=== PATIENT | female | born 1990 | race Caucasian/White ===

== ENCOUNTER 2016-06-24 12:56 | Outpatient (CLI) | payer MEDICAID ==
[~2016-06-24] VITALS: Ht 160 cm; Wt 71.2 kg
[~2016-06-24 12:56] MED LIST: AC325T PO; ACHD5005 PO; ACHYD1T PO; AGM875T PO; AMOX500C2 PO; BC PILLS; BUTA-234 PO; CEFD300C3 PO; CEPH500C PO; CIPR500T78 PO; CLIN-62; CPR500T PO; CYCL10TA9 PO; DCS100C PO; DICY10CA59 PO; DICY20TA57 PO; DICYCLOMINE HCL PO; DOCU100C37 PO; DOXY1TAB3 PO; FAMO-119 PO; FAMO20TA5 PO; FRS325T PO; Famotidine PO; GABA-486; HYDR-3714; HYDR-757 PO; HYDR1TAB PO; HYDR1TAB8 OP; HYDR50CA3 PO; IBP800T PO; IBUP-1780 PO; IBUP800T26 PO; LANS15CA PO; LIDO15SO2 MM; LNS30CCR PO; LORA-794 PO; METO10TA3 PO; METR500T PO; NAPR-243 PO; NITR-65 PO; NITR100C3 PO; ONDA-42 SL; ONDA4TAB10; ONDA8TAB13 PO; ONDA8TAB9 PO; ONDAN4ODT PO; ONDN4T PO; OSLT75CRX PO; OXYC-465 PO; PANT20TA2 PO; PNT40TEC PO; POLY119P5 PO; PRED20TA PO; PREN-102 PO; PREN1TAB71 PO; PREN1TAB79 PO; PROP10TA8 PO; TRAM50TA2 PO
[2016-06-24] MEDS ORDERED: PANT40TA2 PO (13:07)
[2016-06-24] MEDS ORDERED: OXYC-202 PO (13:07)
[2016-06-24] MEDS ORDERED: FAMO40TA6 PO (13:07)
[2016-06-24 13:33] VITALS: BP 137/87
[2016-06-24 13:45] LABS: BASOPHILS % (AUTO) 0 % (0-10); EOSINOPHILS % (AUTO) 1 % (0-10); LYMPHOCYTES % (AUTO) 24 % (12-44); MEAN CORPUSCULAR HEMOGLOBIN 25 PG (25-34); MEAN CORPUSCULAR HGB CONC 31 G/DL (32-36); MEAN CORPUSCULAR VOLUME 78 FL (80-99); MONOCYTES # (AUTO) 0.6 X 10^3 (0.0-1.0); MONOCYTES % (AUTO) 7 % (0-12); NEUTROPHILS # (AUTO) 5.8 X 10^3 (1.8-7.8); NEUTROPHILS % (AUTO) 69 % (42-75); PLATELET COUNT 381 10^3/uL (130-400); RED BLOOD COUNT 4.68 10^6/uL (4.35-5.85); RED CELL DISTRIBUTION WIDTH 19.1 % (10.0-14.5); WHITE BLOOD COUNT 8.4 10^3/uL (4.3-11.0)
== END 2016-06-24 13:19 | disposition home or self-care (01) ==
LOC: PREOP 12:56
PROVIDERS: ATTEND Obstetrics & Gynecology
DX: Z01.812 Encounter for preprocedural laboratory examination (principal); N80.0 Endometriosis of uterus; D64.9 Anemia, unspecified; Z11.2 Encounter for screening for other bacterial diseases
CPT/HCPCS: 36415; 85025; 87081

== ENCOUNTER 2016-06-29 10:57 | Day surgery (SDC) | payer MEDICAID ==
[~2016-06-29] VITALS: Ht 160 cm; Wt 71.2 kg
[~2016-06-29 10:57] MED LIST changes: +FAMO40TA6 PO; +OXYC-202 PO; +PANT40TA2 PO
[2016-06-29] MEDS ORDERED: NS (IVPB) 50 ML ONE (10:59)
[2016-06-29] MEDS ORDERED: ceFAZolin 1,000 MG (ANCEF) VIAL ONE (10:59)
[2016-06-29] MEDS ORDERED: ceFAZolin 1 GM/NS 50 ML IVPB IV ONE ×2 (11:15)
[2016-06-29] MEDS ORDERED: FAMOTIDINE 20MG/2ML IV (PEPCID) IV ONE (11:15)
[2016-06-29] MEDS ORDERED: CATHETER FLUSH 10 ML SYR IV PRN (11:15)
[2016-06-29] MEDS: LACTATED RINGERS 1,000 ML IV PRN ×2 (11:22→13:18)
[2016-06-29 11:26] VITALS: BP 148/86
[2016-06-29] MEDS ORDERED: LIDOCAINE PF 2% 10 ML (XYLOCAINE) AMP ONE (11:40)
[2016-06-29] MEDS ORDERED: ONDANSETRON 4 MG/2 ML (SDV) Z0FRAN ONE ×2 (11:40→13:21)
[2016-06-29] MEDS ORDERED: proPOfol 200 MG/20 ML (DIPRIVAN) VIAL IV ONE (11:40)
[2016-06-29] MEDS ORDERED: fentaNYL INJECTION 100 MCG/2 ML AMP ONE (11:40)
[2016-06-29] MEDS ORDERED: DEXAMETHASONE PF 10 MG/ML (DECADRON) VIAL ONE (11:40)
[2016-06-29] MEDS ORDERED: SEVOFLURANE (ULTANE) 15 ML INHAL SOLN ONE (11:40)
[2016-06-29] MEDS ORDERED: ROCURONIUM 50 MG/5 ML (ZEMURON) VIAL IV ONE (11:40)
[2016-06-29] MEDS ORDERED: LACTATED RINGERS 1,000 ML IV ONE ×2 (11:40→13:18)
[2016-06-29] MEDS ORDERED: MIDAZOLAM 2 MG/2 ML (VERSED) VIAL ONE (11:40)
[2016-06-29] MEDS ORDERED: BUP/EPI 0.25% 1:200,000 (MARCAINE) 30 ML VIAL ONE (12:03)
[2016-06-29] MEDS ORDERED: METHYLENE BLUE 1% INJ 1 ML AMP ONE (12:09)
[2016-06-29] MEDS ORDERED: D5 LR IV SOLUTION 1,000 ML IV SCH (12:27)
--- NOTE | 2016-06-29 12:29 | Progress Note-Pre Operative ---
Pre-Operative Progress Note H&P Reviewed The H&P was reviewed, patient examined and no changes noted. Date H&P Reviewed: Jun 29, 2016 Time H&P Reviewed: 12:29 Pre-Operative Diagnosis: RIGHT PELVIC PAIN AND RIGHT ADNEXAL COMPLEX CYSTIC MASS ANNA GONZALEZ MD Jun 29, 2016 12:29 pm
[2016-06-29] MEDS ORDERED: ONDANSETRON 4 MG/2 ML (SDV) Z0FRAN IVP PRN ×2 (12:30→13:30)
[2016-06-29] MEDS ORDERED: PROMETHAZINE INJ 25 MG/ML (PHENERGAN) AMP IM ONE (12:30)
[2016-06-29] MEDS ORDERED: MEPERIDINE (DEMEROL) INJ 100 MG/ML IM ONE (12:30)
[2016-06-29] MEDS ORDERED: OXYC-202 PO (12:30)
[2016-06-29] MEDS ORDERED: KETOROLAC 30 MG/ML VIAL IVP ONE (12:30)
[2016-06-29] MEDS ORDERED: oxyCODONE/APAP 10/325MG (PERCOCET 10) TABLET PO PRN (12:30)
--- NOTE | 2016-06-29 12:32 | Discharge Instructions ---
Discharge Instructions Discharge Medications New, Converted or Re-Newed RX: RX on Chart Patient Instructions Patient Instructions: DIRECTED Return to The Hospital For: DIRECTED Activity & Diet Discharge Diet: No Restrictions Activity as Tolerated: Yes Orders-Post D/C & Referrals Follow Up Appt: Call to make follow up appt. for patient in 1 weeks. Activity: Rest for 24 hours, than as tolerated. Wound Care: May remove Band-Aid tomorrow. Replace as desired. Keep incisions clean and dry. Wash daily with soap and water. Diet: As tolerated-Clear Liquids only if nauseated. may shower or tub bathe as desired. No driving for 24 hours, no alcoholic beverages for 24 hours. Patient to return to the clinic as soon as possible for: Temperature greater than 101F, Severe Pain, Foul discharge from incision or vagina, Excessive Bleeding (more than a period). ANNA GONZALEZ MD Jun 29, 2016 12:31 pm
[2016-06-29] MEDS ORDERED: NEOSTIGMINE (BLOXIVERZ ) 1 MG/1ML 10 ML VIAL ONE (13:18)
[2016-06-29] MEDS ORDERED: GLYCOPYRROLATE 0.2 MG/ML (ROBINUL) 2 ML VIAL ONE (13:18)
[2016-06-29] MEDS ORDERED: ESTROGENS CONJ IV 25 MG/5 ML (PREMARIN) VIAL ONE (13:21)
[2016-06-29] MEDS ORDERED: WATER (STERILE) FOR INJECTION 0 ML ONE (13:21)
[2016-06-29] MEDS ORDERED: morphine INJ 10 MG/ML 1ML (SYR OR VIAL) ONE (13:21)
[2016-06-29] MEDS ORDERED: morphine INJ 10 MG/ML 1ML (SYR OR VIAL) IVP PRN (13:30)
[2016-06-29] MEDS ORDERED: HYDROmorphone (DILAUDID) 2 MG/ML VIAL IVP PRN (13:30)
[2016-06-29] MEDS ORDERED: KETOROLAC 30 MG/ML VIAL ONE (13:42)
[2016-06-29 14:45] VITALS: BP 117/74
[2016-06-29 15:15] VITALS: BP 111/65
[2016-06-29 15:45] VITALS: BP 111/65
--- NOTE | 2016-06-30 12:07 | OPERATIVE REPORT ---
PROCEDURE PHYSICIAN: ANNA GONZALEZ DATE OF PROCEDURE: 06/29/2016 DATE OF DICTATION: 06/29/2016 PREOPERATIVE DIAGNOSIS: Chronic pelvic pain and complex right adnexal mass. POSTOPERATIVE DIAGNOSIS: 1. Chronic pelvic pain and complex right adnexal mass. 2. Likely appendicitis and appendiceal adhesions. 3. Torsed right ovary. OPERATIVE PROCEDURE: 1. Laparoscopic right salpingectomy with removal of mass contained inside the ovary. 2. As well as laparoscopic appendectomy. 3. Laparoscopic appendiceal adhesiolysis. OPERATIVE DESCRIPTION: With the patient in the supine position, under satisfactory general anesthesia, she was repositioned in dorsal lithotomy position in the [facility] then prepped and draped in the usual fashion for abdominal and vaginal surgery. The urinary bladder was emptied via straight cath. The vagina was then distended with a damp Kerlix gauze. The patient brought in low dorsal lithotomy position. A 5 mm incision made in the left upper quadrant and 12 mm incision in the inferior margin of the umbilicus and a 5 mm incision in the midportion of the patient's Pfannenstiel incision. All 3 incision sites were infiltrated with quarter percent Marcaine with epinephrine prior to incision. Veress needle was placed through the left upper quadrant incision, correct placement confirmed with the water drop test. The abdomen insufflated 2.4 liters of carbon dioxide and the Veress needle was removed and a 5 mm Optiview laparoscopic port placed under direct vision. The abdominal wall was transilluminated patient was placed in Trendelenburg and ports of 12 mm and 5 mm were placed infraumbilically and suprapubically through those incisions. The pelvis was examined. The ovaries were relatively normal in appearance. The right ovary was torsed on its pedicle a little over 180 degrees. It was still pink and viable. The laparoscope was rotated. The appendix was seen. It was adherent to the pelvic brim and looked injected and indurated in several areas. Decision was made to go ahead with appendectomy, concurrent with oophorectomy. The right ovary as it was laying there torsed, an Endoloop was just placed across the twisted pedicle. A second Endoloop was placed; both of them were secured and then cut short and then the ovary was resected distal to the Endoloops. The right ovary was then placed in an Endobag and brought out through the umbilical incision. The appendix was now grasped and elevated. The adhesions were taken free with very careful and meticulous adhesiolysis. The mesoappendix and then perforated close to the base of the appendix. Endo COMPA was placed across the base of the appendix and fired and then a second firing of the Endo COMPA across the mesoappendix, severed it from its attachments. The appendix was then placed in the second Endobag and brought out through the umbilical port as well. The stump of the appendix was copiously irrigated and then treated with several drops of Betadine solution. The pelvis was irrigated and examined for hemostasis, which was complete. With no further pathology of concern and hemostasis assured, the procedure was terminated. The patient was brought out of Trendelenburg. The operative instruments were removed under direct vision. The ports were removed under direct vision as well. There was no bleeding from any of the port sites. The skin incisions were closed with interrupted sutures of 3-0 nylon. The fascia at the umbilical incision was closed with [id number] suture of 2-0 Vicryl. Sponge and needle counts were correct at the end of procedure. Estimated blood loss was minimal. The patient tolerated the procedure well and was uneventfully awakened from her general anesthesia and transferred to recovery room in stable condition. The Kerlix gauze was removed from the vagina at the completion of the procedure. Job ID: [id number] Dictated Date: 06/29/2016 13:16:38 Buck Presser Date: 06/30/2016 11:57:32 / christian
== END 2016-06-29 15:45 | disposition home or self-care (01) ==
LOC: SDC 10:57
PROVIDERS: ATTEND Obstetrics & Gynecology
DX: N83.511 Torsion of right ovary and ovarian pedicle (principal); K37 Unspecified appendicitis; K38.0 Hyperplasia of appendix; N83.201 Unspecified ovarian cyst, right side
CPT/HCPCS: 88302; 88305

== ENCOUNTER 2016-07-13 19:44 | Emergency (ER) | payer MEDICAID ==
[~2016-07-13] VITALS: Ht 160 cm; Wt 69.4 kg
--- NOTE | 2016-07-13 20:18 | ED Abdominal Pain ---
General Chief Complaint: Abdominal/GI Problems Stated Complaint: LOWER ABD PAIN Source of Information: Patient Exam Limitations: No Limitations History of Present Illness Time Seen By Provider: 20:17 Initial Comments To ER with suprapubic and periumbilical abdominal pain has been worse and more persistent for the past 3 days. She denies fevers or chills. She denies constipation but has had diarrhea. She denies nausea or vomiting. She did have a laparoscopic right of rectum E and appendectomy on the of this month done here by Dr. Irvin. Timing/Duration: 2-3 Days Severity/Quality: Moderate Location: Periumbilical Radiation: No Radiation Associated Symptoms: Denies Symptoms Allergies and Home Medications Allergies Coded Allergies: azithromycin (Unverified Allergy, Mild, 07/24/08) Home Medications Famotidine 40 Mg Tablet, 40 MG PO DAILY, (Reported) Oxycodone HCl/Acetaminophen 1 Each Tablet, 1 EACH PO Q4H PRN for PAIN, #60 Prescribed by: ANNA SPICER on 06/29/16 1230 Pantoprazole Sodium 40 Mg Tablet.dr, 40 MG PO DAILY, (Reported) Review of Systems Constitutional: see HPI, No chills, No fever EENTM: No Symptoms Reported Respiratory: No Symptoms Reported Cardiovascular: No Symptoms Reported Gastrointestinal: See HPI, Abdominal Pain Genitourinary: No Symptoms Reported Skin: no symptoms reported Psychiatric/Neurological: No Symptoms Reported Endocrine: No Symptoms Reported Hematologic/Lymphatic: No Symptoms Reported Past Pjqatiq-Vhqdsj-Vboubw Hx Patient Social History Type Used: Cigarettes Recent Foreign Travel: No Contact w/Someone Who Travel: No Recent Hopitalizations: No Immunizations Up To Date Tetanus Booster (TDap): Less than 5yrs PED Vaccines UTD: Yes Date of Pneumonia Vaccine: Mar 20, 2014 Date of Influenza Vaccine: May 26, 2015 Seasonal Allergies Seasonal Allergies: Yes Surgeries HX Surgeries: Yes (CS X2) Surgeries: Section, Hysterectomy Respiratory Hx Respiratory Disorders: No Cardiovascular Hx Cardiac Disorders: Yes Cardiac Disorders: Palpitations Neurological Hx Neurological Disorders: No 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 System Hx 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 Disorders: Yes (cpp) 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 Disease: No HIV/AIDS: No Female 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: 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 Genitourinary Hx Genitourinary Disorders: No Gastrointestinal Hx Gastrointestinal Disorders: Yes Gastrointestinal Disorders: Gastroesophageal Reflux, Gall Bladder Disease Musculoskeletal Hx Musculoskeletal Disorders: Yes Musculoskeletal Disorders: Scoliosis Endocrine Hx Endocrine Disorders: Yes (gestational diabetes) HEENT HX ENT Disorders: Yes (GLASSES/CONTACTS) Loss of Vision: Bilateral Hearing Impairment: Denies Cancer Hx Cancer: No Psychosocial Hx Psychiatric Problems: Yes (PANIC ATTACKS) Behavioral Health Disorders: Anxiety, PTSD Integumentary HX Skin/Integumentary Disorder: Yes (IN WINTER) Skin/Integumentary Disorders: Eczema Blood Transfusions Hx Blood Disorders: Yes (ANEMIA) Adverse Reaction to a Blood Tr: No Family Medical History Family Medial History: Cardiovascular disease 19 FATHER Coronary thrombosis 19 FATHER 19 MOTHER Headache disorder 19 MOTHER Hypercholesterolemia 19 FATHER 19 MOTHER Hypertension 19 FATHER Myocardial infarction 19 FATHER 19 MOTHER Psychosocial problem 19 MOTHER (bipolar) No Family History of: AIDS Abdominal aortic aneurysm Vandergrift's disease Alcoholism Alzheimer's disease Aphasia Arthritis Asthma Cancer of mouth Cataracts Colon cancer Completed stroke Congenital disease Congenital heart disease Cystic fibrosis Deafness or hearing loss Dementia Diabetes mellitus Drug abuse Dysphasia Fibrocystic disease of breast Gastroenteritis Glaucoma Infertility Kidney disease Neoplasm Not obtainable due to adoption Osteoporosis Parkinson's disease Prostate cancer Respiratory disorder Seizure disorder Severe allergy Thyroid disease Tuberculosis Visual disorder Physical Exam Vital Signs VS - Last 72 Hours, by Label 07/13/16 20:09 Temp 98.4 Pulse 100 Resp 18 B/P (MAP) 134/93 Pulse Ox 100 O2 Delivery Room Air Capillary Refill : General Appearance: WD/WN, no apparent distress HEENT: PERRL/EOMI, normal ENT inspection Neck: non-tender, full range of motion Respiratory: no respiratory distress, no accessory muscle use Gastrointestinal: normal bowel sounds, soft, other (small yellowish colored ecchymosis inferior to the umbilicus appearing old, tenderness to palpation suprapubic and right lower quadrant abdomen) Extremities: normal range of motion, non-tender Neurologic/Psychiatric: alert, normal mood/affect, oriented x 3 Skin: normal color, warm/dry Progress/Results/Core Measures Results/Orders Lab Results Laboratory Tests Test 07/13/16 20:20 07/13/16 20:45 Range/Units White Blood Count 11.5 H 4.3-11.0 10^3/uL Red Blood Count 4.48 4.35-5.85 10^6/uL Hemoglobin 11.5 11.5-16.0 G/DL Hematocrit 36 35-52 % Mean Corpuscular Volume 81 80-99 FL Mean Corpuscular Hemoglobin 26 25-34 PG Mean Corpuscular Hemoglobin Concent 32 32-36 G/DL Red Cell Distribution Width 19.0 H 10.0-14.5 % Platelet Count 350 130-400 10^3/uL Mean Platelet Volume 10.3 7.4-10.4 FL Neutrophils (%) (Auto) 60 42-75 % Lymphocytes (%) (Auto) 28 12-44 % Monocytes (%) (Auto) 9 0-12 % Eosinophils (%) (Auto) 3 0-10 % Basophils (%) (Auto) 0 0-10 % Neutrophils # (Auto) 6.9 1.8-7.8 X 10^3 Lymphocytes # (Auto) 3.2 1.0-4.0 X 10^3 Monocytes # (Auto) 1.0 0.0-1.0 X 10^3 Eosinophils # (Auto) 0.3 0.0-0.3 10^3/uL Basophils # (Auto) 0.0 0.0-0.1 10^3/uL Sodium Level 139 135-145 MMOL/L Potassium Level 3.7 3.6-5.0 MMOL/L Chloride Level 104 98-107 MMOL/L Carbon Dioxide Level 24 21-32 MMOL/L Anion Gap 11 5-14 MMOL/L Blood Urea Nitrogen 7 7-18 MG/DL Creatinine 0.80 0.60-1.30 MG/DL Estimat Glomerular Filtration Rate > 60 BUN/Creatinine Ratio 9 Glucose Level 91 70-105 MG/DL Calcium Level 9.2 8.5-10.1 MG/DL Total Bilirubin 0.3 0.1-1.0 MG/DL Aspartate Amino Transf (AST/SGOT) 13 5-34 U/L Alanine Aminotransferase (ALT/SGPT) 16 0-55 U/L Alkaline Phosphatase 89 40-136 U/L Total Protein 7.7 6.4-8.2 G/DL Albumin 4.3 3.2-4.5 G/DL Urine Color YELLOW Urine Clarity SLIGHTLY CLOUDY Urine pH 6.5 5-9 Urine Specific [place] 1.010 L 1.016-1.022 Urine Protein NEGATIVE NEGATIVE Urine Glucose (UA) NEGATIVE NEGATIVE Urine Ketones NEGATIVE NEGATIVE Urine Nitrite NEGATIVE NEGATIVE Urine Bilirubin NEGATIVE NEGATIVE Urine Urobilinogen NORMAL NORMAL MG/DL Urine Leukocyte Esterase NEGATIVE NEGATIVE Urine RBC (Auto) NEGATIVE NEGATIVE Urine RBC NONE /HPF Urine WBC NONE /HPF Urine Squamous Epithelial Cells 0-2 /HPF Urine Crystals NONE /LPF Urine Bacteria NONE /HPF Urine Casts NONE /LPF Urine Mucus NEGATIVE /LPF Urine Culture Indicated NO My Orders Orders - LONG SANCHEZ APRN Cbc With Automated Diff (07/13/16 20:15) Comprehensive Metabolic Panel (07/13/16 20:15) Saline Lock/Iv-Start (07/13/16 20:15) Ct Abdomen/Pelvis W (07/13/16 20:15) Fentanyl Injection (Sublimaze Injection (07/13/16 20:30) Iohexol Injection (Omnipaque 350 Mg/Ml 1 (07/13/16 20:30) Ns (Ivpb) (Sodium Chloride 0.9% Ivpb Bag (07/13/16 20:30) Ondansetron Injection (Zofran Injectio (07/13/16 20:30) Ketorolac Injection (Toradol Injection) (07/13/16 21:30) Medications Given in ED Current Medications Medications Dose Ordered Sig/Vikki Route Start Time Stop Time Status Last Admin Dose Admin Fentanyl Citrate 50 mcg ONCE ONCE IVP 07/13/16 20:30 07/13/16 20:31 DC 07/13/16 20:44 50 MCG Iohexol 100 ml ONCE ONCE IV 07/13/16 20:30 07/13/16 20:31 DC 07/13/16 20:36 100 ML Ondansetron HCl 4 mg ONCE ONCE IVP 07/13/16 20:30 07/13/16 20:31 DC 07/13/16 20:44 4 MG Sodium Chloride 100 ml ONCE ONCE IV 07/13/16 20:30 07/13/16 20:31 DC 07/13/16 20:36 80 ML Vital Signs/I&O Vital Sign - Last 12Hours 07/13/16 20:09 Temp 98.4 Pulse 100 Resp 18 B/P (MAP) 134/93 Pulse Ox 100 O2 Delivery Room Air Diagnostic Imaging Diagonstic Imaging: CT Comments MED REC#: [id number] PT STATUS: REG ER : 1990 PHYSICIAN: LONG SANCHEZ APRN ADMIT DATE: 07/13/16/ER Draft Date of Exam:07/13/16 CT ABDOMEN/PELVIS W PROCEDURE: CT abdomen and pelvis with contrast. TECHNIQUE: Multiple contiguous axial images were obtained through the abdomen and pelvis after administration of intravenous contrast. DATE: July 13, 2016. COMPARISON: CT abdomen and pelvis November 30, 2015. INDICATION: 26-year-old female, increasing abdominal pain. History of recent surgery on June 29 with removal of the appendix and right ovary. FINDINGS: The visualized portions of the lung bases are clear. The heart is not enlarged. There is no pericardial effusion. The liver is normal in size and contour. There is no identified liver lesion. The main, right, and left portal vein are patent. There is very mild focal fat adjacent to the ligamentum teres. The gallbladder is contracted. There is no intrahepatic or extrahepatic bile duct dilation. The main pancreatic duct is not abnormally dilated. The pancreatic parenchyma is unremarkable. The spleen is not enlarged. The adrenal glands are unremarkable. Unremarkable appearance of the renal parenchyma. The urinary collecting systems are not distended. There is no identified renal or ureteral stone. The urinary bladder is unremarkable in appearance. The uterus is not seen and may be surgically absent. There is a low-attenuation lesion in the left ovary on axial image 63 likely relating to a follicle or cyst measuring up to 1.4 cm in size. There is a small-volume free pelvic fluid. There are sutures in the right lower quadrant compatible with provided history of appendectomy. There is mild inflammatory stranding between the small bowel loops in the left abdomen on axial image 36 as well as nonspecific wall thickening of the mid to distal sigmoid colon and additional small bowel loops within the pelvis. There is mild distention of the stomach with debris. There is no identified free intraperitoneal air or drainable fluid collection. There is no abnormally enlarged lymph node in the abdomen or pelvis which meets size criteria for adenopathy. There is no identified acute bony abnormality. IMPRESSION: CT ABDOMEN AND PELVIS. 1. Mild wall thickening of the mid to distal sigmoid colon, small bowel loops within the pelvis, and small bowel loops in the left abdomen with mild adjacent inflammatory stranding which may relate to an infectious or inflammatory colitis and enteritis. 2. No drainable fluid collection. No free intraperitoneal air. 3. Small amount of free pelvic fluid which potentially could be a physiologic finding. Dictated on workstation # [id number] Dict: 07/13/162046 Trans: 07/13/162056 [facility] [id number] Interpreted by: NABIL PACE MD Electronically signed by: Departure Communication Progress Notes K tracks shows that this month alone patient has had a prescription for 150 oxycodone 10/325 tablets and 60 hydrocodone 5/325 tablets. Impression Impression: Primary Impression: Enteritis Additional Impression: Chronic abdominal pain Disposition: HOME, SELF-CARE Condition: Stable Departure-Patient Inst. Decision time for Depature: 21:00 Referrals: [facility] (PCP/Family) Primary Care Physician Patient Instructions: Diarrhea in Adolescents and Adults Add. Discharge Instructions: 1. Follow-up with your regular doctor later this week for recheck 2. Drink plenty of fluids 3. Return to ER for any worsening such as fevers, worsening pain or other concerns All discharge instructions reviewed with patient and/or family. Voiced understanding. LONG SANCHEZ INFORMATION TECHNOLOGY OFFICER Jul 13, 2016 20:18
[2016-07-13 20:27] LABS: BASOPHILS % (AUTO) 0 % (0-10); EOSINOPHILS # (AUTO) 0.3 10^3/uL (0.0-0.3); EOSINOPHILS % (AUTO) 3 % (0-10); LYMPHOCYTES # (AUTO) 3.2 X 10^3 (1.0-4.0); LYMPHOCYTES % (AUTO) 28 % (12-44); MEAN CORPUSCULAR HEMOGLOBIN 26 PG (25-34); MEAN CORPUSCULAR HGB CONC 32 G/DL (32-36); MEAN CORPUSCULAR VOLUME 81 FL (80-99); MEAN PLATELET VOLUME 10.3 FL (7.4-10.4); MONOCYTES % (AUTO) 9 % (0-12); NEUTROPHILS # (AUTO) 6.9 X 10^3 (1.8-7.8); NEUTROPHILS % (AUTO) 60 % (42-75); PLATELET COUNT 350 10^3/uL (130-400); RED BLOOD COUNT 4.48 10^6/uL (4.35-5.85); WHITE BLOOD COUNT 11.5 10^3/uL (4.3-11.0)
[2016-07-13] MEDS ORDERED: NS 100 ML (IVPB) BAG IV ONE (20:30)
[2016-07-13] MEDS ORDERED: fentaNYL INJECTION 100 MCG/2 ML AMP IVP ONE (20:30)
[2016-07-13] MEDS ORDERED: IOHEXOL 350 MG/ML 100 ML (OMNIPAQUE 350) VIAL IV ONE (20:30)
[2016-07-13] MEDS ORDERED: ONDANSETRON 4 MG/2 ML (SDV) Z0FRAN IVP ONE (20:30)
[2016-07-13 20:46] LABS: ALANINE AMINOTRANSFERASE 16 U/L (0-55); ALBUMIN 4.3 G/DL (3.2-4.5); ANION GAP 11 MMOL/L (5-14); ASPARTATE AMINO TRANSFERASE 13 U/L (5-34); BILIRUBIN,TOTAL 0.3 MG/DL (0.1-1.0); BLOOD UREA NITROGEN 7 MG/DL (7-18); BUN/CREATININE RATIO 9; CALCIUM 9.2 MG/DL (8.5-10.1); CARBON DIOXIDE 24 MMOL/L (21-32); CHLORIDE 104 MMOL/L (98-107); GFR ESTIMATED > 60; GLUCOSE 91 MG/DL (70-105); POTASSIUM 3.7 MMOL/L (3.6-5.0); SODIUM 139 MMOL/L (135-145); TOTAL PROTEIN 7.7 G/DL (6.4-8.2)
--- NOTE | 2016-07-13 20:57 | Diagnostic Imaging Report ---
PROCEDURE: CT abdomen and pelvis with contrast. TECHNIQUE: Multiple contiguous axial images were obtained through the abdomen and pelvis after administration of intravenous contrast. DATE: July 13, 2016. COMPARISON: CT abdomen and pelvis November 30, 2015. INDICATION: 26-year-old female, increasing abdominal pain. History of recent surgery on June 29 with removal of the appendix and right ovary. FINDINGS: The visualized portions of the lung bases are clear. The heart is not enlarged. There is no pericardial effusion. The liver is normal in size and contour. There is no identified liver lesion. The main, right, and left portal vein are patent. There is very mild focal fat adjacent to the ligamentum teres. The gallbladder is contracted. There is no intrahepatic or extrahepatic bile duct dilation. The main pancreatic duct is not abnormally dilated. The pancreatic parenchyma is unremarkable. The spleen is not enlarged. The adrenal glands are unremarkable. Unremarkable appearance of the renal parenchyma. The urinary collecting systems are not distended. There is no identified renal or ureteral stone. The urinary bladder is unremarkable in appearance. The uterus is not seen and may be surgically absent. There is a low-attenuation lesion in the left ovary on axial image 63 likely relating to a follicle or cyst measuring up to 1.4 cm in size. There is a small-volume free pelvic fluid. There are sutures in the right lower quadrant compatible with provided history of appendectomy. There is mild inflammatory stranding between the small bowel loops in the left abdomen on axial image 36 as well as nonspecific wall thickening of the mid to distal sigmoid colon and additional small bowel loops within the pelvis. There is mild distention of the stomach with debris. There is no identified free intraperitoneal air or drainable fluid collection. There is no abnormally enlarged lymph node in the abdomen or pelvis which meets size criteria for adenopathy. There is no identified acute bony abnormality. IMPRESSION: CT ABDOMEN AND PELVIS. 1. Mild wall thickening of the mid to distal sigmoid colon, small bowel loops within the pelvis, and small bowel loops in the left abdomen with mild adjacent inflammatory stranding which may relate to an infectious or inflammatory colitis and enteritis. 2. No drainable fluid collection. No free intraperitoneal air. 3. Small amount of free pelvic fluid which potentially could be a physiologic finding. Dictated by: Dictated on workstation # [id number]
[2016-07-13 21:06] LABS: BILIRUBIN,URINE NEGATIVE (NEGATIVE); KETONES,URINE NEGATIVE (NEGATIVE); LEUKOCYTE ESTERASE ,URINE NEGATIVE (NEGATIVE); NITRITE,URINE NEGATIVE (NEGATIVE); PH,URINE 6.5 (5-9); PROTEIN,URINE NEGATIVE (NEGATIVE); SQUAMOUS EPITHELIAL CELL,UR 0-2 /HPF; UROBILINOGEN,URINE NORMAL (NORMAL)
[2016-07-13 21:28] VITALS: BP 128/73
[2016-07-13] MEDS ORDERED: KETOROLAC 30 MG/ML VIAL IVP ONE (21:30)
== END 2016-07-13 21:28 | disposition home or self-care (01) ==
LOC: EDUNIT# 19:44 → ER 19:45
DX: K52.9 Noninfective gastroenteritis and colitis, unspecified (principal)
CPT/HCPCS: 36415; 74177; 80053; 81000; 85025; 96374; 96375

== ENCOUNTER 2016-10-02 09:48 | Inpatient (IN) | payer MEDICAID ==
[~2016-10-02] VITALS: Ht 160 cm; Wt 74.0 kg
[2016-10-02] MEDS ORDERED: ACETAMINOPHEN 500 MG TAB (TYLENOL) PO STA (10:11)
[2016-10-02] MEDS ORDERED: ONDANSETRON 4 MG/2 ML (SDV) Z0FRAN ONE (10:22)
[2016-10-02 10:26] LABS: BASOPHILS % (AUTO) 0 % (0-10); EOSINOPHILS % (AUTO) 0 % (0-10); LYMPHOCYTES % (AUTO) 6 % (12-44); MEAN CORPUSCULAR HEMOGLOBIN 28 PG (25-34); MEAN CORPUSCULAR HGB CONC 33 G/DL (32-36); MEAN CORPUSCULAR VOLUME 84 FL (80-99); MEAN PLATELET VOLUME 11.2 FL (7.4-10.4); MONOCYTES # (AUTO) 1.5 X 10^3 (0.0-1.0); MONOCYTES % (AUTO) 8 % (0-12); NEUTROPHILS # (AUTO) 15.3 X 10^3 (1.8-7.8); NEUTROPHILS % (AUTO) 86 % (42-75); PLATELET COUNT 280 10^3/uL (130-400); RED BLOOD COUNT 4.52 10^6/uL (4.35-5.85); RED CELL DISTRIBUTION WIDTH 16.4 % (10.0-14.5); WHITE BLOOD COUNT 17.8 10^3/uL (4.3-11.0)
[2016-10-02] MEDS: NS IV 1000 ML 1,000 ML IV SCH ×2 (10:28→17:39)
[2016-10-02 10:40] LABS: ALANINE AMINOTRANSFERASE 21 U/L (0-55); ALBUMIN 4.1 GM/DL (3.2-4.5); ANION GAP 12 MMOL/L (5-14); ASPARTATE AMINO TRANSFERASE 29 U/L (5-34); BILIRUBIN,TOTAL 0.8 MG/DL (0.1-1.0); BLOOD UREA NITROGEN 7 MG/DL (7-18); BUN/CREATININE RATIO 8; CALCIUM 9.7 MG/DL (8.5-10.1); CARBON DIOXIDE 23 MMOL/L (21-32); CHLORIDE 98 MMOL/L (98-107); CREATININE SERUM 0.93 MG/DL (0.60-1.30); GFR ESTIMATED > 60; GLUCOSE 144 MG/DL (70-105); POTASSIUM 3.9 MMOL/L (3.6-5.0); SODIUM 133 MMOL/L (135-145)
--- NOTE | 2016-10-02 10:43 | ED Back Pain ---
General Chief Complaint: Back Problems Stated Complaint: KIDNEY PAIN/VOMITING Nursing Triage Note: PT C/O R FLANK PAIN, N/V, AND FEVER X 2 DAYS. SHE ALSO C/O PAIN WITH URINATION. Nursing Sepsis Screen: Possible Sepsis Risk Source of Information: Patient Exam Limitations: No Limitations History of Present Illness Time Seen by Provider: 10:38 Initial Comments This 26-year-old white female presents with a complaint of right flank pain and fever for the past 2 days patient has had associated dysuria. Patient has had nausea. Patient has had similar presentations in the past from significant urinary tract infections. Patient denies associated photophobia headache or stiff neck, productive cough or shortness of breath, palpitations or chest pain. Allergies and Home Medications Allergies Coded Allergies: azithromycin (Unverified Allergy, Mild, 07/24/08) Home Medications Famotidine 40 Mg Tablet, 40 MG PO DAILY, (Reported) Oxycodone HCl/Acetaminophen 1 Each Tablet, 1 EACH PO Q4H PRN for PAIN, #60 Prescribed by: ANNA SPICER on 06/29/16 1230 Pantoprazole Sodium 40 Mg Tablet.dr, 40 MG PO DAILY, (Reported) Constitutional: chills, fever EENTM: No blurred vision Respiratory: No cough, No short of breath Cardiovascular: No chest pain Gastrointestinal: nausea Genitourinary: dysuria, frequency, pain (right flank) Musculoskeletal: see HPI, back pain (right flank) Skin: No rash Psychiatric/Neurological: No Symptoms Reported Past Pqdabmo-Iqclgc-Mazpac Hx Patient Social History Alcohol Use: Denies Use Recreational Drug Use: No Smoking Status: Former Smoker Type Used: Cigarettes 2nd Hand Smoke Exposure: No Recent Foreign Travel: No Contact w/Someone Who Travel: No Recent Infectious Disease Expo: No Recent Hopitalizations: No Immunizations Up To Date Tetanus Booster (TDap): Less than 5yrs PED Vaccines UTD: Yes Date of Pneumonia Vaccine: Mar 20, 2014 Date of Influenza Vaccine: May 26, 2015 Seasonal Allergies Seasonal Allergies: Yes Surgeries HX Surgeries: Yes Surgeries: Appendectomy, Section, Hysterectomy, Oophorectomy Respiratory Hx Respiratory Disorders: No Cardiovascular Hx Cardiac Disorders: Yes Cardiac Disorders: Palpitations Neurological Hx Neurological Disorders: No 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 System Hx 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 Disorders: Yes 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 Disease: No HIV/AIDS: No Female 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 Disorders: 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, 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 Genitourinary Hx Genitourinary Disorders: No Gastrointestinal Hx Gastrointestinal Disorders: No Gastrointestinal Disorders: Gastroesophageal Reflux, Gall Bladder Disease Musculoskeletal Hx Musculoskeletal Disorders: Yes Musculoskeletal Disorders: Scoliosis Endocrine Hx Endocrine Disorders: Yes (gestational diabetes) HEENT HX ENT Disorders: Yes (GLASSES/CONTACTS) Loss of Vision: Bilateral Hearing Impairment: Denies Cancer Hx Cancer: No Psychosocial Hx Psychiatric Problems: Yes (PANIC ATTACKS) Behavioral Health Disorders: Anxiety, PTSD Integumentary HX Skin/Integumentary Disorder: Yes (IN WINTER) Skin/Integumentary Disorders: Eczema Blood Transfusions Hx Blood Disorders: Yes (ANEMIA) Adverse Reaction to a Blood Tr: No Reviewed Nursing Assessment Reviewed/Agree w Nursing PMH: Yes Family Medical History Family Medial History: Cardiovascular disease 19 FATHER Coronary thrombosis 19 FATHER 19 MOTHER Headache disorder 19 MOTHER Hypercholesterolemia 19 FATHER 19 MOTHER Hypertension 19 FATHER Myocardial infarction 19 FATHER 19 MOTHER Psychosocial problem 19 MOTHER (bipolar) No Family History of: AIDS Abdominal aortic aneurysm Stearns's disease Alcoholism Alzheimer's disease Aphasia Arthritis Asthma Cancer of mouth Cataracts Colon cancer Completed stroke Congenital disease Congenital heart disease Cystic fibrosis Deafness or hearing loss Dementia Diabetes mellitus Drug abuse Dysphasia Fibrocystic disease of breast Gastroenteritis Glaucoma Infertility Kidney disease Neoplasm Not obtainable due to adoption Osteoporosis Parkinson's disease Prostate cancer Respiratory disorder Seizure disorder Severe allergy Thyroid disease Tuberculosis Visual disorder Physical Exam Vital Signs Vital Sign - Last 12Hours 10/02/16 10:05 Temp 101.6 Pulse 135 Resp 16 B/P (MAP) 135/93 Pulse Ox 97 O2 Delivery Room Air Capillary Refill : Less Than 3 Seconds General Appearance: No Apparent Distress, Moderate Distress HEENT: Normal ENT Inspection Neck: Normal Inspection Cardiovascular: No No Murmur, Tachycardia Respiratory: Lungs Clear Gastrointestinal: Normal Bowel Sounds, Soft Back: CVA Tenderness (R) Extremity: Normal Capillary Refill, Normal Inspection, Normal Range of Motion Neurologic/Psychiatric: Oriented x3, No Motor/Sensory Deficits, Normal Mood/ Affect Skin: Normal Color, Warm/Dry Progress/Results/Core Measures Results/Orders Lab Results Laboratory Tests Test 10/02/16 10:10 10/02/16 11:35 Range/Units White Blood Count 17.8 H 4.3-11.0 10^3/uL Red Blood Count 4.52 4.35-5.85 10^6/uL Hemoglobin 12.5 11.5-16.0 G/DL Hematocrit 38 35-52 % Mean Corpuscular Volume 84 80-99 FL Mean Corpuscular Hemoglobin 28 25-34 PG Mean Corpuscular Hemoglobin Concent 33 32-36 G/DL Red Cell Distribution Width 16.4 H 10.0-14.5 % Platelet Count 280 130-400 10^3/uL Mean Platelet Volume 11.2 H 7.4-10.4 FL Neutrophils (%) (Auto) 86 H 42-75 % Lymphocytes (%) (Auto) 6 L 12-44 % Monocytes (%) (Auto) 8 0-12 % Eosinophils (%) (Auto) 0 0-10 % Basophils (%) (Auto) 0 0-10 % Neutrophils # (Auto) 15.3 H 1.8-7.8 X 10^3 Lymphocytes # (Auto) 1.0 1.0-4.0 X 10^3 Monocytes # (Auto) 1.5 H 0.0-1.0 X 10^3 Eosinophils # (Auto) 0.0 0.0-0.3 10^3/uL Basophils # (Auto) 0.0 0.0-0.1 10^3/uL Neutrophils % (Manual) 86 % Lymphocytes % (Manual) 5 % Monocytes % (Manual) 9 % Eosinophils % (Manual) 0 % Basophils % (Manual) 0 % Band Neutrophils 0 % Blood Morphology Comment NORMAL Sodium Level 133 L 135-145 MMOL/L Potassium Level 3.9 3.6-5.0 MMOL/L Chloride Level 98 98-107 MMOL/L Carbon Dioxide Level 23 21-32 MMOL/L Anion Gap 12 5-14 MMOL/L Blood Urea Nitrogen 7 7-18 MG/DL Creatinine 0.93 0.60-1.30 MG/DL Estimat Glomerular Filtration Rate > 60 BUN/Creatinine Ratio 8 Glucose Level 144 H 70-105 MG/DL Lactic Acid Level 1.15 0.50-2.00 MMOL/L Calcium Level 9.7 8.5-10.1 MG/DL Total Bilirubin 0.8 0.1-1.0 MG/DL Aspartate Amino Transf (AST/SGOT) 29 5-34 U/L Alanine Aminotransferase (ALT/SGPT) 21 0-55 U/L Alkaline Phosphatase 125 40-136 U/L Total Protein 8.0 6.4-8.2 GM/DL Albumin 4.1 3.2-4.5 GM/DL Urine Color YELLOW Urine Clarity SLIGHTLY CLOUDY Urine pH 6 5-9 Urine Specific [place] 1.005 L 1.016-1.022 Urine Protein 3+ H NEGATIVE Urine Glucose (UA) NEGATIVE NEGATIVE Urine Ketones NEGATIVE NEGATIVE Urine Nitrite POSITIVE H NEGATIVE Urine Bilirubin NEGATIVE NEGATIVE Urine Urobilinogen NORMAL NORMAL MG/DL Urine Leukocyte Esterase 3+ H NEGATIVE Urine RBC (Auto) 4+ H NEGATIVE Urine RBC 0-2 /HPF Urine WBC TNTC H /HPF Urine Squamous Epithelial Cells 2-5 /HPF Urine Crystals NONE /LPF Urine Bacteria NEGATIVE /HPF Urine Casts NONE /LPF Urine Mucus NEGATIVE /LPF Urine Culture Indicated YES My Orders Orders - LYSSA EVERETT MD Acetaminophen Tablet (Tylenol Tablet) (10/02/16 10:11) Cbc With Automated Diff (10/02/16 10:11) Comprehensive Metabolic Panel (10/02/16 10:11) Blood Culture (10/02/16 10:11) Lactic Acid Analyzer (10/02/16 10:11) Ua Culture If Indicated (10/02/16 10:11) Chest 1 View, Ap/Pa Only (10/02/16 10:11) Ns Iv 1000 Ml (Sodium Chloride 0.9%) (10/02/16 10:15) Saline Lock/Iv-Start (10/02/16 10:22) Manual Differential (10/02/16 10:10) Ondansetron Injection (Zofran Injectio (10/02/16 10:22) Fentanyl Injection (Sublimaze Injection (10/02/16 11:00) Ceftriaxone Injection (Rocephin Injectio (10/02/16 11:00) Ceftriaxone Injection (Rocephin Injectio (10/02/16 10:52) Ceftriaxone Injection (Rocephin Injectio (10/02/16 11:15) Promethazine Injection (Phenergan Injec (10/02/16 11:15) Ns Iv 1000 Ml (Sodium Chloride 0.9%) (10/02/16 11:15) Fentanyl Injection (Sublimaze Injection (10/02/16 12:00) Urine Culture (10/02/16 11:35) Medications Given in ED Current Medications Medications Dose Ordered Sig/Vikki Route Start Time Stop Time Status Last Admin Dose Admin Ceftriaxone Sodium 2,000 mg ONCE ONCE IV 10/02/16 11:15 10/02/16 11:16 DC 10/02/16 11:08 2,000 MG Fentanyl Citrate 50 mcg ONCE ONCE IVP 10/02/16 11:00 10/02/16 11:01 DC 10/02/16 11:08 50 MCG Fentanyl Citrate 50 mcg ONCE ONCE IVP 10/02/16 12:00 10/02/16 12:02 DC 10/02/16 11:59 50 MCG Ondansetron HCl 4 mg STK-MED ONCE .ROUTE 10/02/16 10:22 10/02/16 10:28 DC 10/02/16 10:30 4 MG Promethazine HCl 25 mg ONCE ONCE IVP 10/02/16 11:15 10/02/16 11:16 DC 10/02/16 11:23 25 MG Vital Signs/I&O Vital Sign - Last 12Hours 10/02/16 10:05 Temp 101.6 Pulse 135 Resp 16 B/P (MAP) 135/93 Pulse Ox 97 O2 Delivery Room Air Blood Pressure Mean: 107 Progress Note : Time: 12:33 Progress Note Patient received 2 L of normal saline IV. Patient's catheter urine was consistent with significant urinary tract infection. Patient demonstrated a marked leukocytosis. The patient received 2 g Rocephin IV. The patient's pain was treated with IV fentanyl. The patient was given Zofran and subsequently Phenergan for her nausea. Telephone consultation was undertaken with Dr. Chen was kind enough to accept the patient. Orders written the patient was transferred to the floor with right pyelonephritis. Departure Communication Time/Spoke to Admitting Phy: 12:[address] Francisco. Impression Impression: Primary Impression: Pyelonephritis Disposition: ADMITTED INPATIENT Condition: Improved Departure-Patient Inst. Referrals: [facility] (PCP/Family) Primary Care Physician LYSSA EVERETT MD Oct 02, 2016 10:43
[2016-10-02 10:46] LABS: BAND NEUTROPHILS 0 %; BASOPHILS % (MANUAL) 0 %; EOSINOPHILS % (MANUAL) 0 %; LYMPHOCYTES % (MANUAL) 5 %; NEUTROPHILS % (MANUAL) 86 %
[2016-10-02] MEDS ORDERED: cefTRIAXone 1 GM (ROCEPHIN) VIAL ONE (10:52)
[2016-10-02] MEDS ORDERED: fentaNYL INJECTION 100 MCG/2 ML AMP IVP ONE ×2 (11:00→12:00)
[2016-10-02] MEDS ORDERED: cefTRIAXone INJECTION 2,000 MG in NS (IVPB) 50 ML IV ONE (11:00)
--- NOTE | 2016-10-02 11:09 | Diagnostic Imaging Report ---
INDICATION: Fever, flank pain COMPARISON: 10/08/10 FINDINGS: Single view of the chest demonstrate clear lungs bilaterally. The heart is normal. No pneumothorax. The osseous structures normal. IMPRESSION: Negative chest. Dictated by: Dictated on workstation # [id number]
[2016-10-02] MEDS ORDERED: NS IV 1000 ML 1,000 ML IV SCH (11:15)
[2016-10-02] MEDS ORDERED: cefTRIAXone 1 GM (ROCEPHIN) VIAL IV ONE (11:15)
[2016-10-02] MEDS ORDERED: PROMETHAZINE INJ 25 MG/ML (PHENERGAN) AMP IVP ONE (11:15)
[2016-10-02 11:53] LABS: BILIRUBIN,URINE NEGATIVE (NEGATIVE); KETONES,URINE NEGATIVE (NEGATIVE); LEUKOCYTE ESTERASE ,URINE 3+ (NEGATIVE); NITRITE,URINE POSITIVE (NEGATIVE); PH,URINE 6 (5-9); PROTEIN,URINE 3+ (NEGATIVE); UROBILINOGEN,URINE NORMAL (NORMAL)
[2016-10-02 12:24] LABS: WBC,URINE TNTC /HPF
[2016-10-02 13:30] VITALS: BP 135/56
[2016-10-02] MEDS: fentaNYL INJECTION 100 MCG/2 ML AMP IV PRN ×3 (14:22→21:27)
[2016-10-02] MEDS ORDERED: DIPH25CA79 PO (14:35)
[2016-10-02] MEDS ORDERED: DICY10CA59 PO (14:35)
[2016-10-02] MEDS: POTASSIUM CHLORIDE INJ 10 MEQ in NS IV 1000 ML 1,000 ML IV SCH ×2 (14:39→21:27)
[2016-10-02] MEDS ORDERED: ACETAMINOPHEN 325 MG TABLET/CAPLET (TYLENOL) PO PRN (15:45)
[2016-10-02] MEDS: IBUPROFEN 600 MG (MOTRIN) TAB PO PRN (16:09)
[2016-10-02 16:32] VITALS: BP 138/85
[2016-10-02] MEDS: HYDROcodone/APAP 5 MG/325 MG (LORTAB) TAB PO PRN ×2 (17:10→23:31)
[2016-10-02 17:11] VITALS: BP 127/64
[2016-10-02 20:00] VITALS: BP 90/60
[2016-10-03] VITALS: BP 81/50
[2016-10-03] MEDS: fentaNYL INJECTION 100 MCG/2 ML AMP IV PRN ×5 (00:35→21:34)
[2016-10-03] MEDS: IBUPROFEN 600 MG (MOTRIN) TAB PO PRN ×2 (00:35→15:42)
[2016-10-03 04:00] VITALS: BP 95/52
[2016-10-03] MEDS: POTASSIUM CHLORIDE INJ 10 MEQ in NS IV 1000 ML 1,000 ML IV SCH (04:31)
[2016-10-03] MEDS: NS IV 1000 ML 1,000 ML IV SCH (05:23)
[2016-10-03] MEDS: PROMETHAZINE INJ 25 MG/ML (PHENERGAN) AMP IV PRN ×3 (06:24→18:04)
[2016-10-03 06:37] LABS: BASOPHILS % (AUTO) 0 % (0-10); EOSINOPHILS # (AUTO) 0.1 10^3/uL (0.0-0.3); EOSINOPHILS % (AUTO) 1 % (0-10); LYMPHOCYTES # (AUTO) 2.5 X 10^3 (1.0-4.0); LYMPHOCYTES % (AUTO) 15 % (12-44); MEAN CORPUSCULAR HEMOGLOBIN 28 PG (25-34); MEAN CORPUSCULAR HGB CONC 32 G/DL (32-36); MEAN CORPUSCULAR VOLUME 87 FL (80-99); MEAN PLATELET VOLUME 11.3 FL (7.4-10.4); MONOCYTES # (AUTO) 1.1 X 10^3 (0.0-1.0); MONOCYTES % (AUTO) 7 % (0-12); NEUTROPHILS # (AUTO) 12.5 X 10^3 (1.8-7.8); NEUTROPHILS % (AUTO) 77 % (42-75); PLATELET COUNT 195 10^3/uL (130-400); RED BLOOD COUNT 3.63 10^6/uL (4.35-5.85); RED CELL DISTRIBUTION WIDTH 16.7 % (10.0-14.5); WHITE BLOOD COUNT 16.2 10^3/uL (4.3-11.0)
[2016-10-03 06:58] LABS: ALANINE AMINOTRANSFERASE 24 U/L (0-55); ALBUMIN 2.9 GM/DL (3.2-4.5); ANION GAP 7 MMOL/L (5-14); ASPARTATE AMINO TRANSFERASE 28 U/L (5-34); BILIRUBIN,TOTAL 0.3 MG/DL (0.1-1.0); BLOOD UREA NITROGEN 10 MG/DL (7-18); BUN/CREATININE RATIO 13; CALCIUM 8.2 MG/DL (8.5-10.1); CARBON DIOXIDE 20 MMOL/L (21-32); CHLORIDE 111 MMOL/L (98-107); CREATININE SERUM 0.76 MG/DL (0.60-1.30); GFR ESTIMATED > 60; GLUCOSE 75 MG/DL (70-105); POTASSIUM 3.9 MMOL/L (3.6-5.0); SODIUM 138 MMOL/L (135-145); TOTAL PROTEIN 5.7 GM/DL (6.4-8.2)
[2016-10-03 08:35] VITALS: BP 103/70
[2016-10-03] MEDS ORDERED: ONDANSETRON 4 MG/2 ML (SDV) Z0FRAN ONE (09:06)
[2016-10-03] MEDS: cefTRIAXone INJECTION 1,000 MG in NS (IVPB) 50 ML IV SCH (09:08)
[2016-10-03] MEDS: HYDROcodone/APAP 5 MG/325 MG (LORTAB) TAB PO PRN ×2 (09:27→15:42)
[2016-10-03] MEDS: ONDANSETRON 4 MG/2 ML (SDV) Z0FRAN IVP PRN (09:28)
[2016-10-03] MEDS ORDERED: FAMO-119 PO (09:56)
[2016-10-03 12:00] VITALS: BP 110/73
[2016-10-03] MEDS: 1/2 NS IV SOLUTION 1,000 ML IV SCH ×2 (12:38→21:30)
[2016-10-03 16:18] LABS: BILIRUBIN,URINE NEGATIVE (NEGATIVE); KETONES,URINE NEGATIVE (NEGATIVE); LEUKOCYTE ESTERASE ,URINE 3+ (NEGATIVE); NITRITE,URINE NEGATIVE (NEGATIVE); PH,URINE 6 (5-9); PROTEIN,URINE 3+ (NEGATIVE); UROBILINOGEN,URINE 1 MG/DL (NORMAL)
[2016-10-03 16:24] LABS: WBC,URINE >100 /HPF
[2016-10-03 16:25] VITALS: BP 137/84
--- NOTE | 2016-10-03 18:34 | History & Physicial (CHS) ---
HPI History of Present Illness: 26 yo F that presented with R flank pain for the last 3 days prior to admission. States that she has been having fevers and chills the last 2 days. Pain was only minimally improved with motrin and tylenol at home. She has had decreased PO intake for the last 2 days. Have hysterectomy in June with Dr Rodney. No previous similar symptoms Source: patient Exam Limitations: no limitations Date seen by provider: Oct 03, 2016 Time Seen by Provider: 10:45 Attending Physician Dania Francisco MD PCP [facility] Date of Admission Oct 02, 2016 at 12:59 Home Medications Home Medications Reviewed patient Home Medication Reconciliation Form Allergies Coded Allergies: azithromycin (Unverified Allergy, Mild, 07/24/08) SMO-Gviebr-Eabrrn Hx Patient Social History Alcohol Use: Denies Use Recreational Drug Use: No Smoking Status: Former Smoker Type Used: Cigarettes 2nd Hand Smoke Exposure: No Recent Foreign Travel: No Contact w/other who traveled: No Recent Hopitalizations: No Recent Infectious Disease Expo: No Physical Abuse Screen: No Sexual Abuse: No Immunizations Up To Date Tetanus Booster (TDap): Less than 5yrs Date of Pneumonia Vaccine: Mar 20, 2014 Date of Influenza Vaccine: May 26, 2015 Past Medical History Surg H/o - Hysterectomy 06/1026 Family Medical History Family History: Cardiovascular disease 19 FATHER Coronary thrombosis 19 FATHER 19 MOTHER Headache disorder 19 MOTHER Hypercholesterolemia 19 FATHER 19 MOTHER Hypertension 19 FATHER Myocardial infarction 19 FATHER 19 MOTHER Psychosocial problem 19 MOTHER (bipolar) No Family History of: AIDS Abdominal aortic aneurysm Derrek's disease Alcoholism Alzheimer's disease Aphasia Arthritis Asthma Cancer of mouth Cataracts Colon cancer Completed stroke Congenital disease Congenital heart disease Cystic fibrosis Deafness or hearing loss Dementia Diabetes mellitus Drug abuse Dysphasia Fibrocystic disease of breast Gastroenteritis Glaucoma Infertility Kidney disease Neoplasm Not obtainable due to adoption Osteoporosis Parkinson's disease Prostate cancer Respiratory disorder Seizure disorder Severe allergy Thyroid disease Tuberculosis Visual disorder Review of Systems (CHC) Constitutional: chills, fever, malaise EENTM: no symptoms reported Respiratory: no symptoms reported, No cough, No dyspnea on exertion Cardiovascular: no symptoms reported, No chest pain, No edema, No palpitations Gastrointestinal: abdominal pain (RLQ), nausea, vomiting Genitourinary: dysuria, frequency, hematuria, pain : No Musculoskeletal: back pain (Right) Skin: no symptoms reported Psychiatric/Neurological: No Symptoms Reported Reviewed Test Results Reviewed Test Results Lab Laboratory Tests Test 10/03/16 06:10 10/03/16 15:00 Range/Units White Blood Count 16.2 H 4.3-11.0 10^3/uL Red Blood Count 3.63 L 4.35-5.85 10^6/uL Hemoglobin 10.1 L 11.5-16.0 G/DL Hematocrit 31 L 35-52 % Mean Corpuscular Volume 87 80-99 FL Mean Corpuscular Hemoglobin 28 25-34 PG Mean Corpuscular Hemoglobin Concent 32 32-36 G/DL Red Cell Distribution Width 16.7 H 10.0-14.5 % Platelet Count 195 130-400 10^3/uL Mean Platelet Volume 11.3 H 7.4-10.4 FL Neutrophils (%) (Auto) 77 H 42-75 % Lymphocytes (%) (Auto) 15 12-44 % Monocytes (%) (Auto) 7 0-12 % Eosinophils (%) (Auto) 1 0-10 % Basophils (%) (Auto) 0 0-10 % Neutrophils # (Auto) 12.5 H 1.8-7.8 X 10^3 Lymphocytes # (Auto) 2.5 1.0-4.0 X 10^3 Monocytes # (Auto) 1.1 H 0.0-1.0 X 10^3 Eosinophils # (Auto) 0.1 0.0-0.3 10^3/uL Basophils # (Auto) 0.0 0.0-0.1 10^3/uL Sodium Level 138 135-145 MMOL/L Potassium Level 3.9 3.6-5.0 MMOL/L Chloride Level 111 #H 98-107 MMOL/L Carbon Dioxide Level 20 L 21-32 MMOL/L Anion Gap 7 5-14 MMOL/L Blood Urea Nitrogen 10 7-18 MG/DL Creatinine 0.76 0.60-1.30 MG/DL Estimat Glomerular Filtration Rate > 60 BUN/Creatinine Ratio 13 Glucose Level 75 70-105 MG/DL Calcium Level 8.2 L 8.5-10.1 MG/DL Total Bilirubin 0.3 0.1-1.0 MG/DL Aspartate Amino Transf (AST/SGOT) 28 5-34 U/L Alanine Aminotransferase (ALT/SGPT) 24 0-55 U/L Alkaline Phosphatase 119 40-136 U/L Total Protein 5.7 L 6.4-8.2 GM/DL Albumin 2.9 L 3.2-4.5 GM/DL Urine Color PAULA H Urine Clarity SLIGHTLY CLOUDY Urine pH 6 5-9 Urine Specific [place] 1.015 L 1.016-1.022 Urine Protein 3+ H NEGATIVE Urine Glucose (UA) NEGATIVE NEGATIVE Urine Ketones NEGATIVE NEGATIVE Urine Nitrite NEGATIVE NEGATIVE Urine Bilirubin NEGATIVE NEGATIVE Urine Urobilinogen 1 NORMAL MG/DL Urine Leukocyte Esterase 3+ H NEGATIVE Urine RBC (Auto) 2+ H NEGATIVE Urine RBC 5-10 H /HPF Urine WBC >100 H /HPF Urine Squamous Epithelial Cells 10-25 H /HPF Urine Crystals NONE /LPF Urine Bacteria TRACE /HPF Urine Casts NONE /LPF Urine Mucus SMALL H /LPF Urine Culture Indicated YES Radiology Date of Exam: 10/02/16 CHEST 1 VIEW, AP/PA ONLY INDICATION: Fever, flank pain COMPARISON: 10/08/10 FINDINGS: Single view of the chest demonstrate clear lungs bilaterally. The heart is normal. No pneumothorax. The osseous structures normal. IMPRESSION: Negative chest. Physical Exam-(CHC) Physical Exam Vital Signs VS - Last 72 Hours, by Label 10/02/16 10/02/16 10/02/16 10/02/16 10:05 13:20 13:30 16:32 Temp 101.6 99.2 100.6 105.8 Pulse 135 100 94 131 Resp 16 16 18 40 B/P (MAP) 135/93 135/56 138/85 Pulse Ox 97 97 99 96 O2 Delivery Room Air Room Air Room Air 10/02/16 10/02/16 10/02/16 10/02/16 17:11 18:00 18:58 20:00 Temp 102.7 101.4 98.8 98.1 Pulse 124 112 109 Resp 24 14 B/P (MAP) 127/64 90/60 Pulse Ox 96 98 O2 Delivery Room Air Room Air 10/03/16 10/03/16 10/03/16 10/03/16 00:00 04:00 08:35 12:00 Temp 96.3 97.0 98.0 99.1 Pulse 79 76 83 101 Resp 16 16 20 20 B/P (MAP) 81/50 95/52 103/70 110/73 Pulse Ox 97 97 97 90 O2 Delivery Room Air Room Air Room Air Room Air 10/03/16 10/03/16 16:12 16:25 Temp 101.8 101.8 Pulse 110 Resp 24 B/P (MAP) 137/84 Pulse Ox 96 O2 Delivery Room Air Capillary Refill : Less Than 3 Seconds General Appearance: WD/WN, no apparent distress HEENT: PERRL/EOMI Neck: non-tender, full range of motion, supple, normal inspection Respiratory: chest non-tender, lungs clear, normal breath sounds, no respiratory distress, no accessory muscle use Cardiovascular: normal peripheral pulses, regular rate, rhythm, no edema, no gallop, no JVD, no murmur Gastrointestinal: normal bowel sounds, soft, no organomegaly, No guarding, No rebound, tenderness (mild tenderness on the R half of abdomen) Back: CVA tenderness (R) Extremities: normal range of motion, non-tender, normal inspection, no pedal edema, no calf tenderness Neurologic/Psychiatric: reconciliation specialist II-XII nml as tested, no motor/sensory deficits, alert, normal mood/affect, oriented x 3 Skin: normal color, warm/dry Lymphatic: no adenopathy Assessment/Plan Assessment/Plan Plan 26 yo F admitted for Sepsis with Pyelonephritis Sepsis with Pyelonephritis - Broad spectrum antibiotics started - Blood and urine cultures growing Ecoli - IVF resuscitation completed, blood pressure stabilized - Normal LA Flank Pain - Started on [place] and has IV for breakthrough pain Nausea and Vomiting - Phenergan and Zofran PRN alternating FEN: Reg diet DVT PPX: SCDs, patient is fully ambulatory Dispo: Admit to Med surg for IV antibiotics Diagnosis/Problems: Clinical Quality Measures DVT/VTE Risk/Contraindication: Risk Factor Score Per Nursin RFS Level Per Nursing on Admit: 1=Low/No VTE PPX Copy Copies To 1: BEAR FRANCISCO,DANIA Rolon MD Oct 03, 2016 18:34
[2016-10-03 19:51] VITALS: BP 109/70
[2016-10-03] MEDS: FAMOTIDINE 20 MG (PEPCID) TABLET PO SCH (20:16)
[2016-10-04] VITALS: BP 107/62
[2016-10-04 04:00] VITALS: BP 131/82
[2016-10-04] MEDS: fentaNYL INJECTION 100 MCG/2 ML AMP IV PRN ×2 (04:33→10:34)
[2016-10-04] MEDS: ONDANSETRON 4 MG/2 ML (SDV) Z0FRAN IVP PRN (04:33)
[2016-10-04] MEDS: 1/2 NS IV SOLUTION 1,000 ML IV SCH ×2 (05:18→16:32)
[2016-10-04] MEDS: IBUPROFEN 600 MG (MOTRIN) TAB PO PRN ×2 (05:18→21:32)
[2016-10-04 05:20] LABS: ALANINE AMINOTRANSFERASE 20 U/L (0-55); ANION GAP 11 MMOL/L (5-14); ASPARTATE AMINO TRANSFERASE 18 U/L (5-34); BILIRUBIN,TOTAL 0.2 MG/DL (0.1-1.0); BLOOD UREA NITROGEN 7 MG/DL (7-18); BUN/CREATININE RATIO 9; CALCIUM 8.5 MG/DL (8.5-10.1); CARBON DIOXIDE 17 MMOL/L (21-32); CHLORIDE 107 MMOL/L (98-107); CREATININE SERUM 0.75 MG/DL (0.60-1.30); GFR ESTIMATED > 60; GLUCOSE 108 MG/DL (70-105); POTASSIUM 4.2 MMOL/L (3.6-5.0); SODIUM 135 MMOL/L (135-145); TOTAL PROTEIN 6.2 GM/DL (6.4-8.2)
[2016-10-04] MEDS: PROMETHAZINE INJ 25 MG/ML (PHENERGAN) AMP IV PRN ×3 (05:26→16:25)
[2016-10-04] MEDS: PANTOPRAZOLE 40 MG (PROTONIX) TAB PO SCH (06:01)
[2016-10-04 07:52] LABS: BASOPHILS % (AUTO) 0 % (0-10); EOSINOPHILS # (AUTO) 0.1 10^3/uL (0.0-0.3); EOSINOPHILS % (AUTO) 1 % (0-10); LYMPHOCYTES # (AUTO) 1.9 X 10^3 (1.0-4.0); LYMPHOCYTES % (AUTO) 18 % (12-44); MEAN CORPUSCULAR HEMOGLOBIN 27 PG (25-34); MEAN CORPUSCULAR HGB CONC 32 G/DL (32-36); MEAN CORPUSCULAR VOLUME 85 FL (80-99); MEAN PLATELET VOLUME 11.4 FL (7.4-10.4); MONOCYTES # (AUTO) 0.8 X 10^3 (0.0-1.0); MONOCYTES % (AUTO) 8 % (0-12); NEUTROPHILS # (AUTO) 7.7 X 10^3 (1.8-7.8); NEUTROPHILS % (AUTO) 73 % (42-75); PLATELET COUNT 209 10^3/uL (130-400); RED BLOOD COUNT 3.41 10^6/uL (4.35-5.85); RED CELL DISTRIBUTION WIDTH 16.8 % (10.0-14.5); WHITE BLOOD COUNT 10.6 10^3/uL (4.3-11.0)
[2016-10-04 08:00] VITALS: BP_SYST 100; BP_SYST 108; BP_DIAS 50; BP_DIAS 66
[2016-10-04] MEDS: cefTRIAXone INJECTION 1,000 MG in NS (IVPB) 50 ML IV SCH (08:34)
[2016-10-04] MEDS ORDERED: KETOROLAC 60 MG/2 ML VIAL IM NR (10:45)
[2016-10-04] MEDS ORDERED: IBUP-1773 PO (10:53)
[2016-10-04] MEDS ORDERED: SULF1TAB35 PO (10:53)
--- NOTE | 2016-10-04 11:00 | Discharge Instructions ---
Discharge [facility] Discharge Medications New, Converted or Re-Newed RX: Transmitted to Pharmacy New Medications: Sulfamethoxazole/Trimethoprim (Bactrim Ds Tablet) 1 Each Tablet 1 EACH PO BID for 10 Days, #20 TAB Ibuprofen (Ibuprofen) 600 Mg Tablet 600 MG PO Q8HR PRN for FEVER, #60 TAB Continued Medications: Dicyclomine HCl (Bentyl) 10 Mg Capsule 10 MG PO ACHS, CAP Famotidine (Pepcid) 20 Mg Tablet 20 MG PO HS, TAB Pantoprazole Sodium (Protonix) 40 Mg Tablet.dr 40 MG PO DAILY, TAB Discontinued Medications: Diphenhydramine HCl (Benadryl) 25 Mg Capsule 50 MG PO HS PRN for HIVES, CAP TAKES 2 (25MG) CAPSULES Patient Instructions Goal/Follow Up Appt: October 10 @ [address] Jose for your hospital followup and then will see Pola Veloz your PCP after that Patient Instructions: - Make sure you stay well hydrated and focus on water intake - Make sure you take your antibiotics until they are gone Return to [facility]: - If you are not able to tolerate your antibiotics you need to notify your doctor Activity & Diet Discharge Diet: No Restrictions Activity as Tolerated: Yes Copy Copies To 1: Magdiel SIFUENTES HOLLY R MD Oct 04, 2016 11:00
[2016-10-04] MEDS ORDERED: CIPR-225 PO (11:06)
--- NOTE | 2016-10-04 11:08 | Discharge Summary ---
Diagnosis/Chief Complaint Date of Admission Oct 02, 2016 at 12:59 Date of Discharge October 04, 2016 Admission Diagnosis Admission Diagnosis Sepsis with Pyelonephritis Ecoli Bacteremia Nausea and Vomiting Right flank pain Discharge Diagnosis Sepsis with Pyelonephritis: Sepsis resolved with IVF hydration. Cultures returned and were [place] susceptible. Cipro was sent to pharmacy to complete 10 days. Fever curve improving with anti inflammatories and antibiotics. Ecoli Bacteremia: See Above. Same bacteria. Nausea and Vomiting: Improving Right flank pain Chief Complaint/HPI Chief Complaint/HPI 26 yo F that presented with R flank pain for the last 3 days prior to admission. States that she has been having fevers and chills the last 2 days. Pain was only minimally improved with motrin and tylenol at home. She has had decreased PO intake for the last 2 days. Have hysterectomy in June with Dr Rodney. No previous similar symptoms Discharge Summary-Simple/Stand Consultations Discharge Physical Examination Allergies: Coded Allergies: azithromycin (Unverified Allergy, Mild, 07/24/08) Vitals & I&Os Vital Sign - Last 12Hours Date Time Temp Pulse Resp B/P (MAP) Pulse Ox O2 Delivery O2 Flow Rate FiO2 10/04/16 10:18 97.3 10/04/16 08:00 92 20 100/50 92 Room Air Intake and Output 10/04/16 00:00 Intake Total 1770 ml Output Total 2900 ml Balance -1130 ml General Appearance: Alert, Oriented X3, Cooperative, No Acute Distress Respiratory: Clear to Auscultation, Normal Air Movement Cardiovascular: Regular Rate, No Murmurs Abdominal: Normal Bowel Sounds, Soft, No Tenderness Extremities: No Edema, No Tenderness/Swelling Skin: No Rashes, No Breakdown Neuro: Normal Speech Psych/Mental Status: Mental Status NL, Mood NL Hospital Course See final discharge diagnosis. Radiology Reviewed Date of Exam: 10/02/16 CHEST 1 VIEW, AP/PA ONLY INDICATION: Fever, flank pain COMPARISON: 10/08/10 FINDINGS: Single view of the chest demonstrate clear lungs bilaterally. The heart is normal. No pneumothorax. The osseous structures normal. IMPRESSION: Negative chest. Discussion & Recommendations See D/c Diagnoses Discharge Condition at discharge Stable Instructions to patient/family Please see electonic discharge instructions given to patient. Discharge Medications Reviewed and agree with Discharge Medication list on patient's Discharge Instruction sheet Clinical Quality Measures DVT/VTE Risk/Contraindication: Risk Factor Score Per Nursin RFS Level Per Nursing on Admit: 1=Low/No VTE PPX Copy Copies To 1: Pola SIFUENTES HOLLY R MD Oct 04, 2016 11:08
[2016-10-04] MEDS: HYDROcodone/APAP 5 MG/325 MG (LORTAB) TAB PO PRN ×3 (11:13→22:31)
[2016-10-04 12:00] VITALS: BP 108/65
[2016-10-04 15:45] VITALS: BP 120/69
[2016-10-04] MEDS ORDERED: PROMETHAZINE 25 MG (PHENERGAN) TAB PO PRN (17:45)
[2016-10-04 19:50] VITALS: BP 133/88
[2016-10-04] MEDS: FAMOTIDINE 20 MG (PEPCID) TABLET PO SCH (20:05)
[2016-10-04] MEDS: ONDANSETRON 4 MG (ZOFRAN) ORAL DISSOLVE TAB PO PRN (20:05)
[2016-10-05] VITALS: BP 118/81
[2016-10-05] MEDS: 1/2 NS IV SOLUTION 1,000 ML IV SCH ×2 (02:21→11:30)
[2016-10-05 04:02] VITALS: BP 118/71
[2016-10-05] MEDS: ONDANSETRON 4 MG (ZOFRAN) ORAL DISSOLVE TAB PO PRN ×2 (06:03→11:49)
[2016-10-05] MEDS: PANTOPRAZOLE 40 MG (PROTONIX) TAB PO SCH (06:03)
[2016-10-05] MEDS: HYDROcodone/APAP 5 MG/325 MG (LORTAB) TAB PO PRN ×2 (06:03→11:52)
[2016-10-05 08:00] VITALS: BP 120/80
[2016-10-05] MEDS: cefTRIAXone INJECTION 1,000 MG in NS (IVPB) 50 ML IV SCH (09:30)
[2016-10-05] MEDS ORDERED: ONDA8TAB6 PO (13:42)
== END 2016-10-05 14:45 | disposition home or self-care (01) | DRG 872 ==
LOC: EDUNIT# 09:48 → ER 09:50 → 4TH 12:59
PROVIDERS: ADMIT Family Medicine; ATTEND Family Medicine
DX: A41.51 Sepsis due to Escherichia coli [E. coli] (principal); N12 Tubulo-interstitial nephritis, not specified as acute or chronic; K21.9 Gastro-esophageal reflux disease without esophagitis; Z87.891 Personal history of nicotine dependence
CPT/HCPCS: 36415; 71010; 80053; 81000; 83605; 85007; 85025; 85027; 87040; 87088; 87186; 96361; 96365; 96375; 96376

== ENCOUNTER 2017-05-27 12:21 | Emergency (ER) | payer MEDICAID ==
[~2017-05-27] VITALS: Ht 160 cm; Wt 68.0 kg
[~2017-05-27 12:21] MED LIST changes: +CIPR-225 PO; +DIPH25CA79 PO; +IBUP-1773 PO; +ONDA8TAB6 PO; +SULF1TAB35 PO
[2017-05-27] MEDS ORDERED: LACTATED RINGERS 1,000 ML IV ONE (13:47)
[2017-05-27 13:54] LABS: BILIRUBIN,URINE NEGATIVE (NEGATIVE); CLARITY,URINE VERY CLOUDY; COLOR,URINE YELLOW; GLUCOSE, URINE (UA) NEGATIVE (NEGATIVE); KETONES,URINE NEGATIVE (NEGATIVE); LEUKOCYTE ESTERASE ,URINE 3+ (NEGATIVE); NITRITE,URINE NEGATIVE (NEGATIVE); PH,URINE 6.5 (5-9); PROTEIN,URINE 3+ (NEGATIVE); UROBILINOGEN,URINE NORMAL (NORMAL)
[2017-05-27] MEDS ORDERED: PANTOPRAZOLE 40 MG/10 ML (PROTONIX) VIAL IV ONE (14:00)
[2017-05-27] MEDS ORDERED: KETOROLAC 30 MG/ML VIAL IVP ONE (14:00)
[2017-05-27 14:08] LABS: AMPHETAMINE SCREEN, URINE POSITIVE (NEGATIVE); BARBITURATE SCREEN URINE NEGATIVE (NEGATIVE); BENZODIAZEPINES SCREEN URINE NEGATIVE (NEGATIVE); CANNABINOID SCREEN, URINE NEGATIVE (NEGATIVE); COCAINE SCREEN URINE NEGATIVE (NEGATIVE); METHADONE STAT NEGATIVE (NEGATIVE); METHAMPHETAMINE SCREEN URINE S NEGATIVE (NEGATIVE); OPIATE SCREEN URINE POSITIVE (NEGATIVE); OXYCODONE STAT POSITIVE (NEGATIVE); PROPOXYPHENE STAT NEGATIVE (NEGATIVE); TRICYCLIC ANTIDEPRESSANTS SCRE NEGATIVE (NEGATIVE)
[2017-05-27 14:12] LABS: BASOPHILS % (AUTO) 0 % (0-10); EOSINOPHILS # (AUTO) 0.1 10^3/uL (0.0-0.3); EOSINOPHILS % (AUTO) 1 % (0-10); HEMATOCRIT 40 % (35-52); HEMOGLOBIN 13.8 G/DL (11.5-16.0); LYMPHOCYTES # (AUTO) 2.3 X 10^3 (1.0-4.0); LYMPHOCYTES % (AUTO) 21 % (12-44); MEAN CORPUSCULAR HEMOGLOBIN 31 PG (25-34); MEAN CORPUSCULAR HGB CONC 34 G/DL (32-36); MEAN CORPUSCULAR VOLUME 91 FL (80-99); MEAN PLATELET VOLUME 10.2 FL (7.4-10.4); MONOCYTES # (AUTO) 0.8 X 10^3 (0.0-1.0); MONOCYTES % (AUTO) 7 % (0-12); NEUTROPHILS # (AUTO) 7.9 X 10^3 (1.8-7.8); NEUTROPHILS % (AUTO) 72 % (42-75); PLATELET COUNT 327 10^3/uL (130-400); RED BLOOD COUNT 4.41 10^6/uL (4.35-5.85); RED CELL DISTRIBUTION WIDTH 13.1 % (10.0-14.5); WHITE BLOOD COUNT 11.1 10^3/uL (4.3-11.0)
[2017-05-27 14:13] LABS: BACTERIA,URINE MODERATE /HPF; WBC,URINE TNTC /HPF
[2017-05-27] MEDS ORDERED: ONDANSETRON 4 MG/2 ML (SDV) Z0FRAN IVP ONE (14:15)
[2017-05-27 14:28] LABS: ALANINE AMINOTRANSFERASE 14 U/L (0-55); ALBUMIN 4.7 GM/DL (3.2-4.5); ALKALINE PHOSPHATASE 95 U/L (40-136); AMYLASE 28 U/L (25-125); BILIRUBIN,TOTAL 0.7 MG/DL (0.1-1.0); BUN/CREATININE RATIO 18; CALCIUM 9.7 MG/DL (8.5-10.1); CARBON DIOXIDE 27 MMOL/L (21-32); CHLORIDE 100 MMOL/L (98-107); CREATININE SERUM 0.83 MG/DL (0.60-1.30); GFR ESTIMATED > 60; GLUCOSE 93 MG/DL (70-105); LIPASE 5 U/L (8-78); POTASSIUM 3.7 MMOL/L (3.6-5.0); SODIUM 138 MMOL/L (135-145); TOTAL PROTEIN 8.4 GM/DL (6.4-8.2)
--- NOTE | 2017-05-27 14:44 | Diagnostic Imaging Report ---
PROCEDURE: CT urinary tract, rule out kidney stone. TECHNIQUE: Multiple contiguous axial images were obtained through the abdomen and pelvis without the use of intravenous contrast. INDICATION: Back pain Comparison: 07/13/16 Findings: The lung bases are clear. The liver appears unremarkable. The gallbladder appears normal. There is no biliary dilatation. The pancreas, spleen and adrenal glands appears unremarkable. No urinary tract stone or obstructive change is seen. There is moderate diffuse thickening of bladder wall which may be due to incomplete distention but can be seen with cystitis. Correlate clinically. The appendix appears absent. No focal inflammatory process is seen. The uterus appears absent. There is no free fluid, free air or adenopathy. No evidence of bowel obstruction. Abdominal aorta appears normal in caliber. Osseous structures appear unremarkable. Impression: 1. There is diffuse thickening of bladder wall which is nonspecific and may be due to incomplete distention but can be seen with cystitis correlate clinically. 2. No additional abnormalities demonstrated. The appendix appears absent. Dictated by: Dictated on workstation # [id number]
--- NOTE | 2017-05-27 15:00 | Diagnostic Imaging Report ---
EXAM: ABDOMEN/KUB 1VIEW INDICATION: Abdominal pain. Hematuria. COMPARISON: CT abdomen and pelvis without contrast from earlier to day. FINDINGS: Nonspecific bowel gas pattern. Large amount of stool throughout the colon and rectum. No radiopaque densities overlying the kidneys, ureters or bladder. IMPRESSION: 1. Nonspecific bowel gas pattern. 2. Large amount of stool throughout the colon compatible with constipation. Dictated by: Dictated on workstation # [id number]
[2017-05-27] MEDS ORDERED: PHEN-640 PO (15:13)
[2017-05-27] MEDS ORDERED: NITR-65 PO (15:13)
[2017-05-27] MEDS ORDERED: ONDA4TAB8 PO (15:14)
--- NOTE | 2017-05-27 15:14 | ED GU-Female ---
General Chief Complaint: -Female Stated Complaint: BLOOD IN URINE Nursing Triage Note: Pt. advises she has been experiencing difficulty urinating and advises she has been urinating blood. Nursing Sepsis Screen: No Definite Risk Allergies and Home Medications Allergies Coded Allergies: azithromycin (Unverified Allergy, Mild, 07/24/08) Home Medications Ciprofloxacin HCl 500 Mg Tablet, 500 MG PO BID Prescribed by: DANIA MANJARREZ on 10/04/16 1106 Dicyclomine HCl 10 Mg Capsule, 10 MG PO ACHS, (Reported) Famotidine 20 Mg Tablet, 20 MG PO HS, (Reported) Ibuprofen 600 Mg Tablet, 600 MG PO Q8HR PRN for FEVER Prescribed by: DANIA MANJARREZ on 10/04/16 1053 Ondansetron HCl 8 Mg Tablet, 8 MG PO q6hrs Prescribed by: DANIA MANJARREZ on 10/05/16 1342 Pantoprazole Sodium 40 Mg Tablet.dr, 40 MG PO DAILY, (Reported) Past Ogogkti-Svrhmb-Xcthxj Hx Patient Social History Alcohol Use: Denies Use Recreational Drug Use: No Smoking Status: Current Everyday Smoker Type Used: Cigarettes Former Smoker, Quit: Oct 02, 2014 2nd Hand Smoke Exposure: No Recent Foreign Travel: No Contact w/Someone Who Travel: No Recent Infectious Disease Expo: No Recent Hopitalizations: No Physical Abuse: No Sexual Abuse: No Immunizations Up To Date Tetanus Booster (TDap): Less than 5yrs PED Vaccines UTD: Yes Date of Pneumonia Vaccine: Mar 20, 2014 Date of Influenza Vaccine: May 26, 2015 Seasonal Allergies Seasonal Allergies: Yes Surgeries History of Surgeries: Yes Surgeries: Appendectomy, Section, Hysterectomy, Oophorectomy Respiratory History of Respiratory Disorde: No Cardiovascular History of Cardiac Disorders: Yes Cardiac Disorders: Palpitations Neurological History of Neurological Disord: Yes 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 System Hx 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 Disorders: Yes 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 Disease: No HIV/AIDS: No Female 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 Disorders: 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, 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 Genitourinary History of Genitourinary Disor: Yes Genitourinary Disorders: UTI-Chronic Gastrointestinal History of Gastrointestinal Di: Yes Gastrointestinal Disorders: Gastroesophageal Reflux, Gall Bladder Disease Musculoskeletal History of Musculoskeletal Dis: Yes Musculoskeletal Disorders: Scoliosis Endocrine History of Endocrine Disorders: Yes (gestational diabetes) HEENT History of HEENT Disorders: No Loss of Vision: Bilateral Hearing Impairment: Denies Cancer History of Cancer: No Psychosocial History of Psychiatric Problem: Yes (PANIC ATTACKS) Behavioral Health Disorders: Anxiety, PTSD Suicide Risk Score: 0 Integumentary History of Skin or Integumenta: Yes (IN WINTER) Skin/Integumentary Disorders: Eczema Blood Transfusions History of Blood Disorders: Yes (ANEMIA) Adverse Reaction to a Blood Tr: No Family Medical History Family Medial History: Cardiovascular disease 19 FATHER Coronary thrombosis 19 FATHER 19 MOTHER Headache disorder 19 MOTHER Hypercholesterolemia 19 FATHER 19 MOTHER Hypertension 19 FATHER Myocardial infarction 19 FATHER 19 MOTHER Psychosocial problem 19 MOTHER (bipolar) No Family History of: AIDS Abdominal aortic aneurysm [place]'s disease Alcoholism Alzheimer's disease Aphasia Arthritis Asthma Cancer of mouth Cataracts Colon cancer Completed stroke Congenital disease Congenital heart disease Cystic fibrosis Deafness or hearing loss Dementia Diabetes mellitus Drug abuse Dysphasia Fibrocystic disease of breast Gastroenteritis Glaucoma Infertility Kidney disease Neoplasm Not obtainable due to adoption Osteoporosis Parkinson's disease Prostate cancer Respiratory disorder Seizure disorder Severe allergy Thyroid disease Tuberculosis Visual disorder Physical Exam Vital Signs Vital Signs - First Documented 05/27/17 14:00 Temp 98.6 Pulse 85 Resp 12 B/P (MAP) 132/95 (107) Pulse Ox 98 O2 Delivery Room Air Capillary Refill : Less Than 3 Seconds Progress/Results/Core Measures Suspected Sepsis Recent Fever Within 48 Hours: No Infection Criteria Present: Suspected New Infection New/Unexplained Altered Menta: No Sepsis Screen: No Definite Risk Sepsis Diagnosis: SIRS Temperature:98.6 Pulse: 85 Respiratory Rate: 12 Laboratory Tests 05/27/17 13:59: White Blood Count 11.1H Blood Pressure 132 /95 Mean: 107 Laboratory Tests 05/27/17 13:59: Creatinine 0.83, Platelet Count 327, Total Bilirubin 0.7 Results/Orders Lab Results Laboratory Tests Test 05/27/17 13:40 05/27/17 13:59 Range/Units Urine Color YELLOW Urine Clarity VERY CLOUDY H Urine pH 6.5 5-9 Urine Specific [place] 1.015 L 1.016-1.022 Urine Protein 3+ H NEGATIVE Urine Glucose (UA) NEGATIVE NEGATIVE Urine Ketones NEGATIVE NEGATIVE Urine Nitrite NEGATIVE NEGATIVE Urine Bilirubin NEGATIVE NEGATIVE Urine Urobilinogen NORMAL NORMAL MG/DL Urine Leukocyte Esterase 3+ H NEGATIVE Urine RBC (Auto) 5+ H NEGATIVE Urine RBC 10-20 /HPF Urine WBC TNTC H /HPF Urine Crystals NONE /LPF Urine Bacteria MODERATE H /HPF Urine Casts NONE /LPF Urine Mucus NEGATIVE /LPF Urine Culture Indicated YES Urine Opiates Screen POSITIVE H NEGATIVE Urine Oxycodone Screen POSITIVE H NEGATIVE Urine Methadone Screen NEGATIVE NEGATIVE Urine Propoxyphene Screen NEGATIVE NEGATIVE Urine Barbiturates Screen NEGATIVE NEGATIVE Ur Tricyclic Antidepressants Screen NEGATIVE NEGATIVE Urine Phencyclidine Screen NEGATIVE NEGATIVE Urine Amphetamines Screen POSITIVE H NEGATIVE Urine Methamphetamines Screen NEGATIVE NEGATIVE Urine Benzodiazepines Screen NEGATIVE NEGATIVE Urine Cocaine Screen NEGATIVE NEGATIVE Urine Cannabinoids Screen NEGATIVE NEGATIVE White Blood Count 11.1 H 4.3-11.0 10^3/uL Red Blood Count 4.41 4.35-5.85 10^6/uL Hemoglobin 13.8 11.5-16.0 G/DL Hematocrit 40 35-52 % Mean Corpuscular Volume 91 80-99 FL Mean Corpuscular Hemoglobin 31 25-34 PG Mean Corpuscular Hemoglobin Concent 34 32-36 G/DL Red Cell Distribution Width 13.1 10.0-14.5 % Platelet Count 327 130-400 10^3/uL Mean Platelet Volume 10.2 7.4-10.4 FL Neutrophils (%) (Auto) 72 42-75 % Lymphocytes (%) (Auto) 21 12-44 % Monocytes (%) (Auto) 7 0-12 % Eosinophils (%) (Auto) 1 0-10 % Basophils (%) (Auto) 0 0-10 % Neutrophils # (Auto) 7.9 H 1.8-7.8 X 10^3 Lymphocytes # (Auto) 2.3 1.0-4.0 X 10^3 Monocytes # (Auto) 0.8 0.0-1.0 X 10^3 Eosinophils # (Auto) 0.1 0.0-0.3 10^3/uL Basophils # (Auto) 0.0 0.0-0.1 10^3/uL Sodium Level 138 135-145 MMOL/L Potassium Level 3.7 3.6-5.0 MMOL/L Chloride Level 100 98-107 MMOL/L Carbon Dioxide Level 27 21-32 MMOL/L Anion Gap 11 5-14 MMOL/L Blood Urea Nitrogen 15 7-18 MG/DL Creatinine 0.83 0.60-1.30 MG/DL Estimat Glomerular Filtration Rate > 60 BUN/Creatinine Ratio 18 Glucose Level 93 70-105 MG/DL Calcium Level 9.7 8.5-10.1 MG/DL Total Bilirubin 0.7 0.1-1.0 MG/DL Aspartate Amino Transf (AST/SGOT) 14 5-34 U/L Alanine Aminotransferase (ALT/SGPT) 14 0-55 U/L Alkaline Phosphatase 95 40-136 U/L Total Protein 8.4 H 6.4-8.2 GM/DL Albumin 4.7 H 3.2-4.5 GM/DL Amylase Level 28 25-125 U/L Lipase 5 L 8-78 U/L My Orders Orders - SAMIRA CARRANZA K DO Saline Lock/Iv-Start (05/27/17 13:47) Amylase (05/27/17 13:47) Cbc With Automated Diff (05/27/17 13:47) Comprehensive Metabolic Panel (05/27/17 13:47) Drug Screen Stat (Urine) (05/27/17 13:47) Lipase (05/27/17 13:47) Ct Abd/Pelvis Wo(Kidney Stone) (05/27/17 13:47) Abdomen/Kub 1view (05/27/17 13:47) Pantoprazole Injection (Protonix Injecti (05/27/17 14:00) Ketorolac Injection (Toradol Injection) (05/27/17 14:00) Saline Lock/Iv-Start (05/27/17 13:47) Lactated Ringers (Lr 1000 Ml Iv Solution (05/27/17 13:47) Saline Lock/Iv-Start (05/27/17 13:47) Ondansetron Injection (Zofran Injectio (05/27/17 14:15) Ceftriaxone Injection (Rocephin Injectio (05/27/17 15:15) Levofloxacin Tablet (Levaquin Tablet) (05/27/17 15:15) Medications Given in ED Current Medications Medications Dose Ordered Sig/Vikki Route Start Time Stop Time Status Last Admin Dose Admin Ketorolac Tromethamine 30 mg ONCE ONCE IVP 05/27/17 14:00 05/27/17 14:01 DC 05/27/17 14:08 30 MG Lactated Ringer's 1,000 ml @ 0 mls/hr Q0M ONCE IV 05/27/17 13:47 05/27/17 13:50 DC 05/27/17 14:08 0 MLS/HR Ondansetron HCl 4 mg ONCE ONCE IVP 05/27/17 14:15 05/27/17 14:17 DC 05/27/17 14:19 4 MG Pantoprazole 40 mg ONCE ONCE IV 05/27/17 14:00 05/27/17 14:01 DC 05/27/17 14:08 40 MG Vital Signs/I&O Vital Sign - Last 12Hours 05/27/17 14:00 Temp 98.6 Pulse 85 Resp 12 B/P (MAP) 132/95 (107) Pulse Ox 98 O2 Delivery Room Air Capillary Refill : Less Than 3 Seconds Blood Pressure Mean: 107 Departure Impression Impression: Primary Impression: Urinary tract infection Disposition: HOME, SELF-CARE Condition: Improved Departure-Patient Inst. Referrals: [facility] (PCP/Family) Primary Care Physician Patient Instructions: Urinary Tract Infection, Adult (DC) Add. Discharge Instructions: LOTS OF CLEAR LIQUIDS--NO COFFEE, POP OR TEA TYLENOL NEEDED FOR PAIN FOLLOW UP WITH YOUR DR IN 3-4 DAYS FOR FURTHER CARE RETURN TO ER OF WORSE All discharge instructions reviewed with patient and/or family. Voiced understanding. Scripts Ondansetron (Zofran Odt) 4 Mg Tab.rapdis 4 MG PO Q4H for Nausea/Vomiting, #10 TAB Prov: SAMIRA CARRANZA DO 05/27/17 Phenazopyridine HCl (Pyridium) 200 Mg Tablet 1 TAB PO TID for BLADDER DISCOMFORT, #15 TAB Prov: SAMIRA CARRANZA DO 05/27/17 Nitrofurantoin Monohyd/M-Cryst (Macrobid 100 mg Capsule) 100 Mg Capsule 100 MG PO BID, #20 CAP Prov: SAMIRA CARRANZA DO 05/27/17 SAMIRA CARRANZA DO May 27, 2017 15:14
[2017-05-27] MEDS ORDERED: LEVOFLOXACIN 500 MG TAB (LEVAQUIN) PO ONE (15:15)
[2017-05-27] MEDS ORDERED: cefTRIAXone INJECTION 1,000 MG in NS (IVPB) 100 ML IV ONE (15:15)
[2017-05-27 16:11] VITALS: BP 128/95
--- OUTSIDE RECORDS SUMMARY | 2017-05-28 10:01 | XMS REPORT ---
Author Author LOUISE MILLER Organization [facility] Address [address] [place] [address] Care Team Providers Care Restuarant Crew Worker Name Role Phone LOUISE MILLER Unavailable PROBLEMS Type Condition ICD9-CM Code [id number] Code Onset Dates Condition Status SNOMED Code Problem Heartburn R12 Active 42911399 Problem Anxiety F41.9 Active 82233445 Problem Fibromyalgia M79.7 Active 234011390 Problem Major depressive disorder, recurrent episode, moderate F33.1 Active 803532644 Problem Posttraumatic stress disorder F43.10 Active 24652270 Problem Restless leg syndrome G25.81 Active 92478915 Problem Mood disorder F39 Active 16648296 ALLERGIES Substance Reaction Event Type Date Status Azithromycin Unknown Drug Allergy July, Active SOCIAL HISTORY Never Assessed PLAN OF CARE Activity Details Follow Up prn Reason: VITAL SIGNS Height 64 in 2016-07-25 Weight 157.8 lbs 2016-07-25 Temperature 98.9 degrees Fahrenheit 2016-07-25 Heart Rate 84 bpm 2016-07-25 Respiratory Rate 20 2016-07-25 BMI 27.08 kg/m2 2016-07-25 Blood pressure systolic 132 mmHg 2016-07-25 Blood pressure diastolic 86 mmHg 2016-07-25 MEDICATIONS Medication Instructions Dosage Frequency Start Date End Date Duration Status Crutch Set - as directed July, Active Bentyl 10 MG Orally Four times a day 1 capsule 6h Active Pepcid Premixed Active Protonix 40 mg Orally Once a day 1 tablet 24h Jan, 30 day(s) Active RESULTS Name Result Date Reference Range Xray : Foot, Left 3 views (IN HOUSE) 2016-07-25 Xray : Foot, Right 3 views (IN HOUSE) 2016-07-25 PROCEDURES Procedure Date Ordered Result Body Site X-RAY EXAM OF FOOT July 25, 2016 IMMUNIZATIONS No Known Immunizations MEDICAL (GENERAL) HISTORY Type Description Date Medical History PTSD Medical History scoliosis Medical History Heart palpitations Medical History Anxiety Surgical History C section x 2 03/2014 Surgical History Hysterectomy - partial 11/2015 Surgical History Right ov removed- appendectomy 06/29/16 Hospitalization History of son Hospitalization History surgeries Hospitalization History pyelonephritis-[facility] 10/02/16
--- OUTSIDE RECORDS SUMMARY | 2017-05-28 10:04 | XMS REPORT ---
Author Author LEOLA Mak [facility] Address Unknown Care Team Providers Care Drafter Heating And Ventilating Name Role Phone LEOLA Mak Unavailable PROBLEMS Type Condition ICD9-CM Code [id number] Code Onset Dates Condition Status SNOMED Code Problem Heartburn R12 Active 91915809 Problem Anxiety F41.9 Active 98086741 Problem Mood disorder F39 Active 18554674 Problem Major depressive disorder, recurrent episode, moderate F33.1 Active 209365289 Problem Posttraumatic stress disorder F43.10 Active 45611497 Problem Restless leg syndrome G25.81 Active 39655922 Problem Fibromyalgia M79.7 Active 035904529 ALLERGIES Substance Reaction Event Type Date Status Azithromycin Unknown Drug Allergy Feb, Active SOCIAL HISTORY No smoking Hx information available PLAN OF CARE Activity Details Follow Up prn Reason:Extraction VITAL SIGNS MEDICATIONS Medication Instructions Dosage Frequency Start Date End Date Duration Status Amoxicillin 500 MG Orally 4 times daily 1 capsule 7 days Active RESULTS No Results PROCEDURES Procedure Date Ordered Related Diagnosis Body Site LTD ORAL EVALUATION - PROBLEM FOCUS Mar 15, 2016 INTRAORL-PERIAPICAL 1 FILM [id number] Mar 15, 2016 IMMUNIZATIONS No Known Immunizations
--- OUTSIDE RECORDS SUMMARY | 2017-05-28 10:05 | XMS REPORT ---
Author Author ZORA MIKE Organization [facility] Address [address] [place] [address] Care Team Providers Care Branch Service Specialist Name Role Phone ZORA MIKE Unavailable PROBLEMS Type Condition ICD9-CM Code FUV19-OC Code Onset Dates Condition Status SNOMED Code Problem Heartburn R12 Active 74262069 Problem Anxiety F41.9 Active 17363044 Problem Fibromyalgia M79.7 Active 733906716 Problem Major depressive disorder, recurrent episode, moderate F33.1 Active 918868287 Problem Posttraumatic stress disorder F43.10 Active 88743519 Problem Restless leg syndrome G25.81 Active 64622973 Problem Mood disorder F39 Active 41866152 ALLERGIES Substance Reaction Event Type Date Status Azithromycin Unknown Drug Allergy Mar, Active SOCIAL HISTORY No smoking Hx information available PLAN OF CARE Activity Details Follow Up prn Reason: VITAL SIGNS Height 64 in 2016-04-01 Weight 161.4 lbs 2016-04-01 Temperature 97.8 degrees Fahrenheit 2016-04-01 Heart Rate 80 bpm 2016-04-01 Respiratory Rate 18 2016-04-01 BMI 27.70 kg/m2 2016-04-01 Blood pressure systolic 126 mmHg 2016-04-01 Blood pressure diastolic 80 mmHg 2016-04-01 MEDICATIONS Medication Instructions Dosage Frequency Start Date End Date Duration Status PredniSONE 20 MG Orally Once a day 2 tablet 24h Mar, Mar, 5 days Active Pepcid Premixed Active Doxycycline Hyclate 100 MG Orally every 12 hrs 1 capsule 12h Mar, Mar, 10 days Active Protonix 40 mg Orally Once a day 1 tablet 24h Jan, 30 day(s) Active ProAir HFA 108 (90 Base) MCG/ACT Inhalation every 4 hrs 2 puffs as needed 4h Mar, 7 days Active Bentyl 10 MG Orally Four times a day 1 capsule 6h Active Duloxetine HCl 60 MG Orally daily 1 capsule every morning X 2 weeks then 2 caps every morning. 24h Dec, Active Clonazepam 0.5 MG Orally Twice a day 1 tablet 12h 10 Jan, 2016 Active RESULTS No Results PROCEDURES Procedure Date Ordered Related Diagnosis Body Site ALBUTEROL UNIT DOSE FORM INHALED 2016-04-01 N/A ALBUTEROL INHAL UNIT DOSE 1 MG Apr 01, 2016 Office Visit, Est Pt., Level 3 Apr 01, 2016 IMMUNIZATIONS No Known Immunizations
--- OUTSIDE RECORDS SUMMARY | 2017-05-28 10:06 | XMS REPORT ---
Author Author LOUISE MILLER Organization [facility] Address [address] [place] [address] Care Team Providers Care Tobacco Stripper Name Role Phone ANGELALOUISE Unavailable PROBLEMS Type Condition ICD9-CM Code [id number] Code Onset Dates Condition Status SNOMED Code Problem Heartburn R12 Active 89822367 Problem Anxiety F41.9 Active 79598379 Problem Fibromyalgia M79.7 Active 779195780 Problem Major depressive disorder, recurrent episode, moderate F33.1 Active 972405237 Problem Posttraumatic stress disorder F43.10 Active 84212227 Problem Restless leg syndrome G25.81 Active 03011808 Problem Mood disorder F39 Active 68008523 ALLERGIES No Information SOCIAL HISTORY Never Assessed PLAN OF CARE VITAL SIGNS MEDICATIONS No Known Medications RESULTS No Results PROCEDURES No Known procedures IMMUNIZATIONS No Known Immunizations MEDICAL (GENERAL) HISTORY Type Description Date Medical History PTSD Medical History scoliosis Medical History Heart palpitations Medical History Anxiety Surgical History C section x 2 03/2014 Surgical History Hysterectomy - partial 11/2015 Surgical History Right ov removed- appendectomy 06/29/16 Hospitalization History of son Hospitalization History surgeries Hospitalization History pyelonephritis-[facility] 10/02/16
--- OUTSIDE RECORDS SUMMARY | 2017-05-28 10:11 | XMS REPORT | Continuity of Care Document ---
Author Author [facility] of [facility] Address Unknown Phone Unavailable Allergies Active Description Code Type Severity Reaction Onset Reported/Identified Relationship to Patient Clinical Status Yes azithromycin [id number] Drug Allergy Mild N/A 07/24/2008 Yes azithromycin Drug Allergy N/ A N/A 11/24/2009 Yes azithromycin Drug Allergy 11/24/2009 Yes promethazine HCl [id number] Drug Allergy Mild SWELLING 10/08/2010 Yes Phenergan Drug Allergy N/A N/A 10/23/2010 Yes Phenergan Drug Allergy 10/23/2010 Medications There is no data. Problems Date Dx Coded Attending Type Code Diagnosis Diagnosed By 07/24/2009 Ot 590.10 07/24/2009 Ot 789.09 08/02/2009 Ot 890.1 08/02/2009 Ot E000.8 08/02/2009 Ot E030 08/02/2009 Ot E985.6 08/31/2009 Ot 620.2 08/31/2009 Ot 789.04 11/24/2009 620.2 Other And Unspecified Ovarian Cyst 11/24/2009 625.9 Unspecified Symptom Associated With Female Genital Organs 11/24/2009 V22.2 State , Incidental 11/24/2009 620.2 Other And Unspecified Ovarian Cyst 11/24/2009 625.9 Unspecified Symptom Associated With Female Genital Organs 11/24/2009 V22.2 State , Incidental 11/24/2009 620.2 Other And Unspecified Ovarian Cyst 11/24/2009 625.9 Unspecified Symptom Associated With Female Genital Organs 11/24/2009 V22.2 State , Incidental 11/24/2009 KEO DEUTSCH APRN 620.2 Other And Unspecified Ovarian Cyst 11/24/2009 KEO DEUTSCH APRN 625.9 Unspecified Symptom Associated With Female Genital Organs 11/24/2009 KEO DEUSTCH APRN V22.2 State, Incidental 11/24/2009 FATEMEH CASIANO DO 620.2 Other And Unspecified Ovarian Cyst 11/24/2009 FATEMEH CASIANO DO K 625.9 Unspecified Symptom Associated With Female Genital Organs 11/24/2009 FATEMEH CASIANO DO V22.2 State, Incidental 11/24/2009 MANI STRICKLAND MD 620.2 Other And Unspecified Ovarian Cyst 11/24/2009 MANI STRICKLAND MD 625.9 Unspecified Symptom Associated With Female Genital Organs 11/24/2009 MANI STRICKLAND MD V22.2 State, Incidental 11/24/2009 EUGENIE DYNAMO REPAIRER, SEAN S 620.2 Other And Unspecified Ovarian Cyst 11/24/2009 EUGENIE DYNAMO REPAIRER, SEAN S 625.9 Unspecified Symptom Associated With Female Genital Organs 11/24/2009 EUGENIE DYNAMO REPAIRER, SEAN S V22.2 State, Incidental 11/24/2009 KEO DEUTSCH APRN 620.2 Other And Unspecified Ovarian Cyst 11/24/2009 KEO DEUTSCH APRN 625.9 Unspecified Symptom Associated With Female Genital Organs 11/24/2009 KEO DEUTSCH APRN V22.2 State, Incidental 11/24/2009 PARISH DYNAMO REPAIRER, CLARIBEL A 620.2 Other And Unspecified Ovarian Cyst 11/24/2009 PARISH DYNAMO REPAIRER, CLARIBEL A 625.9 Unspecified Symptom Associated With Female Genital Organs 11/24/2009 PARISH DYNAMO REPAIRER, CLARIBEL A V22.2 State, Incidental 11/24/2009 PARISH DYNAMO REPAIRER, CLARIBEL A 620.2 Other And Unspecified Ovarian Cyst 11/24/2009 PARISH DYNAMO REPAIRER, CLARIBEL A 625.9 Unspecified Symptom Associated With Female Genital Organs 11/24/2009 PARISH DYNAMO REPAIRER, CLARIBEL A V22.2 State, Incidental 11/24/2009 PARISH DYNAMO REPAIRER, CLARIBEL A 620.2 Other And Unspecified Ovarian Cyst 11/24/2009 PARISH DYNAMO REPAIRER, CLARIBEL A 625.9 Unspecified Symptom Associated With Female Genital Organs 11/24/2009 PARISH DYNAMO REPAIRER, CLARIBEL A V22.2 State, Incidental 11/24/2009 BLANQUITA CARDOZA MD 620.2 Other And Unspecified Ovarian Cyst 11/24/2009 BLANQUITA CARDOZA MD 625.9 Unspecified Symptom Associated With Female Genital Organs 11/24/2009 SONY MD, BLANQUITA N V22.2 State, Incidental 11/24/2009 PARISH DOW, CLARIBEL A 620.2 Other And Unspecified Ovarian Cyst 11/24/2009 CLARIBEL LUGO APRN A 625.9 Unspecified Symptom Associated With Female Genital Organs 11/24/2009 PARISH DOW, CLARIBEL A V22.2 State, Incidental 11/24/2009 BLANQUITA CARDOZA MD N 620.2 Other And Unspecified Ovarian Cyst 11/24/2009 BLANQUITA CARDOZA MD N 625.9 Unspecified Symptom Associated With Female Genital Organs 11/24/2009 BLANQUITA CARDOZA MD N V22.2 State, Incidental 11/24/2009 BLANQUITA CARDOZA MD N 620.2 Other And Unspecified Ovarian Cyst 11/24/2009 BLANQUITA CARDOZA MD N 625.9 Unspecified Symptom Associated With Female Genital Organs 11/24/2009 BLANQUITA CARDOZA MD N V22.2 State, Incidental 12/16/2009 649.50 Spotting Complicating , Unspecified As To Episode Of Care Or Not Applicable 12/16/2009 649.50 Spotting Complicating , Unspecified As To Episode Of Care Or Not Applicable 12/16/2009 649.50 Spotting Complicating , Unspecified As To Episode Of Care Or Not Applicable 12/16/2009 KEO DEUTSCH APRN 649.50 Spotting Complicating , Unspecified As To Episode Of Care Or Not Applicable 12/16/2009 FATEMEH CASIANO DO 649.50 Spotting Complicating , Unspecified As To Episode Of Care Or Not Applicable 12/16/2009 MANI STRICKLAND MD 649.50 Spotting Complicating , Unspecified As To Episode Of Care Or Not Applicable 12/16/2009 SEAN TRAORE APRN 649.50 Spotting Complicating , Unspecified As To Episode Of Care Or Not Applicable 12/16/2009 KEO DEUTSCH APRN 649.50 Spotting Complicating , Unspecified As To Episode Of Care Or Not Applicable 12/16/2009 CLARIBEL LUGO APRN A 649.50 Spotting Complicating , Unspecified As To Episode Of Care Or Not Applicable 12/16/2009 THIEN LUGO APRNIDI A 649.50 Spotting Complicating , Unspecified As To Episode Of Care Or Not Applicable 12/16/2009 PARISH DOW, CLARIBEL A 649.50 Spotting Complicating , Unspecified As To Episode Of Care Or Not Applicable 12/16/2009 BLANQUITA CARDOZA MD 649.50 Spotting Complicating , Unspecified As To Episode Of Care Or Not Applicable 12/16/2009 PARISH DOW, CLARIBEL A 649.50 Spotting Complicating , Unspecified As To Episode Of Care Or Not Applicable 12/16/2009 BLANQUITA CARDOZA MD N 649.50 Spotting Complicating , Unspecified As To Episode Of Care Or Not Applicable 12/16/2009 BLANQUITA CARDOZA MD N 649.50 Spotting Complicating , Unspecified As To Episode Of Care Or Not Applicable 12/19/2009 041.02 Gbs - Unspecified Site 12/19/2009 041.02 Gbs - Unspecified Site 12/19/2009 041.02 Gbs - Unspecified Site 12/19/2009 KEO DEUTSCH APRN 041.02 Gbs - Unspecified Site 12/19/2009 FATEMEH CASIANO DO 041.02 Gbs - Unspecified Site 12/19/2009 MANI STRICKLAND MD 041.02 Gbs - Unspecified Site 12/19/2009 SEAN TRAORE APRN 041.02 Gbs - Unspecified Site 12/19/2009 KEO DEUTSCH APRN 041.02 Gbs - Unspecified Site 12/19/2009 PARISH DOW, CLARIBEL A 041.02 Gbs - Unspecified Site 12/19/2009 PARISH DOW, CLARIBEL A 041.02 Gbs - Unspecified Site 12/19/2009 PARISH DOW, CLARIBEL A 041.02 Gbs - Unspecified Site 12/19/2009 BLANQUITA CARDOZA MD 041.02 Gbs - Unspecified Site 12/19/2009 PARISH DOW, CLARIBEL A 041.02 Gbs - Unspecified Site 12/19/2009 BLANQUITA CARDOZA MD 041.02 Gbs - Unspecified Site 12/19/2009 BLANQUITA CARDOZA MD 041.02 Gbs - Unspecified Site 12/31/2009 V04.3 Rubella Non- immune - Need For Vaccination 12/31/2009 V04.3 Rubella Non- immune - Need For Vaccination 12/31/2009 V04.3 Rubella Non- immune - Need For Vaccination 12/31/2009 KEO DEUTSCH APRN V04.3 Rubella Non-immune - Need For Vaccination 12/31/2009 FATEMEH CASIANO DO V04.3 Rubella Non-immune - Need For Vaccination 12/31/2009 MANI STRICKLAND MD V04.3 Rubella Non-immune - Need For Vaccination 12/31/2009 SEAN TRAORE APRN V04.3 Rubella Non-immune - Need For Vaccination 12/31/2009 KEO DEUTSCH APRN V04.3 Rubella Non-immune - Need For Vaccination 12/31/2009 CLARIBEL LUGO APRN A V04.3 Rubella Non-immune - Need For Vaccination 12/31/2009 CLARIBEL LUGO APRN A V04.3 Rubella Non-immune - Need For Vaccination 12/31/2009 CLARIBEL LUGO APRN A V04.3 Rubella Non-immune - Need For Vaccination 12/31/2009 BLANQUITA CARDOZA MD V04.3 Rubella Non-immune - Need For Vaccination 12/31/2009 CLARIBEL LUGO APRN A V04.3 Rubella Non-immune - Need For Vaccination 12/31/2009 BLANQUITA CARDOZA MD V04.3 Rubella Non-immune - Need For Vaccination 12/31/2009 BLANQUITA CARDOZA MD V04.3 Rubella Non-immune - Need For Vaccination 01/04/2010 079.98 Unspecified Chlamydial Infection 01/04/2010 V22.1 , Normal Other 01/04/2010 079.98 Unspecified Chlamydial Infection 01/04/2010 V22.1 , Normal Other 01/04/2010 079.98 Unspecified Chlamydial Infection 01/04/2010 V22.1 , Normal Other 01/04/2010 KEO DEUTSCH APRN 079.98 Unspecified Chlamydial Infection 01/04/2010 KEO DEUTSCH APRN V22.1 , Normal Other 01/04/2010 FATEMEH CASIANO DO 079.98 Unspecified Chlamydial Infection 01/04/2010 FATEMEH CASIANO DO V22.1 , Normal Other 01/04/2010 MANI STRICKLAND MD 079.98 Unspecified Chlamydial Infection 01/04/2010 MANI STRICKLAND MD V22.1 , Normal Other 01/04/2010 EUGENIE DYNAMO REPAIRER, SEAN S 079.98 Unspecified Chlamydial Infection 01/04/2010 EUGENIE DOW, SEAN S V22.1 , Normal Other 01/04/2010 KEO DEUTSCH APRN T 079.98 Unspecified Chlamydial Infection 01/04/2010 [place] DOW KEO T V22.1 , Normal Other 01/04/2010 PARISH DYNAMO REPAIRER, CLARIBEL A 079.98 Unspecified Chlamydial Infection 01/04/2010 PARISH APRN, CLARIBEL A V22.1 , Normal Other 01/04/2010 PARISH DYNAMO REPAIRER, CLARIBEL A 079.98 Unspecified Chlamydial Infection 01/04/2010 PARISH APRN, CLARIBEL A V22.1 , Normal Other 01/04/2010 PARISH DYNAMO REPAIRER, CLARIBEL A 079.98 Unspecified Chlamydial Infection 01/04/2010 PARISH DYNAMO REPAIRER, CLARIBEL A V22.1 , Normal Other 01/04/2010 SONY MICHELLE, BLANQUITA N 079.98 Unspecified Chlamydial Infection 01/04/2010 SONY MICHELLE, BLANQUITA N V22.1 , Normal Other 01/04/2010 PARISHMIKE DOW, CLARIBEL A 079.98 Unspecified Chlamydial Infection 01/04/2010 PARISH APRN, CLARIBEL A V22.1 , Normal Other 01/04/2010 SONY MICHELLE, BLANQUITA N 079.98 Unspecified Chlamydial Infection 01/04/2010 BLANQUITA CARDOZA MD N V22.1 , Normal Other 01/04/2010 BLANQUITA CARDOZA MD N 079.98 Unspecified Chlamydial Infection 01/04/2010 BLANQUITA CARDOZA MD N V22.1 , Normal Other 03/01/2010 Ot 646.83 03/01/2010 Ot 789.09 03/04/2010 530.81 Esophageal Reflux 03/04/2010 530.81 Esophageal Reflux 03/04/2010 530.81 Esophageal Reflux 03/04/2010 KEO DEUTSCH APRN 530.81 Esophageal Reflux 03/04/2010 FATEMEH CASIANO DO K 530.81 Esophageal Reflux 03/04/2010 MANI STRICKLAND MD 530.81 Esophageal Reflux 03/04/2010 EUGENIE DOW, SEAN S 530.81 Esophageal Reflux 03/04/2010 KEO DEUTSCH APRN 530.81 Esophageal Reflux 03/04/2010 PARISH DYNAMO REPAIRER, CLARIBEL A 530.81 Esophageal Reflux 03/04/2010 PARISH DYNAMO REPAIRER, CLARIBEL A 530.81 Esophageal Reflux 03/04/2010 PARISH DYNAMO REPAIRER, CLARIBEL A 530.81 Esophageal Reflux 03/04/2010 SONY MICHELLE, BLANQUITA N 530.81 Esophageal Reflux 03/04/2010 PARISH DYNAMO REPAIRER, CLARIBEL A 530.81 Esophageal Reflux 03/04/2010 SONY MICHELLE, BLANQUITA N 530.81 Esophageal Reflux 03/04/2010 SONY MICHELLE, BLANQUITA N 530.81 Esophageal Reflux 04/05/2010 V23.9 , High-risk (unspec) 04/05/2010 V23.9 , High-risk (unspec) 04/05/2010 V23.9 , High-risk (unspec) 04/05/2010 KEO DEUTSCH APRN V23.9 , High-risk (unspec) 04/05/2010 FATEMEH CASIANO DO K V23.9 , High-risk (unspec) 04/05/2010 MANI STRICKLAND MD V23.9 , High-risk (unspec) 04/05/2010 EUGENIE DOW, SEAN S V23.9 , High-risk (unspec) 04/05/2010 KEO DEUTSCH APRN V23.9 , High-risk (unspec) 04/05/2010 PARISH DYNAMO REPAIRER, CLARIBEL A V23.9 , High-risk (unspec) 04/05/2010 PARISH DYNAMO REPAIRER, CLARIBEL A V23.9 , High-risk (unspec) 04/05/2010 PARISH DYNAMO REPAIRER, CLARIBEL A V23.9 , High-risk (unspec) 04/05/2010 SONY MICHELLE, BLANQUITA N V23.9 , High-risk (unspec) 04/05/2010 PARISH DYNAMO REPAIRER, CLARIBEL A V23.9 , High-risk (unspec) 04/05/2010 BLANQUITA CARDOZA MD V23.9 , High-risk (unspec) 04/05/2010 BLANQUITA CARDOZA MD V23.9 , High-risk (unspec) 05/06/2010 646.60 Infections Of Genitourinary Tract In Unspecified As To Episode Of Care 05/06/2010 646.60 Infections Of Genitourinary Tract In Unspecified As To Episode Of Care 05/06/2010 646.60 Infections Of Genitourinary Tract In Unspecified As To Episode Of Care 05/06/2010 KEO DEUTSCH APRN 646.60 Infections Of Genitourinary Tract In Unspecified As To Episode Of Care 05/06/2010 FATEMEH CASIANO DO 646.60 Infections Of Genitourinary Tract In Unspecified As To Episode Of Care 05/06/2010 MANI STRICKLAND MD 646.60 Infections Of Genitourinary Tract In Unspecified As To Episode Of Care 05/06/2010 SEAN TRAORE APRN 646.60 Infections Of Genitourinary Tract In Unspecified As To Episode Of Care 05/06/2010 KEO DEUTSCH APRN 646.60 Infections Of Genitourinary Tract In Unspecified As To Episode Of Care 05/06/2010 THIEN LUGO APRNIDI A 646.60 Infections Of Genitourinary Tract In Unspecified As To Episode Of Care 05/06/2010 THIEN LUGO APRNIDI A 646.60 Infections Of Genitourinary Tract In Unspecified As To Episode Of Care 05/06/2010 THIEN LUGO APRNIDI A 646.60 Infections Of Genitourinary Tract In Unspecified As To Episode Of Care 05/06/2010 BLANQUITA CARDOZA MD 646.60 Infections Of Genitourinary Tract In Unspecified As To Episode Of Care 05/06/2010 CLARIBEL LUGO APRN A 646.60 Infections Of Genitourinary Tract In Unspecified As To Episode Of Care 05/06/2010 BLANQUITA CARDOZA MD 646.60 Infections Of Genitourinary Tract In Unspecified As To Episode Of Care 05/06/2010 BLANQUITA CARDOZA MD 646.60 Infections Of Genitourinary Tract In Unspecified As To Episode Of Care 05/15/2010 Ot 643.23 LATE VOMIT PREG-ANTEPART 05/20/2010 285.9 Anemia Unspecified 05/20/2010 346.90 Migraine Unspecified Without Mention Of Intractable Migraine Without Mention Of Status Migrainosus 05/20/2010 648.80 Abnormal Glucose Tolerance Test 05/20/2010 285.9 Anemia Unspecified 05/20/2010 346.90 Migraine Unspecified Without Mention Of Intractable Migraine Without Mention Of Status Migrainosus 05/20/2010 648.80 Abnormal Glucose Tolerance Test 05/20/2010 285.9 Anemia Unspecified 05/20/2010 346.90 Migraine Unspecified Without Mention Of Intractable Migraine Without Mention Of Status Migrainosus 05/20/2010 648.80 Abnormal Glucose Tolerance Test 05/20/2010 KEO DEUTSCH APRN 285.9 Anemia Unspecified 05/20/2010 KEO DEUTSCH APRN 346.90 Migraine Unspecified Without Mention Of Intractable Migraine Without Mention Of Status Migrainosus 05/20/2010 KEO DEUTSCH APRN 648.80 Abnormal Glucose Tolerance Test 05/20/2010 FATEMEH CASIANO DO K 285.9 Anemia Unspecified 05/20/2010 FATEMEH CASIANO DO K 346.90 Migraine Unspecified Without Mention Of Intractable Migraine Without Mention Of Status Migrainosus 05/20/2010 FATEMEH CASIANO DO K 648.80 Abnormal Glucose Tolerance Test 05/20/2010 MANI STRICKLAND MD 285.9 Anemia Unspecified 05/20/2010 MANI STRICKLAND MD 346.90 Migraine Unspecified Without Mention Of Intractable Migraine Without Mention Of Status Migrainosus 05/20/2010 MANI STRICKLAND MD 648.80 Abnormal Glucose Tolerance Test 05/20/2010 SEAN TRAORE APRN S 285.9 Anemia Unspecified 05/20/2010 SEAN TRAORE APRN S 346.90 Migraine Unspecified Without Mention Of Intractable Migraine Without Mention Of Status Migrainosus 05/20/2010 SEAN TRAORE APRN S 648.80 Abnormal Glucose Tolerance Test 05/20/2010 KEO DEUTSCH APRN 285.9 Anemia Unspecified 05/20/2010 KEO DEUTSCH APRN 346.90 Migraine Unspecified Without Mention Of Intractable Migraine Without Mention Of Status Migrainosus 05/20/2010 KEO DEUTSCH APRN Mary 648.80 Abnormal Glucose Tolerance Test 05/20/2010 THIEN LUGO APRNIDI A 285.9 Anemia Unspecified 05/20/2010 CLARIBEL LUGO APRN A 346.90 Migraine Unspecified Without Mention Of Intractable Migraine Without Mention Of Status Migrainosus 05/20/2010 PARISH DOW, CLARIBEL A 648.80 Abnormal Glucose Tolerance Test 05/20/2010 THIEN LUGO APRNIDI A 285.9 Anemia Unspecified 05/20/2010 PARISH APRN, CLARIBEL A 346.90 Migraine Unspecified Without Mention Of Intractable Migraine Without Mention Of Status Migrainosus 05/20/2010 PARISHTHIEN Vann APRNIDI A 648.80 Abnormal Glucose Tolerance Test 05/20/2010 PARISHTHIEN Vann APRNIDI A 285.9 Anemia Unspecified 05/20/2010 PARISHTHIEN Vann APRNIDI A 346.90 Migraine Unspecified Without Mention Of Intractable Migraine Without Mention Of Status Migrainosus 05/20/2010 PARISHTHIEN Vann APRNIDI A 648.80 Abnormal Glucose Tolerance Test 05/20/2010 BLANQUITA CARDOZA MD 285.9 Anemia Unspecified 05/20/2010 BLANQUITA CARDOZA MD 346.90 Migraine Unspecified Without Mention Of Intractable Migraine Without Mention Of Status Migrainosus 05/20/2010 BLANQUITA CARDOZA MD 648.80 Abnormal Glucose Tolerance Test 05/20/2010 THIEN LUGO APRNIDI A 285.9 Anemia Unspecified 05/20/2010 PARISHTHIEN Vann APRNIDI A 346.90 Migraine Unspecified Without Mention Of Intractable Migraine Without Mention Of Status Migrainosus 05/20/2010 PARISHTHIEN Vann APRNIDI A 648.80 Abnormal Glucose Tolerance Test 05/20/2010 BLANQUITA CARDOZA MD 285.9 Anemia Unspecified 05/20/2010 BLANQUITA CARDOZA MD 346.90 Migraine Unspecified Without Mention Of Intractable Migraine Without Mention Of Status Migrainosus 05/20/2010 BLANQUITA CARDOZA MD 648.80 Abnormal Glucose Tolerance Test 05/20/2010 BLANQUITA CARDOZA MD 285.9 Anemia Unspecified 05/20/2010 BLANQUITA CARDOZA MD 346.90 Migraine Unspecified Without Mention Of Intractable Migraine Without Mention Of Status Migrainosus 05/20/2010 BLANQUITA CARDOZA MD N 648.80 Abnormal Glucose Tolerance Test 05/26/2010 642.90 Compl Of - Htn/pih 05/26/2010 784.0 Headache 05/26/2010 642.90 Compl Of - Htn/pih 05/26/2010 784.0 Headache 05/26/2010 642.90 Compl Of - Htn/pih 05/26/2010 784.0 Headache 05/26/2010 KEO DEUTSCH APRN 642.90 Compl Of - Htn/pih 05/26/2010 KEO DEUTSCH APRN 784.0 Headache 05/26/2010 CASIANO FATEMEH ORELLANA 642.90 Compl Of - Htn/pih 05/26/2010 CASIANO DOFATEMEH K 784.0 Headache 05/26/2010 MANI STRICKLAND MD 642.90 Compl Of - Htn/pih 05/26/2010 MANI STRICKLAND MD 784.0 Headache 05/26/2010 EUGENIEDAVID DOW SEAN S 642.90 Compl Of - Htn/pih 05/26/2010 EUGENIEPINO DOW, SEAN S 784.0 Headache 05/26/2010 KEO DEUTSCH APRN 642.90 Compl Of - Htn/pih 05/26/2010 KEO DEUTSCH APRN 784.0 Headache 05/26/2010 PARISHMIKE DOW, CLARIBEL A 642.90 Compl Of - Htn/pih 05/26/2010 PARISH APRN, CLARIBEL A 784.0 Headache 05/26/2010 PARISH DYNAMO REPAIRER, CLARIBEL A 642.90 Compl Of - Htn/pih 05/26/2010 PARISH DYNAMO REPAIRER, CLARIBEL A 784.0 Headache 05/26/2010 PARISH DYNAMO REPAIRER, CLARIBEL A 642.90 Compl Of - Htn/pih 05/26/2010 PARISH DYNAMO REPAIRER, CLARIBEL A 784.0 Headache 05/26/2010 BLANQUITA CARDOZA MD 642.90 Compl Of - Htn/pih 05/26/2010 BLANQUTIA CARDOZA MD 784.0 Headache 05/26/2010 CLARIBEL LUGO APRN A 642.90 Compl Of - Htn/pih 05/26/2010 CLARIBEL LUGO APRN A 784.0 Headache 05/26/2010 BLANQUITA CARDOZA MD 642.90 Compl Of - Htn/pih 05/26/2010 BLANQUITA CARDOZA MD 784.0 Headache 05/26/2010 BLANQUITA CARDOZA MD 642.90 Compl Of - Htn/pih 05/26/2010 BLANQUITA CARDOZA MD 784.0 Headache 06/24/2010 599.0 Urinary Tract Infection Site Not Specified 06/24/2010 599.0 Urinary Tract Infection Site Not Specified 06/24/2010 599.0 Urinary Tract Infection Site Not Specified 06/24/2010 KEO DEUTSCH APRN 599.0 Urinary Tract Infection Site Not Specified 06/24/2010 FATEMEH CASIANO DO 599.0 Urinary Tract Infection Site Not Specified 06/24/2010 MANI STRICKLAND MD 599.0 Urinary Tract Infection Site Not Specified 06/24/2010 SEAN TRAORE APRN 599.0 Urinary Tract Infection Site Not Specified 06/24/2010 KEO DEUTSCH APRN 599.0 Urinary Tract Infection Site Not Specified 06/24/2010 CLARIBEL LUGO APRN A 599.0 Urinary Tract Infection Site Not Specified 06/24/2010 CLARIBEL LUGO APRN A 599.0 Urinary Tract Infection Site Not Specified 06/24/2010 CLARIBEL LUGO APRN A 599.0 Urinary Tract Infection Site Not Specified 06/24/2010 BLANQUITA CARDOZA MD 599.0 Urinary Tract Infection Site Not Specified 06/24/2010 CLARBIEL LUGO APRN A 599.0 Urinary Tract Infection Site Not Specified 06/24/2010 BLANQUITA CARDOZA MD 599.0 Urinary Tract Infection Site Not Specified 06/24/2010 BLANQUITA CARDOZA MD 599.0 Urinary Tract Infection Site Not Specified 07/03/2010 Ot 041.02 BACTERIAL INFECTION DUE TO STREPTOCOCCUS 07/03/2010 Ot 599.0 URIN TRACT INFECTION NOS 07/03/2010 Ot 643.23 LATE VOMIT PREG-ANTEPART 07/03/2010 Ot 644.03 THRT ERIK LABOR-ANTEPART 07/03/2010 Ot 646.63 INFECTION -ANTEPARTUM 07/06/2010 Ot 041.02 BACTERIAL INFECTION DUE TO STREPTOCOCCUS 07/06/2010 Ot 599.0 URIN TRACT INFECTION NOS 07/06/2010 Ot 643.23 LATE VOMIT PREG-ANTEPART 07/06/2010 Ot 646.63 INFECTION -ANTEPARTUM 07/06/2010 Ot 646.83 PREG COMPL NEC-ANTEPART 07/06/2010 Ot 789.09 ABDOMINAL PAIN, OTHER SPECIFIED SITE 07/08/2010 789.01 Abdominal Pain Right Upper Quadrant 07/08/2010 789.01 Abdominal Pain Right Upper Quadrant 07/08/2010 789.01 Abdominal Pain Right Upper Quadrant 07/08/2010 KEO DEUTSCH APRN 789.01 Abdominal Pain Right Upper Quadrant 07/08/2010 FATEMEH CASIANO DO 789.01 Abdominal Pain Right Upper Quadrant 07/08/2010 MANI STRICKLAND MD 789.01 Abdominal Pain Right Upper Quadrant 07/08/2010 SEAN TRAORE APRN 789.01 Abdominal Pain Right Upper Quadrant 07/08/2010 KEO DEUTSCH APRN 789.01 Abdominal Pain Right Upper Quadrant 07/08/2010 PARSIHTHIEN MCKEON APRNIDI A 789.01 Abdominal Pain Right Upper Quadrant 07/08/2010 THIEN LUGO APRNIDI A 789.01 Abdominal Pain Right Upper Quadrant 07/08/2010 THIEN LUGO APRNIDI A 789.01 Abdominal Pain Right Upper Quadrant 07/08/2010 BLANQUITA CARDOZA MD N 789.01 Abdominal Pain Right Upper Quadrant 07/08/2010 THIEN LUGO APRNIDI A 789.01 Abdominal Pain Right Upper Quadrant 07/08/2010 BLANQUITA CARDOZA MD N 789.01 Abdominal Pain Right Upper Quadrant 07/08/2010 BLANQUITA CARDOZA MD 789.01 Abdominal Pain Right Upper Quadrant 07/14/2010 783.21 Loss Of Weight 07/14/2010 783.21 Loss Of Weight 07/14/2010 783.21 Loss Of Weight 07/14/2010 KEO DEUTSCH APRN 783.21 Loss Of Weight 07/14/2010 FATEMEH CASIANO DO 783.21 Loss Of Weight 07/14/2010 MANI STRICKLAND MD 783.21 Loss Of Weight 07/14/2010 SEAN TRAORE APRN 783.21 Loss Of Weight 07/14/2010 KEO DEUTSCH APRN 783.21 Loss Of Weight 07/14/2010 CLARIBEL LUGO APRN A 783.21 Loss Of Weight 07/14/2010 PARISHCLARIBEL MCKEON APRN A 783.21 Loss Of Weight 07/14/2010 PARISHCLARIBEL MCKEON APRN A 783.21 Loss Of Weight 07/14/2010 BLANQUITA CARDOZA MD 783.21 Loss Of Weight 07/14/2010 CLARIBEL LUGO APRN A 783.21 Loss Of Weight 07/14/2010 BLANQUITA CARDOZA MD 783.21 Loss Of Weight 07/14/2010 BLANQUITA CARDOZA MD 783.21 Loss Of Weight 07/19/2010 Ot 285.9 ANEMIA NOS 07/19/2010 Ot 591 HYDRONEPHROSIS 07/19/2010 Ot 648.21 ANEMIA- DELIVERED 07/19/2010 Ot 648.91 OTH CURR COND-DELIVERED 07/19/2010 Ot 789.01 ABDOMINAL PAIN, RIGHT UPPER QUADRANT 07/19/2010 Ot 796.2 ELEV BL PRES W/O HYPERTN 07/19/2010 Ot V02.51 GROUP B STREPT CARRIER/SUSPECTED CARRIER 07/19/2010 Ot V27.0 DELIVER- SINGLE LIVEBORN 08/11/2010 Ot 790.22 IMPAIRED GLUCOSE TOLERANCE TEST (ORAL) 08/23/2010 Ot 784.0 HEADACHE 08/26/2010 300.00 ANXIETY STATE UNSPECIFIED 08/26/2010 780.4 Dizziness And Giddiness 08/26/2010 787.02 Nausea Alone 08/26/2010 300.00 ANXIETY STATE UNSPECIFIED 08/26/2010 780.4 Dizziness And Giddiness 08/26/2010 787.02 Nausea Alone 08/26/2010 300.00 ANXIETY STATE UNSPECIFIED 08/26/2010 780.4 Dizziness And Giddiness 08/26/2010 787.02 Nausea Alone 08/26/2010 KEO DEUTSCH APRN 300.00 ANXIETY STATE UNSPECIFIED 08/26/2010 KEO DEUTSCH APRN 780.4 Dizziness And Giddiness 08/26/2010 KEO DEUTSCH APRN 787.02 Nausea Alone 08/26/2010 CASIANO DO, FATEMEH K 300.00 ANXIETY STATE UNSPECIFIED 08/26/2010 CASIANO DO, FATEMEH K 780.4 Dizziness And Giddiness 08/26/2010 [place] ORELLANA, FATEMEH K 787.02 Nausea Alone 08/26/2010 MANI STRICKLAND MD 300.00 ANXIETY STATE UNSPECIFIED 08/26/2010 MANI STRICKLAND MD 780.4 Dizziness And Giddiness 08/26/2010 MANI STRICKLAND MD 787.02 Nausea Alone 08/26/2010 LAMAR TRAORE APRNA S 300.00 ANXIETY STATE UNSPECIFIED 08/26/2010 SEAN TRAORE APRN S 780.4 Dizziness And Giddiness 08/26/2010 SEAN TRAORE APRN S 787.02 Nausea Alone 08/26/2010 KEO DEUTSCH APRN 300.00 ANXIETY STATE UNSPECIFIED 08/26/2010 KEO DEUTSCH APRN 780.4 Dizziness And Giddiness 08/26/2010 KEO DEUTSCH APRN 787.02 Nausea Alone 08/26/2010 THIEN LUGO APRNIDI A 300.00 ANXIETY STATE UNSPECIFIED 08/26/2010 THIEN LUGO APRNIDI A 780.4 Dizziness And Giddiness 08/26/2010 THIEN LUGO APRNIDI A 787.02 Nausea Alone 08/26/2010 THIEN LUGO APRNIDI A 300.00 ANXIETY STATE UNSPECIFIED 08/26/2010 THIEN LUGO APRNIDI A 780.4 Dizziness And Giddiness 08/26/2010 THIEN LUGO APRNIDI A 787.02 Nausea Alone 08/26/2010 PARISH DOW CLARIBEL A 300.00 ANXIETY STATE UNSPECIFIED 08/26/2010 THIEN LUGO APRNIDI A 780.4 Dizziness And Giddiness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 11/07/2013 BLANQUITA CARDOZA MD V76.2 CERVICAL CANCER SCREENING (PAP SMEAR) 11/20/2013 SONY MICHELLE, BLANQUITA N 648.80 ABNORMAL GTT IN 11/20/2013 CLARIBEL LUGO APRN A 648.80 ABNORMAL GTT IN 11/20/2013 BLANQUITA CARDOZA MD N 648.80 ABNORMAL GTT IN 11/20/2013 BLANQUITA CARDOZA MD N 648.80 ABNORMAL GTT IN 01/27/2014 ANNA GONZALEZ MD Ot 625.8 FEM GENITAL SYMPTOMS NEC 01/27/2014 ANNA GONZALEZ MD, Ot 646.83 PREG COMPL NEC-ANTEPART 02/23/2014 ANNA GONZALEZ MD Ot 530.81 ESOPHAGEAL REFLUX 02/23/2014 ANNA GONZALEZ MD, Ot 574.20 CHOLELITHIASIS NOS 02/23/2014 ANNA GONZALEZ MD, Ot 646.83 PREG COMPL NEC-ANTEPART 02/23/2014 ANNA GONZALEZ MD, Ot 648.93 OTH CURR COND-ANTEPARTUM 03/12/2014 ANNA GONZALEZ MD, Ot 644.13 THREAT LABOR NEC-ANTEPAR 03/17/2014 ANNA GONZALEZ MD, Ot 644.03 THRT ERIK LABOR-ANTEPART 03/25/2014 ANNA GONZALEZ MD, Ot 644.21 EARLY ONSET DELIVERY-DEL 03/25/2014 ANNA GONZALEZ MD, Ot 648.81 ABN GLUCOSE RASHAUN-DELIV 03/25/2014 ANNA GONZALEZ MD, Ot 661.21 UTERINE INERT NEC-DELIV 03/25/2014 ANNA GONZALEZ MD Ot V04.81 ND FOR PROPHYLACTIC VACCIN AND INOCULATI 03/25/2014 ANNA GONZALEZ MD, Ot V06.1 [id number], COMBINED [ 03/25/2014 ANNA OGNZALEZ MD, Ot V27.0 DELIVER-SINGLE LIVEBORN 04/10/2014 Ot 625.9 04/10/2014 Ot 646.83 04/10/2014 Ot V22.1 04/10/2014 Ot V28.89 04/10/2014 Ot 633.90 04/10/2014 EMMANUEL RAI R MANAGER INTERNAL Ot 789.04 04/10/2014 RAI BENITEZ MANAGER INTERNAL Ot 789.07 04/10/2014 CLARIBEL LUGO Mallory DYNAMO REPAIRER Ot V28.81 04/10/2014 SONY MICHELLE, BLANQUITA Vann Ot V23.9 04/10/2014 SONY MICHELLE, BLANQUITA Vann Ot V28.89 04/10/2014 BLANQUITA CARDOZA MD Ot V28.89 04/10/2014 SAMIRA CARRANZA DO Ot 300.00 ANXIETY STATE NOS 04/10/2014 SAMIRA CARRANZA DO Ot 338.18 OTHER ACUTE POSTOPERATIVE PAIN 04/10/2014 SAMIRA CARRANZA DO Ot 648.44 MENTAL DISORDER-POSTPART 04/10/2014 SAMIRA CARRANZA DO Ot 648.94 OTH CURR COND- 04/10/2014 SAMIRA CARRANZA DO Ot 785.1 PALPITATIONS 04/10/2014 SAMIRA CARRANZA DO Ot 848.8 SPRAIN NEC 04/10/2014 SAMIRA CARRANZA DO Ot E000.8 OTHER EXTERNAL CAUSE STATUS 04/10/2014 SAMIRA CARRANZA DO Ot E927.0 OVEREXERTION FROM SUDDEN STRENUOUS MOVEM 05/22/2014 Ot 276.9 ELECTROLYT/ FLUID DIS NEC 05/22/2014 Ot 708.9 URTICARIA NOS 05/22/2014 Ot 787.99 OTHER GI SYSTEM SYMPTOMS 05/22/2014 Ot 789.04 ABDOMINAL PAIN, LEFT LOWER QUADRANT 06/16/2014 Ot 789.04 06/16/2014 Ot 620.2 07/05/2014 LONG SANCHEZ APRN Ot 521.00 UNSPEC DENTAL CARIES 07/05/2014 LONG SANCHEZ DYNAMO REPAIRER Ot 525.9 DENTAL DISORDER NOS 08/27/2014 GELDENISE SPEARS DO Ot 620.2 08/27/2014 DENISE DYER DO Ot 789.04 10/31/2014 LENNY PAULINO Ot 564.00 UNSPEC CONSTIPATION 10/31/2014 LENNY PAULINO Ot 625.9 FEM GENITAL SYMPTOMS NOS 10/31/2014 LENNY PAULINO Ot 626.2 EXCESSIVE MENSTRUATION 01/01/2015 Ot 625.9 01/01/2015 Ot 646.83 01/01/2015 Ot V22.1 01/01/2015 Ot V28.89 01/01/2015 Ot 633.90 01/01/2015 RAI BENITEZ MANAGER INTERNAL Ot 789.04 01/01/2015 RAI BENITEZ MANAGER INTERNAL Ot 789.07 01/01/2015 CLARIBEL LUGO DYNAMO REPAIRER Ot V28.81 01/01/2015 BLANQUITA CARDOZA MD Ot V23.9 01/01/2015 BLANQUITA CARDOZA MD Ot V28.89 01/01/2015 BLANQUITA CARDOZA MD Ot V28.89 01/01/2015 Ot 789.04 01/01/2015 Ot 620.2 01/01/2015 DENISE DYER DO Ot 620.2 01/01/2015 DENISE DYER DO Ot 789.04 01/02/2015 Ot K80.50 CALCULUS OF BILE DUCT W/O CHOLANGITIS OR 01/02/2015 Ot R10.11 RIGHT UPPER QUADRANT PAIN 01/02/2015 Ot R11.2 NAUSEA WITH VOMITING, UNSPECIFIED 01/03/2015 LONG SANCHEZ DYNAMO REPAIRER Ot R10.11 RIGHT UPPER QUADRANT PAIN 01/20/2015 QIAN POWERS MANAGER INTERNAL Ot R10.12 03/19/2015 PAWEL IRBY DYNAMO REPAIRER Ot N94.9 03/19/2015 PAWEL IRBY DYNAMO REPAIRER Ot O46.90 03/19/2015 PAWEL IRBY DYNAMO REPAIRER Ot O99.89 03/19/2015 PAWEL IRBY DYNAMO REPAIRER Ot Z3A.08 04/01/2015 LISA MICHELLE, ANNA Oliva Ot O21.0 MILD HYPEREMESIS GRAVIDARUM 06/14/2015 Ot V22.1 06/14/2015 Ot V28.89 06/14/2015 Ot 633.90 06/14/2015 RAI BENITEZ MANAGER INTERNAL Ot 789.04 06/14/2015 RAI BENITEZ MANAGER INTERNAL Ot 789.07 06/14/2015 CLARIBEL LUGO DYNAMO REPAIRER Ot V28.81 06/14/2015 BLANQUITA CARDOZA MD Ot V23.9 06/14/2015 SONY MICHELLE, BLANQUITA N Ot V28.89 06/14/2015 SONY MICHELLE, BLANQUITA Vann Ot V28.89 06/14/2015 Ot 789.04 06/14/2015 Ot 620.2 06/14/2015 [facility] A Ot 620.2 06/14/2015 [facility] Ot 789.04 06/14/2015 GIOQIAN MANAGER INTERNAL Ot R10.12 06/14/2015 PAWEL IRBY DYNAMO REPAIRER Ot N94.9 06/14/2015 PAWEL IRBY DYNAMO REPAIRER Ot O46.90 06/14/2015 PAWEL IRBY DYNAMO REPAIRER Ot O99.89 06/14/2015 PAWEL IRBY DYNAMO REPAIRER Ot Z3A.08 06/14/2015 TERE DO, SAMIRA K Ot K02.9 DENTAL CARIES, UNSPECIFIED 06/14/2015 MENOMINEE DO, SAMIRA K Ot O99.612 DISEASES OF THE DGSTV SYS COMP 06/14/2015 TERE DO, SAMIRA K Ot Z3A.23 23 WEEKS GESTATION OF 06/16/2015 TERE DO, SAMIRA K Ot K02.9 06/16/2015 TERE DO, SAMIRA K Ot O99.612 06/16/2015 TERE DO, SAMIRA K Ot Z3A.23 06/16/2015 TERE DO, SAMIRA K Ot K02.9 06/16/2015 TERE DO, SAMIRA K Ot O99.612 06/16/2015 TERE DO, SAMIRA K Ot Z3A.23 06/26/2015 TERE DO, SAMIRA K Ot K02.9 06/26/2015 TERE DO, SAMIRA K Ot O99.612 06/26/2015 TERE DO, SAMIRA K Ot Z3A.23 06/26/2015 LISA MICHELLE, ANNA Oliva Ot O47.02 FALSE LABOR BEFORE 37 COMPLETED WEEKS OF 06/26/2015 LISA MICHELLE, ANNA Oliva Ot Z3A.25 25 WEEKS GESTATION OF 07/03/2015 ANNA GONZALEZ MD Ot O47.02 FALSE LABOR BEFORE 37 COMPLETED WEEKS OF 07/03/2015 ANNA GONZALEZ MD, Ot Z3A.25 25 WEEKS GESTATION OF 09/15/2015 Ot V28.89 OTHER SPECIFIED SCREENING 09/15/2015 Ot 633.90 UNSPEC ECTOPIC PREG W/O INTRAUTERINE PRE 09/15/2015 RAI BENITEZ R MANAGER INTERNAL Ot 789.04 ABDOMINAL PAIN, LEFT LOWER QUADRANT 09/15/2015 RAI BENITEZ R MANAGER INTERNAL Ot 789.07 ABDOMINAL PAIN, GENERALIZED 09/15/2015 CLARIBEL LUGO DYNAMO REPAIRER Ot V28.81 ENCOUNTER FOR ANATOMIC SURVEY 09/15/2015 BLANQUITA CARDOZA MD Ot V23.9 SUPRV HIGH-RISK PREG NOS 09/15/2015 BLANQUITA CARDOZA MD Ot V28.89 OTHER SPECIFIED SCREENING 09/15/2015 BLANQUITA CARDOZA MD Ot V28.89 OTHER SPECIFIED SCREENING 09/15/2015 Ot 789.04 ABDOMINAL PAIN, LEFT LOWER QUADRANT 09/15/2015 Ot 620.2 OVARIAN CYST NEC/NOS 09/15/2015 DENISE DYER DO Ot 620.2 OVARIAN CYST NEC/NOS 09/15/2015 DENISE DYER DO Ot 789.04 ABDOMINAL PAIN, LEFT LOWER QUADRANT 09/15/2015 GIO QIAN L MANAGER INTERNAL Ot R10.12 LEFT UPPER QUADRANT PAIN 09/15/2015 PAWEL IRBY DYNAMO REPAIRER Ot N94.9 UNSP COND ASSOC W FEMALE GENITAL ORGANS 09/15/2015 PAWEL IRBY DYNAMO REPAIRER Ot O46.90 ANTEPARTUM HEMORRHAGE, UNSPECIFIED, UNSP 09/15/2015 PAWEL IRBY APRN Ot O99.89 OTH DISEASES AND CONDITIONS COMPL PREG/C 09/15/2015 PAWEL IRBY DYNAMO REPAIRER Ot Z3A.08 8 WEEKS GESTATION OF 09/15/2015 ANNA GONZALEZ MD, Ot D64.9 ANEMIA, UNSPECIFIED 09/15/2015 ANNA GONZALEZ MD, Ot O24.419 GESTATIONAL DIABETES MELLITUS IN PREGNAN 09/15/2015 ANNA GONZALEZ MD, Ot O34.21 MATERNAL CARE FOR SCAR FROM PREVIOUS GEOVANNY 09/15/2015 ANNA GONZALEZ MD, Ot O99.03 ANEMIA COMPLICATING THE PUERPERIUM 09/15/2015 ANNA GONZALEZ MD, Ot Z01.818 ENCOUNTER FOR OTHER PREPROCEDURAL EXAMIN 09/15/2015 ANNA GONZALEZ MD, Ot Z11.2 ENCOUNTER FOR SCREENING FOR OTHER BACTER 09/15/2015 ANNA GONZALEZ MD, Ot Z3A.00 WEEKS OF GESTATION OF NOT SPEC 09/16/2015 ANNA GONZALEZ MD, Ot D64.9 ANEMIA, UNSPECIFIED 09/16/2015 ANNA GONZALEZ MD, Ot O24.419 GESTATIONAL DIABETES MELLITUS IN PREGNAN 09/16/2015 ANNA GONZALEZ MD, Ot O34.21 MATERNAL CARE FOR SCAR FROM PREVIOUS GEOVANNY 09/16/2015 ANNA GONZALEZ MD, Ot O99.03 ANEMIA COMPLICATING THE PUERPERIUM 09/16/2015 ANNA GONZALEZ MD, Ot Z01.818 ENCOUNTER FOR OTHER PREPROCEDURAL EXAMIN 09/16/2015 ANNA GONZALEZ MD, Ot Z11.2 ENCOUNTER FOR SCREENING FOR OTHER BACTER 09/16/2015 ANNA GONZALEZ MD, Ot Z3A.00 WEEKS OF GESTATION OF NOT SPEC 09/20/2015 ANNA GONZALEZ MD, Ot O47.1 FALSE LABOR AT OR AFTER 37 COMPLETED WEE 09/20/2015 ANNA GONZALEZ MD, Ot Z3A.37 37 WEEKS GESTATION OF 09/22/2015 Ot V28.89 OTHER SPECIFIED SCREENING 09/22/2015 Ot 633.90 UNSPEC ECTOPIC PREG W/O INTRAUTERINE PRE 09/22/2015 RAI BENITEZ MANAGER INTERNAL Ot 789.04 ABDOMINAL PAIN, LEFT LOWER QUADRANT 09/22/2015 RAI BENITEZ MANAGER INTERNAL Ot 789.07 ABDOMINAL PAIN, GENERALIZED 09/22/2015 CLARIBEL LUGO APRN Ot V28.81 ENCOUNTER FOR ANATOMIC SURVEY 09/22/2015 BLANQUITA CARDOZA MD Ot V23.9 SUPRV HIGH-RISK PREG NOS 09/22/2015 BLANQUITA CARDOZA MD Ot V28.89 OTHER SPECIFIED SCREENING 09/22/2015 BLANQUITA CARDOZA MD Ot V28.89 OTHER SPECIFIED SCREENING 09/22/2015 Ot 789.04 ABDOMINAL PAIN, LEFT LOWER QUADRANT 09/22/2015 Ot 620.2 OVARIAN CYST NEC/NOS 09/22/2015 DENISE DYER DO Ot 620.2 OVARIAN CYST NEC/NOS 09/22/2015 DENISE DYER DO Ot 789.04 ABDOMINAL PAIN, LEFT LOWER QUADRANT 09/22/2015 QIAN POWERS MANAGER INTERNAL Ot R10.12 LEFT UPPER QUADRANT PAIN 09/22/2015 PAWEL IRBY DYNAMO REPAIRER Ot N94.9 UNSP COND ASSOC W FEMALE GENITAL ORGANS 09/22/2015 PAWEL IRBY DYNAMO REPAIRER Ot O46.90 ANTEPARTUM HEMORRHAGE, UNSPECIFIED, UNSP 09/22/2015 PAWEL IRBY DYNAMO REPAIRER Ot O99.89 OTH DISEASES AND CONDITIONS COMPL PREG/C 09/22/2015 PAWEL IRBY DYNAMO REPAIRER Ot Z3A.08 8 WEEKS GESTATION OF 09/22/2015 ANNA GONZALEZ MD Ot O47.1 FALSE LABOR AT OR AFTER 37 COMPLETED WEE 09/22/2015 ANNA GONZALEZ MD Ot Z3A.37 37 WEEKS GESTATION OF 09/23/2015 Ot V28.89 OTHER SPECIFIED SCREENING 09/23/2015 Ot 633.90 UNSPEC ECTOPIC PREG W/O INTRAUTERINE PRE 09/23/2015 RAI BENITEZ MANAGER INTERNAL Ot 789.04 ABDOMINAL PAIN, LEFT LOWER QUADRANT 09/23/2015 RAI BENITZE MANAGER INTERNAL Ot 789.07 ABDOMINAL PAIN, GENERALIZED 09/23/2015 CLARIBEL LUGO DYNAMO REPAIRER Ot V28.81 ENCOUNTER FOR ANATOMIC SURVEY 09/23/2015 BLANQUITA CARDOZA MD Ot V23.9 SUPRV HIGH-RISK PREG NOS 09/23/2015 BLANQUITA CARDOZA MD Ot V28.89 OTHER SPECIFIED SCREENING 09/23/2015 BLANQUITA CARDOZA MD Ot V28.89 OTHER SPECIFIED SCREENING 09/23/2015 Ot 789.04 ABDOMINAL PAIN, LEFT LOWER QUADRANT 09/23/2015 Ot 620.2 OVARIAN CYST NEC/NOS 09/23/2015 DENISE DYER DO Ot 620.2 OVARIAN CYST NEC/NOS 09/23/2015 GELLENDER DO, DENISE A Ot 789.04 ABDOMINAL PAIN, LEFT LOWER QUADRANT 09/23/2015 QIAN POWERS MANAGER INTERNAL Ot R10.12 LEFT UPPER QUADRANT PAIN 09/23/2015 PAWEL IRBY APRN Ot N94.9 UNSP COND ASSOC W FEMALE GENITAL ORGANS 09/23/2015 PAWEL IRBY APRN Ot O46.90 ANTEPARTUM HEMORRHAGE, UNSPECIFIED, UNSP 09/23/2015 PAWEL IRBY APRN Ot O99.89 OTH DISEASES AND CONDITIONS COMPL PREG/C 09/23/2015 PAWEL IRBY APRN Ot Z3A.08 8 WEEKS GESTATION OF 09/25/2015 ANNA GONZALEZ MD, Ot O47.1 FALSE LABOR AT OR AFTER 37 COMPLETED WEE 09/25/2015 ANNA GONZALEZ MD, Ot Z3A.37 37 WEEKS GESTATION OF 09/25/2015 ANNA GONZALEZ MD, Ot O47.1 FALSE LABOR AT OR AFTER 37 COMPLETED WEE 09/25/2015 ANNA GONZALEZ MD, Ot Z3A.37 37 WEEKS GESTATION OF 09/25/2015 ANNA GONZALEZ MD, Ot O24.420 GESTATIONAL DIABETES MELLITUS IN CHILDBI 09/25/2015 ANNA GONZALEZ MD, Ot O34.21 MATERNAL CARE FOR SCAR FROM PREVIOUS GEOVANNY 09/25/2015 ANNA GONZALEZ MD, Ot O99.824 STREPTOCOCCUS B CARRIER STATE COMPLICATI 09/25/2015 ANNA GONZALEZ MD, Ot Z37.0 SINGLE LIVE 09/25/2015 ANNA GONZALEZ MD, Ot Z3A.38 38 WEEKS GESTATION OF 09/29/2015 ANNA GONZALEZ MD, Ot O47.1 FALSE LABOR AT OR AFTER 37 COMPLETED WEE 09/29/2015 ANNA GONZALEZ MD, Ot Z3A.37 37 WEEKS GESTATION OF 11/16/2015 ANNA GONZALEZ MD, Ot D64.9 ANEMIA, UNSPECIFIED 11/16/2015 ANNA GONZALEZ MD, Ot N81.2 INCOMPLETE UTEROVAGINAL PROLAPSE 11/16/2015 ANNA GONZALEZ MD, Ot N93.8 OTHER SPECIFIED ABNORMAL UTERINE AND VAG 11/16/2015 ANNA GONZALEZ MD, Ot R10.2 PELVIC AND PERINEAL PAIN 11/16/2015 ANNA GONZALEZ MD, Ot Z01.812 ENCOUNTER FOR PREPROCEDURAL LABORATORY E 11/16/2015 ANNA GONZALEZ MD, Ot Z11.2 ENCOUNTER FOR SCREENING FOR OTHER BACTER 11/18/2015 ANNA GONZALEZ MD, Ot D64.9 ANEMIA, UNSPECIFIED 11/18/2015 ANNA GONZALEZ MD, Ot N81.2 INCOMPLETE UTEROVAGINAL PROLAPSE 11/18/2015 ANNA GONZALEZ MD, Ot N93.8 OTHER SPECIFIED ABNORMAL UTERINE AND VAG 11/18/2015 ANNA GONZALEZ MD, Ot R10.2 PELVIC AND PERINEAL PAIN 11/18/2015 ANNA GONZALEZ MD, Ot Z01.812 ENCOUNTER FOR PREPROCEDURAL LABORATORY E 11/18/2015 ANNA GONZALEZ MD, Ot Z11.2 ENCOUNTER FOR SCREENING FOR OTHER BACTER 11/21/2015 ANNA GONZALEZ MD, Ot N81.4 UTEROVAGINAL PROLAPSE, UNSPECIFIED 11/21/2015 ANNA GONZALEZ MD, Ot N92.0 EXCESSIVE AND FREQUENT MENSTRUATION WITH 11/21/2015 ANNA GONZALEZ MD, Ot N93.8 OTHER SPECIFIED ABNORMAL UTERINE AND VAG 11/21/2015 ANNA GONZALEZ MD Ot R10.2 PELVIC AND PERINEAL PAIN 11/22/2015 ANNA GONZALEZ MD, Ot D64.9 ANEMIA, UNSPECIFIED 11/22/2015 ANNA GONZALEZ MD, Ot N81.2 INCOMPLETE UTEROVAGINAL PROLAPSE 11/22/2015 ANNA GONZALEZ MD, Ot N93.8 OTHER SPECIFIED ABNORMAL UTERINE AND VAG 11/22/2015 ANNA GONZALEZ MD, Ot R10.2 PELVIC AND PERINEAL PAIN 11/22/2015 ANNA GONZALEZ MD, Ot Z01.812 ENCOUNTER FOR PREPROCEDURAL LABORATORY E 11/22/2015 ANNA GONZALEZ MD, Ot Z11.2 ENCOUNTER FOR SCREENING FOR OTHER BACTER 11/25/2015 ANNA GONZALEZ MD, Ot N81.4 UTEROVAGINAL PROLAPSE, UNSPECIFIED 11/25/2015 ANNA GONZALEZ MD, Ot N92.0 EXCESSIVE AND FREQUENT MENSTRUATION WITH 11/25/2015 ANNA GONZALEZ MD, Ot N93.8 OTHER SPECIFIED ABNORMAL UTERINE AND VAG 11/25/2015 ANNA GONZALEZ MD, Ot R10.2 PELVIC AND PERINEAL PAIN 11/30/2015 ANNA GONZALEZ MD, Ot N81.4 UTEROVAGINAL PROLAPSE, UNSPECIFIED 11/30/2015 ANNA GONZALEZ MD, Ot N92.0 EXCESSIVE AND FREQUENT MENSTRUATION WITH 11/30/2015 ANNA GONZALEZ MD, Ot N93.8 OTHER SPECIFIED ABNORMAL UTERINE AND VAG 11/30/2015 ANNA GONZALEZ MD, Ot R10.2 PELVIC AND PERINEAL PAIN 11/30/2015 TERE DO, SAMIRA K Ot K59.00 CONSTIPATION, UNSPECIFIED 11/30/2015 TERE DO, SAMIRA K Ot R10.30 LOWER ABDOMINAL PAIN, UNSPECIFIED 11/30/2015 TERE DO, SAMIRA K Ot Z98.89 OTHER SPECIFIED POSTPROCEDURAL STATES 12/02/2015 TERE DO, SAMIRA K Ot K59.00 CONSTIPATION, UNSPECIFIED 12/02/2015 TERE DO, SAMIRA K Ot R10.30 LOWER ABDOMINAL PAIN, UNSPECIFIED 12/02/2015 TERE DO, SAMIRA K Ot Z98.89 OTHER SPECIFIED POSTPROCEDURAL STATES 12/06/2015 TERE DO, SAMIRA K Ot K59.00 CONSTIPATION, UNSPECIFIED 12/06/2015 TERE DO, SAMIRA K Ot R10.30 LOWER ABDOMINAL PAIN, UNSPECIFIED 12/06/2015 TERE DO, SAMIRA K Ot Z98.89 OTHER SPECIFIED POSTPROCEDURAL STATES 06/24/2016 Ot 633.90 UNSPEC ECTOPIC PREG W/O INTRAUTERINE PRE 06/24/2016 RAI BENITEZ MANAGER INTERNAL Ot 789.04 ABDOMINAL PAIN, LEFT LOWER QUADRANT 06/24/2016 RAI BENITEZ MANAGER INTERNAL Ot 789.07 ABDOMINAL PAIN, GENERALIZED 06/24/2016 PARISH, CLARIBEL A DYNAMO REPAIRER Ot V28.81 ENCOUNTER FOR ANATOMIC SURVEY 06/24/2016 BLANQUITA CARDOZA MD Ot V23.9 SUPRV HIGH-RISK PREG NOS 06/24/2016 BLANQUITA CARDOZA MD Ot V28.89 OTHER SPECIFIED SCREENING 06/24/2016 BLANQUITA CARDOZA MD Ot V28.89 OTHER SPECIFIED SCREENING 06/24/2016 Ot 789.04 ABDOMINAL PAIN, LEFT LOWER QUADRANT 06/24/2016 Ot 620.2 OVARIAN CYST NEC/NOS 06/24/2016 GELLENDER DO, DENISE A Ot 620.2 OVARIAN CYST NEC/NOS 06/24/2016 GELLENDER DO, DENISE A Ot 789.04 ABDOMINAL PAIN, LEFT LOWER QUADRANT 06/24/2016 QIAN POWERS MANAGER INTERNAL Ot R10.12 LEFT UPPER QUADRANT PAIN 06/24/2016 PAWEL IRBY APRN Ot N94.9 UNSP COND ASSOC W FEMALE GENITAL ORGANS 06/24/2016 PAWEL IRBY DYNAMO REPAIRER Ot O46.90 ANTEPARTUM HEMORRHAGE, UNSPECIFIED, UNSP 06/24/2016 PAWEL IRBY DYNAMO REPAIRER Ot O99.89 OTH DISEASES AND CONDITIONS COMPL PREG/C 06/24/2016 PAWEL IRBY APRN Ot Z3A.08 8 WEEKS GESTATION OF 06/24/2016 ANNA GONZALEZ MD, Ot D64.9 ANEMIA, UNSPECIFIED 06/24/2016 ANNA GONZALEZ MD, Ot N80.0 ENDOMETRIOSIS OF UTERUS 06/24/2016 ANNA GONZALEZ MD, Ot Z01.812 ENCOUNTER FOR PREPROCEDURAL LABORATORY E 06/24/2016 ANNA GONZALEZ MD, Ot Z11.2 ENCOUNTER FOR SCREENING FOR OTHER BACTER 06/27/2016 ANNA GONZALEZ MD, Ot D64.9 ANEMIA, UNSPECIFIED 06/27/2016 ANNA GONZALEZ MD, Ot N80.0 ENDOMETRIOSIS OF UTERUS 06/27/2016 ANNA GONZALEZ MD, Ot Z01.812 ENCOUNTER FOR PREPROCEDURAL LABORATORY E 06/27/2016 ANNA GONZALEZ MD, Ot Z11.2 ENCOUNTER FOR SCREENING FOR OTHER BACTER 06/29/2016 ANNA GONZALEZ MD, Ot K37 UNSPECIFIED APPENDICITIS 06/29/2016 ANNA GONZALEZ MD, Ot K38.0 HYPERPLASIA OF APPENDIX 06/29/2016 ANNA GONZALEZ MD, Ot K38.8 OTHER SPECIFIED DISEASES OF APPENDIX 06/29/2016 ANNA GONZALEZ MD, Ot N83.201 UNSPECIFIED OVARIAN CYST, RIGHT SIDE 06/29/2016 ANNA GONZALEZ MD, Ot N83.511 TORSION OF RIGHT OVARY AND OVARIAN PEDIC 06/30/2016 ANNA GONZALEZ MD, Ot K37 UNSPECIFIED APPENDICITIS 06/30/2016 ANNA GONZALEZ MD, Ot K38.8 OTHER SPECIFIED DISEASES OF APPENDIX 06/30/2016 ANNA GONZALEZ MD, Ot N83.511 TORSION OF RIGHT OVARY AND OVARIAN PEDIC 07/05/2016 ANNA GONZALEZ MD, Ot K37 UNSPECIFIED APPENDICITIS 07/05/2016 ANNA GONZALEZ MD, Ot K38.0 HYPERPLASIA OF APPENDIX 07/05/2016 ANNA GONZALEZ MD, Ot N83.201 UNSPECIFIED OVARIAN CYST, RIGHT SIDE 07/05/2016 ANNA GONZALEZ MD, Ot N83.511 TORSION OF RIGHT OVARY AND OVARIAN PEDIC 07/13/2016 LONG SANCHEZ APRN Ot K52.9 NONINFECTIVE GASTROENTERITIS AND COLITIS 07/13/2016 LONG SANCHEZ DYNAMO REPAIRER Ot R10.30 LOWER ABDOMINAL PAIN, UNSPECIFIED 07/14/2016 LONG SANCHEZ APRN Ot K52.9 NONINFECTIVE GASTROENTERITIS AND COLITIS 07/14/2016 LONG SANCHEZ DYNAMO REPAIRER Ot R10.30 LOWER ABDOMINAL PAIN, UNSPECIFIED 10/02/2016 Ot 633.90 UNSPEC ECTOPIC PREG W/O INTRAUTERINE PRE 10/02/2016 RAI BENITEZ MANAGER INTERNAL Ot 789.04 ABDOMINAL PAIN, LEFT LOWER QUADRANT 10/02/2016 RAI BENITEZ MANAGER INTERNAL Ot 789.07 ABDOMINAL PAIN, GENERALIZED 10/02/2016 CLARIBEL LUGO DYNAMO REPAIRER Ot V28.81 ENCOUNTER FOR ANATOMIC SURVEY 10/02/2016 SONY MICHELLE, BLANQUITA Vann Ot V23.9 SUPRV HIGH-RISK PREG NOS 10/02/2016 BLANQUITA CARDOZA MD Ot V28.89 OTHER SPECIFIED SCREENING 10/02/2016 BLANQUITA CARDOZA MD Ot V28.89 OTHER SPECIFIED SCREENING 10/02/2016 Ot 789.04 ABDOMINAL PAIN, LEFT LOWER QUADRANT 10/02/2016 Ot 620.2 OVARIAN CYST NEC/NOS 10/02/2016 DENISE DYER DO Ot 620.2 OVARIAN CYST NEC/NOS 10/02/2016 DENISE DYER DO Ot 789.04 ABDOMINAL PAIN, LEFT LOWER QUADRANT 10/02/2016 QIAN POWERS MANAGER INTERNAL Ot R10.12 LEFT UPPER QUADRANT PAIN 10/02/2016 PAWEL IRBY DYNAMO REPAIRER Ot N94.9 UNSP COND ASSOC W FEMALE GENITAL ORGANS 10/02/2016 PAWEL IRBY DYNAMO REPAIRER Ot O46.90 ANTEPARTUM HEMORRHAGE, UNSPECIFIED, UNSP 10/02/2016 PAWEL IRBY APRN Ot O99.89 OTH DISEASES AND CONDITIONS COMPL PREG/C 10/02/2016 PAWEL IRBY APRN Ot Z3A.08 8 WEEKS GESTATION OF 10/05/2016 DANIA MANJARREZ MD, Ot A41.51 SEPSIS DUE TO ESCHERICHIA COLI [E. COLI] 10/05/2016 DANIA MANJARREZ MD, Ot K21.9 GASTRO-ESOPHAGEAL REFLUX DISEASE WITHOUT 10/05/2016 DANIA MANJARREZ MD, Ot N12 TUBULO-INTERSTITIAL NEPHRITIS, NOT SPCF 10/05/2016 DANIA MANJARREZ MD, Ot Z87.891 PERSONAL HISTORY OF NICOTINE DEPENDENCE Procedures Code Description Performed By Performed On 73.4 07/15/2010 73.59 07/16/2010 OBSTETRIC EDDY DOSS 10/26/2012 OBSTETRIC MADAY BRASHER 12/21/2012 15135 PSYCH DIAGNOSTIC EVALUATION 03/12/2013 89348 HIDA SCAN 03/27/2013 GENERAL S SVEN BENTLEY 04/02/2013 60917 ROUTINE VENIPUNCTURE 08/15/2013 80868 US OB - EARLY <14 WEEKS 08/15/2013 45602 TSH 08/15/2013 74573 HCG QUANTITATIVE 08/15/2013 14713 BLOOD TYPE/Rh FACTOR 08/16/2013 78613 ROUTINE VENIPUNCTURE 09/19/2013 26001 SYPHILLIS-[facility] 09/19/2013 43379 HIV ([facility]) 09/19/2013 66118 ANTIBODY SCREEN (order) 09/19/2013 45979 HEP B SURFACE ANTIGEN (STATE ) 09/19/2013 92532 UA LONG DIP 09/19/2013 28963 CBC 09/19/2013 49587 A1C (RML) 09/19/2013 43556 TSH 09/19/2013 [id number] ANTIBODY SCREEN (RESULT ONLY) 09/20/2013 81701 BLOOD TYPE/Rh FACTOR 09/20/2013 01770 RUBELLA ANTIBODY, IGG 09/20/2013 13492 CULTURE URINE 09/20/2013 09189 GC/CHLAM PROBE ([facility]) 11/05/2013 89976 PAP SMEAR 11/07/2013 Q0091 PAP SMEAR OBTAIN SMEAR 11/07/2013 90192 URINE DRUG SCREEN (IN-HOUSE ) 11/07/2013 46184 UA W/ CULTURE IF INDICATED 11/07/2013 48600 TRICHOMONAS (IN-HOUSE) 11/07/2013 89183 CULTURE UROGENITAL 11/10/2013 67660 OB - COMPLETE >14 WEEKS 11/14/2013 68436 GLUCOSE JUSTINE 1 HOUR 11/14/2013 10797 GLUCOSE JUSTINE 3 HOUR 11/14/2013 29429 CBC 11/14/2013 52400 UA OB DIP 11/14/2013 29590 US OB - FOLLOW UP 12/05/2013 33127 UA OB DIP 12/05/2013 74.1 LOW CERVICAL 03/23/2014 [id number] EXTRACTION OF POC, LOW CERVICAL, OPEN AP 09/23/2015 Results Test Result Range Methicillin resistant Staphylococcus aureus (MRSA) screening culture - 10:05 Methicillin resistant Staphylococcus aureus (MRSA) screening culture NEG NRG Complete blood count (CBC) with automated white blood cell (WBC) differential - 11/16/15 10:10 Blood leukocytes automated count (number/volume) 6.3 10*3/uL 4.3-11.0 Blood erythrocytes automated count (number/volume) 4.20 10*6/uL 4.35-5.85 Venous blood hemoglobin measurement (mass/volume) 11.6 g/dL 11.5-16.0 Blood hematocrit (volume fraction) 35 % 35-52 Automated erythrocyte mean corpuscular volume 84 [foz_us] 80-99 Automated erythrocyte mean corpuscular hemoglobin (mass per erythrocyte) 28 pg 25-34 Automated erythrocyte mean corpuscular hemoglobin concentration measurement ( mass/volume) 33 g/dL 32-36 Automated erythrocyte distribution width ratio 15.1 % 10.0-14.5 Automated blood platelet count (count/volume) 375 10*3/uL 130-400 Automated blood platelet mean volume measurement 10.6 [foz_us] 7.4-10.4 Automated blood neutrophils/100 leukocytes 49 % 42-75 Automated blood lymphocytes/100 leukocytes 41 % 12-44 Blood monocytes/100 leukocytes 8 % 0-12 Automated blood eosinophils/100 leukocytes 2 % 0-10 Automated blood basophils/100 leukocytes 0 % 0-10 Blood neutrophils automated count (number/volume) 3.1 10*3 1.8-7.8 Blood lymphocytes automated count (number/volume) 2.6 10*3 1.0-4.0 Blood monocytes automated count (number/volume) 0.5 10*3 0.0-1.0 Automated eosinophil count 0.2 10*3/uL 0.0-0.3 Automated blood basophil count (count/volume) 0.0 10*3/uL 0.0-0.1 Blood type T Indirect antibody screen panel - 11/16/15 10:10 ABO+Rh group OP NRG Blood group antibody screen NEGATIVE NRG Urine beta human chorionic gonadotropin (hCG) measurement - 11/20/15 11:00 Urine beta human chorionic gonadotropin (hCG) measurement NEGATIVE NEGATIVE Blood type T Indirect antibody screen panel - 11/20/15 11:26 ABO+Rh group OP NRG Transfusion band number [id number] NRG Blood group antibody screen NEGATIVE NRG Complete urinalysis with reflex to culture - 11/30/15 17:10 Urine color determination YELLOW NRG Urine clarity determination CLEAR NRG Urine pH measurement by test strip 7 5-9 Specific gravity of urine by test strip 1.010 1.016- 1.022 Urine protein assay by test strip, semi-quantitative NEGATIVE NEGATIVE Urine glucose detection by automated test strip NEGATIVE NEGATIVE Erythrocytes detection in urine sediment by light microscopy NEGATIVE NEGATIVE Urine ketones detection by automated test strip NEGATIVE NEGATIVE Urine nitrite detection by test strip NEGATIVE NEGATIVE Urine total bilirubin detection by test strip NEGATIVE NEGATIVE Urine urobilinogen measurement by automated test strip (mass/volume) NORMAL NORMAL Urine leukocyte esterase detection by dipstick NEGATIVE NEGATIVE Automated urine sediment erythrocyte count by microscopy (number/high power field) NONE NRG Automated urine sediment leukocyte count by microscopy (number/high power field ) [HPF] NRG Bacteria detection in urine sediment by light microscopy NEGATIVE NRG Squamous epithelial cells detection in urine sediment by light microscopy 0-2 NRG Crystals detection in urine sediment by light microscopy NONE NRG Casts detection in urine sediment by light microscopy NONE NRG Mucus detection in urine sediment by light microscopy NEGATIVE NRG Complete urinalysis with reflex to culture NO NRG Complete blood count (CBC) with automated white blood cell (WBC) differential - 11/30/15 18:17 Blood leukocytes automated count (number/volume) 8.5 10*3/uL 4.3-11.0 Blood erythrocytes automated count (number/volume) 4.51 10*6/uL 4.35-5.85 Venous blood hemoglobin measurement (mass/volume) 12.6 g/dL 11.5-16.0 Blood hematocrit (volume fraction) 38 % 35-52 Automated erythrocyte mean corpuscular volume 85 [foz_us] 80-99 Automated erythrocyte mean corpuscular hemoglobin (mass per erythrocyte) 28 pg 25-34 Automated erythrocyte mean corpuscular hemoglobin concentration measurement ( mass/volume) 33 g/dL 32-36 Automated erythrocyte distribution width ratio 16.4 % 10.0-14.5 Automated blood platelet count (count/volume) 330 10*3/uL 130-400 Automated blood platelet mean volume measurement 10.0 [foz_us] 7.4-10.4 Automated blood neutrophils/100 leukocytes 59 % 42-75 Automated blood lymphocytes/100 leukocytes 30 % 12-44 Blood monocytes/100 leukocytes 9 % 0-12 Automated blood eosinophils/100 leukocytes 1 % 0-10 Automated blood basophils/100 leukocytes 1 % 0-10 Blood neutrophils automated count (number/volume) 5.0 10*3 1.8-7.8 Blood lymphocytes automated count (number/volume) 2.5 10*3 1.0-4.0 Blood monocytes automated count (number/volume) 0.8 10*3 0.0-1.0 Automated eosinophil count 0.1 10*3/uL 0.0-0.3 Automated blood basophil count (count/volume) 0.1 10*3/uL 0.0-0.1 Comprehensive metabolic panel - 11/30/15 18:17 Serum or plasma sodium measurement (moles/volume) 137 mmol/L 135-145 Serum or plasma potassium measurement (moles/volume) 4.2 mmol/L 3.6-5.0 Serum or plasma chloride measurement (moles/volume) 106 mmol/L 98-107 Carbon dioxide 19 mmol/L 21-32 Serum or plasma anion gap determination (moles/volume) 12 mmol/L 5-14 Serum or plasma urea nitrogen measurement (mass/volume) 9 mg/dL 7-18 Serum or plasma creatinine measurement (mass/volume) 0.77 mg/dL 0.60-1.30 Serum or plasma urea nitrogen/creatinine mass ratio 12 NRG Serum or plasma creatinine measurement with calculation of estimated glomerular filtration rate > NRG Serum or plasma glucose measurement (mass/volume) 80 mg/dL 70-105 Serum or plasma calcium measurement (mass/volume) 9.8 mg/dL 8.5-10.1 Serum or plasma total bilirubin measurement (mass/volume) 0.3 mg/dL 0.1-1.0 Serum or plasma alkaline phosphatase measurement (enzymatic activity/volume) 115 U/L 40-136 Serum or plasma aspartate aminotransferase measurement (enzymatic activity/ volume) 27 U/L 5-34 Serum or plasma alanine aminotransferase measurement (enzymatic activity/volume ) 41 U/L 0-55 Serum or plasma protein measurement (mass/volume) 7.7 g/dL 6.4-8.2 Serum or plasma albumin measurement (mass/volume) 4.4 g/dL 3.2-4.5 Complete blood count (CBC) with automated white blood cell (WBC) differential - 06/24/16 13:17 Blood leukocytes automated count (number/volume) 8.4 10*3/uL 4.3-11.0 Blood erythrocytes automated count (number/volume) 4.68 10*6/uL 4.35-5.85 Venous blood hemoglobin measurement (mass/volume) 11.5 g/dL 11.5-16.0 Blood hematocrit (volume fraction) 37 % 35-52 Automated erythrocyte mean corpuscular volume 78 [foz_us] 80-99 Automated erythrocyte mean corpuscular hemoglobin (mass per erythrocyte) 25 pg 25-34 Automated erythrocyte mean corpuscular hemoglobin concentration measurement ( mass/volume) 31 g/dL 32-36 Automated erythrocyte distribution width ratio 19.1 % 10.0-14.5 Automated blood platelet count (count/volume) 381 10*3/uL 130-400 Automated blood platelet mean volume measurement 11.0 [foz_us] 7.4-10.4 Automated blood neutrophils/100 leukocytes 69 % 42-75 Automated blood lymphocytes/100 leukocytes 24 % 12-44 Blood monocytes/100 leukocytes 7 % 0-12 Automated blood eosinophils/100 leukocytes 1 % 0-10 Automated blood basophils/100 leukocytes 0 % 0-10 Blood neutrophils automated count (number/volume) 5.8 10*3 1.8-7.8 Blood lymphocytes automated count (number/volume) 2.0 10*3 1.0-4.0 Blood monocytes automated count (number/volume) 0.6 10*3 0.0-1.0 Automated eosinophil count 0.0 10*3/uL 0.0-0.3 Automated blood basophil count (count/volume) 0.0 10*3/uL 0.0-0.1 Methicillin resistant Staphylococcus aureus (MRSA) screening culture - 13:17 Methicillin resistant Staphylococcus aureus (MRSA) screening culture NEG NRG Complete blood count (CBC) with automated white blood cell (WBC) differential - 07/13/16 20:20 Blood leukocytes automated count (number/volume) 11.5 10*3/uL 4.3-11.0 Blood erythrocytes automated count (number/volume) 4.48 10*6/uL 4.35-5.85 Venous blood hemoglobin measurement (mass/volume) 11.5 g/dL 11.5-16.0 Blood hematocrit (volume fraction) 36 % 35-52 Automated erythrocyte mean corpuscular volume 81 [foz_us] 80-99 Automated erythrocyte mean corpuscular hemoglobin (mass per erythrocyte) 26 pg 25-34 Automated erythrocyte mean corpuscular hemoglobin concentration measurement ( mass/volume) 32 g/dL 32-36 Automated erythrocyte distribution width ratio 19.0 % 10.0-14.5 Automated blood platelet count (count/volume) 350 10*3/uL 130-400 Automated blood platelet mean volume measurement 10.3 [foz_us] 7.4-10.4 Automated blood neutrophils/100 leukocytes 60 % 42-75 Automated blood lymphocytes/100 leukocytes 28 % 12-44 Blood monocytes/100 leukocytes 9 % 0-12 Automated blood eosinophils/100 leukocytes 3 % 0-10 Automated blood basophils/100 leukocytes 0 % 0-10 Blood neutrophils automated count (number/volume) 6.9 10*3 1.8-7.8 Blood lymphocytes automated count (number/volume) 3.2 10*3 1.0-4.0 Blood monocytes automated count (number/volume) 1.0 10*3 0.0-1.0 Automated eosinophil count 0.3 10*3/uL 0.0-0.3 Automated blood basophil count (count/volume) 0.0 10*3/uL 0.0-0.1 Comprehensive metabolic panel - 07/13/16 20:20 Serum or plasma sodium measurement (moles/volume) 139 mmol/L 135-145 Serum or plasma potassium measurement (moles/volume) 3.7 mmol/L 3.6-5.0 Serum or plasma chloride measurement (moles/volume) 104 mmol/L 98-107 Carbon dioxide 24 mmol/L 21-32 Serum or plasma anion gap determination (moles/volume) 11 mmol/L 5-14 Serum or plasma urea nitrogen measurement (mass/volume) 7 mg/dL 7-18 Serum or plasma creatinine measurement (mass/volume) 0.80 mg/dL 0.60-1.30 Serum or plasma urea nitrogen/creatinine mass ratio 9 NRG Serum or plasma creatinine measurement with calculation of estimated glomerular filtration rate > NRG Serum or plasma glucose measurement (mass/volume) 91 mg/dL 70-105 Serum or plasma calcium measurement (mass/volume) 9.2 mg/dL 8.5-10.1 Serum or plasma total bilirubin measurement (mass/volume) 0.3 mg/dL 0.1-1.0 Serum or plasma alkaline phosphatase measurement (enzymatic activity/volume) 89 U/L 40-136 Serum or plasma aspartate aminotransferase measurement (enzymatic activity/ volume) 13 U/L 5-34 Serum or plasma alanine aminotransferase measurement (enzymatic activity/volume ) 16 U/L 0-55 Serum or plasma protein measurement (mass/volume) 7.7 g/dL 6.4-8.2 Serum or plasma albumin measurement (mass/volume) 4.3 g/dL 3.2-4.5 Complete urinalysis with reflex to culture - 07/13/16 20:45 Urine color determination YELLOW NRG Urine clarity determination SLIGHTLY CLOUDY NRG Urine pH measurement by test strip 6.5 5-9 Specific gravity of urine by test strip 1.010 1.016- 1.022 Urine protein assay by test strip, semi-quantitative NEGATIVE NEGATIVE Urine glucose detection by automated test strip NEGATIVE NEGATIVE Erythrocytes detection in urine sediment by light microscopy NEGATIVE NEGATIVE Urine ketones detection by automated test strip NEGATIVE NEGATIVE Urine nitrite detection by test strip NEGATIVE NEGATIVE Urine total bilirubin detection by test strip NEGATIVE NEGATIVE Urine urobilinogen measurement by automated test strip (mass/volume) NORMAL NORMAL Urine leukocyte esterase detection by dipstick NEGATIVE NEGATIVE Automated urine sediment erythrocyte count by microscopy (number/high power field) NONE NRG Automated urine sediment leukocyte count by microscopy (number/high power field ) NONE NRG Bacteria detection in urine sediment by light microscopy NONE NRG Squamous epithelial cells detection in urine sediment by light microscopy 0-2 NRG Crystals detection in urine sediment by light microscopy NONE NRG Casts detection in urine sediment by light microscopy NONE NRG Mucus detection in urine sediment by light microscopy NEGATIVE NRG Complete urinalysis with reflex to culture NO NRG Complete blood count (CBC) with automated white blood cell (WBC) differential - 10/02/16 10:10 Blood leukocytes automated count (number/volume) 17.8 10*3/uL 4.3-11.0 Blood erythrocytes automated count (number/volume) 4.52 10*6/uL 4.35-5.85 Venous blood hemoglobin measurement (mass/volume) 12.5 g/dL 11.5-16.0 Blood hematocrit (volume fraction) 38 % 35-52 Automated erythrocyte mean corpuscular volume 84 [foz_us] 80-99 Automated erythrocyte mean corpuscular hemoglobin (mass per erythrocyte) 28 pg 25-34 Automated erythrocyte mean corpuscular hemoglobin concentration measurement ( mass/volume) 33 g/dL 32-36 Automated erythrocyte distribution width ratio 16.4 % 10.0-14.5 Automated blood platelet count (count/volume) 280 10*3/uL 130-400 Automated blood platelet mean volume measurement 11.2 [foz_us] 7.4-10.4 Automated blood neutrophils/100 leukocytes 86 % 42-75 Automated blood lymphocytes/100 leukocytes 6 % 12-44 Blood monocytes/100 leukocytes 8 % 0-12 Automated blood eosinophils/100 leukocytes 0 % 0-10 Automated blood basophils/100 leukocytes 0 % 0-10 Blood neutrophils automated count (number/volume) 15.3 10*3 1.8-7.8 Blood lymphocytes automated count (number/volume) 1.0 10*3 1.0-4.0 Blood monocytes automated count (number/volume) 1.5 10*3 0.0-1.0 Automated eosinophil count 0.0 10*3/uL 0.0-0.3 Automated blood basophil count (count/volume) 0.0 10*3/uL 0.0-0.1 Blood lactic acid measurement (moles/volume) - 10/02/16 10:10 Blood lactic acid measurement (moles/volume) 1.15 mmol/L 0.50-2.00 Comprehensive metabolic panel - 10/02/16 10:10 Serum or plasma sodium measurement (moles/volume) 133 mmol/L 135-145 Serum or plasma potassium measurement (moles/volume) 3.9 mmol/L 3.6-5.0 Serum or plasma chloride measurement (moles/volume) 98 mmol/L 98-107 Carbon dioxide 23 mmol/L 21-32 Serum or plasma anion gap determination (moles/volume) 12 mmol/L 5-14 Serum or plasma urea nitrogen measurement (mass/volume) 7 mg/dL 7-18 Serum or plasma creatinine measurement (mass/volume) 0.93 mg/dL 0.60-1.30 Serum or plasma urea nitrogen/creatinine mass ratio 8 NRG Serum or plasma creatinine measurement with calculation of estimated glomerular filtration rate > NRG Serum or plasma glucose measurement (mass/volume) 144 mg/dL 70-105 Serum or plasma calcium measurement (mass/volume) 9.7 mg/dL 8.5-10.1 Serum or plasma total bilirubin measurement (mass/volume) 0.8 mg/dL 0.1-1.0 Serum or plasma alkaline phosphatase measurement (enzymatic activity/volume) 125 U/L 40-136 Serum or plasma aspartate aminotransferase measurement (enzymatic activity/ volume) 29 U/L 5-34 Serum or plasma alanine aminotransferase measurement (enzymatic activity/volume ) 21 U/L 0-55 Serum or plasma protein measurement (mass/volume) 8.0 g/dL 6.4-8.2 Serum or plasma albumin measurement (mass/volume) 4.1 g/dL 3.2-4.5 Blood manual differential performed detection - 10/02/16 10:10 Blood monocytes/100 leukocytes 9 % NRG Manual blood segmented neutrophils/100 leukocytes 86 % NRG Blood band neutrophils/100 leukocytes 0 % NRG Manual blood lymphocytes/100 leukocytes 5 % NRG Manual eosinophils/100 leukocytes in nose 0 % NRG Manual blood basophils/100 leukocytes 0 % NRG Blood erythrocyte morphology finding identification NORMAL NRG Bacterial blood culture - 10/02/16 10:10 FREE TEXT EXTERNAL SENSITIVITY REPORTED 10/03 15:30 NRG QUANTITY OF GROWTH . NRG Bacterial blood culture SEE [facility] Bacterial susceptibility panel - 10/02/16 10:10 Gentamicin susceptibility test by minimum inhibitory concentration < = NRG Trimethoprim/sulfamethoxazole susceptibility test by minimum inhibitoryconcentration <= NRG Ampicillin susceptibility test by minimum inhibitory concentration > = NRG Tobramycin susceptibility test by minimum inhibitory concentration < = NRG Cefazolin susceptibility test by minimum inhibitory concentration < = NRG Ceftriaxone susceptibility test by minimum inhibitory concentration <= NRG Ampicillin/sulbactam susceptibility test by minimum inhibitory concentration 4 NRG Piperacillin/tazobactam susceptibility test by minimum inhibitory concentration <= NRG Ciprofloxacin susceptibility test by minimum inhibitory concentration <= NRG Meropenem susceptibility test by minimum inhibitory concentration < = NRG Aztreonam susceptibility test by minimum inhibitory concentration < = NRG Extended spectrum beta lactamase (ESBL) producing bacteria susceptibility test by minimum inhibitory concentration - NR Bacterial blood culture - 10/02/16 10:44 Bacterial blood culture NG NRG Complete urinalysis with reflex to culture - 10/02/16 11:35 Urine color determination YELLOW NRG Urine clarity determination SLIGHTLY CLOUDY NRG Urine pH measurement by test strip 6 5-9 Specific gravity of urine by test strip 1.005 1.016- 1.022 Urine protein assay by test strip, semi-quantitative 3+ NEGATIVE Urine glucose detection by automated test strip NEGATIVE NEGATIVE Erythrocytes detection in urine sediment by light microscopy 4+ NEGATIVE Urine ketones detection by automated test strip NEGATIVE NEGATIVE Urine nitrite detection by test strip POSITIVE NEGATIVE Urine total bilirubin detection by test strip NEGATIVE NEGATIVE Urine urobilinogen measurement by automated test strip (mass/volume) NORMAL NORMAL Urine leukocyte esterase detection by dipstick 3+ NEGATIVE Automated urine sediment erythrocyte count by microscopy (number/high power field) [HPF] NRG Automated urine sediment leukocyte count by microscopy (number/high power field ) TNTC NRG Bacteria detection in urine sediment by light microscopy NEGATIVE NRG Squamous epithelial cells detection in urine sediment by light microscopy 2-5 NRG Crystals detection in urine sediment by light microscopy NONE NRG Casts detection in urine sediment by light microscopy NONE NRG Mucus detection in urine sediment by light microscopy NEGATIVE NRG Complete urinalysis with reflex to culture YES NRG Bacterial urine culture - 10/02/16 11:35 Bacterial urine culture SEE COMMEN NRG COLONY COUNT . NRG FTX;REPORTABLE SENSITIVITY REPORTED 10/03 15:30 ON NRG FREE TEXT ENTRY 2 BLOOD CULTURE [id number] NRG Complete blood count (CBC) with automated white blood cell (WBC) differential - 10/03/16 06:10 Blood leukocytes automated count (number/volume) 16.2 10*3/uL 4.3-11.0 Blood erythrocytes automated count (number/volume) 3.63 10*6/uL 4.35-5.85 Venous blood hemoglobin measurement (mass/volume) 10.1 g/dL 11.5-16.0 Blood hematocrit (volume fraction) 31 % 35-52 Automated erythrocyte mean corpuscular volume 87 [foz_us] 80-99 Automated erythrocyte mean corpuscular hemoglobin (mass per erythrocyte) 28 pg 25-34 Automated erythrocyte mean corpuscular hemoglobin concentration measurement ( mass/volume) 32 g/dL 32-36 Automated erythrocyte distribution width ratio 16.7 % 10.0-14.5 Automated blood platelet count (count/volume) 195 10*3/uL 130-400 Automated blood platelet mean volume measurement 11.3 [foz_us] 7.4-10.4 Automated blood neutrophils/100 leukocytes 77 % 42-75 Automated blood lymphocytes/100 leukocytes 15 % 12-44 Blood monocytes/100 leukocytes 7 % 0-12 Automated blood eosinophils/100 leukocytes 1 % 0-10 Automated blood basophils/100 leukocytes 0 % 0-10 Blood neutrophils automated count (number/volume) 12.5 10*3 1.8-7.8 Blood lymphocytes automated count (number/volume) 2.5 10*3 1.0-4.0 Blood monocytes automated count (number/volume) 1.1 10*3 0.0-1.0 Automated eosinophil count 0.1 10*3/uL 0.0-0.3 Automated blood basophil count (count/volume) 0.0 10*3/uL 0.0-0.1 Comprehensive metabolic panel - 10/03/16 06:10 Serum or plasma sodium measurement (moles/volume) 138 mmol/L 135-145 Serum or plasma potassium measurement (moles/volume) 3.9 mmol/L 3.6-5.0 Serum or plasma chloride measurement (moles/volume) 111 mmol/L 98-107 Carbon dioxide 20 mmol/L 21-32 Serum or plasma anion gap determination (moles/volume) 7 mmol/L 5-14 Serum or plasma urea nitrogen measurement (mass/volume) 10 mg/dL 7-18 Serum or plasma creatinine measurement (mass/volume) 0.76 mg/dL 0.60-1.30 Serum or plasma urea nitrogen/creatinine mass ratio 13 NRG Serum or plasma creatinine measurement with calculation of estimated glomerular filtration rate > NRG Serum or plasma glucose measurement (mass/volume) 75 mg/dL 70-105 Serum or plasma calcium measurement (mass/volume) 8.2 mg/dL 8.5-10.1 Serum or plasma total bilirubin measurement (mass/volume) 0.3 mg/dL 0.1-1.0 Serum or plasma alkaline phosphatase measurement (enzymatic activity/volume) 119 U/L 40-136 Serum or plasma aspartate aminotransferase measurement (enzymatic activity/ volume) 28 U/L 5-34 Serum or plasma alanine aminotransferase measurement (enzymatic activity/volume ) 24 U/L 0-55 Serum or plasma protein measurement (mass/volume) 5.7 g/dL 6.4-8.2 Serum or plasma albumin measurement (mass/volume) 2.9 g/dL 3.2-4.5 Complete urinalysis with reflex to culture - 10/03/16 15:00 Urine color determination PAULA NRG Urine clarity determination SLIGHTLY CLOUDY NRG Urine pH measurement by test strip 6 5-9 Specific gravity of urine by test strip 1.015 1.016- 1.022 Urine protein assay by test strip, semi-quantitative 3+ NEGATIVE Urine glucose detection by automated test strip NEGATIVE NEGATIVE Erythrocytes detection in urine sediment by light microscopy 2+ NEGATIVE Urine ketones detection by automated test strip NEGATIVE NEGATIVE Urine nitrite detection by test strip NEGATIVE NEGATIVE Urine total bilirubin detection by test strip NEGATIVE NEGATIVE Urine urobilinogen measurement by automated test strip (mass/volume) 1 mg/dL NORMAL Urine leukocyte esterase detection by dipstick 3+ NEGATIVE Automated urine sediment erythrocyte count by microscopy (number/high power field) [HPF] NRG Automated urine sediment leukocyte count by microscopy (number/high power field ) > [HPF] NRG Bacteria detection in urine sediment by light microscopy TRACE NRG Squamous epithelial cells detection in urine sediment by light microscopy 10-25 NRG Crystals detection in urine sediment by light microscopy NONE NRG Casts detection in urine sediment by light microscopy NONE NRG Mucus detection in urine sediment by light microscopy SMALL NRG Complete urinalysis with reflex to culture YES NRG Bacterial urine culture - 10/03/16 15:00 Bacterial urine culture NG NRG Comprehensive metabolic panel - 10/04/16 04:50 Serum or plasma sodium measurement (moles/volume) 135 mmol/L 135-145 Serum or plasma potassium measurement (moles/volume) 4.2 mmol/L 3.6-5.0 Serum or plasma chloride measurement (moles/volume) 107 mmol/L 98-107 Carbon dioxide 17 mmol/L 21-32 Serum or plasma anion gap determination (moles/volume) 11 mmol/L 5-14 Serum or plasma urea nitrogen measurement (mass/volume) 7 mg/dL 7-18 Serum or plasma creatinine measurement (mass/volume) 0.75 mg/dL 0.60-1.30 Serum or plasma urea nitrogen/creatinine mass ratio 9 NRG Serum or plasma creatinine measurement with calculation of estimated glomerular filtration rate > NRG Serum or plasma glucose measurement (mass/volume) 108 mg/dL 70-105 Serum or plasma calcium measurement (mass/volume) 8.5 mg/dL 8.5-10.1 Serum or plasma total bilirubin measurement (mass/volume) 0.2 mg/dL 0.1-1.0 Serum or plasma alkaline phosphatase measurement (enzymatic activity/volume) 130 U/L 40-136 Serum or plasma aspartate aminotransferase measurement (enzymatic activity/ volume) 18 U/L 5-34 Serum or plasma alanine aminotransferase measurement (enzymatic activity/volume ) 20 U/L 0-55 Serum or plasma protein measurement (mass/volume) 6.2 g/dL 6.4-8.2 Serum or plasma albumin measurement (mass/volume) 3.0 g/dL 3.2-4.5 Complete blood count (CBC) with automated white blood cell (WBC) differential - 10/04/16 07:40 Blood leukocytes automated count (number/volume) 10.6 10*3/uL 4.3-11.0 Blood erythrocytes automated count (number/volume) 3.41 10*6/uL 4.35-5.85 Venous blood hemoglobin measurement (mass/volume) 9.3 g/dL 11.5-16.0 Blood hematocrit (volume fraction) 29 % 35-52 Automated erythrocyte mean corpuscular volume 85 [foz_us] 80-99 Automated erythrocyte mean corpuscular hemoglobin (mass per erythrocyte) 27 pg 25-34 Automated erythrocyte mean corpuscular hemoglobin concentration measurement ( mass/volume) 32 g/dL 32-36 Automated erythrocyte distribution width ratio 16.8 % 10.0-14.5 Automated blood platelet count (count/volume) 209 10*3/uL 130-400 Automated blood platelet mean volume measurement 11.4 [foz_us] 7.4-10.4 Automated blood neutrophils/100 leukocytes 73 % 42-75 Automated blood lymphocytes/100 leukocytes 18 % 12-44 Blood monocytes/100 leukocytes 8 % 0-12 Automated blood eosinophils/100 leukocytes 1 % 0-10 Automated blood basophils/100 leukocytes 0 % 0-10 Blood neutrophils automated count (number/volume) 7.7 10*3 1.8-7.8 Blood lymphocytes automated count (number/volume) 1.9 10*3 1.0-4.0 Blood monocytes automated count (number/volume) 0.8 10*3 0.0-1.0 Automated eosinophil count 0.1 10*3/uL 0.0-0.3 Automated blood basophil count (count/volume) 0.0 10*3/uL 0.0-0.1 Encounters ACCT No. Visit Date/Time Discharge Status Pt. Type Provider Facility Loc./Unit Complaint [id number] 12/05/2013 15:43:00 12/05/2013 23:59:59 CLS Outpatient BLANQUITA CARDOZA MD [id number] 12/05/2013 15:43:00 12/05/2013 23:59:59 CLS Outpatient BLANQUITA CARDOZA MD [id number] 11/14/2013 11:34:00 11/14/2013 23:59:59 CLS Outpatient BLANQUITA CARDOZA MD [id number] 11/07/2013 11:39:00 11/07/2013 23:59:59 CLS Outpatient CLARIBEL LUGO APRN [id number] 11/07/2013 11:39:00 11/07/2013 23:59:59 CLS Outpatient CLARIBEL LUGO APRN [id number] 09/19/2013 10:36:00 09/19/2013 23:59:59 CLS Outpatient CLARIBEL LUGO APRN [id number] 08/15/2013 14:41:00 08/15/2013 23:59:59 CLS Outpatient CLARIBEL LUGO APRN [id number] 04/02/2013 14:29:00 04/02/2013 23:59:59 CLS Outpatient KEO DEUTSCH APRN [id number] 03/27/2013 16:47:00 03/27/2013 23:59:59 CLS Outpatient EUGENIE DYNAMO REPAIRER, SEAN Driver [id number] 03/11/2013 15:41:00 03/11/2013 23:59:59 CLS Outpatient MANI STRICKLAND MD [id number] 01/11/2013 11:46:00 01/11/2013 23:59:59 CLS Outpatient FATEMEH CASIANO DO [id number] 12/21/2012 10:56:00 12/21/2012 23:59:59 CLS Outpatient KEO DEUTSCH APRN [id number] 06/26/2012 16:21:00 06/26/2012 23:59:59 CLS Outpatient [id number] 06/08/2012 16:35:00 06/08/2012 23:59:59 CLS Outpatient [id number] 10/26/2012 14:14:00 Document Registration [id number] 10/02/2016 12:59:00 10/05/2016 14:45:00 DIS Inpatient DANIA MANJARREZ MD [facility] [address] 4TH R PYELONEPHRITIS [id number] 07/13/2016 19:45:00 07/13/2016 21:28:00 DIS Emergency LONG SANCHEZ APRN [facility] [address] ER LOWER ABD PAIN [id number] 06/29/2016 10:57:00 06/29/2016 15:45:00 DIS Outpatient ANNA GONZALEZ MD [facility] [address] SDC CHRONIC PELVIC PAIN [id number] 06/24/2016 12:56:00 06/24/2016 13:19:00 DIS Outpatient ANNA GONZALEZ MD [facility] [address] PREOP CPP ENDOMETRIOSIS [id number] 01/04/2016 11:26:00 01/04/2016 23:59:59 CLS Outpatient RAKESH LIANEZ DYNAMO REPAIRER [facility] [address] QUICK HAND/WRIST PAIN [id number] 11/30/2015 16:50:00 11/30/2015 19:47:00 DIS Emergency SAMIRA CARRANZA DO [facility] [address] ER POST HYSTERECTOMY/PAIN ABOVE PUBIC BONE [id number] 11/20/2015 10:55:00 11/21/2015 09:55:00 DIS Outpatient ANNA GONZALEZ MD [facility] [address] SDC CPP; DUB; PROLAPSE [id number] 11/16/2015 09:56:00 11/16/2015 11:12:00 DIS Outpatient ANNA GONZALEZ MD [facility] [address] PREOP CPP; DUB; PROLAPSE [id number] 09/23/2015 05:53:00 09/25/2015 14:15:00 DIS Inpatient ANNA GONZALEZ MD [facility] [address] LDRP PREVIOUS SECTION [id number] 09/22/2015 14:36:00 09/22/2015 16:25:00 DIS Outpatient ANNA GONZALEZ MD [facility] [address] WSo CONTRACTIONS AND SPOTTING [id number] 09/19/2015 17:21:00 09/20/2015 07:39:00 DIS Outpatient ANNA GONZALEZ MD [facility] ABD PAIN,NAUSEA [id number] 09/15/2015 14:43:00 09/15/2015 15:05:00 DIS Outpatient ANNA GONZALEZ MD [facility] [address] PREOP PREVIOUS SECTION [id number] 06/26/2015 14:18:00 06/26/2015 16:40:00 DIS Outpatient ANNA GONZALEZ MD [facility] [address] WSo CRAMPING AND PRESSURE [id number] 06/14/2015 18:30:00 06/14/2015 20:20:00 DIS Emergency SAMIRA CARRANZA DO [facility] [address] ER TOOTH INFECTION [id number] 04/01/2015 13:56:00 04/01/2015 20:00:00 DIS Outpatient ANNA GONZALEZ MD [facility] [address] WSo N/V [id number] 03/02/2015 11:55:00 03/02/2015 23:59:59 CLS Outpatient JUDEKALPAWEL MOSELEY Mallory DYNAMO REPAIRER [facility] [address] RAD ABD CRAMPING, BLEEDING, CONFIRM IUP,DATING [id number] 01/03/2015 12:59:00 01/03/2015 15:01:00 DIS Emergency LONG SANCHEZ DYNAMO REPAIRER [facility] [address] ER ABD PAIN [id number] 01/01/2015 07:02:00 01/01/2015 23:59:59 CLS Outpatient QIAN POWERS MANAGER INTERNAL [facility] [address] RAD LUQ PAIN [id number] 10/30/2014 18:23:00 10/31/2014 01:02:00 DIS Emergency LENNY PAULINO [facility] [address] ER ABD PAIN [id number] 07/07/2014 13:02:00 07/07/2014 23:59:59 CLS Outpatient MANISHA ORELLANADENISE [facility] [address] RAD LEFT COMPLICATED CYST [id number] 07/05/2014 12:12:00 07/05/2014 12:39:00 DIS Emergency LONG SANCHEZ DYNAMO REPAIRER [facility] [address] ER DENTAL PAIN [id number] 04/10/2014 17:34:00 04/10/2014 21:59:00 DIS Emergency TERE ORELLANA SAMIAR Maryse [facility] [address] ER POST CSECTION COMPLICATIONS [id number] 03/22/2014 15:00:00 03/25/2014 13:38:00 DIS Inpatient ANNA GONZALEZ MD [facility] [address] LDRP LABOR [id number] 03/17/2014 13:51:00 03/17/2014 16:25:00 DIS Outpatient ANNA GONZALEZ MD [facility] [address] WSo R SIDE PAIN, BACK PAIN,VOMITTING [id number] 03/11/2014 21:50:00 03/12/2014 07:33:00 DIS Inpatient ANNA GONZALEZ MD [facility] [address] LDRP LBP,CRAMPING, PRESSURE [id number] 02/22/2014 00:00:00 02/23/2014 10:05:00 DIS Inpatient ANNA GONZALEZ MD [facility] [address] LDRP ABD PAIN;HEADACHE; CTXS [id number] 01/27/2014 12:45:00 01/27/2014 14:45:00 DIS Outpatient ANNA GONZALEZ MD [facility] [address] WSo CRAMPING SPOTTING DIZZINESS 28 WEEKS [id number] 01/03/2014 12:57:00 01/03/2014 23:59:59 CLS Outpatient BLANQUITA CARDOZA MD [facility] [address] RAD FOLLOW UP POOR VISUALIZATION CORD, SPINE, HEART [id number] 11/26/2013 14:28:00 11/26/2013 23:59:59 CLS Outpatient BLANQUITA CARDOZA MD [facility] [address] RAD HIGH RISK PREG., ANATOMY SCREENING [id number] 11/05/2013 16:44:00 11/05/2013 21:31:00 DIS Emergency SAMIRA CARRANZA DO [facility] [address] ER SHARP LOWER ABD PAIN @ 16 WEEKS [id number] 08/26/2013 11:30:00 08/26/2013 23:59:59 CLS Outpatient CLARIBEL LUGO APRN [facility] [address] RAD DATING/VIABILITY [id number] 08/14/2013 19:25:00 08/15/2013 00:04:00 DIS Emergency TALISHA BESS MD [facility] [address] ER L SIDE LOWER ABD PAIN, VOMITING,6 WKS PREG [id number] 08/12/2013 17:39:00 08/12/2013 20:22:00 DIS Emergency LENNY PAULINO [facility] [address] ER LOWER ABD PAIN AT 4 WEEKS [id number] 06/04/2013 13:17:00 06/04/2013 16:08:00 DIS Emergency LONG SANCHEZ APRN [facility] [address] ER UPPER ABD PAIN [id number] 03/25/2013 09:22:00 03/25/2013 13:00:00 DIS Emergency TALISHA BESS MD [facility] [address] ER UPPER ABD PAIN [id number] 10/09/2012 13:06:00 10/09/2012 23:59:59 CLS Outpatient RAI BENITEZ [facility] [address] RAD LLQ ABD PAIN [id number] 01/05/2015 10:42:00 Document Registration [id number] 06/16/2014 17:10:00 Document Registration [id number] 05/29/2014 13:26:00 Document Registration [id number] 05/28/2014 12:40:00 Document Registration [id number] 07/05/2012 18:49:00 Document Registration [id number] 04/03/2012 17:32:00 Document Registration [id number] 11/25/2011 22:39:00 Document Registration [id number] 09/22/2011 18:12:00 Document Registration [id number] 08/27/2011 19:09:00 Document Registration [id number] 08/01/2011 15:55:00 Document Registration [id number] 07/09/2011 17:37:00 Document Registration [id number] 02/11/2011 16:52:00 Document Registration [id number] 10/08/2010 03:09:00 Document Registration [id number] 08/28/2010 01:03:00 Document Registration [id number] 08/23/2010 18:34:00 Document Registration [id number] 07/15/2010 05:53:00 Document Registration [id number] 07/05/2010 18:20:00 Document Registration [id number] 07/02/2010 06:05:00 Document Registration [id number] 06/14/2010 09:00:00 Document Registration [id number] 05/15/2010 11:31:00 Document Registration [id number] 04/05/2010 09:42:00 Document Registration [id number] 03/05/2010 10:09:00 Document Registration [id number] 03/01/2010 20:18:00 Document Registration [id number] 11/26/2009 09:41:00 Document Registration [id number] 08/31/2009 19:46:00 Document Registration [id number] 08/02/2009 18:45:00 Document Registration [id number] 07/24/2009 06:32:00 Document Registration
== END 2017-05-27 16:12 | disposition home or self-care (01) ==
LOC: EDUNIT# 12:21 → ER 12:23
DX: N39.0 Urinary tract infection, site not specified (principal); F41.9 Anxiety disorder, unspecified; K21.9 Gastro-esophageal reflux disease without esophagitis; F43.10 Post-traumatic stress disorder, unspecified; F17.210 Nicotine dependence, cigarettes, uncomplicated; Z87.19 Personal history of other diseases of the digestive system; Z86.32 Personal history of gestational diabetes; Z90.710 Acquired absence of both cervix and uterus; Z87.42 Personal history of other diseases of the female genital tract; Z87.59 Personal history of other complications of pregnancy, childbirth and the puerperium; Z90.49 Acquired absence of other specified parts of digestive tract; Z88.1 Allergy status to other antibiotic agents
CPT/HCPCS: 36415; 74018; 74176; 80053; 80306; 81000; 82150; 83690; 85025; 87088; 87186

== ENCOUNTER 2017-10-03 18:11 | Observation (INO) | payer MEDICAID ==
[~2017-10-03] VITALS: Ht 160 cm; Wt 70.8 kg
[~2017-10-03 18:11] MED LIST changes: +ONDA4TAB8 PO; +PHEN-640 PO
[2017-10-03 18:32] LABS: BILIRUBIN,URINE NEGATIVE (NEGATIVE); CLARITY,URINE SLIGHTLY CLOUDY; COLOR,URINE YELLOW; GLUCOSE, URINE (UA) NEGATIVE (NEGATIVE); KETONES,URINE NEGATIVE (NEGATIVE); LEUKOCYTE ESTERASE ,URINE 3+ (NEGATIVE); NITRITE,URINE NEGATIVE (NEGATIVE); PH,URINE 6 (5-9); PROTEIN,URINE 2+ (NEGATIVE); UROBILINOGEN,URINE NORMAL (NORMAL)
[2017-10-03] MEDS ORDERED: ONDANSETRON 4 MG/2 ML (SDV) Z0FRAN ONE (18:40)
[2017-10-03] MEDS ORDERED: ONDANSETRON 4 MG/2 ML (SDV) Z0FRAN IVP ONE (18:45)
[2017-10-03] MEDS ORDERED: fentaNYL INJECTION 100 MCG/2 ML AMP IVP ONE ×2 (18:45→19:15)
[2017-10-03] MEDS ORDERED: NS IV 1000 ML 1,000 ML IV SCH ×2 (18:45→19:45)
[2017-10-03 18:46] LABS: BACTERIA,URINE FEW /HPF; RBC,URINE 0-2 /HPF; WBC,URINE TNTC /HPF
--- NOTE | 2017-10-03 18:49 | ED Abdominal Pain ---
General Stated Complaint: R SIDE LOWER BACK PAIN;FEVER Source of Information: Patient, Family Exam Limitations: No Limitations History of Present Illness Date Seen by Provider: Oct 03, 2017 Time Seen by Provider: 18:43 Initial Comments Patient is a 27-year-old female who presents to the emergency room with complaints of right sided flank pain, fever, nausea, vomiting, and urgency. For the past 2 days. She reports that she's had frequent urinary tract infections in the past including pyelonephritis. Timing/Duration: 2-3 Days Severity/Quality: Cramping Location: Flank Radiation: Back Modifying Factors: Improves With Vomiting Associated Symptoms: Back Pain, Fever/Chills, Nausea/Vomiting Allergies and Home Medications Allergies Coded Allergies: azithromycin (Unverified Allergy, Mild, 07/24/08) Home Medications Acetaminophen 500 Mg Tablet, 500-1,000 MG PO Q6H PRN for PAIN-MILD, (Reported) Ciprofloxacin HCl 500 Mg Tablet, 500 MG PO BID Prescribed by: DANIA FRANCISCO on 10/05/17 1219 Ibuprofen 200 Mg Tablet, 400 MG PO TID PRN for PAIN-MILD, (Reported) Patient Home Medication List Home Medication List Reviewed: Yes Review of Systems Constitutional: see HPI, chills; No diaphoresis; fever EENTM: See HPI; No Blurred Vision, No Double Vision, No Eye Pain Respiratory: See HPI; Denies Cough, Denies SOA at Rest, Denies Wheezing Cardiovascular: See HPI; Denies Chest Pain, Denies Lightheadedness, Denies Palpitations, Denies Syncope Gastrointestinal: See HPI, Abdominal Pain, Nausea, Vomiting Genitourinary: See HPI, Pain, Urgency Musculoskeletal: see HPI, back pain; No gout, No joint pain Skin: see HPI; No change in color, No change in hair/nails Psychiatric/Neurological: See HPI; Denies Anxiety, Denies Depressed Endocrine: See HPI; Denies Excessive Sweating, Denies Flushing Hematologic/Lymphatic: See HPI; Denies Anemia, Denies Blood Clots All Other Systems Reviewed Negative Unless Noted: Yes Past Ztjiqoe-Xojuuf-Neavmv Hx Past Med/Social Hx: Reviewed Nursing Past Med/Soc Hx Patient Social History Type Used: Cigarettes 2nd Hand Smoke Exposure: No Recent Foreign Travel: No Contact w/Someone Who Travel: No Recent Hopitalizations: No Immunizations Up To Date Tetanus Booster (TDap): Less than 5yrs PED Vaccines UTD: Yes Date of Pneumonia Vaccine: Mar 20, 2014 Date of Influenza Vaccine: May 26, 2015 Seasonal Allergies Seasonal Allergies: Yes Past Medical History Surgeries: Yes ( X 2; HYST/RSO) Appendectomy, Section, Hysterectomy, Oophorectomy Respiratory: No Cardiac: Yes Palpitations Neurological: Yes Headaches /Migraines 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 Disorders: Yes Female 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 Disorders: 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, 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 Disease: No HIV/AIDS: No Genitourinary: Yes UTI-Chronic Gastrointestinal: Yes (GASTRITIS; "SLUDGE IN GALL BLADDER" ) Gastroesophageal Reflux, Gall Bladder Disease Musculoskeletal: Yes Scoliosis Endocrine: Yes (gestational diabetes) HEENT: No Loss of Vision: Bilateral Hearing Impairment: Denies Cancer: No Psychosocial: Yes (PANIC ATTACKS) Anxiety, PTSD Integumentary: Yes (IN WINTER) Eczema Blood Disorders: Yes (ANEMIA) Adverse Reaction/Blood Tranf: No Family Medical History Reviewed Nursing Family Hx Cardiovascular disease 19 FATHER Coronary thrombosis 19 FATHER 19 MOTHER Headache disorder 19 MOTHER Hypercholesterolemia 19 FATHER 19 MOTHER Hypertension 19 FATHER Myocardial infarction 19 FATHER 19 MOTHER Psychosocial problem 19 MOTHER (bipolar) No Family History of: AIDS Abdominal aortic aneurysm [place]'s disease Alcoholism Alzheimer's disease Aphasia Arthritis Asthma Cancer of mouth Cataracts Colon cancer Completed stroke Congenital disease Congenital heart disease Cystic fibrosis Deafness or hearing loss Dementia Diabetes mellitus Drug abuse Dysphasia Fibrocystic disease of breast Gastroenteritis Glaucoma Infertility Kidney disease Neoplasm Not obtainable due to adoption Osteoporosis Parkinson's disease Prostate cancer Respiratory disorder Seizure disorder Severe allergy Thyroid disease Tuberculosis Visual disorder Physical Exam Vital Signs Vital Signs - First Documented 10/03/17 18:19 Temp 98.3 Pulse 113 Resp 22 B/P (MAP) 126/90 (102) O2 Delivery Room Air Capillary Refill : Height/Weight/BMI Height: 5'3.00" Weight: 150lbs. 3.0oz. 68.644983yn; 28.9 BMI Method:Stated General Appearance: WD/WN, no apparent distress HEENT: PERRL/EOMI, normal ENT inspection, TMs normal, pharynx normal Neck: non-tender, full range of motion, supple Respiratory: chest non-tender, lungs clear, normal breath sounds, no respiratory distress, no accessory muscle use Cardiovascular: regular rate, rhythm, no edema, no gallop, no JVD, no murmur Gastrointestinal: normal bowel sounds, soft, no organomegaly, no pulsatile mass , tenderness (right upper and lower tenderness that radiates to the back.) Extremities: normal range of motion, non-tender, normal inspection, no pedal edema, no calf tenderness Back: normal inspection, no vertebral tenderness, CVA tenderness (R) Neurologic/Psychiatric: alert, normal mood/affect, oriented x 3 Skin: normal color, warm/dry Lymphatic: no adenopathy Focused Exam Lactate Level 10/03/17 19:55: Lactic Acid Level 1.42 Lactic Acid Level Laboratory Tests Test 10/03/17 19:55 Lactic Acid Level 1.42 MMOL/L (0.50-2.00) Progress/Results/Core Measures Results/Orders Lab Results Laboratory Tests Test 10/03/17 17:41 10/03/17 18:23 10/03/17 19:55 Range/Units White Blood Count 15.9 H 4.3-11.0 10^3/uL Red Blood Count 4.11 L 4.35-5.85 10^6/uL Hemoglobin 12.5 11.5-16.0 G/DL Hematocrit 37 35-52 % Mean Corpuscular Volume 91 80-99 FL Mean Corpuscular Hemoglobin 30 25-34 PG Mean Corpuscular Hemoglobin Concent 34 32-36 G/DL Red Cell Distribution Width 13.1 10.0-14.5 % Platelet Count 297 130-400 10^3/uL Mean Platelet Volume 10.7 H 7.4-10.4 FL Neutrophils (%) (Auto) 80 H 42-75 % Lymphocytes (%) (Auto) 13 12-44 % Monocytes (%) (Auto) 6 0-12 % Eosinophils (%) (Auto) 1 0-10 % Basophils (%) (Auto) 0 0-10 % Neutrophils # (Auto) 12.7 H 1.8-7.8 X 10^3 Lymphocytes # (Auto) 2.1 1.0-4.0 X 10^3 Monocytes # (Auto) 1.0 0.0-1.0 X 10^3 Eosinophils # (Auto) 0.1 0.0-0.3 10^3/uL Basophils # (Auto) 0.0 0.0-0.1 10^3/uL Neutrophils % (Manual) 85 % Lymphocytes % (Manual) 14 % Monocytes % (Manual) 1 % Eosinophils % (Manual) 0 % Basophils % (Manual) 0 % Band Neutrophils 0 % Blood Morphology Comment NORMAL Sodium Level 135 135-145 MMOL/L Potassium Level 3.7 3.6-5.0 MMOL/L Chloride Level 99 98-107 MMOL/L Carbon Dioxide Level 26 21-32 MMOL/L Anion Gap 10 5-14 MMOL/L Blood Urea Nitrogen 10 7-18 MG/DL Creatinine 0.85 0.60-1.30 MG/DL Estimat Glomerular Filtration Rate > 60 BUN/Creatinine Ratio 12 Glucose Level 117 H 70-105 MG/DL Calcium Level 9.2 8.5-10.1 MG/DL Total Bilirubin 0.6 0.1-1.0 MG/DL Aspartate Amino Transf (AST/SGOT) 36 H 5-34 U/L Alanine Aminotransferase (ALT/SGPT) 24 0-55 U/L Alkaline Phosphatase 91 40-136 U/L Total Protein 7.7 6.4-8.2 GM/DL Albumin 4.2 3.2-4.5 GM/DL Amylase Level 32 25-125 U/L Lipase 5 L 8-78 U/L Urine Color YELLOW Urine Clarity SLIGHTLY CLOUDY Urine pH 6 5-9 Urine Specific [place] 1.020 1.016-1.022 Urine Protein 2+ H NEGATIVE Urine Glucose (UA) NEGATIVE NEGATIVE Urine Ketones NEGATIVE NEGATIVE Urine Nitrite NEGATIVE NEGATIVE Urine Bilirubin NEGATIVE NEGATIVE Urine Urobilinogen NORMAL NORMAL MG/DL Urine Leukocyte Esterase 3+ H NEGATIVE Urine RBC (Auto) 3+ H NEGATIVE Urine RBC 0-2 /HPF Urine WBC TNTC H /HPF Urine Squamous Epithelial Cells 2-5 /HPF Urine Crystals NONE /LPF Urine Bacteria FEW H /HPF Urine Casts NONE /LPF Urine Mucus NEGATIVE /LPF Urine Culture Indicated YES Lactic Acid Level 1.42 0.50-2.00 MMOL/L My Orders Orders - BERNOT,LILLIE Fentanyl Injection (Sublimaze Injection (10/03/17 18:45) Ondansetron Injection (Zofran Injectio (10/03/17 18:45) Ns Iv 1000 Ml (Sodium Chloride 0.9%) (10/03/17 18:45) Comprehensive Metabolic Panel (10/03/17 18:35) Lipase (10/03/17 18:35) Amylase (10/03/17 18:35) Saline Lock/Iv-Start (10/03/17 18:35) Cbc With Automated Diff (10/03/17 18:35) Ondansetron Injection (Zofran Injectio (10/03/17 18:40) Fentanyl Injection (Sublimaze Injection (10/03/17 19:15) Acetaminophen Tablet (Tylenol Tablet) (10/03/17 19:30) Manual Differential (10/03/17 17:41) Promethazine Injection (Phenergan Injec (10/03/17 19:45) Ketorolac Injection (Toradol Injection) (10/03/17 19:45) Ns Iv 1000 Ml (Sodium Chloride 0.9%) (10/03/17 19:45) Blood Culture (10/03/17 19:45) Lactic Acid Analyzer (10/03/17 19:45) Ceftriaxone Injection (Rocephin Injectio (10/03/17 20:30) Medications Given in ED Current Medications Medications Dose Ordered Sig/Vikki Route Start Time Stop Time Status Last Admin Dose Admin Fentanyl Citrate 50 mcg ONCE ONCE IVP 10/03/17 18:45 10/03/17 18:46 DC 10/03/17 18:49 50 MCG Fentanyl Citrate 50 mcg ONCE ONCE IVP 10/03/17 19:15 10/03/17 19:16 DC 10/03/17 19:12 50 MCG Ketorolac Tromethamine 30 mg ONCE ONCE IVP 10/03/17 19:45 10/03/17 19:46 DC 10/03/17 19:46 30 MG Ondansetron HCl 8 mg ONCE ONCE IVP 10/03/17 18:45 10/03/17 18:46 DC 10/03/17 18:42 8 MG Promethazine HCl 25 mg ONCE ONCE IVP 10/03/17 19:45 10/03/17 19:46 DC 10/03/17 19:47 25 MG Vital Signs/I&O 10/03/17 18:19 Temp 98.3 Pulse 113 Resp 22 B/P (MAP) 126/90 (102) O2 Delivery Room Air Urine -Bedside: Negative Progress Progress Note : Progress Note 1999 Patient had relief from pain with fentanyl. 2020: I spoke to Dr. Huffman at this time she agrees with plans for admission given the patient's history of pyelonephritis and current condition. Initial ECG Impression Date: Oct 09, 2017 Departure Communication (Admissions) Time/Spoke to Admitting Phy: 20:[address] Francisco at this time she agrees with plans for admission. Impression Primary Impression: Urinary tract infection Additional Impression: Pyelonephritis Disposition: ADMITTED INPATIENT Condition: Stable/Unchanged Admissions Decision to Admit Reason: Admit from ER (General) Decision to Admit/Date: Oct 03, 2017 Time/Decision to Admit Time: 20:20 Departure-Patient Inst. Referrals: [facility] (PCP/Family) Primary Care Physician Scripts Ciprofloxacin HCl (Ciprofloxacin HCl) 500 Mg Tablet 500 MG PO BID for 5 Days, #10 TAB 0 Refills Prov: DANIA FRACNISCO MD 10/05/17 LILLIE CEDILLO Oct 03, 2017 18:49
[2017-10-03 19:20] LABS: BASOPHILS % (AUTO) 0 % (0-10); EOSINOPHILS # (AUTO) 0.1 10^3/uL (0.0-0.3); EOSINOPHILS % (AUTO) 1 % (0-10); HEMATOCRIT 37 % (35-52); HEMOGLOBIN 12.5 G/DL (11.5-16.0); LYMPHOCYTES # (AUTO) 2.1 X 10^3 (1.0-4.0); LYMPHOCYTES % (AUTO) 13 % (12-44); MEAN CORPUSCULAR HEMOGLOBIN 30 PG (25-34); MEAN CORPUSCULAR HGB CONC 34 G/DL (32-36); MEAN CORPUSCULAR VOLUME 91 FL (80-99); MEAN PLATELET VOLUME 10.7 FL (7.4-10.4); MONOCYTES % (AUTO) 6 % (0-12); NEUTROPHILS # (AUTO) 12.7 X 10^3 (1.8-7.8); NEUTROPHILS % (AUTO) 80 % (42-75); PLATELET COUNT 297 10^3/uL (130-400); RED BLOOD COUNT 4.11 10^6/uL (4.35-5.85); RED CELL DISTRIBUTION WIDTH 13.1 % (10.0-14.5); WHITE BLOOD COUNT 15.9 10^3/uL (4.3-11.0)
[2017-10-03] MEDS ORDERED: ACETAMINOPHEN 500 MG TAB (TYLENOL) PO ONE (19:30)
[2017-10-03 19:39] LABS: ALANINE AMINOTRANSFERASE 24 U/L (0-55); ALBUMIN 4.2 GM/DL (3.2-4.5); ALKALINE PHOSPHATASE 91 U/L (40-136); AMYLASE 32 U/L (25-125); BILIRUBIN,TOTAL 0.6 MG/DL (0.1-1.0); BUN/CREATININE RATIO 12; CALCIUM 9.2 MG/DL (8.5-10.1); CARBON DIOXIDE 26 MMOL/L (21-32); CHLORIDE 99 MMOL/L (98-107); CREATININE SERUM 0.85 MG/DL (0.60-1.30); GFR ESTIMATED > 60; GLUCOSE 117 MG/DL (70-105); LIPASE 5 U/L (8-78); POTASSIUM 3.7 MMOL/L (3.6-5.0); SODIUM 135 MMOL/L (135-145); TOTAL PROTEIN 7.7 GM/DL (6.4-8.2)
[2017-10-03] MEDS ORDERED: KETOROLAC 30 MG/ML VIAL IVP ONE (19:45)
[2017-10-03] MEDS ORDERED: PROMETHAZINE INJ 25 MG/ML (PHENERGAN) AMP IVP ONE (19:45)
[2017-10-03 20:04] LABS: BAND NEUTROPHILS 0 %; BASOPHILS % (MANUAL) 0 %; EOSINOPHILS % (MANUAL) 0 %; LYMPHOCYTES % (MANUAL) 14 %; MONOCYTES % (MANUAL) 1 %; NEUTROPHILS % (MANUAL) 85 %
[2017-10-03 20:05] LABS: RBC MORPH NORMAL
[2017-10-03] MEDS ORDERED: cefTRIAXone INJECTION 1,000 MG in NS (IVPB) 50 ML IV ONE (20:30)
[2017-10-04] MEDS: NS IV 1000 ML 1,000 ML IV SCH ×3 (00:06→16:24)
[2017-10-04] MEDS: fentaNYL INJECTION 100 MCG/2 ML AMP IV PRN ×8 (00:11→17:19)
[2017-10-04 00:47] VITALS: BP 116/60
[2017-10-04 04:00] VITALS: BP 131/73
[2017-10-04] MEDS: ACETAMINOPHEN 500 MG TAB (TYLENOL) PO PRN ×2 (04:27→09:32)
[2017-10-04 07:24] LABS: BASOPHILS % (AUTO) 0 % (0-10); EOSINOPHILS % (AUTO) 0 % (0-10); HEMATOCRIT 31 % (35-52); HEMOGLOBIN 10.6 G/DL (11.5-16.0); LYMPHOCYTES % (AUTO) 17 % (12-44); MEAN CORPUSCULAR HEMOGLOBIN 31 PG (25-34); MEAN CORPUSCULAR HGB CONC 34 G/DL (32-36); MEAN CORPUSCULAR VOLUME 91 FL (80-99); MEAN PLATELET VOLUME 10.5 FL (7.4-10.4); MONOCYTES # (AUTO) 1.2 X 10^3 (0.0-1.0); MONOCYTES % (AUTO) 10 % (0-12); NEUTROPHILS # (AUTO) 8.8 X 10^3 (1.8-7.8); NEUTROPHILS % (AUTO) 73 % (42-75); PLATELET COUNT 230 10^3/uL (130-400); RED BLOOD COUNT 3.42 10^6/uL (4.35-5.85); RED CELL DISTRIBUTION WIDTH 12.9 % (10.0-14.5)
[2017-10-04 07:45] LABS: ALANINE AMINOTRANSFERASE 32 U/L (0-55); ALBUMIN 3.3 GM/DL (3.2-4.5); ALKALINE PHOSPHATASE 94 U/L (40-136); BILIRUBIN,TOTAL 0.5 MG/DL (0.1-1.0); BUN/CREATININE RATIO 13; CALCIUM 8.1 MG/DL (8.5-10.1); CARBON DIOXIDE 23 MMOL/L (21-32); CHLORIDE 109 MMOL/L (98-107); CREATININE SERUM 0.71 MG/DL (0.60-1.30); GFR ESTIMATED > 60; GLUCOSE 89 MG/DL (70-105); POTASSIUM 3.8 MMOL/L (3.6-5.0); SODIUM 136 MMOL/L (135-145)
[2017-10-04 08:00] VITALS: BP 106/59
[2017-10-04] MEDS ORDERED: CATHETER FLUSH 10 ML SYR IV PRN (08:15)
[2017-10-04] MEDS ORDERED: IBUP-30 PO (09:16)
[2017-10-04] MEDS ORDERED: ACET-2267 PO (09:16)
[2017-10-04] MEDS: PROMETHAZINE INJ 25 MG/ML (PHENERGAN) AMP IV PRN ×2 (09:29→17:19)
--- NOTE | 2017-10-04 11:29 | History & Physicial (CHS) ---
MADAY CAI MED STUDENT 10/04/17 1129: HPI History of Present Illness: Patient is a 27 year old female with a complaint of right flank pain x2days and presented to the ED yesterday. The states the pain started Monday night and has progressively gotten worse which brought her into the ED. She states that she has had history of pyelonephritis last year in May where she was admitted and treated with IV abx with resolution of her symptoms. She admits to dysuria and fever. Denies nausea and vomiting. Source: patient Exam Limitations: no limitations Date seen by provider: Oct 04, 2017 Time Seen by Provider: 10:15 Attending Physician Dania Francisco MD [facility] [place] Consult Date of Admission Oct 03, 2017 at 20:38 Home Medications Home Medications Reviewed patient Home Medication Reconciliation performed by pharmacy medication reconciliations vacuum technician and/or nursing. Patients Allergies have been reviewed. Allergies Coded Allergies: azithromycin (Unverified Allergy, Mild, 07/24/08) BPV-Oiykmd-Ohudrq Hx Patient Social History Alcohol Use: Denies Use Recreational Drug Use: No Smoking Status: Current Everyday Smoker Type Used: Cigarettes 2nd Hand Smoke Exposure: Yes Recent Foreign Travel: No Contact w/other who traveled: No Recent Hopitalizations: No Recent Infectious Disease Expo: No Physical Abuse Screen: No Sexual Abuse: No Immunizations Up To Date Tetanus Booster (TDap): Less than 5yrs Date of Pneumonia Vaccine: May 18, 2017 Date of Influenza Vaccine: May 26, 2015 Past Medical History Surg H/o - Hysterectomy 06/1026 Family Medical History Family History: Cardiovascular disease 19 FATHER Coronary thrombosis 19 FATHER 19 MOTHER Headache disorder 19 MOTHER Hypercholesterolemia 19 FATHER 19 MOTHER Hypertension 19 FATHER Myocardial infarction 19 FATHER 19 MOTHER Psychosocial problem 19 MOTHER (bipolar) No Family History of: AIDS Abdominal aortic aneurysm Freistatt's disease Alcoholism Alzheimer's disease Aphasia Arthritis Asthma Cancer of mouth Cataracts Colon cancer Completed stroke Congenital disease Congenital heart disease Cystic fibrosis Deafness or hearing loss Dementia Diabetes mellitus Drug abuse Dysphasia Fibrocystic disease of breast Gastroenteritis Glaucoma Infertility Kidney disease Neoplasm Not obtainable due to adoption Osteoporosis Parkinson's disease Prostate cancer Respiratory disorder Seizure disorder Severe allergy Thyroid disease Tuberculosis Visual disorder Review of Systems (CHC) Constitutional: chills, fever EENTM: no symptoms reported; No blurred vision, No double vision Respiratory: No cough, No dyspnea on exertion, No short of breath Cardiovascular: No chest pain, No edema, No palpitations Gastrointestinal: No abdominal pain Genitourinary: dysuria, frequency Skin: no symptoms reported, dryness Psychiatric/Neurological: See HPI; Denies Headache Physical Exam-([facility]) Physical Exam Vital Signs VS - Last 72 Hours, by Label 10/03/17 10/03/17 10/03/17 10/04/17 18:19 21:54 22:00 00:47 Temp 98.3 100.1 99.4 Pulse 113 95 105 Resp 22 14 20 B/P (MAP) 126/90 (102) 124/88 116/60 (78) Pulse Ox 99 97 94 O2 Delivery Room Air Room Air Room Air Room Air 10/04/17 10/04/17 10/04/17 10/04/17 04:00 08:00 09:31 09:32 Temp 101.7 99.1 102.2 102.2 Pulse 89 88 Resp 20 20 B/P (MAP) 131/73 (92) 106/59 (75) Pulse Ox 98 98 O2 Delivery Room Air Room Air 10/04/17 10/04/17 10:02 10:50 Temp 100.2 100.9 Capillary Refill : Less Than 3 Seconds General Appearance: moderate distress HEENT: PERRL/EOMI, normal ENT inspection, pharynx normal Neck: non-tender, full range of motion, supple, normal inspection Respiratory: chest non-tender, lungs clear, normal breath sounds, no respiratory distress, no accessory muscle use Cardiovascular: regular rate, rhythm, no edema, no gallop, no JVD, no murmur Gastrointestinal: normal bowel sounds, non tender, soft, no organomegaly, no pulsatile mass Back: CVA tenderness (R) Extremities: normal range of motion, non-tender, normal inspection, no pedal edema, no calf tenderness Neurologic/Psychiatric: alert, normal mood/affect, oriented x 3 Skin: normal color, warm/dry Lymphatic: no adenopathy Assessment/Plan Assessment/Plan Admission Status: Inpatient Order (span 2 midnights) Reason for Inpatient Admission: Pyelonephritis/UTI Assessment & Plan Pyelonephritis/UTI - Urine culture - Culture from last May showed sensitivity to Cipro - resistance to Bactrim - Continue to treat with IV cipro - Once fever free for 24 hours, consider discharge Fever -acetaminophen Nausea - Zofran prn Clinical Quality Measures DVT/VTE Risk/Contraindication: Risk Factor Score Per Nursin RFS Level Per Nursing on Admit: 2=Moderate Copy Copies To 1: DANIA FRANCISCO MD, HOLLY R MD 10/04/17 9418: HPI History of Present Illness: 27 yo F with right flank pain for the last 2 days. States that she was on bactrim for UTI last week. Pain got progressively worse and she then presented to ER. Home Medications Allergies Coded Allergies: azithromycin (Unverified Allergy, Mild, 07/24/08) [id number]-Kkrtvp-Seyzum Hx Patient Social History Living Status: Home with mother and bf Past Medical History H/o Pyelonephritis x 1 hospitalization Family Medical History Family History: Cardiovascular disease 19 FATHER Coronary thrombosis 19 FATHER 19 MOTHER Headache disorder 19 MOTHER Hypercholesterolemia 19 FATHER 19 MOTHER Hypertension 19 FATHER Myocardial infarction 19 FATHER 19 MOTHER Psychosocial problem 19 MOTHER (bipolar) No Family History of: AIDS Abdominal aortic aneurysm Freistatt's disease Alcoholism Alzheimer's disease Aphasia Arthritis Asthma Cancer of mouth Cataracts Colon cancer Completed stroke Congenital disease Congenital heart disease Cystic fibrosis Deafness or hearing loss Dementia Diabetes mellitus Drug abuse Dysphasia Fibrocystic disease of breast Gastroenteritis Glaucoma Infertility Kidney disease Neoplasm Not obtainable due to adoption Osteoporosis Parkinson's disease Prostate cancer Respiratory disorder Seizure disorder Severe allergy Thyroid disease Tuberculosis Visual disorder Review of Systems (CHC) Constitutional: chills, fever, malaise; No weakness EENTM: no symptoms reported Respiratory: no symptoms reported Cardiovascular: no symptoms reported Gastrointestinal: no symptoms reported Genitourinary: dysuria, frequency; No hematuria : No Musculoskeletal: no symptoms reported Skin: no symptoms reported Psychiatric/Neurological: No Symptoms Reported Reviewed Test Results Reviewed Test Results Lab Laboratory Tests Test 10/03/17 19:55 10/04/17 07:15 Range/Units Lactic Acid Level 1.42 0.50-2.00 MMOL/L White Blood Count 12.0 H 4.3-11.0 10^3/uL Red Blood Count 3.42 L 4.35-5.85 10^6/uL Hemoglobin 10.6 L 11.5-16.0 G/DL Hematocrit 31 L 35-52 % Mean Corpuscular Volume 91 80-99 FL Mean Corpuscular Hemoglobin 31 25-34 PG Mean Corpuscular Hemoglobin Concent 34 32-36 G/DL Red Cell Distribution Width 12.9 10.0-14.5 % Platelet Count 230 130-400 10^3/uL Mean Platelet Volume 10.5 H 7.4-10.4 FL Neutrophils (%) (Auto) 73 42-75 % Lymphocytes (%) (Auto) 17 12-44 % Monocytes (%) (Auto) 10 0-12 % Eosinophils (%) (Auto) 0 0-10 % Basophils (%) (Auto) 0 0-10 % Neutrophils # (Auto) 8.8 H 1.8-7.8 X 10^3 Lymphocytes # (Auto) 2.0 1.0-4.0 X 10^3 Monocytes # (Auto) 1.2 H 0.0-1.0 X 10^3 Eosinophils # (Auto) 0.0 0.0-0.3 10^3/uL Basophils # (Auto) 0.0 0.0-0.1 10^3/uL Sodium Level 136 135-145 MMOL/L Potassium Level 3.8 3.6-5.0 MMOL/L Chloride Level 109 H 98-107 MMOL/L Carbon Dioxide Level 23 21-32 MMOL/L Anion Gap 4 L 5-14 MMOL/L Blood Urea Nitrogen 9 7-18 MG/DL Creatinine 0.71 0.60-1.30 MG/DL Estimat Glomerular Filtration Rate > 60 BUN/Creatinine Ratio 13 Glucose Level 89 70-105 MG/DL Calcium Level 8.1 L 8.5-10.1 MG/DL Total Bilirubin 0.5 0.1-1.0 MG/DL Aspartate Amino Transf (AST/SGOT) 55 H 5-34 U/L Alanine Aminotransferase (ALT/SGPT) 32 0-55 U/L Alkaline Phosphatase 94 40-136 U/L Total Protein 6.0 L 6.4-8.2 GM/DL Albumin 3.3 3.2-4.5 GM/DL Physical Exam-([facility]) Physical Exam General Appearance: WD/WN, mild distress HEENT: PERRL/EOMI Neck: non-tender, full range of motion, supple Respiratory: chest non-tender, lungs clear, normal breath sounds, no respiratory distress, no accessory muscle use Cardiovascular: regular rate, rhythm, no edema, no murmur Gastrointestinal: normal bowel sounds, non tender, soft, no organomegaly Back: CVA tenderness (R) Extremities: normal range of motion, non-tender, normal inspection, no pedal edema, no calf tenderness, normal capillary refill Neurologic/Psychiatric: toter II-XII nml as tested, no motor/sensory deficits, alert, normal mood/affect, oriented x 3 Skin: normal color, warm/dry Lymphatic: no adenopathy Assessment/Plan Assessment/Plan Assessment & Plan Patient was seen and assessed with student, agree with above unless otherwise noted (1) Pyelonephritis Status: Acute Assessment & Plan: - Rocephin D2 - Continues to have breakthrough fevers, will treat with Tylenol and Motrin - Continue IVFs MADAY CAI MED STUDENT Oct 04, 2017 11:29 DANIA FRANCISCO MD Oct 04, 2017 18:58
[2017-10-04 12:00] VITALS: BP 105/59
[2017-10-04] MEDS ORDERED: ACETAMINOPHEN 500 MG TAB (TYLENOL) PO ONE (14:30)
[2017-10-04 16:42] VITALS: BP 113/57
[2017-10-04 19:27] VITALS: BP 111/61
[2017-10-04] MEDS: KETOROLAC 60 MG/2 ML VIAL IV PRN (20:23)
[2017-10-04] MEDS ORDERED: cefTRIAXone 1 GM/NS 50 ML IVPB IV SCH ×2 (21:00)
[2017-10-05] VITALS: BP_SYST 103; BP_SYST 111; BP_DIAS 55; BP_DIAS 60
[2017-10-05] MEDS: NS IV 1000 ML 1,000 ML IV SCH ×2 (01:07→08:04)
[2017-10-05] MEDS: KETOROLAC 60 MG/2 ML VIAL IV PRN (03:48)
[2017-10-05] MEDS: PROMETHAZINE INJ 25 MG/ML (PHENERGAN) AMP IV PRN ×2 (03:48→11:53)
[2017-10-05 04:00] VITALS: BP 103/65
[2017-10-05] MEDS: HYDROcodone/APAP 5 MG/325 MG (LORTAB) TAB PO PRN ×2 (05:19→11:56)
[2017-10-05 06:17] LABS: BASOPHILS % (AUTO) 0 % (0-10); EOSINOPHILS # (AUTO) 0.1 10^3/uL (0.0-0.3); EOSINOPHILS % (AUTO) 1 % (0-10); HEMATOCRIT 30 % (35-52); HEMOGLOBIN 9.7 G/DL (11.5-16.0); LYMPHOCYTES # (AUTO) 2.2 X 10^3 (1.0-4.0); LYMPHOCYTES % (AUTO) 23 % (12-44); MEAN CORPUSCULAR HEMOGLOBIN 30 PG (25-34); MEAN CORPUSCULAR HGB CONC 33 G/DL (32-36); MEAN CORPUSCULAR VOLUME 93 FL (80-99); MEAN PLATELET VOLUME 10.4 FL (7.4-10.4); MONOCYTES # (AUTO) 0.8 X 10^3 (0.0-1.0); MONOCYTES % (AUTO) 9 % (0-12); NEUTROPHILS # (AUTO) 6.4 X 10^3 (1.8-7.8); NEUTROPHILS % (AUTO) 67 % (42-75); PLATELET COUNT 218 10^3/uL (130-400); RED BLOOD COUNT 3.19 10^6/uL (4.35-5.85); RED CELL DISTRIBUTION WIDTH 13.3 % (10.0-14.5); WHITE BLOOD COUNT 9.5 10^3/uL (4.3-11.0)
[2017-10-05 06:40] LABS: ALANINE AMINOTRANSFERASE 53 U/L (0-55); ALKALINE PHOSPHATASE 120 U/L (40-136); BILIRUBIN,TOTAL 0.3 MG/DL (0.1-1.0); BUN/CREATININE RATIO 13; CALCIUM 8.4 MG/DL (8.5-10.1); CARBON DIOXIDE 22 MMOL/L (21-32); CHLORIDE 112 MMOL/L (98-107); CREATININE SERUM 0.64 MG/DL (0.60-1.30); GFR ESTIMATED > 60; GLUCOSE 137 MG/DL (70-105); POTASSIUM 3.7 MMOL/L (3.6-5.0); SODIUM 140 MMOL/L (135-145); TOTAL PROTEIN 5.8 GM/DL (6.4-8.2)
[2017-10-05 08:00] VITALS: BP 108/56
[2017-10-05 12:00] VITALS: BP 128/73
--- NOTE | 2017-10-05 12:17 | Discharge Summary ---
Diagnosis/Chief Complaint Date of Admission Oct 03, 2017 at 8:38 pm Date of Discharge 10/05/2017 Admission Diagnosis Admission Diagnosis Pyelonephritis Fever Nausea and Vomiting Discharge Diagnosis See Above Chief Complaint/HPI Chief Complaint/HPI 27 yo F with right flank pain for the last 2 days. States that she was on bactrim for UTI last week. Pain got progressively worse and she then presented to ER. Discharge Summary-Simple/Stand Consultations Discharge Physical Examination Allergies: Coded Allergies: azithromycin (Unverified Allergy, Mild, 07/24/08) Vitals & I&Os Vital Sign - Last 12Hours Date Time Temp Pulse Resp B/P (MAP) Pulse Ox O2 Delivery O2 Flow Rate FiO2 10/05/17 09:00 Room Air 10/05/17 08:00 97.6 86 18 108/56 (73) 96 Intake and Output 10/05/17 00:00 Intake Total 984 ml Output Total 2150 ml Balance -1166 ml General Appearance: Alert, Oriented X3, Cooperative, No Acute Distress HEENT: Mucous Memb Moist/Sarah Ann Respiratory: Clear to Auscultation, Normal Air Movement Cardiovascular: Regular Rate, No Murmurs Abdominal: Normal Bowel Sounds, Soft, No Tenderness, No Hepatosplenomegaly, No Masses Extremities: No Edema, No Tenderness/Swelling Skin: No Rashes, No Breakdown Neuro: Strength at 5/5 X4 Ext, Sensation Intact, Cranial Nerves 3-12 NL Psych/Mental Status: Mental Status NL, Mood NL Hospital Course See final discharge diagnosis. Discussion & Recommendations 27 yo F admitted for pyelonephritis Pyelonephritis: Hemodynamically stable. Fever trended down. Started on rocephin and switch to PO cipro Nausea and Vomiting: Resolved by time of discharge. Discharge Condition at discharge stable Instructions to patient/family Please see electronic discharge instructions given to patient. Discharge Medications Reviewed and agree with Discharge Medication list on patient's Discharge Instruction sheet Clinical Quality Measures DVT/VTE Risk/Contraindication: Risk Factor Score Per Nursin RFS Level Per Nursing on Admit: 2=Moderate Copy Copies To 1: Pola SIFUENTES HOLLY R MD Oct 05, 2017 12:17 pm
[2017-10-05] MEDS ORDERED: CIPR500T4 PO (12:19)
--- NOTE | 2017-10-05 12:23 | Discharge Instructions ---
Discharge Inst-[facility] Discharge Medications New, Converted or Re-Newed RX: Transmitted to Pharmacy ([facility]) New Medications: Ciprofloxacin HCl (Ciprofloxacin HCl) 500 Mg Tablet 500 MG PO BID for 5 Days, #10 TAB 0 Refills Continued Medications: Acetaminophen (Tylenol Extra Strength) 500 Mg Tablet 500-1000 MG PO Q6H PRN for PAIN-MILD, TAB Ibuprofen (Advil) 200 Mg Tablet 400 MG PO TID PRN for PAIN-MILD, TAB Patient Instructions Goal/Follow Up Appt: Follow up with Pola Veloz on October 12 @ 2pm Patient Instructions: - Focus on hydration - Make sure you complete your antibiotics Return to The Hospital For: - Fevers that do not improve with tylenol - Worsening abdominal or flank pain Activity & Diet Discharge Diet: No Restrictions Activity as Tolerated: Yes Copy Copies To 1: Pola yao HOLLY R MD Oct 05, 2017 12:23 pm
== END 2017-10-05 12:19 | disposition home or self-care (01) ==
LOC: EDUNIT# 18:11 → ER 18:13 → 4TH 20:38 → UNDOADMOB 20:38 → 4TH 22:00 → UNDODISOB 10-05 13:43
PROVIDERS: ADMIT Family Medicine; ATTEND Family Medicine
DX: N12 Tubulo-interstitial nephritis, not specified as acute or chronic (principal); K21.9 Gastro-esophageal reflux disease without esophagitis; G43.909 Migraine, unspecified, not intractable, without status migrainosus; F17.210 Nicotine dependence, cigarettes, uncomplicated
CPT/HCPCS: 36415; 80053; 81000; 82150; 83605; 83690; 84703; 85007; 85025; 85027; 87040; 87088; 96361; 96365; 96375; G0378

== ENCOUNTER 2017-10-21 21:50 | Emergency (ER) | payer MEDICAID ==
[~2017-10-21] VITALS: Ht 160 cm; Wt 69.4 kg
[~2017-10-21 21:50] MED LIST changes: +ACET-2267 PO; +CIPR500T4 PO; +IBUP-30 PO
--- OUTSIDE RECORDS SUMMARY | 2017-10-21 21:57 | XMS REPORT ---
Author Author KEO DEUTSCH Organization [facility] Address [address] [place] [address] Care Team Providers Care Water Quality Assistant Name Role Phone KEO DEUTSCH Unavailable PROBLEMS Type Condition ICD9-CM Code SFD63-BQ Code Onset Dates Condition Status SNOMED Code Problem Heartburn R12 Active 43892729 Problem Anxiety F41.9 Active 03620100 Problem Fibromyalgia M79.7 Active 276611020 Problem Major depressive disorder, recurrent episode, moderate F33.1 Active 758203494 Problem Posttraumatic stress disorder F43.10 Active 80740450 Problem Restless leg syndrome G25.81 Active 34317161 Problem Mood disorder F39 Active [id number] ALLERGIES No Information ENCOUNTERS Encounter Location Date Diagnosis [facility] [address] [address] Sep, Pyelonephritis N12 [facility] [address] [address] Sep, [facility] WALK IN [facility] [id number] [place] [address] July, Seasonal allergic rhinitis, unspecified trigger J30.2 ; Cough R05 ; Allergic rhinitis, unspecified seasonality, unspecified trigger J30.9 and Sore throat J02.9 [facility] [id number] [place] [address] 78990- 7433 Jun, [facility] [address] [address] Jun, [facility]ALK IN [facility] [id number] [place] [address] 14 Jun, 2017 Flank pain R10.9 and Acute cystitis with hematuria N30.01 [facility] [id number] [place] [address] 43146- 8393 Jun, Acute cystitis with hematuria N30.01 [facility] [id number] [place] [address] 99718- 2048 Dec, Wheezing R06.2 and Sinus pressure J34.89 [facility] [id number] [place] [address] 03771- 7628 Sep, Pyelonephritis N12 [facility] [address] [id number] Sep, [facility] [address] [id number] Aug, Dental examination Z01.20 [facility] [id number] [place] [address]35 July, [facility] WALK IN [place] [address] [address] July, Foot injury, right, initial encounter S99.921A ; Foot injury, left, initial encounter S99.922A and Sprain of left ankle, unspecified ligament, initial encounter S93.402A [facility] WALK IN [place] [id number] [place] [address] Mar, Bronchitis J40 [facility] [id number] [place] [address] 82749- 6467 Feb, Dental examination Z01.20 [facility] [id number] [place] [address] 86897- 6898 Jan, Anxiety F41.9 [facility] WALK [facility] [place] [id number] [place] [address] -[address]33 Dec, Wrist pain, right M25.531 [facility] [id number] [place] [address] 31401- 6866 Dec, [facility] [id number] [place] [address]84 18 Oct, 2016 Right wrist pain M25.531 [facility] [address] [address] Dec, [facility] [id number] [place] [address] 93816- 6578 Dec, [facility] [id number] [place] [address] 16123- 7613 Dec, Major depressive disorder, recurrent episode, moderate F33.1 and Posttraumatic stress disorder F43.10 [facility] [id number] [place] [address] 65422- 1051 Dec, [facility] [id number] [place] [address] 93947- 5276 Dec, [facility] [id number] [place] [address] 74958- 9108 Dec, [facility] [id number] [place] [address] 85380- 3202 Dec, Mood disorder F39 ; Restless leg syndrome G25.81 and Fibromyalgia M79.7 [facility] [id number] [place] [address] 95231- 6269 Nov, Major depressive disorder, recurrent episode, moderate F33.1 and Posttraumatic stress disorder F43.10 [facility] [address] [address] Oct, Dysuria R30.0 and Acute sinusitis, recurrence not specified , unspecified location J01.90 [facility] [address] [id number] [id number] Apr, Dental examination Z01.20 [facility] [id number] [place] [address] 79780- 3462 18 Feb, 2015 [facility] [address] [place] [address] 91959- 0986 15 Feb, 2015 [facility] [id number] [place] [address] 49512- 6367 Feb, Vaginal bleeding during , antepartum O46.90 ; Positive test Z32.01 ; Abdominal cramping R10.9 ; Right upper quadrant pain R10.11 ; Generalized abdominal tenderness R10.817 ; Uterine tenderness N94.9 ; Cervical motion tenderness N94.9 and Heartburn R12 [facility] [id number] [place] [address] 85062- 5203 Jan, Cough R05 and Nausea R11.0 [facility] [id number] [place] [address] 39038- 5397 Jan, Acute nasopharyngitis J00 [facility] [address] [address]- [address] Jan, Acute nasopharyngitis J00 [facility] [address] 62696- 6461 Dec, Right upper quadrant abdominal pain R10.11 [facility] [address] 288[address]- 1617 16 Dec, 2014 [facility] [address] 85782- 4813 15 Dec, 2014 [facility] [address] 65154- 0872 Dec, Left upper quadrant pain R10.12 and Diarrhea R19.7 [facility] [address] 49125- 4476 Dec, [facility] [id number] [place] [address] 73807- 7873 07 Dec, 2014 Left upper quadrant pain R10.12 [facility] [address] 36937- 6879 14 Jun, 2014 [facility] [address] 86157- 3321 13 Jun, 2014 [facility] [address] 52778- 0997 May, 2014 [facility] [place] [facility] [address] [id number] [place] [address]- 1295 May, 2014 [facility] [place] [facility] [address] [id number] [place] [address] May, 2014 [facility] [place] [facility] [address] [id number] [place] [address]- 1086 Dec, [facility] [place] [facility] [address] [id number] [place] [address]- 5617 Dec, [facility] [place] [facility] [address] [id number] [place] [address]- 6953 Dec, [facility] [place] [facility] [address] [id number] [place] [address]- 8815 24 Dec, 2013 [facility] [place] [facility] [address] [id number] [place] [address]- 2645 Dec, [facility] [place] [facility] [address] [id number] [place] [address]- 5078 Dec, [facility] [place] [facility] [address] [id number] [place] [address]- 6906 15 Dec, 2013 [facility] [place] [facility] [address] [id number] [place] [address]- 0620 15 Dec, 2013 [facility] [place] [facility] [address] [id number] [address]- 9418 14 Dec, 2013 [facility] [place] [facility] [address] [id number], [place] [address]- 0235 14 Dec, 2013 [facility] [place] [facility] [address] [id number] [place] [address]- 5849 Dec, [facility] [place] [facility] [address] [id number] [place] [address]- 8441 Dec, [facility] [place] [facility] [address] [id number] [place] [address]- 0748 Dec, [facility] [place] [facility] [address] [id number] [place] [address]- 2413 Dec, [facility] [place] [facility] [address] [id number] [place] [address]- 1830 Nov, 2013 [facility] [place] [facility] [address] [id number] [place] [address]- 1006 Nov, 2013 [facility] [place] [facility] [address] [id number] [place] [address]- 1440 Nov, 2013 [facility] [place] [facility] [address] [id number] [place] [address]- 4911 Nov, 2013 [facility] [place] [facility] [address] [id number] [place] [address]- 1846 Nov, [facility] [place] [facility] [address] [id number] [place] [address]- 1614 Nov, 2013 [facility] [place] [facility] [address] [id number] [place] [address]- 3714 Nov, 2013 [facility] [place] [facility] [address] [id number] [place] [address]- 6017 Nov, [facility] [place] [facility] [address] [id number] [place] [address]- 2814 Nov, [facility] [place] [facility] [address] [id number] [place] [address]- 4714 Nov, [facility] [place] [facility] [address] [id number] [place] [address]- 2549 Oct, [facility] [place] [facility] [address] [id number] [place] [address]- 2545 Oct, [facility] [place] [facility] [address] [id number] [place] [address]- 9257 Oct, [facility] [place] [facility] [address] [id number] [place] [address]- 0992 Oct, [facility] [place] [facility] [address] [id number] [place] [address]- 2904 Oct, [facility] [place] [facility] [address] [id number] [place] [address]- 3982 Oct, [facility] [place] [facility] [address] [id number] [place] [address]- 9211 Oct, [facility] [place] [facility] [address] [id number] [place] [address]- 4313 Oct, [facility] [place] [facility] [address] [id number] [place] [address]- 9176 Oct, [facility] [place] [facility] [address] [id number] [place] [address]- 9104 Oct, [facility] [place] [facility] [address] [id number] [place] [address]- 9735 Oct, [facility] [place] [facility] [address] [id number] [place] [address]- 1894 Oct, [facility] [place] [facility] [address] [id number] [place] [address]- 5500 Oct, [facility] [place] [facility] [address] [id number] [place] [address]- 1504 Sep, [facility] [place] [facility] [address] [id number] [place] [address]- 3143 Sep, [facility] [place] [facility] [address] [id number] [place] [address]- 0019 Sep, [facility] [place] [facility] [address] [id number] [place] [address]- 7134 Aug, [facility] [place] [facility] [address] [id number] [place] [address]- 5179 Aug, [facility] [place] [facility] [address] [id number] [place] [address]- 4705 Aug, [facility] [place] [facility] [address] [id number] [place] [address]- 8647 Aug, [facility] [place] [facility] [address] [id number] [place] [address]- 3917 July, [facility] [address] [id number] [place] [address]- 7158 July, [facility] [place] [facility] [address] [id number] [place] [address]- 8965 July, [facility] [place] [facility] [address] [id number] [place] [address]- 9852 July, [facility] [place] [facility] [address] [id number] [place] [address]- 7548 Apr, [facility] [place] [facility] [address] [id number] [place] [address]- 8954 Apr, [facility] [place] [facility] [address] [id number] [place] [address]- 6789 Mar, [facility] [place] [facility] [address] [id number] [place] [address]- 9772 Mar, [facility] [place] [facility] [address] [id number] [place] [address]- 1922 Mar, [facility] [place] [facility] [address] [id number] [place] [address]- 2571 Mar, [facility] [place] [facility] [address] [id number] [place] [address]- 5768 Mar, [facility] [place] [facility] [address] [id number] [place] [address]- 0359 Mar, [facility] [place] [facility] [address] [id number] [place] [address]- 4855 Mar, [facility] [place] [facility] [address] [id number] [place] [address]- 2517 Mar, [facility] [place] [facility] [address] [id number] [place] [address]- 2467 Mar, [facility] [place] [facility] [address] [id number] [place] [address]- 3912 Mar, [facility] [place] [facility] [address] [id number] [place] [address]- 1585 Mar, [facility] [address] [id number] [place] [address]- 1446 Mar, [facility] [place] [facility] [address] [id number] [place] [address]- 3305 Feb, [facility] [place] [facility] [address] [id number] [place] [address]- 1498 Feb, [facility] [place] [facility] [address] [id number] [place] [address]- 6466 Feb, [facility] [place] [facility] [address] [id number] [place] [address]- 6117 Feb, [facility] [place] [facility] [address] [id number] [place] [address]- 4090 Feb, [facility] [place] [facility] [address] [id number] [place] [address]- 8685 Feb, [facility] [place] [facility] [address] [id number] [place] [address]- 0119 Jan, [facility] [place] [facility] [address] [id number] [place] [address]- 0690 Jan, [facility] [place] [facility] [address] [id number] [place] [address]- 4207 Jan, [facility] [place] [facility] [address] [id number] [place] [address]- 2696 Dec, [facility] [place] [facility] [address] [id number] [place] [address]- 8695 Dec, [facility] [place] [facility] [address] [id number] [place] [address]- 4513 Dec, [facility] [place] [facility] [address] [id number] [place] [address]- 3582 Nov, [facility] [place] [facility] [address] [id number] [place] [address]- 2053 Oct, [facility] [address] [id number] [place] [address]- 2686 Oct, [facility] [address] [id number] [place] [address]- 6404 Sep, [facility] [address] [id number] [place] [address]- 6785 Sep, [facility] [address] [id number] [place] [address]- 5490 Sep, [facility] [address] [id number] [place] [address]- 6504 Sep, [facility] [address] [id number] [place] [address]- 5507 Jun, [facility] [address] [id number] [place] [address]- 5158 Jun, [facility] [address] [id number] [place] [address]- 0121 May, [facility] [address] [id number] [place] [address]- 8202 July, [facility] [address] [id number] [place] [address]- 2909 July, [facility] [address] [id number] [place] [address]- 2501 July, [facility] [place] [facility] [address] [id number] [place] [address]- 7606 July, [facility] [place] [facility] [address] [id number] [place] [address]- 1351 July, [facility] [place] [facility] [address] [id number] [place] [address]- 5767 July, [facility] [place] [facility] [address] [id number] [place] [address]- 8004 July, [facility] [address] [id number] [place] [address]- 9631 July, [facility] [address] [id number] [place] [address]- 8939 Jun, [facility] [place] [facility] [address] [id number] [place] [address] 2546 May, [facility] [address] [id number] [place] [address]- 7746 May, [facility] [address] [id number] [place] [address]- 6474 Dec, [facility] [address] [id number] [place] [address]- 4422 Dec, [facility] [address] [id number] [place] [address]- 9186 Dec, [facility] [address] [id number] [place] [address]- 2373 Jun, [facility] [address] [id number] [place] [address]- 5274 May, [facility] [address] [id number] [place] [address]- 3525 Apr, [facility] [address] [id number] [place] [address]- 9259 Mar, [facility] [address] [id number] [place] [address]- 8216 30 Feb, 2010 [facility] [address] [id number] [place] [address]- 2542 Feb, [facility] [place] [facility] [address] [id number] [place] [address]- 7505 Feb, [facility] [place] [facility] [address] [id number] [place] [address]- 2546 16 Feb, 2010 [facility] [place] [facility] [address] [id number] [place] [address]- 3455 Jan, [facility] [address] [facility] [id number] [address]- 9192 Jan, [facility] [address] [id number], [place] [address]- 9934 Jan, [facility] [address] [facility] [id number], [place] [address]- 7780 Dec, [facility] [address] [id number], [place] [address] 1936 Dec, [facility] [address] [facility] [id number], [place] [address]- 8476 Dec, [facility] [address] [id number] [address]677 Dec, IMMUNIZATIONS No Known Immunizations SOCIAL HISTORY Never Assessed REASON FOR VISIT Requests return call PLAN OF CARE VITAL SIGNS MEDICATIONS Medication Instructions Dosage Frequency Start Date End Date Duration Status Macrobid 100 MG Orally every 12 hrs 1 capsule with food 12h Jun, Jun, 7 day(s) Active RESULTS No Results PROCEDURES No Known procedures INSTRUCTIONS MEDICATIONS ADMINISTERED No Known Medications MEDICAL (GENERAL) HISTORY Type Description Date Medical History PTSD Medical History scoliosis Medical History Heart palpitations Medical History Anxiety Surgical History C section x 2 03/2014 Surgical History Hysterectomy - partial 11/2015 Surgical History Right ov removed- appendectomy 06/29/16 Hospitalization History of son Hospitalization History surgeries Hospitalization History pyelonephritis-[facility] 10/02/16 Hospitalization History kindey infection 10/03/2017
--- OUTSIDE RECORDS SUMMARY | 2017-10-21 21:57 | XMS REPORT ---
Author Author KEO DEUTSCH Organization [facility] Address [address] [place] [address] Care Team Providers Care Second Worker Name Role Phone KEO DEUTSCH Unavailable PROBLEMS Type Condition ICD9-CM Code [id number] Code Onset Dates Condition Status SNOMED Code Problem Heartburn R12 Active 36476347 Problem Anxiety F41.9 Active 52707359 Problem Fibromyalgia M79.7 Active 160036388 Problem Major depressive disorder, recurrent episode, moderate F33.1 Active 032266074 Problem Posttraumatic stress disorder F43.10 Active 08938743 Problem Restless leg syndrome G25.81 Active 52324372 Problem Mood disorder F39 Active [id number] ALLERGIES No Information ENCOUNTERS Encounter Location Date Diagnosis [facility] [place] [address] [address] Sep, Pyelonephritis N12 [facility] [place] [address] [address] Sep, [facility] [id number] [place] [address] July, Seasonal allergic rhinitis, unspecified trigger J30.2 ; Cough R05 ; Allergic rhinitis, unspecified seasonality, unspecified trigger J30.9 and Sore throat J02.9 [facility] [id number] [place] [address] 64661- 9178 Jun, [facility] [place] [address] [address] Jun, [facility] [id number] [place] [address]11 14 Jun, 2017 Flank pain R10.9 and Acute cystitis with hematuria N30.01 [facility] [place] [id number] [place] [address]22- 7297 Jun, Acute cystitis with hematuria N30.01 [facility] [place] [id number] [place] [address] 87423- 7494 Dec, Wheezing R06.2 and Sinus pressure J34.89 [facility] [place] [id number] [place] [address] 77786- 7570 Sep, Pyelonephritis N12 [facility] [address] [id number] Sep, [facility] [address] [id number] Aug, Dental examination Z01.20 [facility] [id number] [place] [address]196 [address]1358 July, [facility] [place] [address] [address] July, Foot injury, right, initial encounter S99.921A ; Foot injury, left, initial encounter S99.922A and Sprain of left ankle, unspecified ligament, initial encounter S93.402A [facility] [place] [id number] [place] [address]656 [address]90 Mar, Bronchitis J40 [facility] [place] [id number] [place] [address] 99801- 0662 Feb, Dental examination Z01.20 [facility] [place] [id number] [place] [address] 52364- 8011 Jan, Anxiety F41.9 [facility] [place] [id number] [place] [address]33 [address]328 Dec, Wrist pain, right M25.531 [facility] [place] [id number] [place] [address] 82508- 2722 Dec, [facility] [id number] [place] [address] 40672 [address]6393 18 Oct, 2016 Right wrist pain M25.531 [facility] [place] [address] [address] Dec, [facility] [place] [id number] [place] [address] 78878- 1628 Dec, [facility] [place] [id number] [place] [address] 51468- 2460 Dec, Major depressive disorder, recurrent episode, moderate F33.1 and Posttraumatic stress disorder F43.10 [facility] [place] [id number] [place] [address] 77336- 4746 Dec, [facility] [place] [id number] [place] [address] 21925- 8485 Dec, [facility] [place] [id number] [place] [address] 08353- 0524 Dec, [facility] [place] [id number] [place] [address] 39788- 5809 Dec, Mood disorder F39 ; Restless leg syndrome G25.81 and Fibromyalgia M79.7 [facility] [place] [id number] [place] [address] 65807- 0356 Nov, Major depressive disorder, recurrent episode, moderate F33.1 and Posttraumatic stress disorder F43.10 [facility] [id number] [address] Oct, Dysuria R30.0 and Acute sinusitis, recurrence not specified , unspecified location J01.90 [facility] [address] [id number] [id number] Apr, Dental examination Z01.20 [facility] [place] [id number] [place] [address] 95129- 3986 18 Feb, 2015 [facility] [place] [address] [place] [address] 92818- 4036 15 Feb, 2015 [facility] [place] [id number] [place] [address] 97326- 7841 Feb, Vaginal bleeding during , antepartum O46.90 ; Positive test Z32.01 ; Abdominal cramping R10.9 ; Right upper quadrant pain R10.11 ; Generalized abdominal tenderness R10.817 ; Uterine tenderness N94.9 ; Cervical motion tenderness N94.9 and Heartburn R12 [facility] [place] [id number] [place] [address] 36325- 7453 Jan, Cough R05 and Nausea R11.0 [facility] [place] [id number] [place] [address] 85312- 9743 Jan, Acute nasopharyngitis J00 [facility] [place] [address] [address]197- 6978 Jan, Acute nasopharyngitis J00 [facility] [place] [address] 52921- 3724 Dec, Right upper quadrant abdominal pain R10.11 [facility] [place] [address] 97781- 2103 16 Dec, 2014 [facility] [place] [address] 84327- 5295 15 Dec, 2014 [facility] [place] [address] 47616- 7515 Dec, Left upper quadrant pain R10.12 and Diarrhea R19.7 [facility] [place] [address] 82712- 0912 Dec, [facility] [place] [id number] [place] [address] 96393- 8945 07 Dec, 2014 Left upper quadrant pain R10.12 [facility] [place] [address] 61101- 7730 14 Jun, 2014 [facility] [place] [address] 29708- 5779 13 Jun, 2014 [facility] [place] [address] 62728- 4674 May, 2014 [facility] [place] [facility] [address] [id number] [place] [address]- 8235 May, 2014 [facility] [place] [facility] [address] [id number] [place] [address] May, 2014 [facility] [place] [facility] [address] [id number] [place] [address]- 6870 Dec, [facility] [place] [facility] [address] [id number] [place] [address]- 7941 Dec, [facility] [place] [facility] [address] [id number] [place] [address]- 7689 Dec, [facility] [place] [facility] [address] [id number] [place] [address]- 0613 24 Dec, 2013 [facility] [place] [facility] [address] [id number] [place] [address]- 0894 Dec, [facility] [place] [facility] [address] [id number] [place] [address]- 3013 Dec, [facility] [place] [facility] [address] [id number] [place] [address]- 2692 15 Dec, 2013 [facility] [place] [facility] [address] [id number] [place] [address]- 4287 15 Dec, 2013 [facility] [place] [facility] [address] [id number] [address]- 9930 14 Dec, 2013 [facility] [place] [facility] [address] [id number] [address]- 0116 14 Dec, 2013 [facility] [place] [facility] [address] [id number] [place] [address]- 0329 Dec, [facility] [place] [facility] [address] [id number] [place] [address]- 8768 Dec, [facility] [place] [facility] [address] [id number] [place] [address]- 1412 Dec, [facility] [place] [facility] [address] [id number] [place] [address]- 7635 Dec, [facility] [place] [facility] [address] [id number] [place] [address]- 3020 Nov, 2013 [facility] [place] [facility] [address] [id number] [place] [address]- 9426 Nov, 2013 [facility] [place] [facility] [address] [id number] [place] [address]- 6020 Nov, 2013 [facility] [place] [facility] [address] [id number] [place] [address]- 7307 Nov, 2013 [facility] [place] [facility] [address] [id number] [place] [address]- 0487 Nov, [facility] [place] [facility] [address] [id number] [place] [address]- 9416 Nov, 2013 [facility] [place] [facility] [address] [id number] [place] [address]- 5447 Nov, 2013 [facility] [place] [facility] [address] [id number] [place] [address]- 9478 Nov, [facility] [place] [facility] [address] [id number] [place] [address]- 0899 Nov, [facility] [place] [facility] [address] [id number] [place] [address]- 1744 Nov, [facility] [place] [facility] [address] [id number] [place] [address]- 2540 Oct, [facility] [place] [facility] [address] [id number] [place] [address]- 2549 Oct, [facility] [place] [facility] [address] [id number] [place] [address]- 1696 Oct, [facility] [place] [facility] [address] [id number] [place] [address]- 7133 Oct, [facility] [place] [facility] [address] [id number] [place] [address]- 9038 Oct, [facility] [place] [facility] [address] [id number] [place] [address]- 9652 Oct, [facility] [place] [facility] [address] [id number] [place] [address]- 4358 Oct, [facility] [place] [facility] [address] [id number] [place] [address]- 7216 Oct, [facility] [place] [facility] [address] [id number] [place] [address]- 4278 Oct, [facility] [place] [facility] [address] [id number] [place] [address]- 7836 Oct, [facility] [place] [facility] [address] [id number] [place] [address]- 7269 Oct, [facility] [place] [facility] [address] [id number] [place] [address]- 9804 Oct, [facility] [place] [facility] [address] [id number] [place] [address]- 5519 Oct, [facility] [place] [facility] [address] [id number] [place] [address]- 2851 Sep, [facility] [place] [facility] [address] [id number] [place] [address]- 0308 Sep, [facility] [place] [facility] [address] [id number] [place] [address]- 8103 Sep, [facility] [place] [facility] [address] [id number] [place] [address]- 0675 Aug, [facility] [place] [facility] [address] [id number] [place] [address]- 1442 Aug, [facility] [place] [facility] [address] [id number] [place] [address]- 4900 Aug, [facility] [place] [facility] [address] [id number] [place] [address]- 4804 Aug, [facility] [place] [facility] [address] [id number] [place] [address]- 6423 July, [facility] [address] [id number] [place] [address]- 3864 July, [facility] [place] [facility] [address] [id number] [place] [address]- 4694 July, [facility] [place] [facility] [address] [id number] [place] [address]- 0139 July, [facility] [place] [facility] [address] [id number] [place] [address]- 2279 Apr, [facility] [place] [facility] [address] [id number] [place] [address]- 6930 Apr, [facility] [place] [facility] [address] [id number] [place] [address]- 9181 Mar, [facility] [place] [facility] [address] [id number] [place] [address]- 5974 Mar, [facility] [place] [facility] [address] [id number] [place] [address]- 9072 Mar, [facility] [place] [facility] [address] [id number] [place] [address]- 2426 Mar, [facility] [place] [facility] [address] [id number] [place] [address]- 4361 Mar, [facility] [place] [facility] [address] [id number] [place] [address]- 6557 Mar, [facility] [place] [facility] [address] [id number] [place] [address]- 7233 Mar, [facility] [place] [facility] [address] [id number] [place] [address]- 3056 Mar, [facility] [place] [facility] [address] [id number] [place] [address]- 7718 Mar, [facility] [place] [facility] [address] [id number] [place] [address]- 2824 Mar, [facility] [place] [facility] [address] [id number] [place] [address]- 6263 Mar, [facility] [address] [id number] [place] [address]- 8746 Mar, [facility] [place] [facility] [address] [id number] [place] [address]- 7369 Feb, [facility] [place] [facility] [address] [id number] [place] [address]- 3863 Feb, [facility] [place] [facility] [address] [id number] [place] [address]- 7546 Feb, [facility] [place] [facility] [address] [id number] [place] [address]- 2610 Feb, [facility] [place] [facility] [address] [id number] [place] [address]- 6238 Feb, [facility] [place] [facility] [address] [id number] [place] [address]- 2867 Feb, [facility] [place] [facility] [address] [id number] [place] [address]- 0422 Jan, [facility] [place] [facility] [address] [id number] [place] [address]- 1179 Jan, [facility] [place] [facility] [address] [id number] [place] [address]- 3607 Jan, [facility] [place] [facility] [address] [id number] [place] [address]- 8797 Dec, [facility] [place] [facility] [address] [id number] [place] [address]- 7595 Dec, [facility] [place] [facility] [address] [id number] [place] [address]- 9819 Dec, [facility] [place] [facility] [address] [id number] [place] [address]- 8847 Nov, [facility] [place] [facility] [address] [id number] [place] [address]- 1045 Oct, [facility] [address] [id number] [place] [address]- 8234 Oct, [facility] [address] [id number] [place] [address]- 9501 Sep, [facility] [address] [id number] [place] [address]- 5028 Sep, [facility] [address] [id number] [place] [address]- 9096 Sep, [facility] [address] [id number] [place] [address]- 7197 Sep, [facility] [address] [id number] [place] [address]- 5451 Jun, [facility] [address] [id number] [place] [address]- 4860 Jun, [facility] [address] [id number] [place] [address]- 9046 May, [facility] [address] [id number] [place] [address]- 7011 July, [facility] [address] [id number] [place] [address]- 4616 July, [facility] [address] [id number] [place] [address]- 7559 July, [facility] [place] [facility] [address] [id number] [place] [address]- 0869 July, [facility] [place] [facility] [address] [id number] [place] [address]- 0955 July, [facility] [place] [facility] [address] [id number] [place] [address]- 1621 July, [facility] [place] [facility] [address] [id number] [place] [address]- 6227 July, [facility] [address] [id number] [place] [address]- 8008 July, [facility] [address] [id number] [place] [address]- 9432 Jun, [facility] [place] [facility] [address] [id number] [place] [address] 2546 May, [facility] [address] [id number] [place] [address]- 7026 May, [facility] [address] [id number] [place] [address]- 7169 Dec, [facility] [address] [id number] [place] [address]- 8168 Dec, [facility] [address] [id number] [place] [address]- 8106 Dec, [facility] [address] [id number] [place] [address]- 7003 Jun, [facility] [address] [id number] [place] [address]- 0196 May, [facility] [address] [id number] [place] [address]- 4107 Apr, [facility] [address] [id number] [place] [address]- 1566 Mar, [facility] [address] [id number] [place] [address]- 2127 30 Feb, 2010 [facility] [address] [id number] [place] [address]- 2547 Feb, [facility] [place] [facility] [address] [id number] [place] [address]- 7784 Feb, [facility] [place] [facility] [address] [id number] [place] [address]- 2546 16 Feb, 2010 [facility] [place] [facility] [address] [id number] [place] [address]- 1876 Jan, [facility] [address] [facility] [id number] [address]- 0124 Jan, [facility] [address] [id number] [address] [address] Jan, [facility] [address] [id number] [address]- 6400 Dec, [facility] [address] [address]- 2872 Dec, [facility] [address] [id number] [address]- 4929 Dec, [facility] [address] [id number] [address]- 4822 Dec, IMMUNIZATIONS No Known Immunizations SOCIAL HISTORY Never Assessed REASON FOR VISIT medication request PLAN OF CARE VITAL SIGNS MEDICATIONS Unknown Medications RESULTS No Results PROCEDURES No Known [...]
--- OUTSIDE RECORDS SUMMARY | 2017-10-21 21:58 | XMS REPORT ---
Author Author KEO DEUTSCH Organization [facility] Address [address] [place] [address] Care Team Providers Care Credit Card Associate Name Role Phone KEO DEUTSCH Unavailable PROBLEMS Type Condition ICD9-CM Code ARC35-XH Code Onset Dates Condition Status SNOMED Code Problem Heartburn R12 Active 90779419 Problem Anxiety F41.9 Active 81784420 Problem Fibromyalgia M79.7 Active 194960771 Problem Major depressive disorder, recurrent episode, moderate F33.1 Active 992754244 Problem Posttraumatic stress disorder F43.10 Active 60246340 Problem Restless leg syndrome G25.81 Active 52543149 Problem Mood disorder F39 Active 93674387 ALLERGIES Substance Reaction Event Type Date Status Azithromycin Unknown Drug Allergy Jun, Active ENCOUNTERS Encounter Location Date Diagnosis [facility] [id number] [place] [address] 78330- 9977 Sep, Pyelonephritis N12 [facility] [address] [address]72- [address]197 Sep, [facility] [id number] [place] [address] 94050 -5475 July, Seasonal allergic rhinitis, unspecified trigger J30.2 ; Cough R05 ; Allergic rhinitis, unspecified seasonality, unspecified trigger J30.9 and Sore throat J02.9 [facility] [id number] [place] [address] 66861- 7956 Jun, [facility] [address] [address]- [address]255 Jun, [facility] [id number] [place] [address] 73600 -3760 14 Jun, 2017 Flank pain R10.9 and Acute cystitis with hematuria N30.01 [facility] [id number] [place] [address] 37455- 6805 Jun, Acute cystitis with hematuria N30.01 [place] [address] 39[address]- 3443 Dec, Wheezing R06.2 and Sinus pressure J34.89 [place] [address] 57999- 7677 Sep, Pyelonephritis N12 [facility] [address] [id number] Sep, [facility] [address] [id number] Aug, Dental examination Z01.20 [facility] [place] [address] [address] July, [facility] [place] [address] [address] July, Foot injury, right, initial encounter S99.921A ; Foot injury, left, initial encounter S99.922A and Sprain of left ankle, unspecified ligament, initial encounter S93.402A [facility] [place] [id number] [place] [address] 64935 -0495 Mar, Bronchitis J40 [place] [id number] [place] [address] 92416- 1970 Feb, Dental examination Z01.20 [facility] [id number] [place] [address] 06673- 6635 Jan, Anxiety F41.9 [facility] [place] [address] 18884 -5954 Dec, Wrist pain, right M25.531 [place] [id number] [place] [address] 18269- 4972 Dec, [facility] [address] 799[address]0760 Dec, Right wrist pain M25.531 [facility] [id number] [place] [address] 39946- 9870 Dec, [facility] [id number] [place] [address] 80778- 4580 Dec, [facility] [id number] [place] [address] 82305- 4577 Dec, Major depressive disorder, recurrent episode, moderate F33.1 and Posttraumatic stress disorder F43.10 [facility] [id number] [place] [address] 48256- 5782 Dec, [facility] [id number] [place] [address] 16432- 1611 Dec, [facility] [id number] [place] [address] 75774- 9389 Dec, [facility] [id number] [place] [address] 43511- 4142 Dec, Mood disorder F39 ; Restless leg syndrome G25.81 and Fibromyalgia M79.7 [facility] [id number] [place] [address] 74958- 0822 Nov, Major depressive disorder, recurrent episode, moderate F33.1 and Posttraumatic stress disorder F43.10 [facility] [id number] [place] [address] 84555 -8571 Oct, Dysuria R30.0 and Acute sinusitis, recurrence not specified , unspecified location J01.90 [facility] [id number] [place] [address] [id number] Apr, Dental examination Z01.20 [facility] [id number] [place] [address] 21856- 5995 Feb, [facility] [id number] [place] [address] 55555- 3860 Feb, [facility] [id number] [place] [address]- 3[address] Feb, Vaginal bleeding during , antepartum O46.90 ; Positive test Z32.01 ; Abdominal cramping R10.9 ; Right upper quadrant pain R10.11 ; Generalized abdominal tenderness R10.817 ; Uterine tenderness N94.9 ; Cervical motion tenderness N94.9 and Heartburn R12 [facility] [id number] [place] [address] 44169- 2876 Jan, Cough R05 and Nausea R11.0 [facility] [id number] [place] [address] 71321- 7150 Jan, Acute nasopharyngitis J00 [facility] [address] 49381- 7813 Jan, Acute nasopharyngitis J00 [facility] [id number] [place] [address] 59486- 1357 Dec, Right upper quadrant abdominal pain R10.11 [facility] [id number] [place] [address] 74099- 9674 16 Dec, 2014 [facility] [address] 28264- 9015 Dec, [facility] [id number] [place] [address] 71601- 9076 Dec, Left upper quadrant pain R10.12 and Diarrhea R19.7 [facility] [id number] [place] [address] 08122- 8117 Dec, [facility] [id number] [place] [address] 45912- 8521 Dec, Left upper quadrant pain R10.12 [facility] [id number] [place] [address] 18034- 5010 14 Jun, 2014 [facility] [id number] [place] [address] 43049- 0379 13 Jun, 2014 [facility] [id number] [address] 09 May, 2014 [facility] [place] [facility] [address] [id number] [place] [address]- 7129 May, 2014 [facility] [place] [facility] [address] [id number] [place] [address]- 1966 May, 2014 [facility] [place] [facility] [address] [id number] [place] [address]- 6312 Dec, 2013 [facility] [place] [facility] [address] [id number] [place] [address]- 6899 Dec, 2013 [facility] [place] [facility] [address] [id number] [place] [address]- 5122 Dec, [facility] [place] [facility] [address] [id number] [place] [address]- 1395 24 Dec, 2013 [facility] [place] [facility] [address] [id number] [place] [address]- 6973 Dec, [facility] [place] [facility] [address] [id number] [place] [address]- 2969 Dec, [facility] [place] [facility] [address] [id number] [place] [address]- 0426 15 Dec, 2013 [facility] [place] [facility] [address] [id number] [place] [address]- 2394 15 Dec, 2013 [facility] [place] [facility] [address] [id number] [place] [address]- 6904 14 Dec, 2013 [facility] [place] [facility] [address] [id number] [place] [address]- 8090 14 Dec, 2013 [facility] [place] [facility] [address] [id number] [place] [address]- 6346 Dec, [facility] [place] [facility] [address] [id number] [place] [address]- 3953 Dec, [facility] [place] [facility] [address] [id number] [place] [address]- 6917 Dec, [facility] [place] [facility] [address] [id number] [place] [address]- 4056 Dec, [facility] [place] [facility] [address] [id number] [place] [address]- 0628 Nov, [facility] [place] [facility] [address] [id number] [place] [address]- 7691 Nov, [facility] [place] [facility] [address] [id number] [place] [address]- 7192 Nov, [facility] [place] [facility] [address] [id number] [place] [address]- 9907 Nov, [facility] [place] [facility] [address] [id number] [place] [address]- 7581 Nov, [facility] [place] [facility] [address] [id number] [place] [address]- 4917 Nov, [facility] [place] [facility] [address] [id number] [place] [address]- 2844 Nov, [facility] [place] [facility] [address] [id number] [place] [address]- 5425 Nov, [facility] [place] [facility] [address] [id number] [place] [address]- 0283 Nov, [facility] [place] [facility] [address] [id number] [place] [address]- 5869 Nov, [facility] [place] [facility] [address] [id number] [place] [address]- 1792 Oct, [facility] [place] [facility] [address] [id number] [place] [address]- 0028 Oct, [facility] [place] [facility] [address] [id number] [place] [address]- 6633 Oct, [facility] [place] [facility] [address] [id number] [place] [address]- 5174 Oct, [facility] [place] [facility] [address] [id number] [place] [address]- 9511 Oct, [facility] [place] [facility] [address] [id number] [place] [address]- 1334 Oct, [facility] [place] [facility] [address] [id number] [place] [address]- 4882 Oct, [facility] [place] [facility] [address] [id number] [place] [address]- 1800 Oct, [facility] [place] [facility] [address] [id number] [place] [address]- 4886 Oct, [facility] [place] [facility] [address] [id number] [place] [address]- 6476 Oct, [facility] [place] [facility] [address] [id number] [place] [address]- 9969 Oct, [facility] [place] [facility] [address] [id number] [place] [address]- 7055 Oct, [facility] [place] [facility] [address] [id number] [place] [address]- 8285 Oct, [facility] [place] [facility] [address] [id number] [place] [address]- 8586 Sep, [facility] [place] [facility] [address] [id number] [place] [address]- 9788 Sep, [facility] [place] [facility] [address] [id number] [place] [address]- 8119 Sep, [facility] [place] [facility] [address] [id number] [place] [address]- 4334 Aug, [facility] [place] [facility] [address] [id number] [place] [address]- 9618 Aug, [facility] [place] [facility] [address] [id number] [place] [address]- 3918 Aug, [facility] [place] [facility] [address] [id number] [place] [address]- 3665 Aug, [facility] [place] [facility] [address] [id number] [place] [address]- 9481 July, [facility] [place] [facility] [address] [id number] [place] [address]- 6331 July, [facility] [place] [facility] [address] [id number] [place] [address]- 3720 July, [facility] [place] [facility] [address] [id number] [place] [address]- 9280 July, [facility] [place] [facility] [address] [id number] [place] [address]- 0688 Apr, [facility] [place] [facility] [address] [id number] [place] [address]- 0178 Apr, [facility] [place] [facility] [address] [id number] [place] [address]- 1921 Mar, [facility] [place] [facility] [address] [id number] [place] [address]- 4882 Mar, [facility] [place] [facility] [address] [id number] [place] [address]- 9173 Mar, [facility] [place] [facility] [address] [id number] [place] [address]- 9848 Mar, [facility] [place] [facility] [address] [id number] [place] [address]- 0734 Mar, [facility] [place] [facility] [address] [id number] [place] [address]- 3259 Mar, [facility] [place] [facility] [address] [id number] [place] [address]- 3934 Mar, [facility] [place] [facility] [address] [id number] [place] [address]- 4875 Mar, [facility] [place] [facility] [address] [id number] [place] [address]- 0081 Mar, [facility] [place] [facility] [address] [id number] [place] [address]- 8626 Mar, [facility] [address] [id number] [place] [address]- 1461 Mar, [facility] [place] [facility] [address] [id number] [place] [address]- 3258 Mar, [facility] [address] [id number] [place] 0832 Feb, [facility] [place] [facility] [address] [id number] [place] [address]- 0004 Feb, [facility] [address] [id number] [place] [address]- 7928 Feb, [facility] [place] [facility] [address] [id number] [place] [address]- 8768 Feb, [facility] [address] [id number] [place] [address]- 1799 Feb, [facility] [place] [facility] [address] [id number] [place] [address]- 8851 Feb, [facility] [address] [id number] [place] [address]- 3181 Jan, [facility] [place] [facility] [address] [id number] [place] [address]- 5880 Jan, [facility] [place] [facility] [address] [id number] [place] [address]- 9071 Jan, [facility] [place] [facility] [address] [id number] [place] [address]- 0411 Dec, [facility] [place] [facility] [address] [id number] [place] [address]- 5249 Dec, [facility] [place] [facility] [address] [id number] [place] [address]- 5655 Dec, [facility] [place] [facility] [address] [id number] [place] [address]- 0529 Nov, [facility] [place] [facility] [address] [id number] [place] [address]- 8741 Oct, [facility] [address] [id number] [place] [address]- 4753 Oct, [facility] [address] [id number] [place] [address]- 2481 Sep, [facility] [address] [id number] [place] [address]- 5459 Sep, [facility] [address] [id number] [place] [address]- 2898 Sep, [facility] [address] [id number] [place] [address]- 4312 Sep, [facility] [address] [id number] [place] [address]- 8890 Jun, [facility] [address] [id number] [place] [address]- 6361 Jun, [facility] [address] [id number] [place] [address]- 8891 May, [facility] [address] [id number] [place] [address]- 6647 July, [facility] [address] [id number] [place] [address]- 6185 July, [facility] [address] [id number] [place] [address]- 0512 July, [facility] [address] [id number] [place] [address]- 4907 July, [facility] [address] [id number] [place] [address]- 7386 July, [facility] [address] [id number] [place] [address]- 3766 July, [facility] [address] [id number] [place] [address]- 9422 July, [facility] [place] [facility] [address] [id number] [place] [address]- 8916 July, [facility] [place] [facility] [address] [id number] [place] [address]- 9026 Jun, [facility] [place] [facility] [address] [id number] [place] [address]- 2546 May, [facility] [place] [facility] [address] [id number] [place] [address]- 2546 May, [facility] [place] [facility] [address] [id number] [place] [address]- 3216 Dec, [facility] [place] [facility] [address] [id number] [place] [address]- 7456 Dec, [facility] [place] [facility] [address] [id number] [place] [address]- 2856 Dec, [facility] [place] [facility] [address] [id number] [place] [address]- 0876 Jun, [facility] [place] [facility] [address] [id number] [place] [address]- 7096 May, [facility] [place] [facility] [address] [id number] [place] [address]- 3396 Apr, [facility] [place] [facility] [address] [id number] [place] [address]- 2546 Mar, [facility] [place] [facility] [address] [id number] [place] [address]- 4836 Feb, [facility] [place] [facility] [address] [id number] [place] [address]- 6486 Feb, [facility] [place] [facility] [address] [id number] [place] [address]- 2306 Feb, [facility] [place] [facility] [address] [id number] [place] [address]- 0896 Feb, [facility] [place] [facility] [address] [id number] [place] [address]- 1074 Jan, [facility] [address] [facility] [id number] [place] [address]- 7982 Jan, [facility] [address] [id number] [address]- 3888 Jan, [facility] [address] [id number] [place] [address]- 4883 Dec, [facility] [address] [id number] [place] [address]- 5518 Dec, [facility] [address] [id number] [place] [address]- 4445 Dec, [facility] [address] [id number] [place] [address]- 3736 Dec, IMMUNIZATIONS No Known Immunizations SOCIAL HISTORY Never Assessed REASON FOR VISIT possible kidney infection PLAN OF CARE VITAL SIGNS Height 64 in 2017-06-30 Weight 145 lbs 2017-06-30 Temperature 98.9 degrees Fahrenheit 2017-06-30 Heart Rate 82 bpm 2017-06-30 Respiratory Rate 20 2017-06-30 BMI 24.89 kg/m2 2017-06-30 Blood pressure systolic 124 mmHg 2017-06-30 Blood pressure diastolic 76 mmHg 2017-06-30 MEDICATIONS Medication Instructions Dosage Frequency Start Date End Date Duration Status Clonazepam 0.5 MG Orally Twice a day 1 tablet 12h Jan, Not- Taking Duloxetine HCl 60 MG Orally daily 1 capsule every morning X 2 weeks then 2 caps every morning. 24h Dec, Not-Taking Ibuprofen 600 MG Orally every 8 hrs as needed 1 tablet Not- Taking Bactrim DS 800-160 MG Orally Twice a day 1 tablet 12h Jun,Jun 10 day(s) Active Protonix 40 mg Orally Once a day 1 tablet 24h Jan, 30 day(s) Active Bentyl 10 MG Orally Four times a day 1 capsule 6h Active Amoxicillin 500 MG Orally 4 times daily 1 capsule 7 days Not- Taking ProAir HFA 108 (90 Base) MCG/ACT Inhalation every 4 hrs 2 puffs as needed 4h Mar, 7 days Not-Taking Pepcid 20 MG Orally Once a day 1 tablet at bedtime 24h Active [place] 5-325 MG Orally every 6 hrs 1 tablet as needed 6h Dec, Not-Taking Pyridium 100 mg Orally Three times a day 2 tablets after meals 8h Jun, Jun, 2 day(s) Active RESULTS No Results PROCEDURES No [...]
--- OUTSIDE RECORDS SUMMARY | 2017-10-21 21:58 | XMS REPORT ---
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 Name Role Phone ZORA MIKE Unavailable PROBLEMS Type Condition ICD9-CM Code [id number] Code Onset Dates Condition Status SNOMED Code Problem Heartburn R12 Active 14865709 Problem Anxiety F41.9 Active 42555290 Problem Fibromyalgia M79.7 Active 814742814 Problem Major depressive disorder, recurrent episode, moderate F33.1 Active 346023572 Problem Posttraumatic stress disorder F43.10 Active 50210392 Problem Restless leg syndrome G25.81 Active 09852031 Problem Mood disorder F39 Active 52546796 ALLERGIES Substance Reaction Event Type Date Status Azithromycin Unknown Drug Allergy Jun, Active ENCOUNTERS Encounter Location Date Diagnosis [facility] [id number] [place] [address] 45386- 2698 Sep, Pyelonephritis N12 [facility] [id number] [place] [address] 81174- 4694 Sep, [facility] [id number] [place] [address] 51470 -8762 July, Seasonal allergic rhinitis, unspecified trigger J30.2 ; Cough R05 ; Allergic rhinitis, unspecified seasonality, unspecified trigger J30.9 and Sore throat J02.9 [facility] [id number] [place] [address] 14821- 6348 Jun, [facility] [id number] [place] [address] 61848- 3217 Jun, [facility] [id number] [place] [address] 63857 -2288 Jun, Flank pain R10.9 and Acute cystitis with hematuria N30.01 [facility] [id number] [place] [address] 55852- 9373 Jun, Acute cystitis with hematuria N30.01 [facility] [address] 8[address]64- 1575 Dec, Wheezing R06.2 and Sinus pressure J34.89 [place] [address] 76245- 6059 Sep, Pyelonephritis N12 [facility] [address] [id number] Sep, [facility] [address] [id number] Aug, Dental examination Z01.20 [facility] [place] [address] 067[address]9235 July, [facility] [place] [address] 38[address] -4873 July, Foot injury, right, initial encounter S99.921A ; Foot injury, left, initial encounter S99.922A and Sprain of left ankle, unspecified ligament, initial encounter S93.402A [facility] [place] [id number] [place] [address] 40927 -4613 Mar, Bronchitis J40 [place] [id number] [place] [address] 59120- 7189 Feb, Dental examination Z01.20 [facility] [address] 97712- 6376 Jan, Anxiety F41.9 [facility] [place] [address] 90030 -3329 Dec, Wrist pain, right M25.531 [facility] [address] [address]84- [address]3 Dec, [facility] [address] 80207 -5834 Dec, Right wrist pain M25.531 [facility] [id number] [place] [address] 70539- 8098 Dec, [facility] [id number] [place] [address] 79624- 1893 Dec, [facility] [id number] [place] [address] 46153- 7030 Dec, Major depressive disorder, recurrent episode, moderate F33.1 and Posttraumatic stress disorder F43.10 [facility] [id number] [place] [address] 36904- 0888 Dec, [facility] [id number] [place] [address] 32226- 5048 Dec, [facility] [id number] [place] [address] 43088- 0949 Dec, [facility] [id number] [place] [address] 08125- 7915 Dec, Mood disorder F39 ; Restless leg syndrome G25.81 and Fibromyalgia M79.7 [facility] [id number] [place] [address] 84345- 5543 Nov, Major depressive disorder, recurrent episode, moderate F33.1 and Posttraumatic stress disorder F43.10 [facility] [id number] [place] [address] 87418 -4101 Oct, Dysuria R30.0 and Acute sinusitis, recurrence not specified , unspecified location J01.90 [facility] [id number] [place] [address] [id number] Apr, Dental examination Z01.20 [facility] [id number] [place] [address] 06166- 4497 Feb, [facility] [id number] [place] [address] 80140- 2441 Feb, [facility] [id number] [place] [address] 68414- 8371 14 Feb, 2015 Vaginal bleeding during , antepartum O46.90 ; Positive test Z32.01 ; Abdominal cramping R10.9 ; Right upper quadrant pain R10.11 ; Generalized abdominal tenderness R10.817 ; Uterine tenderness N94.9 ; Cervical motion tenderness N94.9 and Heartburn R12 [facility] [address] 58005- 2440 Jan, Cough R05 and Nausea R11.0 [facility] [id number] [place] [address] 76458- 1506 Jan, Acute nasopharyngitis J00 [facility] [id number] [place] [address] 07142- 0718 Jan, Acute nasopharyngitis J00 [facility] [address] 05236- 1421 Dec, Right upper quadrant abdominal pain R10.11 [facility] [id number] [place] [address] 38215- 9795 16 Dec, 2014 [facility] [address] 34353- 1723 15 Dec, 2014 [facility] [id number] [place] [address] 53118- 9646 Dec, Left upper quadrant pain R10.12 and Diarrhea R19.7 [facility] [id number] [place] [address] 95625- 0372 Dec, [facility] [id number] [place] [address] 12417- 6901 07 Dec, 2014 Left upper quadrant pain R10.12 [facility] [id number] [place] [address] 88295- 3286 14 Jun, 2014 [facility] [id number] [place] [address] 69138- 8040 13 Jun, 2014 [facility] [place] [facility] [address] [id number] [place] [address]- 6387 09 May, 2014 [facility] [place] [facility] [address] [id number] [place] [address]- 9010 May, 2014 [facility] [place] [facility] [address] [id number] [place] [address]- 4606 May, 2014 [facility] [place] [facility] [address] [id number] [place] [address]- 0550 Dec, [facility] [place] [facility] [address] [id number] [place] [address]- 2955 31 Dec, 2013 [facility] [place] [facility] [address] [id number] [place] [address]- 6872 24 Dec, 2013 [facility] [place] [facility] [address] [id number] [place] [address]- 5297 24 Dec, 2013 [facility] [place] [facility] [address] [id number] [place] [address]- 5349 Dec, [facility] [place] [facility] [address] [id number] [place] [address]- 4829 21 Dec, 2013 [facility] [place] [facility] [address] [id number] [place] [address]- 1852 15 Dec, 2013 [facility] [place] [facility] [address] [id number] [place] [address]- 6668 15 Dec, 2013 [facility] [place] [facility] [address] [id number] [place] [address]- 3251 14 Dec, 2013 [facility] [place] [facility] [address] [id number] [place] [address]- 6564 14 Dec, 2013 [facility] [place] [facility] [address] [id number] [place] [address]- 8076 13 Dec, 2013 [facility] [place] [facility] [address] [id number] [place] [address]- 0736 13 Dec, 2013 [facility] [place] [facility] [address] [id number] [place] [address]- 2137 Dec, [facility] [place] [facility] [address] [id number] [place] [address]- 8403 Dec, [facility] [place] [facility] [address] [id number] [place] [address]- 7390 Nov, [facility] [place] [facility] [address] [id number] [place] [address]- 2866 Nov, [facility] [place] [facility] [address] [id number] [place] [address]- 8529 Nov, [facility] [place] [facility] [address] [id number] [place] [address]- 1900 Nov, [facility] [place] [facility] [address] [id number] [place] [address]- 4807 Nov, [facility] [place] [facility] [address] [id number] [place] [address]- 7338 Nov, [facility] [place] [facility] [address] [id number] [place] [address]- 5319 Nov, [facility] [place] [facility] [address] [id number] [place] [address]- 4574 Nov, [facility] [place] [facility] [address] [id number] [place] [address]- 6650 Nov, [facility] [place] [facility] [address] [id number] [place] [address]- 5929 Nov, [facility] [place] [facility] [address] [id number] [place] [address]- 6820 Oct, [facility] [place] [facility] [address] [id number] [place] [address]- 1023 Oct, [facility] [place] [facility] [address] [id number] [place] [address]- 6394 Oct, [facility] [place] [facility] [address] [id number] [place] [address]- 3569 Oct, [facility] [place] [facility] [address] [id number] [place] [address]- 4768 Oct, [facility] [place] [facility] [address] [id number] [place] [address]- 2139 Oct, [facility] [place] [facility] [address] [id number] [place] [address]- 1333 Oct, [facility] [place] [facility] [address] [id number] [place] [address]- 0557 Oct, [facility] [place] [facility] [address] [id number] [place] [address]- 8299 Oct, [facility] [place] [facility] [address] [id number] [place] [address]- 6861 Oct, [facility] [place] [facility] [address] [id number] [place] [address]- 9675 Oct, [facility] [place] [facility] [address] [id number] [place] [address]- 1947 Oct, [facility] [place] [facility] [address] [id number] [place] [address]- 0973 Oct, [facility] [place] [facility] [address] [id number] [place] [address]- 6542 Sep, [facility] [place] [facility] [address] [id number] [place] [address]- 0226 Sep, [facility] [place] [facility] [address] [id number] [place] [address]- 1220 Sep, [facility] [place] [facility] [address] [id number] [place] [address]- 4489 Aug, [facility] [place] [facility] [address] [id number] [place] [address]- 6899 Aug, [facility] [place] [facility] [address] [id number] [place] [address]- 9390 Aug, [facility] [place] [facility] [address] [id number] [place] [address]- 0697 Aug, [facility] [address] [id number] [place] [address]- 3587 July, [facility] [place] [facility] [address] [id number] [place] [address]- 6241 July, [facility] [place] [facility] [address] [id number] [place] [address]- 6318 July, [facility] [place] [facility] [address] [id number] [place] [address]- 3989 July, [facility] [place] [facility] [address] [id number] [place] [address]- 4462 Apr, [facility] [place] [facility] [address] [id number] [place] [address]- 2767 Apr, [facility] [place] [facility] [address] [id number] [place] [address]- 1280 Mar, [facility] [place] [facility] [address] [id number] [place] [address]- 1737 Mar, [facility] [place] [facility] [address] [id number] [place] [address]- 5649 Mar, [facility] [place] [facility] [address] [id number] [place] [address]- 1565 Mar, [facility] [place] [facility] [address] [id number] [place] [address]- 1413 Mar, [facility] [place] [facility] [address] [id number] [place] [address]- 5963 Mar, [facility] [place] [facility] [address] [id number] [place] [address]- 1399 Mar, [facility] [place] [facility] [address] [id number] [place] [address]- 5469 Mar, [facility] [place] [facility] [address] [id number] [place] [address]- 0731 Mar, [facility] [place] [facility] [address] [id number], [place] [address]- 0135 Mar, [facility] [address] [id number] [place] [address]- 1106 Mar, [facility] [address] [id number], [place] [address]- 6561 Mar, [facility] [address] [id number] [place] [address]- 0253 Feb, [facility] [place] [facility] [address] [id number] [place] [address]- 2040 Feb, [facility] [address] [id number] [place] [address]- 3318 Feb, [facility] [address] [id number] [place] [address]- 6568 Feb, [facility] [address] [id number] [place] [address]- 6197 Feb, [facility] [place] [facility] [address] [id number], [place] [address]- 8858 Feb, [facility] [address] [id number] [place] [address]- 7889 Jan, [facility] [address] [id number] [place] [address]- 6428 Jan, [facility] [place] [facility] [address] [id number], [place] [address]- 6318 Jan, [facility] [place] [facility] [address] [id number], [place] [address]- 9007 Dec, [facility] [place] [facility] [address] [id number], [place] [address]- 5148 Dec, [facility] [place] [facility] [address] [id number], [place] [address]- 8725 Dec, [facility] [place] [facility] [address] [id number], [place] [address]- 3300 Nov, [facility] [place] [facility] [address] [id number] [place] [address]- 0321 Oct, [facility] [address] [id number] [place] [address]- 9529 Oct, [facility] [address] [id number] [place] [address]- 2810 Sep, [facility] [address] [id number] [place] [address]- 1854 Sep, [facility] [address] [id number] [place] [address]- 8386 Sep, [facility] [address] [id number] [place] [address]- 7408 Sep, [facility] [address] [id number] [place] [address]- 4204 Jun, [facility] [address] [id number] [place] [address]- 2060 Jun, [facility] [address] [id number] [place] [address]- 9475 May, [facility] [address] [id number] [place] [address]- 5072 July, [facility] [address] [id number] [place] [address]- 4353 July, [facility] [address] [id number] [place] [address]- 5958 July, [facility] [address] [id number] [place] [address]- 8055 July, [facility] [place] [facility] [address] [id number] [place] [address]- 6606 July, [facility] [address] [id number] [place] [address]- 8446 July, [facility] [address] [id number] [place] [address]- 6153 July, [facility] [place] [facility] [address] [id number] [place] [address]- 3884 July, [facility] [place] [facility] [address] [id number] [place] [address]- 7796 Jun, [facility] [place] [facility] [address] [id number] [place] [address]- 2546 May, [facility] [place] [facility] [address] [id number] [place] [address]- 2546 May, [facility] [place] [facility] [address] [id number] [place] [address]- 6852 Dec, [facility] [place] [facility] [address] [id number] [place] [address]- 9176 Dec, [facility] [place] [facility] [address] [id number] [place] [address]- 2546 Dec, [facility] [place] [facility] [address] [id number] [place] [address]- 5728 Jun, [facility] [place] [facility] [address] [id number] [place] [address]- 7816 May, [facility] [place] [facility] [address] [id number] [place] [address] 2546 Apr, [facility] [place] [facility] [address] [id number], [place] [address]- 2546 Mar, [facility] [place] [facility] [address] [id number], [place] [address]- 2546 Feb, [facility] [place] [facility] [address] [id number] [place] [address]- 2546 Feb, [facility] [place] [facility] [address] [facility] [id number] [place] [address]- 2546 Feb, [facility] [place] [facility] [address] [facility] [id number] [place] [address]- 2546 Feb, [facility] [place] [facility] [address] [id number] [address]- 0037 Jan, [facility] [id number] [address]- 3829 Jan, [facility] [id number] [address]- 2128 Jan, [facility] [address] [address]- 7840 Dec, [facility] [address] [address]- 5749 Dec, [facility] [id number] [place] [address] 51770- 2225 Dec, [facility] [id number] [address]- 7047 Dec, IMMUNIZATIONS No Known Immunizations SOCIAL HISTORY Never Assessed REASON FOR VISIT RLQ akbar t right flank pain since yesterday. saw phillip yesterday et started on bactrim. kbullardrn PLAN OF CARE Activity Details Follow Up prn Reason: VITAL SIGNS Height 64 in 2017-07-01 Weight 142.2 lbs 2017-07-01 Temperature 99.4 degrees Fahrenheit 2017-07-01 Heart Rate 80 bpm 2017-07-01 Respiratory Rate 20 2017-07-01 BMI 24.41 kg/m2 2017-07-01 Blood pressure systolic 118 mmHg 2017-07-01 Blood pressure diastolic 70 mmHg 2017-07-01 MEDICATIONS Medication Instructions Dosage Frequency Start Date End Date Duration Status Pyridium 100 mg Orally Three times a day 2 tablets after meals 8h Jun, Jun, 2 day(s) Active Amoxicillin 500 MG Orally 4 times daily 1 capsule 7 days Not- Taking Protonix 40 mg Orally Once a day 1 tablet 24h Jan, 30 day(s) Active Clonazepam 0.5 MG Orally Twice a day 1 tablet 12h Jan, Not- Taking ProAir HFA 108 (90 Base) MCG/ACT Inhalation every 4 hrs 2 puffs as needed 4h Mar, 7 days Not-Taking [place] 5-325 MG Orally every 6 hrs 1 tablet as needed 6h Dec, Not-Taking Pepcid 20 MG Orally Once a day 1 tablet at bedtime 24h Active Bentyl 10 MG Orally Four times a day 1 capsule 6h Active Bactrim DS 800-160 MG Orally Twice a day 1 tablet 12h Jun,Jun 10 day(s) Active Ibuprofen 600 MG Orally every 8 hrs as needed 1 tablet Not- Taking Duloxetine HCl 60 MG Orally daily 1 capsule every morning X 2 weeks then 2 caps every morning. 24h Dec, Not-Taking RESULTS No Results PROCEDURES Procedure Date Ordered Result Body Site URINALYSIS, AUTO, W/O SCOPE July 01, 2017 LAB NOT BILLED BY [facility] July 01, 2017 INSTRUCTIONS MEDICATIONS ADMINISTERED No Known Medications MEDICAL [...]
--- OUTSIDE RECORDS SUMMARY | 2017-10-21 21:59 | XMS REPORT ---
Author Author MANI STRICKLAND Organization [facility] Address [address] [place] [address] Care Team Providers Care Neurology Nurse Name Role Phone MANI STRICKLAND Unavailable PROBLEMS Type Condition ICD9-CM Code KJS22-YG Code Onset Dates Condition Status SNOMED Code Problem Heartburn R12 Active 27399061 Problem Anxiety F41.9 Active 67452063 Problem Fibromyalgia M79.7 Active 234681653 Problem Major depressive disorder, recurrent episode, moderate F33.1 Active 846171216 Problem Posttraumatic stress disorder F43.10 Active 54824358 Problem Restless leg syndrome G25.81 Active 54974172 Problem Mood disorder F39 Active 67283404 ALLERGIES Substance Reaction Event Type Date Status Azithromycin Unknown Drug Allergy Sep, Active ENCOUNTERS Encounter Location Date Diagnosis [facility] [id number] [place] [address] 45983- 8288 Dec, Wheezing R06.2 and Sinus pressure J34.89 [facility] [address] [place] [id number] [place] [address] 99913- 4617 Sep, Pyelonephritis N12 [facility] [address] [place] [address] [id number] Sep, [facility] [address] [id number] Aug, Dental examination Z01.20 [facility] [id number] [place] [address]64 -4812 July, [facility] [address] [place] [address] July, Foot injury, right, initial encounter S99.921A ; Foot injury, left, initial encounter S99.922A and Sprain of left ankle, unspecified ligament, initial encounter S93.402A [facility] [address], [place] [address] Mar, Bronchitis J40 [facility] [id number] [place] [address] 20241- 4515 Feb, Dental examination Z01.20 [facility] [id number] [place] [address] 54308- 0491 Jan, Anxiety F41.9 [facility] [id number] [place] [address] 34567 -6089 Dec, Wrist pain, right M25.531 [facility] [id number] [place] [address] 23798- 2273 Dec, [facility] [id number] [place] [address] 40268 -6814 Dec, Right wrist pain M25.531 [facility] [id number] [place] [address] 59795- 5030 Dec, [facility] [id number] [place] [address] 56907- 4805 Dec, [facility] [id number] [place] [address] 50817- 4683 Dec, Major depressive disorder, recurrent episode, moderate F33.1 and Posttraumatic stress disorder F43.10 [facility] [id number] [place] [address] 60353- 4410 Dec, [facility] [id number] [place] [address] 77081- 3710 Dec, [facility] [id number] [place] [address] 90651- 7358 Dec, [facility] [id number] [place] [address] 79262- 1488 Dec, Mood disorder F39 ; Restless leg syndrome G25.81 and Fibromyalgia M79.7 [facility] [id number] [place] [address] 05417- 2577 Nov, Major depressive disorder, recurrent episode, moderate F33.1 and Posttraumatic stress disorder F43.10 [facility] [id number] [place] [address] 42962 -1464 Oct, Dysuria R30.0 and Acute sinusitis, recurrence not specified , unspecified location J01.90 [facility] [id number] [place] [address] [id number] Apr, Dental examination Z01.20 [facility] [address] [address]- 9992 Feb, [facility] [address] 99797- 3069 Feb, [facility] [address] [address]187- 2077 Feb, Vaginal bleeding during , antepartum O46.90 ; Positive test Z32.01 ; Abdominal cramping R10.9 ; Right upper quadrant pain R10.11 ; Generalized abdominal tenderness R10.817 ; Uterine tenderness N94.9 ; Cervical motion tenderness N94.9 and Heartburn R12 [facility] [id number] [place] [address] 77032- 7115 Jan, Cough R05 and Nausea R11.0 [facility] [id number] [place] [address] 34343- 4101 Jan, Acute nasopharyngitis J00 [facility] [id number] [place] [address] 04562- 2869 Jan, Acute nasopharyngitis J00 [facility] [id number] [place] [address] 07514- 7314 Dec, Right upper quadrant abdominal pain R10.11 [facility] [id number] [place] [address] 62551- 9616 Dec, [facility] [address] [place] [address] 15 Dec, 2014 [facility] [address] [id number], [place] [address] 1109 Dec, Left upper quadrant pain R10.12 and Diarrhea R19.7 [facility] [address] [id number] [place] [address]- 6792 Dec, [facility] [address] [id number], [place] [address]- 7467 Dec, Left upper quadrant pain R10.12 [facility] [address] [id number] [place] [address]- 6901 Jun, [facility] [address] [id number], [place] [address] 1981 Jun, [facility] [address] [facility] [id number], [place] [address]- 4916 May, [facility] [address] [facility] [id number], [place] [address]- 9900 May, [facility] [address] [facility] [id number], [place] [address]- 2879 May, [facility] [address] [facility] [id number], [place] [address]- 5925 Dec, [facility] [address] [facility] [id number], [place] [address]- 0263 Dec, [facility] [place] [facility] [address] [id number], [place] [address]- 9008 Dec, [facility] [place] [facility] [address] [id number], [place] [address]- 4752 Dec, [facility] [place] [facility] [address] [facility] [id number], [place] [address]- 5590 Dec, [facility] [place] [facility] [address] [facility] [id number], [place] [address]- 1073 Dec, [facility] [place] [facility] [address] [id number] [place] [address]- 5344 15 Dec, 2013 [facility] [place] [facility] [address] [id number] [place] [address]- 9655 15 Dec, 2013 [facility] [place] [facility] [address] [id number] [place] [address]- 3810 14 Dec, 2013 [facility] [place] [facility] [address] [id number] [place] [address]- 3667 14 Dec, 2013 [facility] [place] [facility] [address] [id number] [place] [address]- 9713 13 Dec, 2013 [facility] [place] [facility] [address] [id number] [place] [address]- 2077 Dec, [facility] [place] [facility] [address] [id number] [place] [address]- 8952 Dec, [facility] [place] [facility] [address] [id number] [place] [address]- 5704 Dec, [facility] [place] [facility] [address] [id number] [place] [address]- 7076 23 Nov, 2013 [facility] [place] [facility] [address] [id number] [place] [address]- 8147 23 Nov, 2013 [facility] [place] [facility] [address] [id number] [place] [address]- 0826 22 Nov, 2013 [facility] [place] [facility] [address] [id number] [place] [address]- 2541 22 Nov, 2013 [facility] [place] [facility] [address] [id number] [place] [address]- 2544 18 Nov, 2013 [facility] [place] [facility] [address] [id number] [place] [address]- 2547 18 Nov, 2013 [facility] [place] [facility] [address] [id number] [place] [address]- 2543 11 Nov, 2013 [facility] [place] [facility] [address] [id number] [place] [address]- 3270 Nov, [facility] [place] [facility] [address] [id number] [place] [address]- 5644 Nov, [facility] [place] [facility] [address] [id number] [place] [address]- 6695 Nov, [facility] [place] [facility] [address] [id number] [place] [address]- 9228 Oct, [facility] [place] [facility] [address] [id number] [place] [address]- 7494 Oct, [facility] [place] [facility] [address] [id number] [place] [address]- 4171 Oct, [facility] [place] [facility] [address] [id number] [place] [address]- 6749 Oct, [facility] [place] [facility] [address] [id number] [place] [address]- 9643 Oct, [facility] [place] [facility] [address] [id number] [place] [address]- 1192 Oct, [facility] [place] [facility] [address] [id number] [place] [address]- 1545 Oct, [facility] [place] [facility] [address] [id number] [place] [address]- 2342 Oct, [facility] [place] [facility] [address] [id number] [place] [address]- 4380 Oct, [facility] [place] [facility] [address] [id number] [place] [address]- 6030 Oct, [facility] [place] [facility] [address] [id number] [place] [address]- 4441 Oct, [facility] [place] [facility] [address] [id number] [place] [address]- 2423 Oct, [facility] [place] [facility] [address] [id number] [place] [address]- 6779 Oct, [facility] [place] [facility] [address] [id number] [place] [address]- 8682 Sep, [facility] [place] [facility] [address] [id number] [place] [address]- 1531 Sep, [facility] [place] [facility] [address] [id number] [place] [address]- 0597 Sep, [facility] [place] [facility] [address] [id number] [place] [address]- 6728 Aug, [facility] [place] [facility] [address] [id number] [place] [address]- 3220 Aug, [facility] [place] [facility] [address] [id number] [place] [address]- 5557 Aug, [facility] [place] [facility] [address] [id number] [place] [address]- 8947 Aug, [facility] [place] [facility] [address] [id number] [place] [address]- 5131 July, [facility] [place] [facility] [address] [id number] [place] [address]- 4569 July, [facility] [place] [facility] [address] [id number] [place] [address]- 4192 July, [facility] [place] [facility] [address] [id number] [place] [address]- 5958 July, [facility] [place] [facility] [address] [id number] [place] [address]- 0361 Apr, [facility] [place] [facility] [address] [id number] [place] [address]- 3193 Apr, [facility] [place] [facility] [address] [id number] [place] [address]- 4693 Mar, [facility] [place] [facility] [address] [id number] [place] [address]- 2756 Mar, [facility] [place] [facility] [address] [id number] [place] [address]- 6053 Mar, [facility] [place] [facility] [address] [id number] [place] [address]- 0127 Mar, [facility] [place] [facility] [address] [id number] [place] [address]- 1988 Mar, [facility] [place] [facility] [address] [id number] [place] [address]- 8236 Mar, [facility] [place] [facility] [address] [id number] [place] [address]- 8507 Mar, [facility] [place] [facility] [address] [id number] [place] [address]- 1378 Mar, [facility] [place] [facility] [address] [id number] [place] [address]- 8380 Mar, [facility] [place] [facility] [address] [id number] [place] [address]- 9161 Mar, [facility] [place] [facility] [address] [id number] [place] [address]- 9803 Mar, [facility] [place] [facility] [address] [id number] [place] [address]- 6688 Mar, [facility] [place] [facility] [address] [id number] [place] [address]- 6525 Feb, [facility] [place] [facility] [address] [id number] [place] [address]- 8019 Feb, [facility] [place] [facility] [address] [id number] [place] [address]- 5390 Feb, [facility] [place] [facility] [address] [id number] [place] [address]- 6491 Feb, [facility] [place] [facility] [address] [id number] [place] [address]- 5630 Feb, [facility] [place] [facility] [address] [id number] [place] [address]- 2362 Feb, [facility] [place] [facility] [address] [id number] [place] [address]- 8214 Jan, [facility] [address] [id number] [place] [address]- 2116 Jan, [facility] [place] [facility] [address] [id number] [place] [address]- 7614 Jan, [facility] [place] [facility] [address] [id number] [place] [address]- 4207 Dec, [facility] [place] [facility] [address] [id number] [place] [address]- 6977 Dec, [facility] [place] [facility] [address] [id number] [place] [address]- 3350 Dec, [facility] [place] [facility] [address] [id number] [place] [address]- 5197 Nov, [facility] [place] [facility] [address] [id number] [place] [address]- 4126 Oct, [facility] [place] [facility] [address] [id number], [place] [address]- 9802 Oct, [facility] [place] [facility] [address] [id number], [place] [address]- 3251 Sep, [facility] [place] [facility] [address] [id number], [place] [address]- 8519 Sep, [facility] [place] [facility] [address] [id number], [place] [address]- 7004 Sep, [facility] [place] [facility] [address] [id number], [place] [address]- 5645 Sep, [facility] [place] [facility] [address] [id number] [place] [address]- 7845 Jun, [facility] [place] [facility] [address] [id number], [place] [address]- 0587 Jun, [facility] [place] [facility] [address] [id number], [place] [address]- 0916 May, [facility] [place] [facility] [address] [id number] [place] [address]- 0821 July, [facility] [address] [id number] [place] [address]- 2358 July, [facility] [place] [facility] [address] [id number] [place] [address]- 2202 July, [facility] [address] [id number] [place] [address]- 4658 July, [facility] [place] [facility] [address] [id number] [place] [address]- 4726 July, [facility] [address] [id number] [place] [address]- 7886 July, [facility] [address] [id number] [place] [address]- 2612 July, [facility] [address] [id number] [place] [address]- 5320 July, [facility] [address] [id number] [place] [address]- 1500 Jun, [facility] [address] [id number] [place] [address]- 6450 May, [facility] [address] [id number] [place] [address]- 9568 May, [facility] [address] [id number] [place] [address]- 2121 Dec, [facility] [place] [facility] [address] [id number] [place] [address]- 4589 Dec, [facility] [place] [facility] [address] [id number] [place] [address]- 3327 Dec, [facility] [place] [facility] [address] [id number] [place] [address]- 0029 Jun, [facility] [place] [facility] [address] [id number] [place] [address]- 2632 May, [facility] [address] [facility] [id number], [place] [address]- 2947 Apr, [facility] [address], [place] [address]- 5946 Mar, [facility] [address] [id number], [place] [address]- 3880 Feb, [facility] [address] [facility] [id number], [place] [address]- 0966 Feb, [facility] [address] [facility] [id number], [place] [address]- 7261 Feb, [facility] [address] [facility] [id number], [place] [address]- 5818 Feb, [facility] [address], [place] [address]- 5440 Jan, [facility] [address], [place] [address]- 7339 Jan, [facility] [address] 9392 Jan, [facility] [address] [id number], [place] [address]- 8466 Dec, [facility] [address] 6999 Dec, [facility] [address] [id number], [place] [address]- 3027 Dec, [facility] [address] [id number] 7828 Dec, IMMUNIZATIONS No Known Immunizations SOCIAL HISTORY Never Assessed REASON FOR VISIT [facility] follow up from the , Infection in the blood stream and right kidney- [facility] DANIELS PLAN OF CARE Activity Details Follow Up prn Reason: VITAL SIGNS Height 64 in 2016-10-10 Weight 158.3 lbs 2016-10-10 Temperature 98.5 degrees Fahrenheit 2016-10-10 Heart Rate 76 bpm 2016-10-10 Respiratory Rate 20 2016-10-10 BMI 27.17 kg/m2 2016-10-10 Blood pressure systolic 128 mmHg 2016-10-10 Blood pressure diastolic 72 mmHg 2016-10-10 MEDICATIONS Medication Instructions Dosage Frequency Start Date End Date Duration Status Pepcid 20 MG Orally Once a day 1 tablet at bedtime 24h Active Bentyl 10 MG Orally Four times a day 1 capsule 6h Active Bactrim DS 800-160 MG Orally Twice a day 1 tablet 12h Sep,Sep Active Protonix 40 mg Orally Once a day 1 tablet 24h 10 Jan, 2016 30 day(s) Active Ibuprofen 600 MG Orally every 8 hrs as needed 1 tablet Active Cipro 500 MG Orally Twice a day for 10 days 1 tablet Active RESULTS No Results PROCEDURES No Known procedures INSTRUCTIONS MEDICATIONS ADMINISTERED No Known Medications MEDICAL (GENERAL) HISTORY Type Description Date Medical History PTSD Medical History scoliosis Medical History Heart palpitations Medical History Anxiety Surgical History C section x 2 03/2014 Surgical History Hysterectomy - partial 11/2015 Surgical History Right ov removed- appendectomy 06/29/16 Hospitalization History of son Hospitalization History surgeries Hospitalization History py[facility]phritis-[facility] 10/02/16
--- OUTSIDE RECORDS SUMMARY | 2017-10-21 22:13 | XMS REPORT | Continuity of Care Document ---
Author Author [facility] Address Unknown Phone Unavailable Allergies Active Description Code Type Severity Reaction Onset Reported/Identified Relationship to Patient Clinical Status Yes azithromycin [id number] Drug Allergy Mild N/A 07/24/2008 Yes azithromycin Drug Allergy N/ A N/A 11/24/2009 Yes azithromycin Drug Allergy 11/24/2009 Yes promethazine HCl [id number] Drug Allergy Mild SWELLING 10/08/2010 Yes Phenergan [...] KEO DEUTSCH APRN V22.2 State, Incidental 11/24/2009 FATEMEH CASIANO [...] STRICKLAND MD V22.2 State, Incidental 11/24/2009 EUGENIE FORMING MACHINE UPKEEP MECHANIC, SEAN S 620.2 Other And Unspecified Ovarian Cyst 11/24/2009 EUGENIE FORMING MACHINE UPKEEP MECHANIC, SEAN S 625.9 Unspecified Symptom Associated With Female Genital Organs 11/24/2009 EUGENIE FORMING MACHINE UPKEEP MECHANIC, SEAN S V22.2 State, Incidental 11/24/2009 KEO DEUTSCH APRN 620.2 Other And Unspecified Ovarian Cyst 11/24/2009 KEO DEUTSCH APRN 625.9 Unspecified Symptom Associated With Female Genital Organs 11/24/2009 KEO DEUTSCH APRN V22.2 State, Incidental 11/24/2009 PARISH FORMING MACHINE UPKEEP MECHANIC, CLARIBEL A 620.2 Other And Unspecified Ovarian Cyst 11/24/2009 PARISH FORMING MACHINE UPKEEP MECHANIC, CLARIBEL A 625.9 Unspecified Symptom Associated With Female Genital Organs 11/24/2009 PARISH FORMING MACHINE UPKEEP MECHANIC, CLARIBEL A V22.2 State, Incidental 11/24/2009 PARISH FORMING MACHINE UPKEEP MECHANIC, CLARIBEL A 620.2 Other And Unspecified Ovarian Cyst 11/24/2009 PARISH FORMING MACHINE UPKEEP MECHANIC, CLARIBEL A 625.9 Unspecified Symptom Associated With Female Genital Organs 11/24/2009 PARISH FORMING MACHINE UPKEEP MECHANIC, CLARIBEL A V22.2 State, Incidental 11/24/2009 PARISH FORMING MACHINE UPKEEP MECHANIC, CLARIBEL A 620.2 Other And Unspecified Ovarian Cyst 11/24/2009 PARISH FORMING MACHINE UPKEEP MECHANIC, CLARIBEL A 625.9 Unspecified Symptom Associated With Female Genital Organs 11/24/2009 PARISH FORMING MACHINE UPKEEP MECHANIC, CLARIBEL A V22.2 State, Incidental 11/24/2009 BLANQUITA [...] Gbs - Unspecified Site 12/19/2009 PARISH DOW, LCARIBEL A 041.02 Gbs - Unspecified Site 12/19/2009 [...] MD V22.1 , Normal Other 01/04/2010 EUGENIE FORMING MACHINE UPKEEP MECHANIC, SEAN S 079.98 Unspecified Chlamydial Infection 01/04/2010 EUGENIE DOW, SEAN S V22.1 , Normal Other 01/04/2010 KEO DEUTSCH APRN T 079.98 Unspecified Chlamydial Infection 01/04/2010 LA NENA DOW KEO T V22.1 , Normal Other 01/04/2010 PARISH FORMING MACHINE UPKEEP MECHANIC, CLARIBEL A 079.98 Unspecified Chlamydial Infection 01/04/2010 PARISH APRN, CLARIBEL A V22.1 , Normal Other 01/04/2010 PARISH FORMING MACHINE UPKEEP MECHANIC, CLARIBEL A 079.98 Unspecified Chlamydial Infection 01/04/2010 PARISH APRN, CLARIBEL A V22.1 , Normal Other 01/04/2010 PARISH FORMING MACHINE UPKEEP MECHANIC, CLARIBEL A 079.98 Unspecified Chlamydial Infection 01/04/2010 PARISH FORMING MACHINE UPKEEP MECHANIC, CLARIBEL A V22.1 , Normal Other 01/04/2010 [...] DEUTSCH APRN 530.81 Esophageal Reflux 03/04/2010 PARISH FORMING MACHINE UPKEEP MECHANIC, CLARIBEL A 530.81 Esophageal Reflux 03/04/2010 PARISH FORMING MACHINE UPKEEP MECHANIC, CLARIBEL A 530.81 Esophageal Reflux 03/04/2010 PARISH FORMING MACHINE UPKEEP MECHANIC, CLARIBEL A 530.81 Esophageal Reflux 03/04/2010 SONY MICHELLE, BLANQUITA N 530.81 Esophageal Reflux 03/04/2010 PARISH FORMING MACHINE UPKEEP MECHANIC, CLARIBEL A 530.81 Esophageal Reflux 03/04/2010 SONY [...] APRN V23.9 , High-risk (unspec) 04/05/2010 PARISH FORMING MACHINE UPKEEP MECHANIC, CLARIBEL A V23.9 , High-risk (unspec) 04/05/2010 PARISH FORMING MACHINE UPKEEP MECHANIC, CLARIBEL A V23.9 , High-risk (unspec) 04/05/2010 PARISH FORMING MACHINE UPKEEP MECHANIC, CLARIBEL A V23.9 , High-risk (unspec) 04/05/2010 SONY MICHELLE, BLANQUITA N V23.9 , High-risk (unspec) 04/05/2010 PARISH FORMING MACHINE UPKEEP MECHANIC, CLARIBEL A V23.9 , High-risk (unspec) 04/05/2010 [...] TRAORE APRN S 285.9 Anemia Unspecified 05/20/2010 SENA TRAORE APRN S 346.90 Migraine Unspecified Without [...] EUGENIEPINO DOW, SEAN S 784.0 Headache 05/26/2010 EKO DEUTSCH APRN 642.90 Compl Of - Htn/pih 05/26/2010 KEO DEUTSCH APRN 784.0 Headache 05/26/2010 PARISHMIKE DOW, CLARIBEL A 642.90 Compl Of - Htn/pih 05/26/2010 PARISH APRN, CLARIBEL A 784.0 Headache 05/26/2010 PARISH FORMING MACHINE UPKEEP MECHANIC, CLARIBEL A 642.90 Compl Of - Htn/pih 05/26/2010 PARISH FORMING MACHINE UPKEEP MECHANIC, CLARIBEL A 784.0 Headache 05/26/2010 PARISH FORMING MACHINE UPKEEP MECHANIC, CLARIBEL A 642.90 Compl Of - Htn/pih 05/26/2010 PARISH FORMING MACHINE UPKEEP MECHANIC, CLARIBEL A 784.0 Headache 05/26/2010 BLANQUITA CARDOZA MD 642.90 Compl Of - Htn/pih 05/26/2010 BLANQUITA CARDOZA MD 784.0 Headache 05/26/2010 CLARIBEL LUGO [...] 789.01 Abdominal Pain Right Upper Quadrant 07/08/2010 PARISHTHIEN MCKEON APRNIDI A 789.01 Abdominal Pain Right [...] Vann APRN 780.4 Dizziness And Giddiness 08/26/2010 PARIHS CLARIBEL DOW A 787.02 Nausea Alone 08/26/2010 [...] DEUTSCH APRN 300.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 10/16/2010 EKO DUETSCH APRN 780.50 Sleep Disturbance, Unspecified 10/16/2010 KEO [...] MD 780.79 Malaise And Fatigue 10/16/2010 EUGENIE FORMING MACHINE UPKEEP MECHANIC, SEAN S 296.90 Mood Disorder 10/16/2010 EUGENIE [...] A 780.50 Sleep Disturbance, Unspecified 10/16/2010 PARISH FORMING MACHINE UPKEEP MECHANIC, CLARIBEL A 780.79 Malaise And Fatigue 10/16/2010 PARISH FORMING MACHINE UPKEEP MECHANIC, CLARIBEL A 296.90 Mood Disorder 10/16/2010 PARISH FORMING MACHINE UPKEEP MECHANIC, CLARIBEL A 300.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 10/16/2010 PARISH FORMING MACHINE UPKEEP MECHANIC, CLARIBEL A 780.50 Sleep Disturbance, Unspecified 10/16/2010 PARISH FORMING MACHINE UPKEEP MECHANIC, CLARIBEL A 780.79 Malaise And Fatigue 10/16/2010 PARISH FORMING MACHINE UPKEEP MECHANIC, CLARIBEL A 296.90 Mood Disorder 10/16/2010 PARISH FORMING MACHINE UPKEEP MECHANIC, CLARIBEL A 300.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 10/16/2010 PARISH FORMING MACHINE UPKEEP MECHANIC, CLARIBEL A 780.50 Sleep Disturbance, Unspecified 10/16/2010 PARISH DOW, CLARIBEL A 780.79 Malaise And Fatigue 10/16/2010 SONY MD, BLANQUITA N 296.90 Mood Disorder 10/16/2010 BLANQUITA CARDOZA MD N 300.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 10/16/2010 BLANQUITA CARDOZA MD N 780.50 Sleep Disturbance, Unspecified 10/16/2010 BLANQUITA CARDOZA MD N 780.79 Malaise And Fatigue 10/16/2010 PARISH FORMING MACHINE UPKEEP MECHANIC, CLARIBEL A 296.90 Mood Disorder 10/16/2010 PARISH FORMING MACHINE UPKEEP MECHANIC, CLARIBEL A 300.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 10/16/2010 PARISH FORMING MACHINE UPKEEP MECHANIC, CLARIBEL A 780.50 Sleep Disturbance, Unspecified 10/16/2010 PARISH FORMING MACHINE UPKEEP MECHANIC, CLARIBEL A 780.79 Malaise And Fatigue 10/16/2010 [...] DEUTSCH APRN 307.81 Tension Headache 10/23/2010 PARISH FORMING MACHINE UPKEEP MECHANIC, CLARIBEL A 307.81 Tension Headache 10/23/2010 PARISH [...] DOW, CLARIBEL A 780.52 INSOMNIA UNSPECIFIED 06/27/2011 BLAQNUITA CARDOZA MD 296.90 MOOD DISORDER 06/27/2011 BLANQUITA [...] T 789.07 ABDOMINAL PAIN GENERALIZED 10/03/2012 PARISH FORMING MACHINE UPKEEP MECHANIC, CLARIBEL A 789.04 ABDOMINAL PAIN LEFT LOWER QUADRANT 10/03/2012 PARISH FORMING MACHINE UPKEEP MECHANIC, CLARIBEL A 789.07 ABDOMINAL PAIN GENERALIZED 10/03/2012 PARISH FORMING MACHINE UPKEEP MECHANIC, CLARIBEL A 789.04 ABDOMINAL PAIN LEFT LOWER QUADRANT 10/03/2012 PARISH FORMING MACHINE UPKEEP MECHANIC, CLARIBEL A 789.07 ABDOMINAL PAIN GENERALIZED 10/03/2012 PARISH FORMING MACHINE UPKEEP MECHANIC, CLARIBEL A 789.04 ABDOMINAL PAIN LEFT LOWER QUADRANT 10/03/2012 PARISH FORMING MACHINE UPKEEP MECHANIC, CLARIBEL A 789.07 ABDOMINAL PAIN GENERALIZED 10/03/2012 BLANQUITA CARDOZA MD N 789.04 ABDOMINAL PAIN LEFT LOWER QUADRANT 10/03/2012 BLANQUITA CARDOZA MD N 789.07 ABDOMINAL PAIN GENERALIZED 10/03/2012 PARISH FORMING MACHINE UPKEEP MECHANIC, CLARIBEL A 789.04 ABDOMINAL PAIN LEFT LOWER [...] ABDOMINAL PAIN RIGHT LOWER QUADRANT 10/26/2012 PARISH FORMING MACHINE UPKEEP MECHANIC, CLARIBEL A 789.03 ABDOMINAL PAIN RIGHT LOWER QUADRANT 10/26/2012 PARISH FORMING MACHINE UPKEEP MECHANIC, CLARIBEL A 789.03 ABDOMINAL PAIN RIGHT LOWER QUADRANT 10/26/2012 PARISH FORMING MACHINE UPKEEP MECHANIC, CLARIBEL A 789.03 ABDOMINAL PAIN RIGHT LOWER QUADRANT 10/26/2012 BLANQUITA CARDOZA MD N 789.03 ABDOMINAL PAIN RIGHT LOWER QUADRANT 10/26/2012 PARISH FORMING MACHINE UPKEEP MECHANIC, CLARIBEL A 789.03 ABDOMINAL PAIN RIGHT LOWER [...] APRN 617.0 ENDOMETRIOSIS OF UTERUS 12/21/2012 PARISH FORMING MACHINE UPKEEP MECHANIC, CLARIBEL A 617.0 ENDOMETRIOSIS OF UTERUS 12/21/2012 [...] DEUTSCH APRN 309.81 AN PTSD 03/11/2013 PARISH FORMING MACHINE UPKEEP MECHANIC, CLARIBEL A 296.32 MO DEPRESSIVE RECURRENT MODERATE 03/11/2013 PARISH FORMING MACHINE UPKEEP MECHANIC, CLARIBEL A 309.81 AN PTSD 03/11/2013 PARISH FORMING MACHINE UPKEEP MECHANIC, CLARIBEL A 296.32 MO DEPRESSIVE RECURRENT MODERATE 03/11/2013 PARISH FORMING MACHINE UPKEEP MECHANIC, CLARIBEL A 309.81 AN PTSD 03/11/2013 PARISH FORMING MACHINE UPKEEP MECHANIC, CLARIBEL A 296.32 MO DEPRESSIVE RECURRENT MODERATE 03/11/2013 PARISH FORMING MACHINE UPKEEP MECHANIC, CLARIBEL A 309.81 AN PTSD 03/11/2013 BLANQUITA CARDOZA MD N 296.32 MO DEPRESSIVE RECURRENT MODERATE 03/11/2013 BLANQUITA CARDOZA MD N 309.81 AN PTSD 03/11/2013 PARISH FORMING MACHINE UPKEEP MECHANIC, CLARIBEL A 296.32 MO DEPRESSIVE RECURRENT MODERATE [...] ABDOMINAL PAIN RIGHT UPPER QUADRANT 03/27/2013 PARISH FORMING MACHINE UPKEEP MECHANIC, CLARIBEL A 780.79 FATIGUE 03/27/2013 PARISH FORMING MACHINE UPKEEP MECHANIC, CLARIBEL A 783.1 WEIGHT GAIN ABNORMAL 03/27/2013 PARISH FORMING MACHINE UPKEEP MECHANIC, CLARIBEL A 787.01 NAUSEA WITH VOMITING 03/27/2013 PARISH FORMING MACHINE UPKEEP MECHANIC, CLARIBEL A 787.91 DIARRHEA 03/27/2013 PARISH FORMING MACHINE UPKEEP MECHANIC, CLARIBEL A 789.01 ABDOMINAL PAIN RIGHT UPPER QUADRANT 03/27/2013 PARISH FORMING MACHINE UPKEEP MECHANICTHIEN VannIDI A 780.79 FATIGUE 03/27/2013 PARISH FORMING MACHINE UPKEEP MECHANIC, CLARIBEL A 783.1 WEIGHT GAIN ABNORMAL 03/27/2013 PARISH FORMING MACHINE UPKEEP MECHANIC, CLARIBEL A 787.01 NAUSEA WITH VOMITING 03/27/2013 PARISH APRN, CLARIBEL A 787.91 DIARRHEA 03/27/2013 PARISH FORMING MACHINE UPKEEP MECHANIC, CLARIBEL A 789.01 ABDOMINAL PAIN RIGHT UPPER QUADRANT 03/27/2013 PARISH FORMING MACHINE UPKEEP MECHANIC, CLARIBEL A 780.79 FATIGUE 03/27/2013 PARISH FORMING MACHINE UPKEEP MECHANIC, CLARIBEL A 783.1 WEIGHT GAIN ABNORMAL 03/27/2013 PARISH FORMING MACHINE UPKEEP MECHANIC, CLARIBEL A 787.01 NAUSEA WITH VOMITING 03/27/2013 PARISH FORMING MACHINE UPKEEP MECHANIC, CLARIBEL A 787.91 DIARRHEA 03/27/2013 PARISH FORMING MACHINE UPKEEP MECHANIC, CLARIBEL A 789.01 ABDOMINAL PAIN RIGHT UPPER [...] ABDOMINAL PAIN, OTHER SPECIFIED SITE 08/15/2013 PARISH FORMING MACHINE UPKEEP MECHANICTHIENCLARIBEL A V22.2 INCIDENTAL 08/15/2013 THIEN LUGO APRNIDI A V22.2 INCIDENTAL 08/15/2013 PARISH FORMING MACHINE UPKEEP MECHANICTHIENCLARIBEL A V22.2 INCIDENTAL 08/15/2013 BLANQUITA CARDOZA MD V22.2 INCIDENTAL 08/15/2013 PARISH FORMING MACHINE UPKEEP MECHANICTHIENCLARIBEL A V22.2 INCIDENTAL 08/15/2013 BLANQUITA CARDOZA MD [...] MD V22.1 , NORMAL OTHER 09/19/2013 PARISH FORMING MACHINE UPKEEP MECHANICTHIENCLARIBEL A 787.01 NAUSEA WITH VOMITING 09/19/2013 PARISH FORMING MACHINE UPKEEP MECHANICTHIENCLARIBEL A V22.1 , NORMAL OTHER 09/19/2013 BLANQUITA [...] Ot 661.21 UTERINE INERT NEC-DELIV 03/25/2014 ANNA OGNZALEZ MD Ot V04.81 ND FOR PROPHYLACTIC VACCIN AND INOCULATI 03/25/2014 ANNA GONZALEZ MD, Ot V06.1 [id number], COMBINED [ 03/25/2014 ANNA GONZALEZ MD, Ot V27.0 DELIVER-SINGLE LIVEBORN 04/10/2014 Ot 625.9 04/10/2014 Ot 646.83 04/10/2014 Ot V22.1 04/10/2014 Ot V28.89 04/10/2014 Ot 633.90 04/10/2014 EMMANUEL RAI R DE ICER KIT ASSEMBLER Ot 789.04 04/10/2014 RAI BENITEZ DE ICER KIT ASSEMBLER Ot 789.07 04/10/2014 CLARIBEL LUGO Mallory FORMING MACHINE UPKEEP MECHANIC Ot V28.81 04/10/2014 SONY MICHELLE, BLANQUITA Vann [...] 521.00 UNSPEC DENTAL CARIES 07/05/2014 LONG SANCHEZ FORMING MACHINE UPKEEP MECHANIC Ot 525.9 DENTAL DISORDER NOS 08/27/2014 GELDENISE SPEARS DO Ot 620.2 08/27/2014 DENISE DYER DO Ot 789.04 10/31/2014 LENNY PAULINO Ot 564.00 UNSPEC CONSTIPATION 10/31/2014 LENNY PAULINO Ot 625.9 FEM GENITAL SYMPTOMS NOS 10/31/2014 LENNY PAULINO Ot 626.2 EXCESSIVE MENSTRUATION 01/01/2015 Ot 625.9 01/01/2015 Ot 646.83 01/01/2015 Ot V22.1 01/01/2015 Ot V28.89 01/01/2015 Ot 633.90 01/01/2015 RAI BENITEZ DE ICER KIT ASSEMBLER Ot 789.04 01/01/2015 RAI BENITEZ DE ICER KIT ASSEMBLER Ot 789.07 01/01/2015 CLARIBEL LUGO FORMING MACHINE UPKEEP MECHANIC Ot V28.81 01/01/2015 BLANQUITA CARDOZA MD Ot [...] NAUSEA WITH VOMITING, UNSPECIFIED 01/03/2015 LONG SANCHEZ FORMING MACHINE UPKEEP MECHANIC Ot R10.11 RIGHT UPPER QUADRANT PAIN 01/20/2015 QIAN POWERS DE ICER KIT ASSEMBLER Ot R10.12 03/19/2015 PAWEL IRBY FORMING MACHINE UPKEEP MECHANIC Ot N94.9 03/19/2015 PAWEL IRBY FORMING MACHINE UPKEEP MECHANIC Ot O46.90 03/19/2015 PAWEL IRBY FORMING MACHINE UPKEEP MECHANIC Ot O99.89 03/19/2015 PAWEL IRBY FORMING MACHINE UPKEEP MECHANIC Ot Z3A.08 04/01/2015 LISA MICHELLE, ANNA Oliva Ot O21.0 MILD HYPEREMESIS GRAVIDARUM 06/14/2015 Ot V22.1 06/14/2015 Ot V28.89 06/14/2015 Ot 633.90 06/14/2015 RAI BENITEZ DE ICER KIT ASSEMBLER Ot 789.04 06/14/2015 ARI BENITEZ DE ICER KIT ASSEMBLER Ot 789.07 06/14/2015 CLARIBEL LUGO FORMING MACHINE UPKEEP MECHANIC Ot V28.81 06/14/2015 BLANQUITA CARDOZA MD Ot V23.9 06/14/2015 SONY MICHELLE, BLANQUITA N Ot V28.89 06/14/2015 SONY MICHELLE, BLANQUITA Vann Ot V28.89 06/14/2015 Ot 789.04 06/14/2015 Ot 620.2 06/14/2015 [facility] A Ot 620.2 06/14/2015 [facility] Ot 789.04 06/14/2015 GIOQIAN DE ICER KIT ASSEMBLER Ot R10.12 06/14/2015 PAWEL IRBY FORMING MACHINE UPKEEP MECHANIC Ot N94.9 06/14/2015 PAWEL IRBY FORMING MACHINE UPKEEP MECHANIC Ot O46.90 06/14/2015 PAWEL IRBY FORMING MACHINE UPKEEP MECHANIC Ot O99.89 06/14/2015 PAWEL IRBY FORMING MACHINE UPKEEP MECHANIC Ot Z3A.08 06/14/2015 TERE DO, SAMIRA K Ot K02.9 DENTAL CARIES, UNSPECIFIED 06/14/2015 [place] DO, SAMIRA K Ot O99.612 DISEASES OF [...] W/O INTRAUTERINE PRE 09/15/2015 RAI BENITEZ R DE ICER KIT ASSEMBLER Ot 789.04 ABDOMINAL PAIN, LEFT LOWER QUADRANT 09/15/2015 RAI BENITEZ R DE ICER KIT ASSEMBLER Ot 789.07 ABDOMINAL PAIN, GENERALIZED 09/15/2015 CLARIBEL LUGO FORMING MACHINE UPKEEP MECHANIC Ot V28.81 ENCOUNTER FOR ANATOMIC SURVEY 09/15/2015 [...] LEFT LOWER QUADRANT 09/15/2015 GIO QIAN L DE ICER KIT ASSEMBLER Ot R10.12 LEFT UPPER QUADRANT PAIN 09/15/2015 PAWEL IRBY FORMING MACHINE UPKEEP MECHANIC Ot N94.9 UNSP COND ASSOC W FEMALE GENITAL ORGANS 09/15/2015 PAWEL IRBY FORMING MACHINE UPKEEP MECHANIC Ot O46.90 ANTEPARTUM HEMORRHAGE, UNSPECIFIED, UNSP 09/15/2015 PAWEL IRBY APRN Ot O99.89 OTH DISEASES AND CONDITIONS COMPL PREG/C 09/15/2015 PAWEL IRBY FORMING MACHINE UPKEEP MECHANIC Ot Z3A.08 8 WEEKS GESTATION OF 09/15/2015 [...] PREG W/O INTRAUTERINE PRE 09/22/2015 RAI BENITEZ DE ICER KIT ASSEMBLER Ot 789.04 ABDOMINAL PAIN, LEFT LOWER QUADRANT 09/22/2015 RAI BENITEZ DE ICER KIT ASSEMBLER Ot 789.07 ABDOMINAL PAIN, GENERALIZED 09/22/2015 CLARIBEL [...] PAIN, LEFT LOWER QUADRANT 09/22/2015 QIAN POWERS DE ICER KIT ASSEMBLER Ot R10.12 LEFT UPPER QUADRANT PAIN 09/22/2015 PAWEL IRBY FORMING MACHINE UPKEEP MECHANIC Ot N94.9 UNSP COND ASSOC W FEMALE GENITAL ORGANS 09/22/2015 PAWEL IRBY FORMING MACHINE UPKEEP MECHANIC Ot O46.90 ANTEPARTUM HEMORRHAGE, UNSPECIFIED, UNSP 09/22/2015 PAWEL IRBY FORMING MACHINE UPKEEP MECHANIC Ot O99.89 OTH DISEASES AND CONDITIONS COMPL PREG/C 09/22/2015 PAWEL IRBY FORMING MACHINE UPKEEP MECHANIC Ot Z3A.08 8 WEEKS GESTATION OF 09/22/2015 ANNA GONZALEZ MD Ot O47.1 FALSE LABOR AT OR AFTER 37 COMPLETED WEE 09/22/2015 NANA GONZALEZ MD Ot Z3A.37 37 WEEKS GESTATION OF 09/23/2015 Ot V28.89 OTHER SPECIFIED SCREENING 09/23/2015 Ot 633.90 UNSPEC ECTOPIC PREG W/O INTRAUTERINE PRE 09/23/2015 RAI BENITEZ DE ICER KIT ASSEMBLER Ot 789.04 ABDOMINAL PAIN, LEFT LOWER QUADRANT 09/23/2015 RAI BENITEZ DE ICER KIT ASSEMBLER Ot 789.07 ABDOMINAL PAIN, GENERALIZED 09/23/2015 CLARIBEL LUGO FORMING MACHINE UPKEEP MECHANIC Ot V28.81 ENCOUNTER FOR ANATOMIC SURVEY 09/23/2015 [...] PAIN, LEFT LOWER QUADRANT 09/23/2015 QIAN POWERS DE ICER KIT ASSEMBLER Ot R10.12 LEFT UPPER QUADRANT PAIN 09/23/2015 [...] PREG W/O INTRAUTERINE PRE 06/24/2016 RAI BENITEZ DE ICER KIT ASSEMBLER Ot 789.04 ABDOMINAL PAIN, LEFT LOWER QUADRANT 06/24/2016 RAI BENITEZ DE ICER KIT ASSEMBLER Ot 789.07 ABDOMINAL PAIN, GENERALIZED 06/24/2016 PARISH, CLARIBEL A FORMING MACHINE UPKEEP MECHANIC Ot V28.81 ENCOUNTER FOR ANATOMIC SURVEY 06/24/2016 [...] PAIN, LEFT LOWER QUADRANT 06/24/2016 QIAN POWERS DE ICER KIT ASSEMBLER Ot R10.12 LEFT UPPER QUADRANT PAIN 06/24/2016 PAWEL IRBY APRN Ot N94.9 UNSP COND ASSOC W FEMALE GENITAL ORGANS 06/24/2016 PAWEL IRBY FORMING MACHINE UPKEEP MECHANIC Ot O46.90 ANTEPARTUM HEMORRHAGE, UNSPECIFIED, UNSP 06/24/2016 PAWEL IRBY FORMING MACHINE UPKEEP MECHANIC Ot O99.89 OTH DISEASES AND CONDITIONS COMPL [...] UNSPECIFIED OVARIAN CYST, RIGHT SIDE 06/29/2016 ANNA GONZALZE MD, Ot N83.511 TORSION OF RIGHT OVARY [...] NONINFECTIVE GASTROENTERITIS AND COLITIS 07/13/2016 LONG SANCHEZ FORMING MACHINE UPKEEP MECHANIC Ot R10.30 LOWER ABDOMINAL PAIN, UNSPECIFIED 07/14/2016 LONG SANCHEZ APRN Ot K52.9 NONINFECTIVE GASTROENTERITIS AND COLITIS 07/14/2016 LONG SANCHEZ FORMING MACHINE UPKEEP MECHANIC Ot R10.30 LOWER ABDOMINAL PAIN, UNSPECIFIED 10/02/2016 Ot 633.90 UNSPEC ECTOPIC PREG W/O INTRAUTERINE PRE 10/02/2016 RAI BENITEZ DE ICER KIT ASSEMBLER Ot 789.04 ABDOMINAL PAIN, LEFT LOWER QUADRANT 10/02/2016 RAI BENITEZ DE ICER KIT ASSEMBLER Ot 789.07 ABDOMINAL PAIN, GENERALIZED 10/02/2016 CLARIBEL LUGO FORMING MACHINE UPKEEP MECHANIC Ot V28.81 ENCOUNTER FOR ANATOMIC SURVEY 10/02/2016 [...] PAIN, LEFT LOWER QUADRANT 10/02/2016 QIAN POWERS DE ICER KIT ASSEMBLER Ot R10.12 LEFT UPPER QUADRANT PAIN 10/02/2016 PAWEL IRBY APRN Ot N94.9 UNSP COND ASSOC W FEMALE GENITAL ORGANS 10/02/2016 PAWEL IRYB FORMING MACHINE UPKEEP MECHANIC Ot O46.90 ANTEPARTUM HEMORRHAGE, UNSPECIFIED, UNSP 10/02/2016 PAWEL IRBY FORMING MACHINE UPKEEP MECHANIC Ot O99.89 OTH DISEASES AND CONDITIONS COMPL PREG/C 10/02/2016 PAWEL IRBY FORMING MACHINE UPKEEP MECHANIC Ot Z3A.08 8 WEEKS GESTATION OF 10/05/2016 DANIA MANJARREZ MD Ot A41.51 SEPSIS DUE TO ESCHERICHIA COLI [E. COLI] 10/05/2016 DANIA MANJARREZ MD, Ot K21.9 GASTRO-ESOPHAGEAL REFLUX DISEASE WITHOUT 10/05/2016 DANIA MANJARREZ MD Ot N12 TUBULO-INTERSTITIAL NEPHRITIS, NOT SPCF 10/05/2016 DANIA MANJARREZ MD Ot Z87.891 PERSONAL HISTORY OF NICOTINE DEPENDENCE 05/27/2017 RAI BENITEZ DE ICER KIT ASSEMBLER Ot 789.04 ABDOMINAL PAIN, LEFT LOWER QUADRANT 05/27/2017 RAI BENITEZ DE ICER KIT ASSEMBLER Ot 789.07 ABDOMINAL PAIN, GENERALIZED 05/27/2017 CLARIBEL LUGO FORMING MACHINE UPKEEP MECHANIC Ot V28.81 ENCOUNTER FOR ANATOMIC SURVEY 05/27/2017 BLANQUITA CARDOZA MD Ot V23.9 SUPRV HIGH-RISK PREG NOS 05/27/2017 BLANQUITA CARDOZA MD Ot V28.89 OTHER SPECIFIED SCREENING 05/27/2017 BLANQUITA CARDOZA MD Ot V28.89 OTHER SPECIFIED SCREENING 05/27/2017 Ot 789.04 ABDOMINAL PAIN, LEFT LOWER QUADRANT 05/27/2017 Ot 620.2 OVARIAN CYST NEC/NOS 05/27/2017 DENISE DYER DO Ot 620.2 OVARIAN CYST NEC/NOS 05/27/2017 DENISE DYER DO Ot 789.04 ABDOMINAL PAIN, LEFT LOWER QUADRANT 05/27/2017 QIAN POWERS DE ICER KIT ASSEMBLER Ot R10.12 LEFT UPPER QUADRANT PAIN 05/27/2017 PAWEL IRBY APRN Ot N94.9 UNSP COND ASSOC W FEMALE GENITAL ORGANS 05/27/2017 PAWEL IRBY FORMING MACHINE UPKEEP MECHANIC Ot O46.90 ANTEPARTUM HEMORRHAGE, UNSPECIFIED, UNSP 05/27/2017 PAWEL IRBY APRN Ot O99.89 OTH DISEASES AND CONDITIONS COMPL PREG/C 05/27/2017 PAWEL IRBY APRN Ot Z3A.08 8 WEEKS GESTATION OF 06/02/2017 SAMIRA CARRANZA DO Ot F17.210 NICOTINE DEPENDENCE, CIGARETTES, UNCOMPL 06/02/2017 SAMIRA CARRANZA DO Ot F41.9 ANXIETY DISORDER, UNSPECIFIED 06/02/2017 SAMIRA CARRANZA DO Ot F43.10 POST-TRAUMATIC STRESS DISORDER, UNSPECIF 06/02/2017 SAMIRA CARRANZA DO Ot K21.9 GASTRO-ESOPHAGEAL REFLUX DISEASE WITHOUT 06/02/2017 SAMIRA CARRANZA DO Ot N39.0 URINARY TRACT INFECTION, SITE NOT SPECIF 06/02/2017 SAMIRA CARRANZA DO Ot R31.9 HEMATURIA, UNSPECIFIED 06/02/2017 SAMIRA CARRANZA DO Ot Z86.32 PERSONAL HISTORY OF GESTATIONAL DIABETES 06/02/2017 SAMIRA CARRANZA DO Ot Z87.19 PERSONAL HISTORY OF OTHER DISEASES OF TH 06/02/2017 SAMIRA CARRANZA DO Ot Z87.42 PERSONAL HISTORY OF OTH DISEASES OF THE 06/02/2017 SAMIRA CARRANZA DO, Ot Z87.59 PERSONAL HISTORY OF COMP OF PREG, CHLDBR 06/02/2017 SAMIRA CARRANZA DO Ot Z88.1 ALLERGY STATUS TO OTHER ANTIBIOTIC AGENT 06/02/2017 SAMIRA CARRANZA DO Ot Z90.49 ACQUIRED ABSENCE OF OTHER SPECIFIED PART 06/02/2017 SAMIRA CARRANZA DO Ot Z90.710 ACQUIRED ABSENCE OF BOTH CERVIX AND UTER 10/05/2017 DANIA MANJARREZ MD Ot F17.210 NICOTINE DEPENDENCE, CIGARETTES, UNCOMPL 10/05/2017 DANIA MANJARREZ MD, Ot G43.909 MIGRAINE, UNSP, NOT INTRACTABLE, WITHOUT 10/05/2017 DANIA MANJARREZ MD, Ot K21.9 GASTRO-ESOPHAGEAL REFLUX DISEASE WITHOUT 10/05/2017 DANIA MANJARREZ MD, Ot N12 TUBULO-INTERSTITIAL NEPHRITIS, NOT SPCF 10/05/2017 DANIA MANJARREZ MD, Ot F17.210 NICOTINE DEPENDENCE, CIGARETTES, UNCOMPL 10/05/2017 DANIA MANJARREZ MD, Ot G43.909 MIGRAINE, UNSP, NOT INTRACTABLE, WITHOUT 10/05/2017 DANIA MANJARREZ MD, Ot K21.9 GASTRO-ESOPHAGEAL REFLUX DISEASE WITHOUT 10/05/2017 DANIA MANJARREZ MD, Ot N12 TUBULO-INTERSTITIAL NEPHRITIS, NOT SPCF Procedures Code Description Performed By Performed On 73.4 07/15/2010 73.59 07/16/2010 OBSTETRIC EDDY DOSS 10/26/2012 OBSTETRIC MADAY BRASHER 12/21/2012 43835 PSYCH DIAGNOSTIC EVALUATION 03/12/2013 70049 HIDA SCAN 03/27/2013 GENERAL S KIDO, SVEN 04/02/2013 09284 ROUTINE VENIPUNCTURE 08/15/2013 64465 US OB - EARLY <14 WEEKS 08/15/2013 51705 TSH 08/15/2013 39280 HCG QUANTITATIVE 08/15/2013 04861 BLOOD TYPE/Rh FACTOR 08/16/2013 24056 ROUTINE VENIPUNCTURE 09/19/2013 35882 SYPHILLIS-[facility] 09/19/2013 77635 HIV ([facility]) 09/19/2013 54002 ANTIBODY SCREEN (order) 09/19/2013 64077 HEP B SURFACE ANTIGEN (STATE ) 09/19/2013 76650 UA LONG DIP 09/19/2013 92126 CBC 09/19/2013 42326 A1C (RML) 09/19/2013 64948 TSH 09/19/2013 [id number] ANTIBODY SCREEN (RESULT ONLY) 09/20/2013 20784 BLOOD TYPE/Rh FACTOR 09/20/2013 06672 RUBELLA ANTIBODY, IGG 09/20/2013 43136 CULTURE URINE 09/20/2013 62760 GC/CHLAM PROBE (STATE) 11/05/2013 36688 PAP SMEAR 11/07/2013 Q0091 PAP SMEAR OBTAIN SMEAR 11/07/2013 04346 URINE DRUG SCREEN (IN-HOUSE ) 11/07/2013 88398 UA W/ CULTURE IF INDICATED 11/07/2013 44942 TRICHOMONAS (IN-HOUSE) 11/07/2013 42072 CULTURE UROGENITAL 11/10/2013 99926 US OB - COMPLETE >14 WEEKS 11/14/2013 18152 GLUCOSE JUSTINE 1 HOUR 11/14/2013 81510 GLUCOSE JUSTINE 3 HOUR 11/14/2013 96214 CBC 11/14/2013 64983 UA OB DIP 11/14/2013 16763 US OB - FOLLOW UP 12/05/2013 27326 UA OB DIP 12/05/2013 74.1 LOW CERVICAL 03/23/2014 [id number] EXTRACTION OF POC, LOW CERVICAL, OPEN AP [...] ABO+Rh group OP NRG Transfusion band number [id number] NRG Blood group antibody screen NEGATIVE NRG [...] 10/02/16 10:10 Blood monocytes/100 leukocytes 9 % NR Manual blood segmented neutrophils/100 leukocytes 86 % NRG Blood band neutrophils/100 leukocytes 0 % NRG Manual blood lymphocytes/100 leukocytes 5 % NRG Manual eosinophils/100 leukocytes in nose 0 % NRG Manual blood basophils/100 leukocytes 0 % NRG Blood erythrocyte morphology finding identification NORMAL [facility] Bacterial blood culture - 10/02/16 10:10 FREE TEXT EXTERNAL SENSITIVITY REPORTED 10/03 15:30 NRG QUANTITY OF GROWTH . [facility] Bacterial blood culture SEE COMMEN [facility] Bacterial susceptibility panel - 10/02/16 10:10 Gentamicin [...] susceptibility test by minimum inhibitory concentration - NRG Bacterial blood culture - 10/02/16 10:44 Bacterial [...] - 10/03/16 15:00 Bacterial urine culture NG NR Comprehensive metabolic panel - 10/04/16 04:50 Serum [...] blood basophil count (count/volume) 0.0 10*3/uL 0.0-0.1 Urine drug screening test - 05/27/17 13:40 Urine phencyclidine detection by screening method NEGATIVE NEGATIVE Urine benzodiazepines detection by screening method NEGATIVE NEGATIVE Urine cocaine detection NEGATIVE NEGATIVE Urine amphetamines detection by screening method POSITIVE NEGATIVE Urine methamphetamine detection by screening method NEGATIVE NEGATIVE Urine cannabinoids detection by screening method NEGATIVE NEGATIVE Urine opiates detection by screening method POSITIVE NEGATIVE Urine barbiturates detection NEGATIVE NEGATIVE Screening urine tricyclic antidepressants detection NEGATIVE NEGATIVE Urine methadone detection by screening method NEGATIVE NEGATIVE Urine oxycodone detection POSITIVE NEGATIVE Urine propoxyphene detection NEGATIVE NEGATIVE Complete urinalysis with reflex to culture - 05/27/17 13:40 Urine color determination YELLOW NRG Urine clarity determination VERY CLOUDY NRG Urine pH measurement by test strip 6.5 5-9 Specific gravity of urine by test strip 1.015 1.016- 1.022 Urine protein assay by test strip, semi-quantitative 3+ NEGATIVE Urine glucose detection by automated test strip NEGATIVE NEGATIVE Erythrocytes detection in urine sediment by light microscopy 5+ NEGATIVE Urine ketones detection by automated test [...] detection in urine sediment by light microscopy MODERATE NRG Crystals detection in urine sediment by light microscopy NONE NRG Casts detection in urine sediment by light microscopy NONE NRG Mucus detection in urine sediment by light microscopy NEGATIVE NRG Complete urinalysis with reflex to culture YES NRG Bacterial urine culture - 05/27/17 13:40 Bacterial urine culture [id number] NRG COLONY COUNT >100,000/ML NR FTX;REPORTABLE SENSITIVITY REPORTED 05/28 16:40 NR FREE TEXT ENTRY 3 MIXED GRAM POSITIVE [facility] Bacterial susceptibility panel - 05/27/17 13:40 Gentamicin susceptibility test by minimum inhibitory concentration < = NRG Trimethoprim/sulfamethoxazole susceptibility test by minimum inhibitoryconcentration R NRG Ampicillin susceptibility test by minimum inhibitory concentration > = NRG Tobramycin susceptibility test by minimum inhibitory concentration < = NRG Cefazolin susceptibility test by minimum inhibitory concentration < = NRG Ceftriaxone susceptibility test by minimum inhibitory concentration <= NRG Ampicillin/sulbactam susceptibility test by minimum inhibitory concentration I NRG Piperacillin/tazobactam susceptibility test by minimum inhibitory concentration S NRG Ciprofloxacin susceptibility test by minimum inhibitory concentration <= NRG Meropenem susceptibility test by minimum inhibitory concentration < = NRG Nitrofurantoin susceptibility test by minimum inhibitory concentration <= NRG Aztreonam susceptibility test by minimum inhibitory concentration < = NRG Extended spectrum beta lactamase (ESBL) producing bacteria susceptibility test by minimum inhibitory concentration - NR Complete blood count (CBC) with automated white blood cell (WBC) differential - 05/27/17 13:59 Blood leukocytes automated count (number/volume) 11.1 10*3/uL 4.3-11.0 Blood erythrocytes automated count (number/volume) 4.41 10*6/uL 4.35-5.85 Venous blood hemoglobin measurement (mass/volume) 13.8 g/dL 11.5-16.0 Blood hematocrit (volume fraction) 40 % 35-52 Automated erythrocyte mean corpuscular volume 91 [foz_us] 80-99 Automated erythrocyte mean corpuscular hemoglobin (mass per erythrocyte) 31 pg 25-34 Automated erythrocyte mean corpuscular hemoglobin concentration measurement ( mass/volume) 34 g/dL 32-36 Automated erythrocyte distribution width ratio 13.1 % 10.0-14.5 Automated blood platelet count (count/volume) 327 10*3/uL 130-400 Automated blood platelet mean volume measurement 10.2 [foz_us] 7.4-10.4 Automated blood neutrophils/100 leukocytes 72 % 42-75 Automated blood lymphocytes/100 leukocytes 21 % 12-44 Blood monocytes/100 leukocytes 7 % 0-12 Automated blood eosinophils/100 leukocytes 1 % 0-10 Automated blood basophils/100 leukocytes 0 % 0-10 Blood neutrophils automated count (number/volume) 7.9 10*3 1.8-7.8 Blood lymphocytes automated count (number/volume) 2.3 10*3 1.0-4.0 Blood monocytes automated count (number/volume) 0.8 10*3 0.0-1.0 Automated eosinophil count 0.1 10*3/uL 0.0-0.3 Automated blood basophil count (count/volume) 0.0 10*3/uL 0.0-0.1 Comprehensive metabolic panel - 05/27/17 13:59 Serum or plasma sodium measurement (moles/volume) 138 mmol/L 135-145 Serum or plasma potassium measurement (moles/volume) 3.7 mmol/L 3.6-5.0 Serum or plasma chloride measurement (moles/volume) 100 mmol/L 98-107 Carbon dioxide 27 mmol/L 21-32 Serum or plasma anion gap determination (moles/volume) 11 mmol/L 5-14 Serum or plasma urea nitrogen measurement (mass/volume) 15 mg/dL 7-18 Serum or plasma creatinine measurement (mass/volume) 0.83 mg/dL 0.60-1.30 Serum or plasma urea nitrogen/creatinine mass ratio 18 NRG Serum or plasma creatinine measurement with calculation of estimated glomerular filtration rate > NRG Serum or plasma glucose measurement (mass/volume) 93 mg/dL 70-105 Serum or plasma calcium measurement (mass/volume) 9.7 mg/dL 8.5-10.1 Serum or plasma total bilirubin measurement (mass/volume) 0.7 mg/dL 0.1-1.0 Serum or plasma alkaline phosphatase measurement (enzymatic activity/volume) 95 U/L 40-136 Serum or plasma aspartate aminotransferase measurement (enzymatic activity/ volume) 14 U/L 5-34 Serum or plasma alanine aminotransferase measurement (enzymatic activity/volume ) 14 U/L 0-55 Serum or plasma protein measurement (mass/volume) 8.4 g/dL 6.4-8.2 Serum or plasma albumin measurement (mass/volume) 4.7 g/dL 3.2-4.5 Serum or plasma amylase measurement (enzymatic activity/volume) - 05/27/17 13: 59 Serum or plasma amylase measurement (enzymatic activity/volume) 28 U /L 25-125 Lipase - 05/27/17 13:59 Lipase 5 U/L 8-78 Complete blood count (CBC) with automated white blood cell (WBC) differential - 10/03/17 17:41 Blood leukocytes automated count (number/volume) 15.9 10*3/uL 4.3-11.0 Blood erythrocytes automated count (number/volume) 4.11 10*6/uL 4.35-5.85 Venous blood hemoglobin measurement (mass/volume) 12.5 g/dL 11.5-16.0 Blood hematocrit (volume fraction) 37 % 35-52 Automated erythrocyte mean corpuscular volume 91 [foz_us] 80-99 Automated erythrocyte mean corpuscular hemoglobin (mass per erythrocyte) 30 pg 25-34 Automated erythrocyte mean corpuscular hemoglobin concentration measurement ( mass/volume) 34 g/dL 32-36 Automated erythrocyte distribution width ratio 13.1 % 10.0-14.5 Automated blood platelet count (count/volume) 297 10*3/uL 130-400 Automated blood platelet mean volume measurement 10.7 [foz_us] 7.4-10.4 Automated blood neutrophils/100 leukocytes 80 % 42-75 Automated blood lymphocytes/100 leukocytes 13 % 12-44 Blood monocytes/100 leukocytes 6 % 0-12 Automated blood eosinophils/100 leukocytes 1 % 0-10 Automated blood basophils/100 leukocytes 0 % 0-10 Blood neutrophils automated count (number/volume) 12.7 10*3 1.8-7.8 Blood lymphocytes automated count (number/volume) 2.1 10*3 1.0-4.0 Blood monocytes automated count (number/volume) 1.0 10*3 0.0-1.0 Automated eosinophil count 0.1 10*3/uL 0.0-0.3 Automated blood basophil count (count/volume) 0.0 10*3/uL 0.0-0.1 Comprehensive metabolic panel - 10/03/17 17:41 Serum or plasma sodium measurement (moles/volume) 135 mmol/L 135-145 Serum or plasma potassium measurement (moles/volume) 3.7 mmol/L 3.6-5.0 Serum or plasma chloride measurement (moles/volume) 99 mmol/L 98-107 Carbon dioxide 26 mmol/L 21-32 Serum or plasma anion gap determination (moles/volume) 10 mmol/L 5-14 Serum or plasma urea nitrogen measurement (mass/volume) 10 mg/dL 7-18 Serum or plasma creatinine measurement (mass/volume) 0.85 mg/dL 0.60-1.30 Serum or plasma urea nitrogen/creatinine mass ratio 12 NRG Serum or plasma creatinine measurement with calculation of estimated glomerular filtration rate > NRG Serum or plasma glucose measurement (mass/volume) 117 mg/dL 70-105 Serum or plasma calcium measurement (mass/volume) 9.2 mg/dL 8.5-10.1 Serum or plasma total bilirubin measurement (mass/volume) 0.6 mg/dL 0.1-1.0 Serum or plasma alkaline phosphatase measurement (enzymatic activity/volume) 91 U/L 40-136 Serum or plasma aspartate aminotransferase measurement (enzymatic activity/ volume) 36 U/L 5-34 Serum or plasma alanine aminotransferase measurement (enzymatic activity/volume ) 24 U/L 0-55 Serum or plasma protein measurement (mass/volume) 7.7 g/dL 6.4-8.2 Serum or plasma albumin measurement (mass/volume) 4.2 g/dL 3.2-4.5 Serum or plasma amylase measurement (enzymatic activity/volume) - 10/03/17 17: 41 Serum or plasma amylase measurement (enzymatic activity/volume) 32 U /L 25-125 Lipase - 10/03/17 17:41 Lipase 5 U/L 8-78 Blood manual differential performed detection - 10/03/17 17:41 Blood monocytes/100 leukocytes 1 % NRG Manual blood segmented neutrophils/100 leukocytes 85 % NRG Blood band neutrophils/100 leukocytes 0 % NRG Manual blood lymphocytes/100 leukocytes 14 % NRG Manual eosinophils/100 leukocytes in nose 0 % NRG Manual blood basophils/100 leukocytes 0 % NRG Blood erythrocyte morphology finding identification NORMAL NRG Complete urinalysis with reflex to culture - 10/03/17 18:23 Urine color determination YELLOW NRG Urine clarity determination SLIGHTLY CLOUDY NRG Urine pH measurement by test strip 6 5-9 Specific gravity of urine by test strip 1.020 1.016- 1.022 Urine protein assay by test strip, semi-quantitative 2+ NEGATIVE Urine glucose detection by automated test strip NEGATIVE NEGATIVE Erythrocytes detection in urine sediment by light microscopy 3+ NEGATIVE Urine ketones detection by automated test [...] detection in urine sediment by light microscopy FEW NRG Squamous epithelial cells detection in urine sediment by light microscopy 2-5 NRG Crystals detection in urine sediment by light microscopy NONE NRG Casts detection in urine sediment by light microscopy NONE NRG Mucus detection in urine sediment by light microscopy NEGATIVE NRG Complete urinalysis with reflex to culture YES NRG Bacterial urine culture - 10/03/17 18:23 Bacterial urine culture SEE COMMEN NRG COLONY COUNT . NRG Blood lactic acid measurement (moles/volume) - 10/03/17 19:55 Blood lactic acid measurement (moles/volume) 1.42 mmol/L 0.50-2.00 Bacterial blood culture - 10/03/17 19:55 Bacterial blood culture NG NRG Bacterial blood culture - 10/03/17 20:25 Bacterial blood culture NG NRG Complete blood count (CBC) with automated white blood cell (WBC) differential - 10/04/17 07:15 Blood leukocytes automated count (number/volume) 12.0 10*3/uL 4.3-11.0 Blood erythrocytes automated count (number/volume) 3.42 10*6/uL 4.35-5.85 Venous blood hemoglobin measurement (mass/volume) 10.6 g/dL 11.5-16.0 Blood hematocrit (volume fraction) 31 % 35-52 Automated erythrocyte mean corpuscular volume 91 [foz_us] 80-99 Automated erythrocyte mean corpuscular hemoglobin (mass per erythrocyte) 31 pg 25-34 Automated erythrocyte mean corpuscular hemoglobin concentration measurement ( mass/volume) 34 g/dL 32-36 Automated erythrocyte distribution width ratio 12.9 % 10.0-14.5 Automated blood platelet count (count/volume) 230 10*3/uL 130-400 Automated blood platelet mean volume measurement 10.5 [foz_us] 7.4-10.4 Automated blood neutrophils/100 leukocytes 73 % 42-75 Automated blood lymphocytes/100 leukocytes 17 % 12-44 Blood monocytes/100 leukocytes 10 % 0-12 Automated blood eosinophils/100 leukocytes 0 % 0-10 Automated blood basophils/100 leukocytes 0 % 0-10 Blood neutrophils automated count (number/volume) 8.8 10*3 1.8-7.8 Blood lymphocytes automated count (number/volume) 2.0 10*3 1.0-4.0 Blood monocytes automated count (number/volume) 1.2 10*3 0.0-1.0 Automated eosinophil count 0.0 10*3/uL 0.0-0.3 Automated blood basophil count (count/volume) 0.0 10*3/uL 0.0-0.1 Comprehensive metabolic panel - 10/04/17 07:15 Serum or plasma sodium measurement (moles/volume) 136 mmol/L 135-145 Serum or plasma potassium measurement (moles/volume) 3.8 mmol/L 3.6-5.0 Serum or plasma chloride measurement (moles/volume) 109 mmol/L 98-107 Carbon dioxide 23 mmol/L 21-32 Serum or plasma anion gap determination (moles/volume) 4 mmol/L 5-14 Serum or plasma urea nitrogen measurement (mass/volume) 9 mg/dL 7-18 Serum or plasma creatinine measurement (mass/volume) 0.71 mg/dL 0.60-1.30 Serum or plasma urea nitrogen/creatinine mass ratio 13 NRG Serum or plasma creatinine measurement with calculation of estimated glomerular filtration rate > NRG Serum or plasma glucose measurement (mass/volume) 89 mg/dL 70-105 Serum or plasma calcium measurement (mass/volume) 8.1 mg/dL 8.5-10.1 Serum or plasma total bilirubin measurement (mass/volume) 0.5 mg/dL 0.1-1.0 Serum or plasma alkaline phosphatase measurement (enzymatic activity/volume) 94 U/L 40-136 Serum or plasma aspartate aminotransferase measurement (enzymatic activity/ volume) 55 U/L 5-34 Serum or plasma alanine aminotransferase measurement (enzymatic activity/volume ) 32 U/L 0-55 Serum or plasma protein measurement (mass/volume) 6.0 g/dL 6.4-8.2 Serum or plasma albumin measurement (mass/volume) 3.3 g/dL 3.2-4.5 Complete blood count (CBC) with automated white blood cell (WBC) differential - 10/05/17 06:03 Blood leukocytes automated count (number/volume) 9.5 10*3/uL 4.3-11.0 Blood erythrocytes automated count (number/volume) 3.19 10*6/uL 4.35-5.85 Venous blood hemoglobin measurement (mass/volume) 9.7 g/dL 11.5-16.0 Blood hematocrit (volume fraction) 30 % 35-52 Automated erythrocyte mean corpuscular volume 93 [foz_us] 80-99 Automated erythrocyte mean corpuscular hemoglobin (mass per erythrocyte) 30 pg 25-34 Automated erythrocyte mean corpuscular hemoglobin concentration measurement ( mass/volume) 33 g/dL 32-36 Automated erythrocyte distribution width ratio 13.3 % 10.0-14.5 Automated blood platelet count (count/volume) 218 10*3/uL 130-400 Automated blood platelet mean volume measurement 10.4 [foz_us] 7.4-10.4 Automated blood neutrophils/100 leukocytes 67 % 42-75 Automated blood lymphocytes/100 leukocytes 23 % 12-44 Blood monocytes/100 leukocytes 9 % 0-12 Automated blood eosinophils/100 leukocytes 1 % 0-10 Automated blood basophils/100 leukocytes 0 % 0-10 Blood neutrophils automated count (number/volume) 6.4 10*3 1.8-7.8 Blood lymphocytes automated count (number/volume) 2.2 10*3 1.0-4.0 Blood monocytes automated count (number/volume) 0.8 10*3 0.0-1.0 Automated eosinophil count 0.1 10*3/uL 0.0-0.3 Automated blood basophil count (count/volume) 0.0 10*3/uL 0.0-0.1 Comprehensive metabolic panel - 10/05/17 06:03 Serum or plasma sodium measurement (moles/volume) 140 mmol/L 135-145 Serum or plasma potassium measurement (moles/volume) 3.7 mmol/L 3.6-5.0 Serum or plasma chloride measurement (moles/volume) 112 mmol/L 98-107 Carbon dioxide 22 mmol/L 21-32 Serum or plasma anion gap determination (moles/volume) 6 mmol/L 5-14 Serum or plasma urea nitrogen measurement (mass/volume) 8 mg/dL 7-18 Serum or plasma creatinine measurement (mass/volume) 0.64 mg/dL 0.60-1.30 Serum or plasma urea nitrogen/creatinine mass ratio 13 NRG Serum or plasma creatinine measurement with calculation of estimated glomerular filtration rate > NRG Serum or plasma glucose measurement (mass/volume) 137 mg/dL 70-105 Serum or plasma calcium measurement (mass/volume) 8.4 mg/dL 8.5-10.1 Serum or plasma total bilirubin measurement (mass/volume) 0.3 mg/dL 0.1-1.0 Serum or plasma alkaline phosphatase measurement (enzymatic activity/volume) 120 U/L 40-136 Serum or plasma aspartate aminotransferase measurement (enzymatic activity/ volume) 71 U/L 5-34 Serum or plasma alanine aminotransferase measurement (enzymatic activity/volume ) 53 U/L 0-55 Serum or plasma protein measurement (mass/volume) 5.8 g/dL 6.4-8.2 Serum or plasma albumin measurement (mass/volume) 3.0 g/dL 3.2-4.5 Encounters ACCT No. Visit Date/Time Discharge Status Pt. Type Provider Facility Loc./Unit Complaint [id number] 12/05/2013 15:43:00 12/05/2013 23:59:59 CLS Outpatient BLANQUITA CARDOZA MD [id number] 12/05/2013 15:43:00 12/05/2013 23:59:59 CLS Outpatient BLANQUITA CARDOZA MD [id number] 11/14/2013 11:34:00 11/14/2013 23:59:59 CLS Outpatient BLANQUITA CARDOZA MD [id number] 11/07/2013 11:39:00 11/07/2013 23:59:59 CLS Outpatient CLARIBEL LUGO APRN [id number] 11/07/2013 11:39:00 11/07/2013 23:59:59 CLS Outpatient CLARIBEL LUGO APRN [id number] 09/19/2013 10:36:00 09/19/2013 23:59:59 CLS Outpatient CLARIBEL LUGO APRN [id number] 08/15/2013 14:41:00 08/15/2013 23:59:59 CLS Outpatient CLARIBEL LUGO APRN [id number] 04/02/2013 14:29:00 04/02/2013 23:59:59 CLS Outpatient KEO DEUTSCH APRN [id number] 03/27/2013 16:47:00 03/27/2013 23:59:59 CLS Outpatient SEAN TRAORE APRN [id number] 03/11/2013 15:41:00 03/11/2013 23:59:59 CLS Outpatient MANI STRICKLAND MD [id number] 01/11/2013 11:46:00 01/11/2013 23:59:59 CLS Outpatient CASIANO FATEMEH ORELLANA [id number] 12/21/2012 10:56:00 12/21/2012 23:59:59 CLS Outpatient LA NENA DOWKEO [id number] 06/26/2012 16:21:00 06/26/2012 23:59:59 CLS Outpatient [id number] 06/08/2012 16:35:00 06/08/2012 23:59:59 CLS Outpatient [id number] 10/26/2012 14:14:00 Document Registration [id number] 10/03/2017 20:38:00 10/05/2017 13:43:00 DIS Inpatient DANIA MANJARREZ MD [facility] 4TH UTI, PYELONEPHRITIS, N/V [id number] 05/27/2017 12:23:00 05/27/2017 16:12:00 DIS Outpatient SAMIRA CARRANZA DO [facility] ER BLOOD IN URINE [id number] 10/02/2016 12:59:00 10/05/2016 14:45:00 DIS Inpatient DANIA MANJARREZ MD [facility] 4TH R PYELONEPHRITIS [id number] 07/13/2016 19:45:00 07/13/2016 21:28:00 DIS Emergency LONG SANCHEZ APRN [facility] ER LOWER ABD PAIN [id number] 06/29/2016 10:57:00 06/29/2016 15:45:00 DIS Outpatient ANNA GONZALEZ MD [facility] SDC CHRONIC PELVIC PAIN [id number] 06/24/2016 12:56:00 06/24/2016 13:19:00 DIS Outpatient ANNA GONZALEZ MD 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 ER POST HYSTERECTOMY/PAIN ABOVE PUBIC BONE [id number] 11/20/2015 10:55:00 11/21/2015 09:55:00 DIS Outpatient ANNA GONZALEZ MD [facility] SDC CPP; DUB; PROLAPSE [id number] 11/16/2015 09:56:00 11/16/2015 11:12:00 DIS Outpatient ANNA GONZALEZ MD [facility] PREOP CPP; DUB; PROLAPSE [id number] 09/23/2015 05:53:00 09/25/2015 14:15:00 DIS Inpatient ANNA GONZALEZ MD [facility] LDRP PREVIOUS SECTION [id number] 09/22/2015 14:36:00 09/22/2015 16:25:00 DIS Outpatient [facility] CONTR[facility]S AND SPOTTING [id number] 09/19/2015 17:21:00 09/20/2015 07:39:00 DIS Outpatient [facility]Z [facility] A[facility],NAUSEA [id number] 09/15/2015 14:43:00 09/15/2015 15:05:00 DIS Outpatient ANNA GONZALEZ MD [facility] PREOP PREVIOUS SECTION [id number] 06/26/2015 14:18:00 06/26/2015 16:40:00 DIS Outpatient AN[facility]Z [facility] CRAMPING AND PRESSURE [id number] 06/14/2015 18:30:00 06/14/2015 20:20:00 DIS Emergency TERE DO, SAMIRA K [facility] ER TOOTH INFECTION [id number] 04/01/2015 13:56:00 04/01/2015 20:00:00 DIS Outpatient ANNA GONZALEZ MD [facility] WSo N/V [id number] 03/02/2015 11:55:00 03/02/2015 23:59:59 CLS Outpatient PAWEL IRBY APRN 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 RAD LUQ PAIN [id number] 10/30/2014 18:23:00 10/31/2014 01:02:00 DIS Emergency JULIAN CHAEVZ LENNY Bernard [facility] ER ABD PAIN [id number] 07/07/2014 13:02:00 07/07/2014 23:59:59 CLS Outpatient DENISE DYER DO 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 ER DENTAL PAIN [id number] 04/10/2014 17:34:00 04/10/2014 21:59:00 DIS Emergency SAMIRA CARRANZA DO [facility] ER POST CSECTION COMPLICATIONS [id number] 03/22/2014 15:00:00 03/25/2014 13:38:00 DIS Inpatient ANNA GONZALEZ MD [facility] LDRP LABOR [id number] 03/17/2014 13:51:00 03/17/2014 16:25:00 DIS Outpatient ANNA GONZALEZ MD [facility] WSo R SIDE PAIN, BACK PAIN,VOMITTING [id number] 03/11/2014 21:50:00 03/12/2014 07:33:00 DIS Inpatient ANNA GONZALEZ MD [facility] LDRP LBP,CRAMPING, PRESSURE [id number] 02/22/2014 00:00:00 02/23/2014 10:05:00 DIS Inpatient ANNA GONZALEZ MD [facility] LDRP ABD PAIN;HEADACHE; CTXS [id number] 01/27/2014 12:45:00 01/27/2014 14:45:00 DIS Outpatient ANNA GONZALEZ MD [facility] WSo CRAMPING SPOTTING DIZZINESS 28 WEEKS [id number] 01/03/2014 12:57:00 01/03/2014 23:59:59 CLS Outpatient BLANQUITA CARDOZA MD [facility] RAD FOLLOW UP POOR VISUALIZATION CORD, SPINE, HEART [id number] 11/26/2013 14:28:00 11/26/2013 23:59:59 CLS Outpatient BLANQUITA CARDOZA MD [facility] RAD HIGH RISK PREG., ANATOMY SCREENING [id number] 11/05/2013 16:44:00 11/05/2013 21:31:00 DIS Emergency SAMIRA CARRANZA DO [facility] ER SHARP LOWER ABD PAIN @ 16 WEEKS [id number] 08/26/2013 11:30:00 08/26/2013 23:59:59 CLS Outpatient CLARIBEL LUGO APRN [facility] RAD DATING/VIABILITY [id number] 08/14/2013 19:25:00 08/15/2013 00:04:00 DIS Emergency TALISHA BESS MD [facility] ER L SIDE LOWER ABD PAIN, VOMITING,6 WKS PREG [id number] 08/12/2013 17:39:00 08/12/2013 20:22:00 DIS Emergency LENNY PAULINO 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 ER UPPER ABD PAIN [id number] 03/25/2013 09:22:00 03/25/2013 13:00:00 DIS Emergency TALISHA BESS MD [facility] ER UPPER ABD PAIN [id number] 10/09/2012 13:06:00 10/09/2012 23:59:59 CLS Outpatient RAI BENITEZ [facility] RAD LLQ ABD PAIN [id number] 01/05/2015 10:42:00 Document Registration [id number] 06/16/2014 17:10:00 Document Registration [id number] 05/29/2014 13:26:00 Document Registration [id number] 05/28/2014 12:40:00 Document Registration [id number] 07/05/2012 18:49:00 Document Registration [id number] 04/03/2012 17:32:00 Document Registration [id number] 11/25/2011 22:39:00 Document Registration [id number] 09/22/2011 18:12:00 Document Registration [id number] 08/27/2011 19:09:00 Document Registration [id number] 08/01/2011 15:55:00 Document Registration [id number] 07/09/2011 17:37:00 Document Registration [id number] 02/11/2011 16:52:00 Document Registration [id number] 10/08/2010 03:09:00 Document Registration [id number] 08/28/2010 01:03:00 Document Registration [id number] 08/23/2010 18:34:00 Document Registration [id number] 07/15/2010 05:53:00 Document Registration [id number] 07/05/2010 18:20:00 Document Registration [id number] 07/02/2010 06:05:00 Document Registration [id number] 06/14/2010 09:00:00 Document Registration [id number] 05/15/2010 11:31:00 Document Registration [id number] 04/05/2010 09:42:00 Document Registration [id number] 03/05/2010 10:09:00 Document Registration [id number] 03/01/2010 20:18:00 Document Registration [id number] 11/26/2009 09:41:00 Document Registration [id number] 08/31/2009 19:46:00 Document Registration [id number] 08/02/2009 18:45:00 Document Registration [id number] 07/24/2009 06:32:00 Document Registration [id number] 10/12/2017 14:00:00 10/12/2017 23:59:59 CLS Outpatient KEO DEUTSCH APRN [facility]
[2017-10-21 22:23] LABS: BILIRUBIN,URINE NEGATIVE (NEGATIVE); CLARITY,URINE CLEAR; COLOR,URINE YELLOW; GLUCOSE, URINE (UA) NEGATIVE (NEGATIVE); KETONES,URINE NEGATIVE (NEGATIVE); LEUKOCYTE ESTERASE ,URINE NEGATIVE (NEGATIVE); NITRITE,URINE NEGATIVE (NEGATIVE); PH,URINE 7 (5-9); PROTEIN,URINE NEGATIVE (NEGATIVE); UROBILINOGEN,URINE NORMAL (NORMAL)
[2017-10-21 22:30] LABS: BASOPHILS % (AUTO) 0 % (0-10); EOSINOPHILS % (AUTO) 0 % (0-10); HEMATOCRIT 39 % (35-52); HEMOGLOBIN 13.2 G/DL (11.5-16.0); LYMPHOCYTES # (AUTO) 2.7 X 10^3 (1.0-4.0); LYMPHOCYTES % (AUTO) 34 % (12-44); MEAN CORPUSCULAR HEMOGLOBIN 30 PG (25-34); MEAN CORPUSCULAR HGB CONC 34 G/DL (32-36); MEAN CORPUSCULAR VOLUME 88 FL (80-99); MEAN PLATELET VOLUME 10.1 FL (7.4-10.4); MONOCYTES # (AUTO) 0.8 X 10^3 (0.0-1.0); MONOCYTES % (AUTO) 10 % (0-12); NEUTROPHILS # (AUTO) 4.4 X 10^3 (1.8-7.8); NEUTROPHILS % (AUTO) 56 % (42-75); PLATELET COUNT 416 10^3/uL (130-400); RED BLOOD COUNT 4.37 10^6/uL (4.35-5.85); RED CELL DISTRIBUTION WIDTH 13.2 % (10.0-14.5); WHITE BLOOD COUNT 7.8 10^3/uL (4.3-11.0)
[2017-10-21 22:36] LABS: SQUAMOUS EPITHELIAL CELL,UR RARE /HPF
[2017-10-21 22:48] LABS: ALANINE AMINOTRANSFERASE 18 U/L (0-55); ALBUMIN 4.8 GM/DL (3.2-4.5); ALKALINE PHOSPHATASE 90 U/L (40-136); BILIRUBIN,TOTAL 0.4 MG/DL (0.1-1.0); BUN/CREATININE RATIO 19; CALCIUM 10.5 MG/DL (8.5-10.1); CARBON DIOXIDE 20 MMOL/L (21-32); CHLORIDE 102 MMOL/L (98-107); CREATININE SERUM 0.81 MG/DL (0.60-1.30); GFR ESTIMATED > 60; GLUCOSE 100 MG/DL (70-105); POTASSIUM 3.7 MMOL/L (3.6-5.0); SODIUM 137 MMOL/L (135-145); TOTAL PROTEIN 8.7 GM/DL (6.4-8.2)
[2017-10-21] MEDS ORDERED: LACTATED RINGERS 1,000 ML IV ONE (23:12)
[2017-10-21] MEDS ORDERED: ONDANSETRON 4 MG/2 ML (SDV) Z0FRAN IVP ONE (23:15)
[2017-10-21] MEDS ORDERED: KETOROLAC 30 MG/ML VIAL IVP ONE (23:15)
--- NOTE | 2017-10-21 23:42 | ED Abdominal Pain ---
General Chief Complaint: -Female Stated Complaint: FEVER,KIDNEY PAIN Nursing Triage Note: fever, right flank pain with urination x1 day Sepsis Screen: Possible Sepsis Risk Source of Information: Patient Exam Limitations: No Limitations History of Present Illness Date Seen by Provider: Oct 21, 2017 Time Seen by Provider: 21:57 Initial Comments PT ARRIVES VIA POV FROM HOME C/O RIGHT FLANK PAIN SINCE LAST PM STATES SHE WAS ADMITTED ON 10/03/17-10/05/17 FOR PYELONEPHRITIS, AND THIS FEELS THE SAME STATES SHE HAD TEMP OF 99 AT NOON AND TOOK 1 TYLENOL, THEN HAD TEMP OF 101 AT 2030 TONIGHT AND TOOK 1000 MG TYLENOL + NAUSEA, NO VOMITING HAD NORMAL BM TODAY HAS BEEN EATING BUT NOT MUCH USUAL, HAS BEEN DRINKING FLUIDS WITHOUT PROBLEMS. STATES RIGHT FLANK HURTS TO VOID, BUT OTHERWISE DOES NOT HAVE BURNING, ETC. ON URINATION OR ANY DIFFICULTY URINATING, NO DECREASE IN URINE OUTPUT HAS HISTORY OF FREQUENT UTI'S, AND HAVE BEEN WORSE FOR THE LAST 1 1/2 YEARS, HAS NEW PT APPOINTMENT WITH DR. BARLOW 10/26 FOR THIS PROBLEM SEEN BY TAX STAFF ACCOUNTANT AT DR. SMALLS'S OFFICE AT [facility]3] ON MONDAY AND HAD LAB DONE. WAS NOT HAVING THIS PROBLEM AT THAT TIME. PCP: [facility], ALSO HAS GONE TO DR. SMALLS'S OFFICE/ [facility]] Allergies and Home Medications Allergies Coded Allergies: azithromycin (Unverified Allergy, Mild, 07/24/08) Home Medications Dicyclomine HCl 10 Mg Capsule, 10-20 MG PO Q6H Prescribed by: SAMIRA CARRANZA on 10/21/172344 Ondansetron 4 Mg Tab.rapdis, 4 MG PO Q4H Prescribed by: SAMIRA CARRANZA on 10/21/172344 Pantoprazole Sodium 40 Mg Tablet.dr, 40 MG PO DAILY Prescribed by: SAMIRA CARRANZA on 10/21/172344 Patient Home Medication List Home Medication List Reviewed: Yes Review of Systems Constitutional: see HPI, fever, malaise, weakness EENTM: No Symptoms Reported Respiratory: No Symptoms Reported Cardiovascular: No Symptoms Reported Gastrointestinal: See HPI; Denies Abdominal Pain, Denies Constipated; Nausea, Poor Appetite Genitourinary: See HPI, Flank Pain Musculoskeletal: see HPI, back pain Skin: no symptoms reported Psychiatric/Neurological: No Symptoms Reported Endocrine: No Symptoms Reported Hematologic/Lymphatic: No Symptoms Reported Past Bhfdlku-Xpuljb-Ncatnu Hx Patient Social History Alcohol Use: Denies Use Recreational Drug Use: No Smoking Status: Current Everyday Smoker Type Used: Cigarettes (2 PPD) 2nd Hand Smoke Exposure: Yes Recent Foreign Travel: No Contact w/Someone Who Travel: No Recent Infectious Disease Expo: No Recent Hopitalizations: No Immunizations Up To Date Tetanus Booster (TDap): Less than 5yrs PED Vaccines UTD: Yes Date of Pneumonia Vaccine: May 18, 2017 Date of Influenza Vaccine: May 26, 2015 Seasonal Allergies Seasonal Allergies: Yes Past Medical History Surgeries: Yes ( X 2; HYST/RSO/APPY-- 2 SURGERIES) Appendectomy, Section, Hysterectomy, Oophorectomy Respiratory: No Currently Using CPAP: No Cardiac: Yes Palpitations Neurological: Yes Headaches /Migraines : No 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 Disorders: Yes Female 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 Disorders: 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, Ovarian Cyst 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 History: Hysterectomy 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 Disease: No HIV/AIDS: No Genitourinary: Yes Kidney Infection, UTI-Chronic Gastrointestinal: Yes Gastroesophageal Reflux, Gall Bladder Disease Musculoskeletal: Yes Scoliosis Endocrine: No HEENT: No Loss of Vision: Bilateral Hearing Impairment: Denies Cancer: No Psychosocial: Yes Anxiety, PTSD Integumentary: Yes Eczema Blood Disorders: Yes (ANEMIA) Adverse Reaction/Blood Tranf: No Family Medical History Cardiovascular disease 19 FATHER Coronary thrombosis 19 FATHER 19 MOTHER Headache disorder 19 MOTHER Hypercholesterolemia 19 FATHER 19 MOTHER Hypertension 19 FATHER Myocardial infarction 19 FATHER 19 MOTHER Psychosocial problem 19 MOTHER (bipolar) No Family History of: AIDS Abdominal aortic aneurysm Derrek's disease Alcoholism Alzheimer's disease Aphasia Arthritis Asthma Cancer of mouth Cataracts Colon cancer Completed stroke Congenital disease Congenital heart disease Cystic fibrosis Deafness or hearing loss Dementia Diabetes mellitus Drug abuse Dysphasia Fibrocystic disease of breast Gastroenteritis Glaucoma Infertility Kidney disease Neoplasm Not obtainable due to adoption Osteoporosis Parkinson's disease Prostate cancer Respiratory disorder Seizure disorder Severe allergy Thyroid disease Tuberculosis Visual disorder Physical Exam Vital Signs Vital Signs - First Documented 10/21/17 21:50 Temp 98.5 Pulse 113 Resp 18 B/P (MAP) 146/97 (113) Pulse Ox 100 O2 Delivery Room Air Capillary Refill : Less Than 3 Seconds Height/Weight/BMI Height: 5'3.00" Weight: 153lbs. 0oz. 69.987960eq; 27.7 BMI Method:Stated General Appearance: WD/WN, no apparent distress, other (PURPLE HAIR) HEENT: other (POOR DENTITION ) Respiratory: normal breath sounds, no respiratory distress, no accessory muscle use Cardiovascular: regular rate, rhythm Gastrointestinal: normal bowel sounds, soft, no organomegaly, no pulsatile mass , tenderness (RUQ AND RIGHT FLANK) Extremities: normal inspection, no pedal edema, no calf tenderness, normal capillary refill Back: no vertebral tenderness, CVA tenderness (R) Neurologic/Psychiatric: contract negotiation manager II-XII nml as tested, no motor/sensory deficits, alert, normal mood/affect, oriented x 3 Skin: normal color, warm/dry, tattoos/piercings Focused Exam Lactate Level 10/21/17 22:14: Lactic Acid Level 1.27 Lactic Acid Level Laboratory Tests Test 10/21/17 22:14 Lactic Acid Level 1.27 MMOL/L (0.50-2.00) Progress/Results/Core Measures Results/Orders Lab Results Laboratory Tests Test 10/21/17 21:58 10/21/17 22:14 Range/Units Urine Color YELLOW Urine Clarity CLEAR Urine pH 7 5-9 Urine Specific [place] 1.010 L 1.016-1.022 Urine Protein NEGATIVE NEGATIVE Urine Glucose (UA) NEGATIVE NEGATIVE Urine Ketones NEGATIVE NEGATIVE Urine Nitrite NEGATIVE NEGATIVE Urine Bilirubin NEGATIVE NEGATIVE Urine Urobilinogen NORMAL NORMAL MG/DL Urine Leukocyte Esterase NEGATIVE NEGATIVE Urine RBC (Auto) NEGATIVE NEGATIVE Urine RBC NONE /HPF Urine WBC NONE /HPF Urine Squamous Epithelial Cells RARE /HPF Urine Crystals NONE /LPF Urine Bacteria NONE /HPF Urine Casts NONE /LPF Urine Mucus NEGATIVE /LPF Urine Culture Indicated NO Urine Opiates Screen POSITIVE H NEGATIVE Urine Oxycodone Screen NEGATIVE NEGATIVE Urine Methadone Screen NEGATIVE NEGATIVE Urine Propoxyphene Screen NEGATIVE NEGATIVE Urine Barbiturates Screen NEGATIVE NEGATIVE Ur Tricyclic Antidepressants Screen NEGATIVE NEGATIVE Urine Phencyclidine Screen NEGATIVE NEGATIVE Urine Amphetamines Screen NEGATIVE NEGATIVE Urine Methamphetamines Screen NEGATIVE NEGATIVE Urine Benzodiazepines Screen NEGATIVE NEGATIVE Urine Cocaine Screen NEGATIVE NEGATIVE Urine Cannabinoids Screen NEGATIVE NEGATIVE White Blood Count 7.8 4.3-11.0 10^3/uL Red Blood Count 4.37 4.35-5.85 10^6/uL Hemoglobin 13.2 11.5-16.0 G/DL Hematocrit 39 35-52 % Mean Corpuscular Volume 88 80-99 FL Mean Corpuscular Hemoglobin 30 25-34 PG Mean Corpuscular Hemoglobin Concent 34 32-36 G/DL Red Cell Distribution Width 13.2 10.0-14.5 % Platelet Count 416 H 130-400 10^3/uL Mean Platelet Volume 10.1 7.4-10.4 FL Neutrophils (%) (Auto) 56 42-75 % Lymphocytes (%) (Auto) 34 12-44 % Monocytes (%) (Auto) 10 0-12 % Eosinophils (%) (Auto) 0 0-10 % Basophils (%) (Auto) 0 0-10 % Neutrophils # (Auto) 4.4 1.8-7.8 X 10^3 Lymphocytes # (Auto) 2.7 1.0-4.0 X 10^3 Monocytes # (Auto) 0.8 0.0-1.0 X 10^3 Eosinophils # (Auto) 0.0 0.0-0.3 10^3/uL Basophils # (Auto) 0.0 0.0-0.1 10^3/uL Sodium Level 137 135-145 MMOL/L Potassium Level 3.7 3.6-5.0 MMOL/L Chloride Level 102 98-107 MMOL/L Carbon Dioxide Level 20 L 21-32 MMOL/L Anion Gap 15 H 5-14 MMOL/L Blood Urea Nitrogen 15 7-18 MG/DL Creatinine 0.81 0.60-1.30 MG/DL Estimat Glomerular Filtration Rate > 60 BUN/Creatinine Ratio 19 Glucose Level 100 70-105 MG/DL Lactic Acid Level 1.27 0.50-2.00 MMOL/L Calcium Level 10.5 H 8.5-10.1 MG/DL Total Bilirubin 0.4 0.1-1.0 MG/DL Aspartate Amino Transf (AST/SGOT) 19 5-34 U/L Alanine Aminotransferase (ALT/SGPT) 18 0-55 U/L Alkaline Phosphatase 90 40-136 U/L Total Protein 8.7 H 6.4-8.2 GM/DL Albumin 4.8 H 3.2-4.5 GM/DL My Orders Orders - TERE,SAMIRA K DO Saline Lock/Iv-Start (10/21/17 22:00) Ua Culture If Indicated (10/21/17 22:00) Ct Abd/Pelvis Wo(Kidney Stone) (10/21/17 22:08) Cbc With Automated Diff (10/21/17 22:08) Comprehensive Metabolic Panel (10/21/17 22:08) Drug Screen Stat (Urine) (10/21/17 22:08) Lactic Acid Analyzer (10/21/17 22:08) Blood Culture (10/21/17 22:08) Abdomen/Kub 1view (10/21/17 22:08) Ondansetron Injection (Zofran Injectio (10/21/17 23:15) Ketorolac Injection (Toradol Injection) (10/21/17 23:15) Saline Lock/Iv-Start (10/21/17 23:12) Lactated Ringers (Lr 1000 Ml Iv Solution (10/21/17 23:12) Rx-Ondansetron Po (Rx-Zofran Po) (10/21/17 23:46) Rx-Dicyclomine Capsule (Rx-Bentyl Capsul (10/21/17 23:46) Medications Given in ED Current Medications Medications Dose Ordered Sig/Vikki Route Start Time Stop Time Status Last Admin Dose Admin Ketorolac Tromethamine 30 mg ONCE ONCE IVP 10/21/17 23:15 10/21/17 23:16 DC 10/21/17 23:28 30 MG Lactated Ringer's 1,000 ml @ 0 mls/hr Q0M ONCE IV 10/21/17 23:12 10/21/17 23:13 DC 10/21/17 23:26 0 MLS/HR Ondansetron HCl 4 mg ONCE ONCE IVP 10/21/17 23:15 10/21/17 23:16 DC 10/21/17 23:26 4 MG Vital Signs/I&O 10/21/17 10/21/17 21:50 23:58 Temp 98.5 98.7 Pulse 113 99 Resp 18 16 B/P (MAP) 146/97 (113) 132/78 (113) Pulse Ox 100 100 O2 Delivery Room Air Room Air 10/22/17 00:00 Intake Total 1000 ml Balance 1000 ml Blood Pressure Mean: 113 Progress Progress Note : Progress Note SYMPTOMS IMPROVED WITH MEDICATIONS AT DISMISSAL, PT NOW STATES SHE HAS BEEN HAVING EPIGASTRIC PAIN SINCE YESTERDAY , HAS HISTORY OF "SLUDGE" IN GALLBLADDER, AND HAD HIDA SCAN WHICH SHOWED "PARTIAL FUNCTIONING" GALLBLADDER, NEVER FOLLOWED UP WITH SURGEON--STATES WAS IN 2010. ON REVIEW OF HIDA SCAN AND PRIOR CT'S AND ULTRASOUNDS, NO EVIDENCE OF GALLBLADDER DISEASE AND HAD NORMAL HIDA SCAN STATES SHE USED TO BE ON BENTYL AND IT HELPED ALOT, BUT DID NOT THINK SHE NEEDED IT ANYMORE, SO NOT REFILLED. Diagnostic Imaging Comments ABDOMEN XRAYS--CONSTIPATION, NO ACUTE PROCESS, PENDING RADIOLOGIST REVIEW CT ABDOMEN/PELVIS--NO ACUTE PROCESS, PER RADIOLOGIST REPORT @ [id number] Reviewed: Reviewed by Me Departure Impression Primary Impression: RIGHT FLANK AND RUQ PAIN Additional Impression: REPORTED FEVER Disposition: HOME, SELF-CARE Condition: Improved Departure-Patient Inst. Referrals: [facility] (PCP/Family) Primary Care Physician KRISTOPHER BENTLEY MD Patient Instructions: Acute Abdomen (Belly Pain), Adult (DC) Add. Discharge Instructions: CLEAR LIQUIDS--WATER, BROTH, JELLO, GATORADE TOMORROW IF YOU ARE BETTER, ADD BRATS DIET TO CLEAR LIQUIDS--BANANAS, RICE, APPLESAUCE, TOAST, SALTINES FOLLOW UP WITH DR. BENTLEY OR SURGEON ON CHOICE NEXT WEEK FOR FURTHER CARE All discharge instructions reviewed with patient and/or family. Voiced understanding. Scripts Pantoprazole Sodium (Protonix) 40 Mg Tablet. 40 MG PO DAILY, #15 TAB Prov: SAMIRA CARRANZA DO 10/21/17 Ondansetron (Zofran Odt) 4 Mg Tab.rapdis 4 MG PO Q4H for Nausea/Vomiting, #10 TAB Prov: SAMIRA CARRANZA DO 10/21/17 Dicyclomine HCl (Dicyclomine HCl) 10 Mg Capsule 10-20 MG PO Q6H for Abdominal Pain, #20 CAP Prov: SAMIRA CARRANZA DO 10/21/17 SAMIRA CARRANZA DO Oct 21, 2017 23:42
[2017-10-21 23:43] LABS: AMPHETAMINE SCREEN, URINE NEGATIVE (NEGATIVE); BARBITURATE SCREEN URINE NEGATIVE (NEGATIVE); BENZODIAZEPINES SCREEN URINE NEGATIVE (NEGATIVE); CANNABINOID SCREEN, URINE NEGATIVE (NEGATIVE); COCAINE SCREEN URINE NEGATIVE (NEGATIVE); METHADONE STAT NEGATIVE (NEGATIVE); METHAMPHETAMINE SCREEN URINE S NEGATIVE (NEGATIVE); OPIATE SCREEN URINE POSITIVE (NEGATIVE); OXYCODONE STAT NEGATIVE (NEGATIVE); PROPOXYPHENE STAT NEGATIVE (NEGATIVE); TRICYCLIC ANTIDEPRESSANTS SCRE NEGATIVE (NEGATIVE)
[2017-10-21] MEDS ORDERED: ONDA4TAB8 PO (23:45)
[2017-10-21] MEDS ORDERED: PANT40TA2 PO (23:45)
[2017-10-21] MEDS ORDERED: DICY10CA12 PO (23:45)
[2017-10-21] MEDS ORDERED: RX-ONDANSETRON 4 MG ODT (ZOFRAN) PPK #4 PO STA (23:46)
[2017-10-21] MEDS ORDERED: RX-DICYCLOMINE 10 MG (BENTYL) CAP PPK#4 PO STA (23:46)
[2017-10-21 23:58] VITALS: BP 132/78
--- NOTE | 2017-10-22 08:06 | Diagnostic Imaging Report ---
INDICATION: Right flank pain for one day A supine view of the abdomen shows fecal material throughout the colon consistent with moderate constipation. No abnormally dilated loops of bowel are seen. No mass or calculus is seen. There is no bony abnormality. IMPRESSION: Constipation. Dictated by: Dictated on workstation # [id number]
--- NOTE | 2017-10-22 08:11 | Diagnostic Imaging Report ---
PROCEDURE: CT urinary tract, rule out kidney stone. TECHNIQUE: Multiple contiguous axial images were obtained through the abdomen and pelvis without the use of intravenous contrast. INDICATION: Right flank pain for one day. History of appendectomy. The liver, gallbladder and bile ducts are normal. The spleen, pancreas and adrenals are normal. The kidneys, ureters and bladder are normal. There are changes of prior appendectomy. No acute bowel abnormality is seen. There is no free intraperitoneal air or fluid. There is no adnexal mass. There is no acute bony abnormality. IMPRESSION: No acute abnormality is seen. Dictated by: Dictated on workstation # [id number]
== END 2017-10-21 23:58 | disposition home or self-care (01) ==
LOC: EDUNIT# 21:50 → ER 21:51
DX: R10.11 Right upper quadrant pain (principal); R50.9 Fever, unspecified; G43.909 Migraine, unspecified, not intractable, without status migrainosus; K21.9 Gastro-esophageal reflux disease without esophagitis; F41.9 Anxiety disorder, unspecified; F43.10 Post-traumatic stress disorder, unspecified; F64.9 Gender identity disorder, unspecified; F17.210 Nicotine dependence, cigarettes, uncomplicated; Z87.448 Personal history of other diseases of urinary system; Z82.49 Family history of ischemic heart disease and other diseases of the circulatory system; Z87.59 Personal history of other complications of pregnancy, childbirth and the puerperium; Z90.89 Acquired absence of other organs; Z90.710 Acquired absence of both cervix and uterus; Z88.0 Allergy status to penicillin
CPT/HCPCS: 36415; 74018; 74176; 80053; 80306; 81000; 83605; 85025; 87040; 96374; 96375

== ENCOUNTER 2017-10-27 21:26 | Emergency (ER) | payer MEDICAID ==
[~2017-10-27] VITALS: Ht 160 cm; Wt 69.4 kg
[~2017-10-27 21:26] MED LIST changes: -AMOX-358 PO; -KETO10TA
[2017-10-27] MEDS ORDERED: KETO10TA (21:34)
--- OUTSIDE RECORDS SUMMARY | 2017-10-27 21:46 | XMS REPORT | Continuity of Care Document ---
Author Author [facility] Address Unknown Phone Unavailable Allergies Active Description Code Type Severity Reaction Onset Reported/Identified Relationship to Patient Clinical Status Yes azithromycin [id number] Drug Allergy Mild N/A 07/24/2008 Yes azithromycin Drug Allergy N/ A N/A 11/24/2009 Yes azithromycin Drug Allergy 11/24/2009 Yes promethazine HCl [id number] Drug Allergy Mild SWELLING 10/08/2010 Yes Phenergan [...] STRICKLAND MD V22.2 State, Incidental 11/24/2009 EUGENIE AIR SAMPLER, SEAN S 620.2 Other And Unspecified Ovarian Cyst 11/24/2009 EUGENIE AIR SAMPLER, SEAN S 625.9 Unspecified Symptom Associated With Female Genital Organs 11/24/2009 EUGENIE AIR SAMPLER, SEAN S V22.2 State, Incidental 11/24/2009 KEO DEUTSCH APRN 620.2 Other And Unspecified Ovarian Cyst 11/24/2009 KEO DEUTSCH APRN 625.9 Unspecified Symptom Associated With Female Genital Organs 11/24/2009 KEO DEUTSCH APRN V22.2 State, Incidental 11/24/2009 PARISH AIR SAMPLER, CLARIBEL A 620.2 Other And Unspecified Ovarian Cyst 11/24/2009 PARISH AIR SAMPLER, CLARIBEL A 625.9 Unspecified Symptom Associated With Female Genital Organs 11/24/2009 PARISH AIR SAMPLER, CLARIBEL A V22.2 State, Incidental 11/24/2009 PARISH AIR SAMPLER, CLARIBEL A 620.2 Other And Unspecified Ovarian Cyst 11/24/2009 PARISH AIR SAMPLER, CLARIBEL A 625.9 Unspecified Symptom Associated With Female Genital Organs 11/24/2009 PARISH AIR SAMPLER, CLARIBEL A V22.2 State, Incidental 11/24/2009 PARISH AIR SAMPLER, CLARIBEL A 620.2 Other And Unspecified Ovarian Cyst 11/24/2009 PARISH AIR SAMPLER, CLARIBEL A 625.9 Unspecified Symptom Associated With Female Genital Organs 11/24/2009 PARISH AIR SAMPLER, CLARIBEL A V22.2 State, Incidental 11/24/2009 BLANQUITA CARDOZA MD 620.2 Other And Unspecified Ovarian Cyst 11/24/2009 BLANQUITA CARDOZA MD 625.9 Unspecified Symptom Associated With Female Genital Organs 11/24/2009 SONY MD, BLANQUITA N V22.2 State, Incidental 11/24/2009 PARISH DWO, CLARIBEL A 620.2 Other And Unspecified Ovarian [...] MD V22.1 , Normal Other 01/04/2010 EUGENIE AIR SAMPLER, SEAN S 079.98 Unspecified Chlamydial Infection 01/04/2010 EUGENIE DOW, SEAN S V22.1 , Normal Other 01/04/2010 KEO DEUTSCH APRN T 079.98 Unspecified Chlamydial Infection 01/04/2010 LA NENA DOW KEO T V22.1 , Normal Other 01/04/2010 PARISH AIR SAMPLER, CLARIBEL A 079.98 Unspecified Chlamydial Infection 01/04/2010 PARISH APRN, CLARIBEL A V22.1 , Normal Other 01/04/2010 PARISH AIR SAMPLER, CLARIBEL A 079.98 Unspecified Chlamydial Infection 01/04/2010 PARISH APRN, CLARIBEL A V22.1 , Normal Other 01/04/2010 PARISH AIR SAMPLER, CLARIBEL A 079.98 Unspecified Chlamydial Infection 01/04/2010 PARISH AIR SAMPLER, CLARIBEL A V22.1 , Normal Other 01/04/2010 [...] DEUTSCH APRN 530.81 Esophageal Reflux 03/04/2010 PARISH AIR SAMPLER, CLARIBEL A 530.81 Esophageal Reflux 03/04/2010 PARISH AIR SAMPLER, CLARIBEL A 530.81 Esophageal Reflux 03/04/2010 PARISH AIR SAMPLER, CLARIBEL A 530.81 Esophageal Reflux 03/04/2010 SONY MICHELLE, BLANQUITA N 530.81 Esophageal Reflux 03/04/2010 PARISH AIR SAMPLER, CLARIBEL A 530.81 Esophageal Reflux 03/04/2010 SONY [...] APRN V23.9 , High-risk (unspec) 04/05/2010 PARISH AIR SAMPLER, CLARIBEL A V23.9 , High-risk (unspec) 04/05/2010 PARISH AIR SAMPLER, CLARIBEL A V23.9 , High-risk (unspec) 04/05/2010 PARISH AIR SAMPLER, CLARIBEL A V23.9 , High-risk (unspec) 04/05/2010 SONY MICHELLE, BLANQUITA N V23.9 , High-risk (unspec) 04/05/2010 PARISH AIR SAMPLER, CLARIBEL A V23.9 , High-risk (unspec) 04/05/2010 [...] APRN, CLARIBEL A 784.0 Headache 05/26/2010 PARISH AIR SAMPLER, CLARIBEL A 642.90 Compl Of - Htn/pih 05/26/2010 PARISH AIR SAMPLER, CLARIBEL A 784.0 Headache 05/26/2010 PARISH AIR SAMPLER, CLARIBEL A 642.90 Compl Of - Htn/pih 05/26/2010 PARISH AIR SAMPLER, CLARIBEL A 784.0 Headache 05/26/2010 BLANQUITA CARDOZA [...] MD 780.79 Malaise And Fatigue 10/16/2010 EUGENIE AIR SAMPLER, SEAN S 296.90 Mood Disorder 10/16/2010 EUGENIE DOW, SEAN S 300.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 10/16/2010 EUGENIE DOW, SEAN S 780.50 Sleep Disturbance, Unspecified 10/16/2010 EUGENIE DOW, SEAN S 780.79 Malaise And Fatigue 10/16/2010 KEO DEUTSCH APRN 296.90 Mood Disorder 10/16/2010 KEO DEUTSCH APRN 300.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 10/16/2010 KEO DEUTSCH APRN 780.50 Sleep Disturbance, Unspecified 10/16/2010 KEO DUETSCH APRN 780.79 Malaise And Fatigue 10/16/2010 PARISH DOW, CLARIBEL A 296.90 Mood Disorder 10/16/2010 PARISH DOW, CLARIBEL A 300.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 10/16/2010 PARISH DOW, CLARIBEL A 780.50 Sleep Disturbance, Unspecified 10/16/2010 PARISH AIR SAMPLER, CLARIBEL A 780.79 Malaise And Fatigue 10/16/2010 PARISH AIR SAMPLER, CLARIBEL A 296.90 Mood Disorder 10/16/2010 PARISH AIR SAMPLER, CLARIBEL A 300.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 10/16/2010 PARISH AIR SAMPLER, CLARIBEL A 780.50 Sleep Disturbance, Unspecified 10/16/2010 PARISH AIR SAMPLER, CLARIBEL A 780.79 Malaise And Fatigue 10/16/2010 PARISH AIR SAMPLER, CLARIBEL A 296.90 Mood Disorder 10/16/2010 PARISH AIR SAMPLER, CLARIBEL A 300.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 10/16/2010 PARISH AIR SAMPLER, CLARIBEL A 780.50 Sleep Disturbance, Unspecified 10/16/2010 PARISH DOW, CLARIBEL A 780.79 Malaise And Fatigue 10/16/2010 SONY MD, BLANQUITA N 296.90 Mood Disorder 10/16/2010 BLANQUITA CARDOZA MD N 300.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 10/16/2010 BLANQUITA CARDOZA MD N 780.50 Sleep Disturbance, Unspecified 10/16/2010 BLANQUITA CARDOZA MD N 780.79 Malaise And Fatigue 10/16/2010 PARISH AIR SAMPLER, CLARIBEL A 296.90 Mood Disorder 10/16/2010 PARISH AIR SAMPLER, CLARIBEL A 300.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 10/16/2010 PARISH AIR SAMPLER, CLARIBEL A 780.50 Sleep Disturbance, Unspecified 10/16/2010 PARISH AIR SAMPLER, CLARIBEL A 780.79 Malaise And Fatigue 10/16/2010 [...] DEUTSCH APRN 307.81 Tension Headache 10/23/2010 PARISH AIR SAMPLER, CLARIBEL A 307.81 Tension Headache 10/23/2010 PARISH [...] T 789.07 ABDOMINAL PAIN GENERALIZED 10/03/2012 PARISH AIR SAMPLER, CLARIBEL A 789.04 ABDOMINAL PAIN LEFT LOWER QUADRANT 10/03/2012 PARISH AIR SAMPLER, CLARIBEL A 789.07 ABDOMINAL PAIN GENERALIZED 10/03/2012 PARISH AIR SAMPLER, CLARIBEL A 789.04 ABDOMINAL PAIN LEFT LOWER QUADRANT 10/03/2012 PARISH AIR SAMPLER, CLARIBEL A 789.07 ABDOMINAL PAIN GENERALIZED 10/03/2012 PARISH AIR SAMPLER, CLARIBEL A 789.04 ABDOMINAL PAIN LEFT LOWER QUADRANT 10/03/2012 PARISH AIR SAMPLER, CLARIBEL A 789.07 ABDOMINAL PAIN GENERALIZED 10/03/2012 BLANQUITA CARDOZA MD N 789.04 ABDOMINAL PAIN LEFT LOWER QUADRANT 10/03/2012 BLANQUITA CARDOZA MD N 789.07 ABDOMINAL PAIN GENERALIZED 10/03/2012 PARISH AIR SAMPLER, CLARIBEL A 789.04 ABDOMINAL PAIN LEFT LOWER [...] ABDOMINAL PAIN RIGHT LOWER QUADRANT 10/26/2012 PARISH AIR SAMPLER, CLARIBEL A 789.03 ABDOMINAL PAIN RIGHT LOWER QUADRANT 10/26/2012 PARISH AIR SAMPLER, CLARIBEL A 789.03 ABDOMINAL PAIN RIGHT LOWER QUADRANT 10/26/2012 PARISH AIR SAMPLER, CLARIBEL A 789.03 ABDOMINAL PAIN RIGHT LOWER QUADRANT 10/26/2012 BLANQUITA CARDOZA MD N 789.03 ABDOMINAL PAIN RIGHT LOWER QUADRANT 10/26/2012 PARISH AIR SAMPLER, CLARIBEL A 789.03 ABDOMINAL PAIN RIGHT LOWER QUADRANT 10/26/2012 BLANQUITA CARODZA MD N 789.03 ABDOMINAL PAIN RIGHT LOWER QUADRANT 10/26/2012 BLANQUITA CARDOZA MD 789.03 ABDOMINAL PAIN RIGHT LOWER QUADRANT 12/21/2012 KEO DEUTSCH APRN 617.0 ENDOMETRIOSIS OF UTERUS 12/21/2012 FATEMEH CASIANO DO 617.0 ENDOMETRIOSIS OF UTERUS 12/21/2012 MANI STRICKLAND MD 617.0 ENDOMETRIOSIS OF UTERUS 12/21/2012 SEAN TRAORE APRN 617.0 ENDOMETRIOSIS OF UTERUS 12/21/2012 KEO DEUTSCH APRN 617.0 ENDOMETRIOSIS OF UTERUS 12/21/2012 PARISH AIR SAMPLER, CLARIBEL A 617.0 ENDOMETRIOSIS OF UTERUS 12/21/2012 [...] DEUTSCH APRN 309.81 AN PTSD 03/11/2013 PARISH AIR SAMPLER, CLARIBEL A 296.32 MO DEPRESSIVE RECURRENT MODERATE 03/11/2013 PARISH AIR SAMPLER, CLARIBEL A 309.81 AN PTSD 03/11/2013 PARISH AIR SAMPLER, CLARIBEL A 296.32 MO DEPRESSIVE RECURRENT MODERATE 03/11/2013 PARISH AIR SAMPLER, CLARIBEL A 309.81 AN PTSD 03/11/2013 PARISH AIR SAMPLER, CLARIBEL A 296.32 MO DEPRESSIVE RECURRENT MODERATE 03/11/2013 PARISH AIR SAMPLER, CLARIBEL A 309.81 AN PTSD 03/11/2013 BLANQUITA CARDOZA MD N 296.32 MO DEPRESSIVE RECURRENT MODERATE 03/11/2013 BLANQUITA CARDOZA MD N 309.81 AN PTSD 03/11/2013 PARISH AIR SAMPLER, CLARIBEL A 296.32 MO DEPRESSIVE RECURRENT MODERATE [...] ABDOMINAL PAIN RIGHT UPPER QUADRANT 03/27/2013 PARISH AIR SAMPLER, CLARIBEL A 780.79 FATIGUE 03/27/2013 PARISH AIR SAMPLER, CLARIBEL A 783.1 WEIGHT GAIN ABNORMAL 03/27/2013 PARISH AIR SAMPLER, CLARIBEL A 787.01 NAUSEA WITH VOMITING 03/27/2013 PARISH AIR SAMPLER, CLARIBEL A 787.91 DIARRHEA 03/27/2013 PARISH AIR SAMPLER, CLARIBEL A 789.01 ABDOMINAL PAIN RIGHT UPPER QUADRANT 03/27/2013 PARISH AIR SAMPLERTHIEN VannIDI A 780.79 FATIGUE 03/27/2013 PARISH AIR SAMPLER, CLARIBEL A 783.1 WEIGHT GAIN ABNORMAL 03/27/2013 PARISH AIR SAMPLER, CLARIBEL A 787.01 NAUSEA WITH VOMITING 03/27/2013 PARISH APRN, CLARIBEL A 787.91 DIARRHEA 03/27/2013 PARISH AIR SAMPLER, CLARIBEL A 789.01 ABDOMINAL PAIN RIGHT UPPER QUADRANT 03/27/2013 PARISH AIR SAMPLER, CLARIBEL A 780.79 FATIGUE 03/27/2013 PARISH AIR SAMPLER, CLARIBEL A 783.1 WEIGHT GAIN ABNORMAL 03/27/2013 PARISH AIR SAMPLER, CLARIBEL A 787.01 NAUSEA WITH VOMITING 03/27/2013 PARISH AIR SAMPLER, CLARIBEL A 787.91 DIARRHEA 03/27/2013 PARISH AIR SAMPLER, CLARIBEL A 789.01 ABDOMINAL PAIN RIGHT UPPER [...] ABDOMINAL PAIN, OTHER SPECIFIED SITE 08/15/2013 PARISH AIR SAMPLERTHIENCLARIBEL A V22.2 INCIDENTAL 08/15/2013 THIEN LUGO APRNIDI A V22.2 INCIDENTAL 08/15/2013 PARISH AIR SAMPLERTHIENCLARIBEL A V22.2 INCIDENTAL 08/15/2013 BLANQUITA CARDOZA MD V22.2 INCIDENTAL 08/15/2013 PARISH AIR SAMPLERTHIENCLARIBEL A V22.2 INCIDENTAL 08/15/2013 BLANQUITA CARDOZA MD [...] MD V22.1 , NORMAL OTHER 09/19/2013 PARISH AIR SAMPLERTHIENCLARIBEL A 787.01 NAUSEA WITH VOMITING 09/19/2013 PARISH AIR SAMPLERTHIENCLARIBEL A V22.1 , NORMAL OTHER 09/19/2013 BLANQUITA [...] INOCULATI 03/25/2014 ANNA GONZALEZ MD, Ot V06.1 [id number], COMBINED [ 03/25/2014 ANNA GONZALEZ MD, Ot V27.0 DELIVER-SINGLE LIVEBORN 04/10/2014 Ot 625.9 04/10/2014 Ot 646.83 04/10/2014 Ot V22.1 04/10/2014 Ot V28.89 04/10/2014 Ot 633.90 04/10/2014 EMMANUEL RAI R BEE RANCHER Ot 789.04 04/10/2014 RAI BENITEZ BEE RANCHER Ot 789.07 04/10/2014 CLARIBEL LUGO [employer]ory AIR SAMPLER Ot V28.81 04/10/2014 SONY MICHELLE, BLANQUITA Vann [...] E000.8 OTHER EXTERNAL CAUSE STATUS 04/10/2014 SAMIRA ACRRANZA DO Ot E927.0 OVEREXERTION FROM SUDDEN STRENUOUS MOVEM 05/22/2014 Ot 276.9 ELECTROLYT/ FLUID DIS NEC 05/22/2014 Ot 708.9 URTICARIA NOS 05/22/2014 Ot 787.99 OTHER GI SYSTEM SYMPTOMS 05/22/2014 Ot 789.04 ABDOMINAL PAIN, LEFT LOWER QUADRANT 06/16/2014 Ot 789.04 06/16/2014 Ot 620.2 07/05/2014 LONG SANCHEZ APRN Ot 521.00 UNSPEC DENTAL CARIES 07/05/2014 LONG SANCHEZ AIR SAMPLER Ot 525.9 DENTAL DISORDER NOS 08/27/2014 GELDENISE SPEARS DO Ot 620.2 08/27/2014 DENISE DYER DO Ot 789.04 10/31/2014 LENNY PAULINO Ot 564.00 UNSPEC CONSTIPATION 10/31/2014 LENNY PAULINO Ot 625.9 FEM GENITAL SYMPTOMS NOS 10/31/2014 LENNY PAULINO Ot 626.2 EXCESSIVE MENSTRUATION 01/01/2015 Ot 625.9 01/01/2015 Ot 646.83 01/01/2015 Ot V22.1 01/01/2015 Ot V28.89 01/01/2015 Ot 633.90 01/01/2015 RAI BENITEZ BEE RANCHER Ot 789.04 01/01/2015 RAI BENITEZ BEE RANCHER Ot 789.07 01/01/2015 CLARIBEL LUGO AIR SAMPLER Ot V28.81 01/01/2015 BLANQUITA CARDOZA MD Ot V23.9 01/01/2015 BLANQUITA CARDOZA MD Ot V28.89 01/01/2015 BLANQUITA ACRDOZA MD Ot V28.89 01/01/2015 Ot 789.04 01/01/2015 Ot 620.2 01/01/2015 DENISE DYER DO Ot 620.2 01/01/2015 DENISE DYER DO Ot 789.04 01/02/2015 Ot K80.50 CALCULUS OF BILE DUCT W/O CHOLANGITIS OR 01/02/2015 Ot R10.11 RIGHT UPPER QUADRANT PAIN 01/02/2015 Ot R11.2 NAUSEA WITH VOMITING, UNSPECIFIED 01/03/2015 LONG SANCHEZ AIR SAMPLER Ot R10.11 RIGHT UPPER QUADRANT PAIN 01/20/2015 QIAN POWERS BEE RANCHER Ot R10.12 03/19/2015 PAWEL IRBY AIR SAMPLER Ot N94.9 03/19/2015 PAWEL IRBY AIR SAMPLER Ot O46.90 03/19/2015 PAWEL IRBY AIR SAMPLER Ot O99.89 03/19/2015 PAWEL IRBY AIR SAMPLER Ot Z3A.08 04/01/2015 LISA MICHELLE, ANNA Oliva Ot O21.0 MILD HYPEREMESIS GRAVIDARUM 06/14/2015 Ot V22.1 06/14/2015 Ot V28.89 06/14/2015 Ot 633.90 06/14/2015 RAI BENITEZ BEE RANCHER Ot 789.04 06/14/2015 RAI BENITEZ BEE RANCHER Ot 789.07 06/14/2015 CLARIBEL LUGO AIR SAMPLER Ot V28.81 06/14/2015 BLANQUITA CARDOZA MD Ot V23.9 06/14/2015 SONY MICHELLE, BLANQUITA N Ot V28.89 06/14/2015 SONY MICHELLE, BLANQUITA Vann Ot V28.89 06/14/2015 Ot 789.04 06/14/2015 Ot 620.2 06/14/2015 [facility] A Ot 620.2 06/14/2015 [facility] A Ot 789.04 06/14/2015 GIOQIAN BEE RANCHER Ot R10.12 06/14/2015 PAWEL IRBY AIR SAMPLER Ot N94.9 06/14/2015 PAWEL IRBY AIR SAMPLER Ot O46.90 06/14/2015 PAWEL IRBY AIR SAMPLER Ot O99.89 06/14/2015 PAWEL IRBY AIR SAMPLER Ot Z3A.08 06/14/2015 TERE DO, SAMIRA K Ot K02.9 DENTAL CARIES, UNSPECIFIED 06/14/2015 EDNA DO, SAMIRA K Ot O99.612 DISEASES OF [...] W/O INTRAUTERINE PRE 09/15/2015 RAI BENITEZ R BEE RANCHER Ot 789.04 ABDOMINAL PAIN, LEFT LOWER QUADRANT 09/15/2015 RAI BENITEZ R BEE RANCHER Ot 789.07 ABDOMINAL PAIN, GENERALIZED 09/15/2015 CLARIBEL LUGO AIR SAMPLER Ot V28.81 ENCOUNTER FOR ANATOMIC SURVEY 09/15/2015 [...] LEFT LOWER QUADRANT 09/15/2015 GIO QIAN L BEE RANCHER Ot R10.12 LEFT UPPER QUADRANT PAIN 09/15/2015 PAWEL IRBY AIR SAMPLER Ot N94.9 UNSP COND ASSOC W FEMALE GENITAL ORGANS 09/15/2015 PAWEL IRBY AIR SAMPLER Ot O46.90 ANTEPARTUM HEMORRHAGE, UNSPECIFIED, UNSP 09/15/2015 PAWEL IRBY APRN Ot O99.89 OTH DISEASES AND CONDITIONS COMPL PREG/C 09/15/2015 PAWEL IRBY AIR SAMPLER Ot Z3A.08 8 WEEKS GESTATION OF 09/15/2015 [...] PREG W/O INTRAUTERINE PRE 09/22/2015 RAI BENITEZ BEE RANCHER Ot 789.04 ABDOMINAL PAIN, LEFT LOWER QUADRANT 09/22/2015 RAI BENITEZ BEE RANCHER Ot 789.07 ABDOMINAL PAIN, GENERALIZED 09/22/2015 CLARIBEL [...] PAIN, LEFT LOWER QUADRANT 09/22/2015 QIAN POWERS BEE RANCHER Ot R10.12 LEFT UPPER QUADRANT PAIN 09/22/2015 PAWEL IRBY AIR SAMPLER Ot N94.9 UNSP COND ASSOC W FEMALE GENITAL ORGANS 09/22/2015 PAWEL IRBY AIR SAMPLER Ot O46.90 ANTEPARTUM HEMORRHAGE, UNSPECIFIED, UNSP 09/22/2015 PAWEL IRBY AIR SAMPLER Ot O99.89 OTH DISEASES AND CONDITIONS COMPL PREG/C 09/22/2015 PAWEL IRBY AIR SAMPLER Ot Z3A.08 8 WEEKS GESTATION OF 09/22/2015 ANNA GONZALEZ MD Ot O47.1 FALSE LABOR AT OR AFTER 37 COMPLETED WEE 09/22/2015 ANNA GONZALEZ MD Ot Z3A.37 37 WEEKS GESTATION OF 09/23/2015 Ot V28.89 OTHER SPECIFIED SCREENING 09/23/2015 Ot 633.90 UNSPEC ECTOPIC PREG W/O INTRAUTERINE PRE 09/23/2015 RAI BENITEZ BEE RANCHER Ot 789.04 ABDOMINAL PAIN, LEFT LOWER QUADRANT 09/23/2015 RAI BENITEZ BEE RANCHER Ot 789.07 ABDOMINAL PAIN, GENERALIZED 09/23/2015 CLARIBEL LUGO AIR SAMPLER Ot V28.81 ENCOUNTER FOR ANATOMIC SURVEY 09/23/2015 [...] PAIN, LEFT LOWER QUADRANT 09/23/2015 QIAN POWERS BEE RANCHER Ot R10.12 LEFT UPPER QUADRANT PAIN 09/23/2015 [...] PREG W/O INTRAUTERINE PRE 06/24/2016 RAI BENITEZ BEE RANCHER Ot 789.04 ABDOMINAL PAIN, LEFT LOWER QUADRANT 06/24/2016 RAI BENITEZ BEE RANCHER Ot 789.07 ABDOMINAL PAIN, GENERALIZED 06/24/2016 PARISH, CLARIBEL A AIR SAMPLER Ot V28.81 ENCOUNTER FOR ANATOMIC SURVEY 06/24/2016 [...] PAIN, LEFT LOWER QUADRANT 06/24/2016 QIAN POWERS BEE RANCHER Ot R10.12 LEFT UPPER QUADRANT PAIN 06/24/2016 PAWEL IRBY APRN Ot N94.9 UNSP COND ASSOC W FEMALE GENITAL ORGANS 06/24/2016 PAWEL IRBY AIR SAMPLER Ot O46.90 ANTEPARTUM HEMORRHAGE, UNSPECIFIED, UNSP 06/24/2016 PAWEL IRBY AIR SAMPLER Ot O99.89 OTH DISEASES AND CONDITIONS COMPL [...] NONINFECTIVE GASTROENTERITIS AND COLITIS 07/13/2016 LONG SANCHEZ AIR SAMPLER Ot R10.30 LOWER ABDOMINAL PAIN, UNSPECIFIED 07/14/2016 LONG SANCHEZ APRN Ot K52.9 NONINFECTIVE GASTROENTERITIS AND COLITIS 07/14/2016 LONG SANCHEZ AIR SAMPLER Ot R10.30 LOWER ABDOMINAL PAIN, UNSPECIFIED 10/02/2016 Ot 633.90 UNSPEC ECTOPIC PREG W/O INTRAUTERINE PRE 10/02/2016 RAI BENITEZ BEE RANCHER Ot 789.04 ABDOMINAL PAIN, LEFT LOWER QUADRANT 10/02/2016 RAI BENITEZ BEE RANCHER Ot 789.07 ABDOMINAL PAIN, GENERALIZED 10/02/2016 CLARIBEL LUGO AIR SAMPLER Ot V28.81 ENCOUNTER FOR ANATOMIC SURVEY 10/02/2016 [...] PAIN, LEFT LOWER QUADRANT 10/02/2016 QIAN POWERS BEE RANCHER Ot R10.12 LEFT UPPER QUADRANT PAIN 10/02/2016 PAWEL IRBY APRN Ot N94.9 UNSP COND ASSOC W FEMALE GENITAL ORGANS 10/02/2016 PAWEL IRBY AIR SAMPLER Ot O46.90 ANTEPARTUM HEMORRHAGE, UNSPECIFIED, UNSP 10/02/2016 PAWEL IRBY AIR SAMPLER Ot O99.89 OTH DISEASES AND CONDITIONS COMPL PREG/C 10/02/2016 PAWEL IRBY AIR SAMPLER Ot Z3A.08 8 WEEKS GESTATION OF 10/05/2016 DANIA MANJARREZ MD Ot A41.51 SEPSIS DUE TO ESCHERICHIA COLI [E. COLI] 10/05/2016 DANIA MANJARREZ MD, Ot K21.9 GASTRO-ESOPHAGEAL REFLUX DISEASE WITHOUT 10/05/2016 DANIA MANJARREZ MD Ot N12 TUBULO-INTERSTITIAL NEPHRITIS, NOT SPCF 10/05/2016 DANIA MANJARREZ MD Ot Z87.891 PERSONAL HISTORY OF NICOTINE DEPENDENCE 05/27/2017 RAI BENITEZ BEE RANCHER Ot 789.04 ABDOMINAL PAIN, LEFT LOWER QUADRANT 05/27/2017 RAI BENITEZ BEE RANCHER Ot 789.07 ABDOMINAL PAIN, GENERALIZED 05/27/2017 CLARIBEL LUGO AIR SAMPLER Ot V28.81 ENCOUNTER FOR ANATOMIC SURVEY 05/27/2017 [...] PAIN, LEFT LOWER QUADRANT 05/27/2017 QIAN POWERS BEE RANCHER Ot R10.12 LEFT UPPER QUADRANT PAIN 05/27/2017 PAWEL IRBY APRN Ot N94.9 UNSP COND ASSOC W FEMALE GENITAL ORGANS 05/27/2017 PAWEL IRBY AIR SAMPLER Ot O46.90 ANTEPARTUM HEMORRHAGE, UNSPECIFIED, UNSP 05/27/2017 [...] EDDY DOSS 10/26/2012 OBSTETRIC MADAY BRASHER 12/21/2012 20653 PSYCH DIAGNOSTIC EVALUATION 03/12/2013 62418 HIDA SCAN 03/27/2013 GENERAL S KIDO, SVEN 04/02/2013 82774 ROUTINE VENIPUNCTURE 08/15/2013 09068 US OB - EARLY <14 WEEKS 08/15/2013 73208 TSH 08/15/2013 97263 HCG QUANTITATIVE 08/15/2013 43401 BLOOD TYPE/Rh FACTOR 08/16/2013 86369 ROUTINE VENIPUNCTURE 09/19/2013 01767 SYPHILLIS-STATE LAB 09/19/2013 65715 HIV (STATE LAB) 09/19/2013 35155 ANTIBODY SCREEN (order) 09/19/2013 87372 HEP B SURFACE ANTIGEN (STATE ) 09/19/2013 51288 UA LONG DIP 09/19/2013 68907 CBC 09/19/2013 50800 A1C (RML) 09/19/2013 83147 TSH 09/19/2013 [id number] ANTIBODY SCREEN (RESULT ONLY) 09/20/2013 69291 BLOOD TYPE/Rh FACTOR 09/20/2013 77611 RUBELLA ANTIBODY, IGG 09/20/2013 47308 CULTURE URINE 09/20/2013 98363 GC/CHLAM PROBE (STATE) 11/05/2013 57924 PAP SMEAR 11/07/2013 Q0091 PAP SMEAR OBTAIN SMEAR 11/07/2013 72290 URINE DRUG SCREEN (IN-HOUSE ) 11/07/2013 33414 UA W/ CULTURE IF INDICATED 11/07/2013 06951 TRICHOMONAS (IN-HOUSE) 11/07/2013 87350 CULTURE UROGENITAL 11/10/2013 01312 US OB - COMPLETE >14 WEEKS 11/14/2013 85120 GLUCOSE JUSTINE 1 HOUR 11/14/2013 55956 GLUCOSE JUSTINE 3 HOUR 11/14/2013 19126 CBC 11/14/2013 20913 UA OB DIP 11/14/2013 62340 US OB - FOLLOW UP 12/05/2013 80705 UA OB DIP 12/05/2013 74.1 LOW CERVICAL 03/23/2014 [id number] EXTRACTION OF POC, LOW CERVICAL, OPEN AP [...] ABO+Rh group OP NRG Transfusion band number [id number] NRG Blood group antibody screen NEGATIVE NRG [...] NRG Blood erythrocyte morphology finding identification NORMAL [facility] Bacterial blood culture - 10/02/16 10:10 FREE TEXT EXTERNAL SENSITIVITY REPORTED 10/03 15:30 NRG QUANTITY OF GROWTH . [facility] Bacterial blood culture SEE COMMEN [facility] Bacterial susceptibility panel - 10/02/16 10:10 Gentamicin [...] culture - 05/27/17 13:40 Bacterial urine culture [id number] NRG COLONY COUNT >100,000/ML NR FTX;REPORTABLE SENSITIVITY REPORTED 05/28 16:40 NR FREE TEXT ENTRY 3 MIXED GRAM POSITIVE LINDA [facility] Bacterial susceptibility panel - 05/27/17 13:40 Gentamicin [...] albumin measurement (mass/volume) 3.0 g/dL 3.2-4.5 Complete urinalysis with reflex to culture - 10/21/17 21:58 Urine color determination YELLOW NRG Urine clarity [...] detection in urine sediment by light microscopy RARE NRG Crystals detection in urine sediment by light microscopy NONE NRG Casts detection in urine sediment by light microscopy NONE NRG Mucus detection in urine sediment by light microscopy NEGATIVE NRG Complete urinalysis with reflex to culture NO NRG Urine drug screening test - 10/21/17 21:58 Urine phencyclidine detection by screening method NEGATIVE NEGATIVE Urine benzodiazepines detection by screening method NEGATIVE NEGATIVE Urine cocaine detection NEGATIVE NEGATIVE Urine amphetamines detection by screening method NEGATIVE NEGATIVE Urine methamphetamine detection by screening method NEGATIVE NEGATIVE Urine cannabinoids detection by screening method NEGATIVE NEGATIVE Urine opiates detection by screening method POSITIVE NEGATIVE Urine barbiturates detection NEGATIVE NEGATIVE Screening urine tricyclic antidepressants detection NEGATIVE NEGATIVE Urine methadone detection by screening method NEGATIVE NEGATIVE Urine oxycodone detection NEGATIVE NEGATIVE Urine propoxyphene detection NEGATIVE NEGATIVE Complete blood count (CBC) with automated white blood cell (WBC) differential - 10/21/17 22:14 Blood leukocytes automated count (number/volume) 7.8 10*3/uL 4.3-11.0 Blood erythrocytes automated count (number/volume) 4.37 10*6/uL 4.35-5.85 Venous blood hemoglobin measurement (mass/volume) 13.2 g/dL 11.5-16.0 Blood hematocrit (volume fraction) 39 % 35-52 Automated erythrocyte mean corpuscular volume 88 [foz_us] 80-99 Automated erythrocyte mean corpuscular hemoglobin (mass per erythrocyte) 30 pg 25-34 Automated erythrocyte mean corpuscular hemoglobin concentration measurement ( mass/volume) 34 g/dL 32-36 Automated erythrocyte distribution width ratio 13.2 % 10.0-14.5 Automated blood platelet count (count/volume) 416 10*3/uL 130-400 Automated blood platelet mean volume measurement 10.1 [foz_us] 7.4-10.4 Automated blood neutrophils/100 leukocytes 56 % 42-75 Automated blood lymphocytes/100 leukocytes 34 % 12-44 Blood monocytes/100 leukocytes 10 % 0-12 Automated blood eosinophils/100 leukocytes 0 % 0-10 Automated blood basophils/100 leukocytes 0 % 0-10 Blood neutrophils automated count (number/volume) 4.4 10*3 1.8-7.8 Blood lymphocytes automated count (number/volume) 2.7 10*3 1.0-4.0 Blood monocytes automated count (number/volume) 0.8 10*3 0.0-1.0 Automated eosinophil count 0.0 10*3/uL 0.0-0.3 Automated blood basophil count (count/volume) 0.0 10*3/uL 0.0-0.1 Blood lactic acid measurement (moles/volume) - 10/21/17 22:14 Blood lactic acid measurement (moles/volume) 1.27 mmol/L 0.50-2.00 Comprehensive metabolic panel - 10/21/17 22:14 Serum or plasma sodium measurement (moles/volume) 137 mmol/L 135-145 Serum or plasma potassium measurement (moles/volume) 3.7 mmol/L 3.6-5.0 Serum or plasma chloride measurement (moles/volume) 102 mmol/L 98-107 Carbon dioxide 20 mmol/L 21-32 Serum or plasma anion gap determination (moles/volume) 15 mmol/L 5-14 Serum or plasma urea nitrogen measurement (mass/volume) 15 mg/dL 7-18 Serum or plasma creatinine measurement (mass/volume) 0.81 mg/dL 0.60-1.30 Serum or plasma urea nitrogen/creatinine mass ratio 19 NRG Serum or plasma creatinine measurement with calculation of estimated glomerular filtration rate > NRG Serum or plasma glucose measurement (mass/volume) 100 mg/dL 70-105 Serum or plasma calcium measurement (mass/volume) 10.5 mg/dL 8.5-10.1 Serum or plasma total bilirubin measurement (mass/volume) 0.4 mg/dL 0.1-1.0 Serum or plasma alkaline phosphatase measurement (enzymatic activity/volume) 90 U/L 40-136 Serum or plasma aspartate aminotransferase measurement (enzymatic activity/ volume) 19 U/L 5-34 Serum or plasma alanine aminotransferase measurement (enzymatic activity/volume ) 18 U/L 0-55 Serum or plasma protein measurement (mass/volume) 8.7 g/dL 6.4-8.2 Serum or plasma albumin measurement (mass/volume) 4.8 g/dL 3.2-4.5 Bacterial blood culture - 10/21/17 22:14 Bacterial blood culture NG NRG Bacterial blood culture - 10/21/17 22:27 Bacterial blood culture NG NRG Encounters ACCT No. Visit Date/Time Discharge Status Pt. Type Provider Facility Loc./Unit Complaint [id number] 12/05/2013 15:43:00 12/05/2013 23:59:59 CLS Outpatient BLANQUITA CARDOZA MD [id number] 12/05/2013 15:43:00 12/05/2013 23:59:59 CLS Outpatient BLANQUITA CARDOZA MD [id number] 11/14/2013 11:34:00 11/14/2013 23:59:59 CLS Outpatient BLANQUITA CARDOZA MD [id number] 11/07/2013 11:39:00 11/07/2013 23:59:59 CLS Outpatient CLARIBEL LUOG APRN [id number] 11/07/2013 11:39:00 11/07/2013 23:59:59 CLS Outpatient CLARIBEL LUGO APRN [id number] 09/19/2013 10:36:00 09/19/2013 23:59:59 CLS Outpatient CLARIBEL LUGO APRN [id number] 08/15/2013 14:41:00 08/15/2013 23:59:59 CLS Outpatient CLARIBEL LUGO APRN [id number] 04/02/2013 14:29:00 04/02/2013 23:59:59 CLS Outpatient KEO DEUTSCH APRN [id number] 03/27/2013 16:47:00 03/27/2013 23:59:59 CLS Outpatient EUGENIE DOW SEAN S [id number] 03/11/2013 15:41:00 03/11/2013 23:59:59 CLS Outpatient MANI STRICKLAND MD [id number] 01/11/2013 11:46:00 01/11/2013 23:59:59 CLS Outpatient FATEMEH CASIANO DO [id number] 12/21/2012 10:56:00 12/21/2012 23:59:59 CLS Outpatient KEO DEUTSCH APRN [id number] 06/26/2012 16:21:00 06/26/2012 23:59:59 CLS Outpatient [id number] 06/08/2012 16:35:00 06/08/2012 23:59:59 CLS Outpatient [id number] 10/26/2012 14:14:00 Document Registration [id number] 10/03/2017 20:38:00 10/05/2017 13:43:00 DIS Inpatient DANIA MANJARREZ MD Via [facility] 4TH UTI, PYELONEPHRITIS, N/V [id number] 05/27/2017 12:23:00 05/27/2017 16:12:00 DIS Outpatient SAMIRA CARRANZA DO Via [facility] ER BLOOD IN URINE [id number] 10/02/2016 12:59:00 10/05/2016 14:45:00 DIS Inpatient DANIA MANJARREZ MD Via [facility] 4TH R PYELONEPHRITIS [id number] 07/13/2016 19:45:00 07/13/2016 21:28:00 DIS Emergency LONG SANCHEZ APRN Via [facility] ER LOWER ABD PAIN [id number] 06/29/2016 10:57:00 06/29/2016 15:45:00 DIS Outpatient LISAANNA LOUISE MD Via [facility] CHRONIC PELVIC PAIN [id number] 06/24/2016 12:56:00 06/24/2016 13:19:00 DIS Outpatient ANNA GONZALEZ MD Via [facility] PREOP CPP ENDOMETRIOSIS [id number] 01/04/2016 11:26:00 01/04/2016 23:59:59 CLS Outpatient RAKESH LAINEZ APRN Via [facility] QUICK HAND/WRIST PAIN [id number] 11/30/2015 16:50:00 11/30/2015 19:47:00 DIS Emergency TERE ORELLANA SAMIRA Serra Via [facility] ER POST HYSTERECTOMY/PAIN ABOVE PUBIC BONE [id number] 11/20/2015 10:55:00 11/21/2015 09:55:00 DIS Outpatient ANNA GONZALEZ MD Via [facility] CPP; DUB; PROLAPSE [id number] 11/16/2015 09:56:00 11/16/2015 11:12:00 DIS Outpatient ANNA GONZALEZ MD Via [facility] PREOP CPP; DUB; PROLAPSE [id number] 09/23/2015 05:53:00 09/25/2015 14:15:00 DIS Inpatient ANNA GONZALEZ MD Via [facility] LDRP PREVIOUS SECTION [id number] 09/22/2015 14:36:00 09/22/2015 16:25:00 DIS Outpatient [facility] CONTR[facility]S AND SPOTTING [id number] 09/19/2015 17:21:00 09/20/2015 07:39:00 DIS Outpatient ANNA GONZALEZ MD Via [facility] ABD PAIN,NAUSEA [id number] 09/15/2015 14:43:00 09/15/2015 15:05:00 DIS Outpatient ANNA GONZALEZ MD Via [facility] PREOP PREVIOUS SECTION [id number] 06/26/2015 14:18:00 06/26/2015 16:40:00 DIS Outpatient ANNA GONZALEZ MD Via [facility] WSo CRAMPING AND PRESSURE [id number] 06/14/2015 18:30:00 06/14/2015 20:20:00 DIS Emergency SAMIRA CARRANZA DO Via [facility] ER TOOTH INFECTION [id number] 04/01/2015 13:56:00 04/01/2015 20:00:00 DIS Outpatient ANNA GONZALEZ MD Via [facility] WSo N/V [id number] 03/02/2015 11:55:00 03/02/2015 23:59:59 CLS Outpatient PAWEL IRBY [employer] Via [facility] RAD ABD CRAMPING, BLEEDING, CONFIRM IUP,DATING [id number] 01/03/2015 12:59:00 01/03/2015 15:01:00 DIS Emergency LONG SANCHEZ [employer] Via [facility] ER ABD PAIN [id number] 01/01/2015 07:02:00 01/01/2015 23:59:59 CLS Outpatient KELLYLQIAN L BEE RANCHER Via [facility] RAD LUQ PAIN [id number] 10/30/2014 18:23:00 10/31/2014 01:02:00 DIS Emergency LENNY PAULINO Via [facility] ER ABD PAIN [id number] 07/07/2014 13:02:00 07/07/2014 23:59:59 CLS Outpatient DENISE DYER DO Via [facility] RAD LEFT COMPLICATED CYST [id number] 07/05/2014 12:12:00 07/05/2014 12:39:00 DIS Emergency LONG SANCHEZ [employer] Via [facility] ER DENTAL PAIN [id number] 04/10/2014 17:34:00 04/10/2014 21:59:00 DIS Emergency SAMIRA CARRANZA DO Via [facility] ER POST CSECTION COMPLICATIONS [id number] 03/22/2014 15:00:00 03/25/2014 13:38:00 DIS Inpatient ANNA GONZALEZ MD Via [facility] LDRP LABOR [id number] 03/17/2014 13:51:00 03/17/2014 16:25:00 DIS Outpatient ANNA GONZALEZ MD Via [facility] WSo R SIDE PAIN, BACK PAIN,VOMITTING [id number] 03/11/2014 21:50:00 03/12/2014 07:33:00 DIS Inpatient ANNA GONZALEZ MD Via [facility] LDRP LBP,CRAMPING, PRESSURE [id number] 02/22/2014 00:00:00 02/23/2014 10:05:00 DIS Inpatient ANNA GONZALEZ MD Via [facility] LDRP ABD PAIN;HEADACHE; CTXS [id number] 01/27/2014 12:45:00 01/27/2014 14:45:00 DIS Outpatient ANNA GONZALEZ MD Via [facility] WSo CRAMPING SPOTTING DIZZINESS 28 WEEKS [id number] 01/03/2014 12:57:00 01/03/2014 23:59:59 CLS Outpatient BLANQUITA CARDOZA MD Via [facility] RAD FOLLOW UP POOR VISUALIZATION CORD, SPINE, HEART [id number] 11/26/2013 14:28:00 11/26/2013 23:59:59 CLS Outpatient BLANQUITA CARDOZA MD Via [facility] RAD HIGH RISK PREG., ANATOMY SCREENING [id number] 11/05/2013 16:44:00 11/05/2013 21:31:00 DIS Emergency SAMIRA CARRANZA DO Via [facility] ER SHARP LOWER ABD PAIN @ 16 WEEKS [id number] 08/26/2013 11:30:00 08/26/2013 23:59:59 CLS Outpatient CLARIBEL LUGO APRN Via [facility] RAD DATING/VIABILITY [id number] 08/14/2013 19:25:00 08/15/2013 00:04:00 DIS Emergency TALISHA BESS MD Via [facility] ER L SIDE LOWER ABD PAIN, VOMITING,6 WKS PREG [id number] 08/12/2013 17:39:00 08/12/2013 20:22:00 DIS Emergency LENNY PAULINO Via [facility] ER LOWER ABD PAIN AT 4 WEEKS [id number] 06/04/2013 13:17:00 06/04/2013 16:08:00 DIS Emergency LONG SANCHEZ APRN Via [facility] ER UPPER ABD PAIN [id number] 03/25/2013 09:22:00 03/25/2013 13:00:00 DIS Emergency TALISHA BESS MD Via [facility] ER UPPER ABD PAIN [id number] 10/09/2012 13:06:00 10/09/2012 23:59:59 CLS Outpatient RAI BENITEZP Via [facility] RAD LLQ ABD PAIN [id number] 10/21/2017 22:32:00 Document Registration [id number] 01/05/2015 10:42:00 Document Registration [id number] 06/16/2014 17:10:00 Document Registration [id number] 05/29/2014 13:26:00 Document Registration [id number] 05/28/2014 12:40:00 Document Registration [id number] 07/05/2012 18:49:00 Document Registration [id number] 04/03/2012 17:32:00 Document Registration [id number] 11/25/2011 22:39:00 Document Registration [id number] 09/22/2011 18:12:00 Document Registration [id number] 08/27/2011 19:09:00 Document Registration [id number] 08/01/2011 15:55:00 Document Registration [id number] 07/09/2011 17:37:00 Document Registration [id number] 02/11/2011 16:52:00 Document Registration [id number] 10/08/2010 03:09:00 Document Registration [id number] 08/28/2010 01:03:00 Document Registration [id number] 08/23/2010 18:34:00 Document Registration [id number] 07/15/2010 05:53:00 Document Registration [id number] 07/05/2010 18:20:00 Document Registration [id number] 07/02/2010 06:05:00 Document Registration [id number] 06/14/2010 09:00:00 Document Registration [id number] 05/15/2010 11:31:00 Document Registration [id number] 04/05/2010 09:42:00 Document Registration [id number] 03/05/2010 10:09:00 Document Registration [id number] 03/01/2010 20:18:00 Document Registration [id number] 11/26/2009 09:41:00 Document Registration [id number] 08/31/2009 19:46:00 Document Registration [id number] 08/02/2009 18:45:00 Document Registration [id number] 07/24/2009 06:32:00 Document Registration [id number] 10/12/2017 14:00:00 10/12/2017 23:59:59 [facility] Outpatient KEO DEUTSCH APRN [facility]
[2017-10-27] MEDS ORDERED: ACHD5005 PO (21:47)
[2017-10-27] MEDS ORDERED: AMOX-358 PO (21:47)
--- NOTE | 2017-10-27 21:47 | ED EENT ---
History of Present Illness General Chief Complaint: Dental Problems/Pain Stated Complaint: R SIDE JAW SWELLING/PAIN Nursing Triage Note: SWOLLEN RIGHT JAW Source: patient Exam Limitations: no limitations History of Present Illness Date Seen by Provider: Oct 27, 2017 Time Seen by Provider: 21:43 Initial Comments The patient is a 27 year old female who presents to the emergency room with c/o dental pain and right sided facial swelling that started just prior to arrival. She reports that she has an appointment with an oral surgeon in [place] next week that [facility] has set up for her to have tooth extractions on that lower right side. Denies fever. Location: facial Associated Symptoms: facial pain/swelling; No fever; tooth pain Allergies and Home Medications Allergies Coded Allergies: azithromycin (Unverified Allergy, Mild, 07/24/08) Home Medications Amoxicillin/Potassium Clav 1 Each Tablet, 1 EACH PO BID Prescribed by: LILLIE CEDILLO on 10/27/172146 Dicyclomine HCl 10 Mg Capsule, 10-20 MG PO Q6H Prescribed by: SAMIRA CARRANZA on 10/21/172344 Hydrocodone Bit/Acetaminophen 1 Tab Tab, 1 EACH PO Q6H PRN for PAIN Prescribed by: LILLIE CEDILLO on 10/27/172146 Pantoprazole Sodium 40 Mg Tablet.dr, 40 MG PO DAILY Prescribed by: SAMIRA CARRANZA on 10/21/172344 Patient Home Medication List Home Medication List Reviewed: Yes Review of Systems Constitutional: see HPI; No chills, No fever Mouth: see HPI, pain, swelling (righ lower jaw pain and swelling. ) All Other Systems Reviewed Negative Unless Noted: Yes Past Phtbdmj-Piivny-Iqojbw Hx Past Med/Social Hx: Reviewed Nursing Past Med/Soc Hx Patient Social History Alcohol Use: Denies Use Recreational Drug Use: No Smoking Status: Current Everyday Smoker Type Used: Cigarettes 2nd Hand Smoke Exposure: Yes Recent Foreign Travel: No Contact w/Someone Who Travel: No Recent Infectious Disease Expo: No Recent Hopitalizations: No Immunizations Up To Date Tetanus Booster (TDap): Less than 5yrs PED Vaccines UTD: Yes Date of Pneumonia Vaccine: May 18, 2017 Date of Influenza Vaccine: May 26, 2015 Seasonal Allergies Seasonal Allergies: Yes Past Medical History Surgeries: Yes ( X 2; HYST/RSO/APPY) Appendectomy, Section, Hysterectomy, Oophorectomy Respiratory: No Currently Using CPAP: No Cardiac: Yes Palpitations Neurological: Yes Headaches /Migraines : No 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 Disorders: Yes Female 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 Disorders: 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, Ovarian Cyst [employer] History: Hysterectomy 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 Disease: No HIV/AIDS: No Genitourinary: Yes Kidney Infection, UTI-Chronic Gastrointestinal: Yes Gastroesophageal Reflux, Gall Bladder Disease Musculoskeletal: Yes Scoliosis Endocrine: No HEENT: No Loss of Vision: Bilateral Hearing Impairment: Denies Cancer: No Psychosocial: Yes Anxiety, PTSD Integumentary: Yes Eczema Blood Disorders: Yes (ANEMIA) Adverse Reaction/Blood Tranf: No Family Medical History Reviewed Nursing Family Hx Cardiovascular disease 19 FATHER Coronary thrombosis 19 FATHER 19 MOTHER Headache disorder 19 MOTHER Hypercholesterolemia 19 FATHER 19 MOTHER Hypertension 19 FATHER Myocardial infarction 19 FATHER 19 MOTHER Psychosocial problem 19 MOTHER (bipolar) No Family History of: AIDS Abdominal aortic aneurysm [place]'s disease Alcoholism Alzheimer's disease Aphasia Arthritis Asthma Cancer of mouth Cataracts Colon cancer Completed stroke Congenital disease Congenital heart disease Cystic fibrosis Deafness or hearing loss Dementia Diabetes mellitus Drug abuse Dysphasia Fibrocystic disease of breast Gastroenteritis Glaucoma Infertility Kidney disease Neoplasm Not obtainable due to adoption Osteoporosis Parkinson's disease Prostate cancer Respiratory disorder Seizure disorder Severe allergy Thyroid disease Tuberculosis Visual disorder Physical Exam Vital Signs Vital Signs - First Documented 10/27/17 21:26 Temp 97.7 Pulse 92 Resp 18 B/P (MAP) 153/94 (113) Pulse Ox 100 O2 Delivery Room Air Height, Weight, BMI Height: 5'3.00" Weight: 153lbs. 0oz. 69.859258al; 27.7 BMI Method:Stated General Appearance: WD/WN, no apparent distress Mouth/Throat: dental tenderness, other (the patient has mild swelling and tenderness to the right jaw. There are several dental carries on the affected teeth at the area of swelling.) Cardiovascular: regular rate, rhythm, no edema, no gallop, no JVD, no murmur Respiratory: chest non-tender, lungs clear, normal breath sounds, no respiratory distress, no accessory muscle use Neurologic/Psychiatric: alert, normal mood/affect, oriented x 3 Skin: normal color, warm/dry Progress/Results/Core Measures Results/Orders My Orders Vital Signs/I&O Blood Pressure Mean: 113 Progress Progress Note : Progress Note I have seen and evaluated the patient. She has appointments set up next week with the maxillofacial surgeon in [place] that [facility] has set up to have the affected teeth removed. I will be started the patient on antibiotics to treat the infection. She reports that she has ultram at home that she has taken for pain with out relief. She agrees with plans of discharge, follow up with [facility] and her appointments with the surgeon in . Pain prescription, abx prescription , and return precautions given. Departure Impression Primary Impression: Dental abscess Additional Impression: Dental caries Disposition: HOME, SELF-CARE Condition: Stable/Unchanged Departure-Patient Inst. Decision time for Depature: 21:44 [facility]errals: [facility] (PCP/Family) Primary Care Physician Patient Instructions: Dental Pain (DC), Tooth Abscess (DC) Add. Discharge Instructions: Take medication as directed. Follow up with her primary care provider within 1 week for recheck. Follow-up with your dentist within 1 week for recheck. Keep your appointment with the surgeon as scheduled. Return back to the emergency room if you should develop any fevers, increased pain, worsening symptoms or any other concerns as needed. All discharge instructions reviewed with patient and/or family. Voiced understanding. Scripts Hydrocodone Bit/Acetaminophen (Hydrocodone/Acetaminophen 5/325mg Tablet) 1 Tab Tab 1 EACH PO Q6H PRN for PAIN, #14 TAB Prov: LILLIE CEDILLO 10/27/17 Amoxicillin/Potassium Clav (Augmentin 875-125 Tablet) 1 Each Tablet 1 EACH PO BID for 7 Days, #14 TAB Prov: LILLIE CEDILLO 10/27/17 Images Head/Face 1 - Mild, Swelling, Tenderness Mouth/Nose 1 - Caries, Fracture Tooth, Swelling, Tenderness 2 - Caries, Fracture Tooth, Swelling, Tenderness LILLIE CEDILLO Oct 27, 2017 21:47
[2017-10-27 21:56] VITALS: BP 153/94
[2017-10-27] MEDS ORDERED: AUGMENTIN 875 MG TAB (AMOXICILLIN/CLAVULANATE) PO SCH (22:00)
[2017-10-27] MEDS ORDERED: HYDROcodone/APAP 5 MG/325 MG (LORTAB) TAB PO ONE (22:00)
== END 2017-10-27 21:56 | disposition home or self-care (01) ==
LOC: EDUNIT# 21:26 → ER 21:27
DX: K02.9 Dental caries, unspecified (principal); K04.7 Periapical abscess without sinus; G43.909 Migraine, unspecified, not intractable, without status migrainosus; F41.9 Anxiety disorder, unspecified; F43.10 Post-traumatic stress disorder, unspecified; D64.9 Anemia, unspecified; K21.9 Gastro-esophageal reflux disease without esophagitis; F17.210 Nicotine dependence, cigarettes, uncomplicated; Z87.448 Personal history of other diseases of urinary system; Z82.49 Family history of ischemic heart disease and other diseases of the circulatory system; Z90.89 Acquired absence of other organs; Z90.710 Acquired absence of both cervix and uterus; Z87.59 Personal history of other complications of pregnancy, childbirth and the puerperium; Z88.0 Allergy status to penicillin
CPT/HCPCS: 99283

== ENCOUNTER → 2017-10-27 | Outpatient (CLI) | payer MEDICAID ==
[~2017-10-27] MED LIST changes: +AMOX-358 PO; +DICY10CA12 PO; +KETO10TA
--- NOTE | 2017-10-27 09:18 | Diagnostic Imaging Report ---
PROCEDURE: US Gallbladder. TECHNIQUE: Multiple real-time grayscale images were obtained over the right upper quadrant in various projections. INDICATION: Right upper quadrant pain. FINDINGS: The liver is normal in size. No discrete liver mass is identified. The portal vein is patent and shows normal direction of flow. The gallbladder is without stones or sludge. No wall thickening or biliary duct dilatation is seen. The pancreas is obscured. The right kidney is unremarkable. There is no ascites. IMPRESSION: No evidence of cholelithiasis or acute cholecystitis. Dictated by: Dictated on workstation # [id number]
== END ==
LOC: RAD 07:34
PROVIDERS: ATTEND Nurse Practitioner Community Health
DX: R10.11 Right upper quadrant pain (principal)
CPT/HCPCS: 76705

== ENCOUNTER → 2017-11-02 | Outpatient (CLI) | payer MEDICAID ==
[~2017-11-02] MED LIST changes: +AMOX-358 PO; +CATHETER FLUSH 10 ML SYR IV PRN; +KETO10TA
--- NOTE | 2017-11-02 17:24 | Diagnostic Imaging Report ---
INDICATION: Right upper quadrant pain. TECHNIQUE: Acquisitions were acquired over the liver after the administration of 5.42 mCi of technetium 99m Choletec. Ejection fraction was calculated after the patient ingested 8 ounces of Ensure 1 hour into the exam. FINDINGS: There is homogeneous uptake of isotope throughout the liver. There is significant accumulation within the gallbladder by approximately 90 minutes. Gallbladder ejection fraction was calculated to be 30.4%. IMPRESSION: No evidence of cystic duct obstruction; however, there is a slightly low ejection fraction of 30%. Dictated by: Dictated on workstation # [id number]
== END ==
LOC: CARD 11:33
PROVIDERS: ATTEND Nurse Practitioner Community Health
DX: R10.11 Right upper quadrant pain (principal)
CPT/HCPCS: 78227

== ENCOUNTER 2017-11-22 05:51 | Outpatient (CLI) | payer MEDICAID ==
[~2017-11-22] VITALS: Ht 160 cm; Wt 69.4 kg
[~2017-11-22 05:51] MED LIST changes: -CATHETER FLUSH 10 ML SYR IV PRN; -OXYC-202 PO; +OXYC1TAB12 PO
[2017-11-23] MEDS ORDERED: ACHD5005 PO (11:55)
== END 2017-11-22 10:16 | disposition home or self-care (01) ==
LOC: PREOP 05:51
PROVIDERS: ATTEND Surgery
DX: Z01.818 Encounter for other preprocedural examination (principal)

== ENCOUNTER 2017-11-23 08:51 | Day surgery (SDC) | payer MEDICAID ==
[~2017-11-23] VITALS: Ht 160 cm; Wt 69.4 kg
[2017-11-23 09:00] VITALS: BP 137/87
[2017-11-23] MEDS: LACTATED RINGERS 1,000 ML IV PRN ×2 (09:15→11:45)
[2017-11-23] MEDS ORDERED: ceFAZolin 2 GM IV Premixed 50 ML IV ONE (09:15)
[2017-11-23] MEDS ORDERED: CATHETER FLUSH 10 ML SYR IV PRN (09:45)
--- NOTE | 2017-11-23 09:57 | Progress Note-Pre Operative ---
Pre-Operative Progress Note H&P Reviewed The H&P was reviewed, patient examined and no changes noted. Time Seen by Provider: 09:41 Date H&P Reviewed: Nov 23, 2017 Time H&P Reviewed: 09:42 Pre-Operative Diagnosis: Gastritis, Cholelithiasis/Cholecystitis IGNACIO ALEJANDRE DO Nov 23, 2017 09:57
[2017-11-23] MEDS ORDERED: SEVOFLURANE (ULTANE) 15 ML INHAL SOLN ONE ×3 (10:19→11:52)
[2017-11-23] MEDS ORDERED: DEXAMETHASONE 10 MG/ML (DECADRON) 1 ML VIAL ONE (10:19)
[2017-11-23] MEDS ORDERED: ONDANSETRON 4 MG/2 ML (SDV) Z0FRAN ONE (10:19)
[2017-11-23] MEDS ORDERED: proPOfol 200 MG/20 ML (DIPRIVAN) VIAL IV ONE (10:19)
[2017-11-23] MEDS ORDERED: ROCURONIUM 10 MG/ML 5 ML SYRINGE IV ONE (10:19)
[2017-11-23] MEDS ORDERED: LIDOCAINE PF 2% 5 ML (XYLOCAINE) VIAL ONE (10:19)
[2017-11-23] MEDS ORDERED: MIDAZOLAM 2 MG/2 ML (VERSED) VIAL ONE (10:20)
[2017-11-23] MEDS ORDERED: fentaNYL INJECTION 100 MCG/2 ML AMP ONE (10:20)
[2017-11-23] MEDS ORDERED: LIDOCAINE/EPI 1%-1:200,000 (XYLOCAINE) 10 ML VIAL ONE (10:26)
[2017-11-23] MEDS ORDERED: PHENYLEPHRINE 100 MCG/ML 10 ML (ANESTHESIA) SYR ONE (11:49)
[2017-11-23] MEDS ORDERED: GLYCOPYRROLATE 0.2 MG/ML (ROBINUL) 2 ML VIAL ONE (11:49)
[2017-11-23] MEDS ORDERED: NEOSTIGMINE 1 MG/ML 5 ML SYRINGE ONE (11:49)
--- NOTE | 2017-11-23 11:54 | Progress Note-Post Operative ---
Post-Operative Progess Note Surgeon (s)/Book Canvasser (s) Surgeon IGNACIO ALEJANDRE DO Book Canvasser: Michaela Pre-Operative Diagnosis Gastritis, Biliary Dyskinesia Post-Operative Diagnosis Same pending path Procedure & Operative Findings Date of Procedure 11/23/17 Procedure Performed/Findings 1. EGD with biopsy 2. Lap scot with IOC Anesthesia Type GET Estimated Blood Loss Estimated blood loss (mL): scant Specimens/Packing Specimens Removed Antral bx GB and contents IGNACIO ALEJANDRE DO Nov 23, 2017 11:54
[2017-11-23] MEDS ORDERED: ACHD5005 PO (11:55)
--- NOTE | 2017-11-23 11:57 | Discharge Inst-Surgical ---
Discharge Inst-Surgical Depart Medication/Instructions New, Converted or Re-Newed RX: RX Given to Pt/Family Patient Instructions Follow up Appt: Make appointment for 1 week; [phone]. Instructions: No lifting greater than 10 pounds. No strenuous activity. May shower in 24 hours, no tub bath or soaking. Use incentive spirometer at home as directed. No Smoking Skin/Wound Care: May remove bandages in am. You need to leave the Dermabond on over incision it will fall off on its own. Symptoms to Report: Appetite Changes, Extremity Discoloration, Numbness/Tingling, Swelling Increased , Bleeding Excessive, Eyesight Changes, Pain Increased, Urine Color Change, Constipation(Persistent), Fever over 101 degree F, Pain/Pressure in chest, Urinating Difficulty, Cough Up/Vomit Blood, Heart Beat Irreg/Pounding, Pain/ Pressure in jaw, Vaginal Bleeding Increase, Cramps in feet or legs, Lightheadedness, Pain/Pressure in shoulder, Diarrhea(Persistent), Memory Changes Suddenly, Questions/Concerns, Weight gain consecutive days, Dizziness/ Fainting, Nausea/Vomiting, Shortness of Breath, Weight gain over 2 pounds. If eyes or skin turn yellow notify physician. If questions or concerns contact your physician Or seek help at emergency department. Activity Activity as Tolerated: Yes Activity Instructions: Avoid Stress to Incision Driving Instructions: No Driving/Refer to Diet Discharge Diet: Avoid Fatty Foods, Low Fat/Low Cholesterol Diet After 24 Hours: Clear Liquid if Nauseous If Any Problems/Questions/Issu: Contact Your Physician Skin/Wound Care Infection Signs and Symptoms: Increased Redness, Foul Odor of Wound, Increased Drainage, Skin Itchy or Has a Rash, Increased Swelling, Temperature Above 101 F Wound Care Comment: Heating pad to shoulder or neck tonight for pain Bathing Instructions: Shower Stitches/Jocelyne/Dermabond Dis: Dermabond Ice Pack: Ice On and Off Site (as needed for pain) IGNACIO ALEJANDRE DO Nov 23, 2017 11:57
[2017-11-23] MEDS ORDERED: morphine INJ 10 MG/ML 1ML (SYR OR VIAL) ONE (11:59)
[2017-11-23] MEDS ORDERED: KETOROLAC 30 MG/ML VIAL ONE (11:59)
[2017-11-23] MEDS ORDERED: PROMETHAZINE INJ 25 MG/ML (PHENERGAN) AMP IVP ONE (12:15)
[2017-11-23] MEDS ORDERED: ONDANSETRON 4 MG/2 ML (SDV) Z0FRAN IVP PRN (12:15)
[2017-11-23] MEDS: morphine INJ 10 MG/ML 1ML (SYR OR VIAL) IVP ONE ×2 (12:33→12:47)
--- NOTE | 2017-11-23 12:34 | Anesthesia-General Post-Op ---
General Patient Condition Mental Status/LOC: Same as Preop Cardiovascular: Satisfactory Nausea/Vomiting: Absent Respiratory: Satisfactory Pain: Controlled Complications: Absent Post Op Complications Complications None Follow Up Care/Instructions Patient Instructions None needed. Anesthesia/Patient Condition Patient Condition Patient is doing well, no complaints, stable vital signs, no apparent adverse anesthesia problems. No complications reported per nursing. D/C home per [facility] Criteria: Yes TERI BONNER CRNA Nov 23, 2017 12:34
--- NOTE | 2017-11-23 12:59 | Diagnostic Imaging Report ---
EXAM: Fluoroscopy INDICATION: Abdominal pain FINDINGS: Fluoroscopic assistance was provided for Dr. Mosquera during this operative cholangiogram. Six seconds of fluoroscopy time was utilized. 3D images of the right upper quadrant were obtained from the OR. There are laparoscopic devices in place. There has been opacification of the common bile duct but via a cystic duct catheter. There is no defect within the visualized common bile duct to suggest a retained calculus. A portion of both the common bile duct and the biliary tree are partially obscured by one of the instruments. The biliary tree is otherwise unremarkable for a retained calculus. IMPRESSION: The common bile duct and biliary tree, where visualized, show no sign of a retained calculus. Dictated by: Dictated on workstation # [id number]
[2017-11-23 13:05] VITALS: BP 110/75
[2017-11-23 13:35] VITALS: BP 103/70
[2017-11-23 14:05] VITALS: BP 102/62
--- OUTSIDE RECORDS SUMMARY | 2017-11-23 14:08 | XMS REPORT ---
Author Author THANH HANNAH Organization [facility] Address [address] [place] [address] Care Team Providers Care Leather Dresser Name Role Phone THANH HANNAH Unavailable PROBLEMS Type Condition ICD9-CM Code [id number] Code Onset Dates Condition Status SNOMED Code Problem Heartburn R12 Active 17709010 Problem Anxiety F41.9 Active 16737999 Problem Fibromyalgia M79.7 Active 085826697 Problem Major depressive disorder, recurrent episode, moderate F33.1 Active 831000419 Problem Posttraumatic stress disorder F43.10 Active 94728833 Problem Restless leg syndrome G25.81 Active 18723751 Problem Mood disorder F39 Active 56831928 ALLERGIES Substance Reaction Event Type Date Status Azithromycin Unknown Drug Allergy July, Active ENCOUNTERS Encounter Location Date Diagnosis [facility] [id number] [place] [address] 98654- 6273 Oct, Right upper quadrant pain R10.11 [facility] [id number] [place] [address] 01631- 6534 Oct, [facility] [address] [address]22- 1555 Oct, Right upper quadrant pain R10.11 [facility] [id number] [place] [address] 11027- 5499 Sep, Pyelonephritis N12 [facility] [address] 6[address]99- [address]37 Sep, [facility] [id number] [place] [address] 11649 -9411 July, Seasonal allergic rhinitis, unspecified trigger J30.2 ; Cough R05 ; Allergic rhinitis, unspecified seasonality, unspecified trigger J30.9 and Sore throat J02.9 [facility] [id number] [place] [address] 09920- 8460 Jun, [facility] [address] 09144- 9065 Jun, [facility] [address] 49166 -2322 14 Jun, 2017 Flank pain R10.9 and Acute cystitis with hematuria N30.01 [facility] [address] 77323- 1094 Jun, Acute cystitis with hematuria N30.01 [place] [address] 30713- 4687 Dec, Wheezing R06.2 and Sinus pressure J34.89 [place] [address] 46466- 8244 Sep, Pyelonephritis N12 [facility] [address] [id number] Sep, [facility] [address] [id number] Aug, Dental examination Z01.20 [facility] [place] [id number] [place] [address] 33258 -0379 July, [facility] [place] [id number] [place] [address] 33778 -5010 July, Foot injury, right, initial encounter S99.921A ; Foot injury, left, initial encounter S99.922A and Sprain of left ankle, unspecified ligament, initial encounter S93.402A [facility] [address] 12410 -7225 Mar, Bronchitis J40 [facility] [address] 86303- 9852 Feb, Dental examination Z01.20 [place] [address] [place] [address]- 1168 Jan, Anxiety F41.9 [facility] [id number] [place] [address] 62343 -4006 Dec, Wrist pain, right M25.531 [facility] [id number] [place] [address] 95470- 4909 Dec, [facility] [id number] [place] [address] 27983 -5746 Dec, Right wrist pain M25.531 [facility] [id number] [place] [address] 54813- 2599 Dec, [facility] [id number] [place] [address] 83858- 6826 Dec, [facility] [id number] [place] [address] 47571- 6763 Dec, Major depressive disorder, recurrent episode, moderate F33.1 and Posttraumatic stress disorder F43.10 [facility] [id number] [place] [address] 23944- 6184 Dec, [facility] [id number] [place] [address] 39579- 6382 Dec, [facility] [id number] [place] [address] 99909- 2321 Dec, [facility] [id number] [place] [address] 71909- 6558 Dec, Mood disorder F39 ; Restless leg syndrome G25.81 and Fibromyalgia M79.7 [facility] [id number] [place] [address] 88894- 9793 Nov, Major depressive disorder, recurrent episode, moderate F33.1 and Posttraumatic stress disorder F43.10 [facility] [address], [place] [address] -[address]879 Oct, Dysuria R30.0 and Acute sinusitis, recurrence not specified , unspecified location J01.90 [facility] [id number] [id number] Apr, Dental examination Z01.20 [facility] [id number] [place] [address] 54898- 6229 18 Feb, 2015 [facility] [id number] [place] [address] 99777- 9681 Feb, [facility] [id number] [place] [address] 04773- 0675 Feb, Vaginal bleeding during , antepartum O46.90 ; Positive test Z32.01 ; Abdominal cramping R10.9 ; Right upper quadrant pain R10.11 ; Generalized abdominal tenderness R10.817 ; Uterine tenderness N94.9 ; Cervical motion tenderness N94.9 and Heartburn R12 [place] [id number] [place] [address] 78832- 9306 Jan, Cough R05 and Nausea R11.0 [facility] [id number] [place] [address] 16505- 1845 Jan, Acute nasopharyngitis J00 [facility] [id number] [place] [address] 42112- 2175 Jan, Acute nasopharyngitis J00 [facility] [id number] [place] [address] 58563- 2284 Dec, Right upper quadrant abdominal pain R10.11 [facility] [id number] [place] [address] 19415- 7171 Dec, [facility] [id number] [place] [address] 66880- 5112 Dec, [facility] [id number] [place] [address] 97449- 7071 13 Dec, 2014 Left upper quadrant pain R10.12 and Diarrhea R19.7 [facility] [address] 70877- 0488 Dec, [facility] [address] [id number], [place] [address]- 6630 07 Dec, 2014 Left upper quadrant pain R10.12 [facility] [place] [facility] [address] [id number] [place] [address]- 9500 14 Jun, 2014 [facility] [place] [facility] [address] [id number] [place] [address]- 6993 13 Jun, 2014 [facility] [place] [facility] [address] [id number], [place] [address]- 0953 09 May, 2014 [facility] [address] [id number] [place] [address]- 5797 09 May, 2014 [facility] [place] [facility] [address] [id number], [place] [address]- 6368 May, 2014 [facility] [address] [facility] [id number], [place] [address]- 1710 Dec, [facility] [place] [facility] [address] [id number], [place] [address]- 9166 31 Dec, 2013 [facility] [place] [facility] [address] [facility] [id number], [place] [address]- 4855 24 Dec, 2013 [facility] [place] [facility] [address] [facility] [id number], [place] [address]- 6581 24 Dec, 2013 [facility] [place] [facility] [address] [id number], [place] [address]- 0326 Dec, [facility] [place] [facility] [address] [facility] [id number], [place] [address]- 6993 21 Dec, 2013 [facility] [place] [facility] [address] [facility] [id number], [place] [address]- 4990 15 Dec, 2013 [facility] [place] [facility] [address] [facility] [id number], [place] [address]- 1197 15 Dec, 2013 [facility] [place] [facility] [address] [facility] [id number], [place] [address]- 0174 14 Dec, 2013 [facility] [place] [facility] [address] [id number] [place] [address]- 9200 14 Dec, 2013 [facility] [place] [facility] [address] [id number] [place] [address]- 4506 Dec, [facility] [place] [facility] [address] [id number] [place] [address]- 0006 Dec, [facility] [place] [facility] [address] [id number] [place] [address]- 9163 Dec, [facility] [place] [facility] [address] [id number] [place] [address]- 2175 Dec, [facility] [place] [facility] [address] [id number] [place] [address]- 0623 23 Nov, 2013 [facility] [place] [facility] [address] [id number] [place] [address]- 2371 23 Nov, 2013 [facility] [place] [facility] [address] [id number] [place] [address]- 9573 22 Nov, 2013 [facility] [place] [facility] [address] [id number] [place] [address]- 2542 22 Nov, 2013 [facility] [place] [facility] [address] [id number] [place] [address]- 1885 18 Nov, 2013 [facility] [place] [facility] [address] [id number] [place] [address] 2548 18 Nov, 2013 [facility] [place] [facility] [address] [id number] [place] [address]- 2547 11 Nov, 2013 [facility] [place] [facility] [address] [id number] [place] [address] 2540 11 Nov, 2013 [facility] [place] [facility] [address] [id number] [place] [address] 2546 03 Sep, 2013 [facility] [place] [facility] [address] [id number] [place] [address]- 254 03 Sep, 2013 [facility] [place] [facility] [address] [id number] [place] [address]- 4596 Oct, [facility] [place] [facility] [address] [id number] [place] [address]- 6271 Oct, [facility] [place] [facility] [address] [id number] [place] [address]- 1618 Oct, [facility] [place] [facility] [address] [id number] [place] [address]- 0306 Oct, [facility] [place] [facility] [address] [id number] [place] [address]- 1971 Oct, [facility] [place] [facility] [address] [id number] [place] [address]- 7545 Oct, [facility] [place] [facility] [address] [id number] [place] [address]- 8096 Oct, [facility] [place] [facility] [address] [id number] [place] [address]- 5760 Oct, [facility] [place] [facility] [address] [id number] [place] [address]- 5120 Oct, [facility] [place] [facility] [address] [id number] [place] [address]- 5254 Oct, [facility] [place] [facility] [address] [id number] [place] [address]- 6435 Oct, [facility] [place] [facility] [address] [id number] [place] [address]- 4259 Oct, [facility] [place] [facility] [address] [id number] [place] [address]- 1594 Oct, [facility] [place] [facility] [address] [id number] [place] [address]- 6660 Sep, [facility] [place] [facility] [address] [id number] [place] [address]- 2380 Sep, [facility] [place] [facility] [address] [id number] [place] [address]- 5223 Sep, [facility] [place] [facility] [address] [id number] [place] [address]- 6081 Aug, [facility] [place] [facility] [address] [id number] [place] [address]- 2219 Aug, [facility] [place] [facility] [address] [id number] [place] [address]- 4203 Aug, [facility] [place] [facility] [address] [id number] [place] [address]- 9571 Aug, [facility] [place] [facility] [address] [id number] [place] [address]- 1816 July, [facility] [place] [facility] [address] [id number] [place] [address]- 3711 July, [facility] [place] [facility] [address] [id number] [place] [address]- 6821 July, [facility] [place] [facility] [address] [id number] [place] [address]- 0216 July, [facility] [place] [facility] [address] [id number] [place] [address]- 2799 Apr, [facility] [place] [facility] [address] [id number] [place] [address]- 0837 Apr, [facility] [place] [facility] [address] [id number] [place] [address]- 0002 Mar, [facility] [place] [facility] [address] [id number] [place] [address]- 0905 Mar, [facility] [place] [facility] [address] [id number] [place] [address]- 1552 Mar, [facility] [place] [facility] [address] [id number] [place] [address]- 4537 Mar, [facility] [place] [facility] [address] [id number] [place] [address]- 3959 Mar, [facility] [place] [facility] [address] [id number] [place] [address]- 0303 Mar, [facility] [address] [id number] [place] [address]- 6946 Mar, [facility] [place] [facility] [address] [id number] [place] [address]- 9469 Mar, [facility] [place] [facility] [address] [id number] [place] [address]- 6728 Mar, [facility] [place] [facility] [address] [id number] [place] [address]- 0426 Mar, [facility] [address] [id number] [place] [address]- 5871 Mar, [facility] [place] [facility] [address] [id number] [place] [address]- 5846 Mar, [facility] [place] [facility] [address] [id number] [place] [address]- 0086 Feb, [facility] [place] [facility] [address] [id number] [place] [address]- 7425 Feb, [facility] [place] [facility] [address] [id number] [place] [address]- 8558 Feb, [facility] [place] [facility] [address] [id number] [place] [address]- 3674 Feb, [facility] [place] [facility] [address] [id number] [place] [address]- 4337 Feb, [facility] [place] [facility] [address] [id number], [place] [address]- 8969 Feb, [facility] [place] [facility] [address] [id number] [place] [address]- 7760 Jan, [facility] [place] [facility] [address] [id number] [place] [address]- 2516 Jan, [facility] [place] [facility] [address] [id number], [place] [address]- 8826 Jan, [facility] [place] [facility] [address] [id number], [place] [address]- 0628 Dec, [facility] [address] [id number] [place] [address]- 2439 Dec, [facility] [address] [id number] [place] [address]- 8999 Dec, [facility] [address] [id number] [place] [address]- 8315 Nov, [facility] [address] [id number] [place] [address]- 3960 Oct, [facility] [address] [id number] [place] [address]- 9609 Oct, [facility] [address] [id number] [place] [address]- 7561 Sep, [facility] [address] [id number] [place] [address]- 7193 Sep, [facility] [address] [id number] [place] [address]- 9634 Sep, [facility] [address] [id number] [place] [address]- 7316 Sep, [facility] [address] [id number] [place] [address]- 8783 Jun, [facility] [address] [id number] [place] [address]- 9168 Jun, [facility] [address] [id number] [place] [address]- 0448 May, [facility] [address] [id number] [place] [address]- 0134 July, [facility] [place] [facility] [address] [id number] [place] [address]- 0912 July, [facility] [address] [id number] [place] [address]- 5828 July, [facility] [address] [id number] [place] [address] 2546 17 Jul, 2011 [facility] [place] [facility] [address] [id number] [place] [address]- 9687 July, [facility] [place] [facility] [address] [id number] [place] [address]- 2546 July, [facility] [place] [facility] [address] [id number] [place] [address]- 6576 July, [facility] [place] [facility] [address] [id number] [place] [address] 2546 July, [facility] [place] [facility] [address] [id number] [place] [address]- 8106 Jun, [facility] [place] [facility] [address] [id number] [place] [address] 2546 May, [facility] [place] [facility] [address] [id number] [place] [address]- 7529 May, [facility] [place] [facility] [address] [id number] [place] [address]- 1168 Dec, [facility] [place] [facility] [address] [id number] [place] [address]- 7046 Dec, [facility] [place] [facility] [address] [id number] [place] [address]- 5616 Dec, [facility] [place] [facility] [address] [id number] [place] [address]- 5339 Jun, [facility] [place] [facility] [address] [id number] [place] [address]- 2546 May, [facility] [place] [facility] [address] [id number] [place] [address]- 2546 Apr, [facility] [place] [facility] [address] [id number] [place] [address]- 2546 Mar, [facility] [place] [facility] [address] [id number] [place] [address]- 2021 30 Feb, 2010 [facility] [address] [address]- 4896 17 Feb, 2010 [facility] [address] [place] [address] 92525- 1548 Feb, [facility] [id number] [place] [address] 89642- 9257 Feb, [facility] [id number] [place] [address] 54870- 7575 Jan, [facility] [id number] [place] [address] 65384- 2055 Jan, [facility] [id number] [place] [address] 71961- 0756 Jan, [facility] [id number] [place] [address] 91334- 6538 Dec, [facility] [id number] [place] [address] 75234- 3068 Dec, [facility] [id number] [place] [address] 01543- 4993 Dec, [facility] [id number] [place] [address] 81193- 8045 Dec, IMMUNIZATIONS Vaccine Route Administration Date Status SOLUMEDROL (UP TO 125 MG) IM Intramuscular August 17, 2017 Administered SOCIAL HISTORY Never Assessed REASON FOR VISIT chest congestion and cough for 2 days. also has a stuffy nose. [email or web address] PLAN OF CARE Activity Details Follow Up prn Reason: VITAL SIGNS Height 64 in 2017-08-17 Weight 140.3 lbs 2017-08-17 Temperature 98.4 degrees Fahrenheit 2017-08-17 Heart Rate 80 bpm 2017-08-17 Respiratory Rate 20 2017-08-17 BMI 24.08 kg/m2 2017-08-17 Blood pressure systolic 114 mmHg 2017-08-17 Blood pressure diastolic 68 mmHg 2017-08-17 MEDICATIONS Medication Instructions Dosage Frequency Start Date End Date Duration Status Amoxicillin 500 MG Orally 4 times daily 1 capsule 7 days Not- Taking ProAir HFA 108 (90 Base) MCG/ACT Inhalation every 4 hrs 2 puffs as needed 4h Mar, 7 days Not-Taking Flonase 50 MCG/ACT Nasally twice a day 1 spray in each nostril 12h July, 07 days Active Clonazepam 0.5 MG Orally Twice a day 1 tablet 12h Jan, Not- Taking Cough & Cold 4-30 MG Orally every 6 hrs 1 tablet as needed 6h Active Duloxetine HCl 60 MG Orally daily 1 capsule every morning X 2 weeks then 2 caps every morning. 24h Dec, Not-Taking Greenwood 5-325 MG Orally every 6 hrs 1 tablet as needed 6h 26 Dec, 2015 Not-Taking Protonix 40 mg Orally Once a day 1 tablet 24h Jan, 30 day(s) Not-Taking Pepcid 20 MG Orally Once a day 1 tablet at bedtime 24h Not-Taking Ibuprofen 600 MG Orally every 8 hrs as needed 1 tablet Not- Taking Keflex 500 mg Orally every 12 hrs 1 capsule 12h July, Aug, 10 day(s) Active Bentyl 10 MG Orally Four times a day 1 capsule 6h Not-Taking RESULTS No Results PROCEDURES Procedure Date Ordered Result Body Site SOLUMEDROL (UP TO 125 MG) August 17, 2017 THER/PROPH/DIAG INJ, SC/IM August 17, 2017 INSTRUCTIONS MEDICATIONS ADMINISTERED No Known Medications MEDICAL (GENERAL) HISTORY Type Description Date Medical History PTSD Medical History scoliosis Medical History Heart palpitations Medical History Anxiety Surgical History C section x 2 03/2014 Surgical History Hysterectomy - partial 11/2015 Surgical History Right ov removed- appendectomy 06/29/16 Hospitalization History of son Hospitalization History surgeries Hospitalization History pyelonephritis-H 10/02/16 Hospitalization History kindey infection 10/03/2017
--- NOTE | 2017-11-24 03:10 | OPERATIVE REPORT ---
DATE OF SERVICE: 11/23/2017 PREOPERATIVE DIAGNOSES: 1. Gastritis. 2. Biliary dyskinesia. POSTOPERATIVE DIAGNOSES: 1. Gastritis. 2. Biliary dyskinesia. PROCEDURE: 1. EGD with biopsy. 2. Laparoscopic cholecystectomy, intraoperative cholangiogram. SURGEON: Navdeep Mosquera DO. VICE PRESIDENT [employer]IDENTIAL [employer] SALES: Jack Jennings DO. ANESTHESIA: General endotracheal tube. SPECIMEN: 1. Biopsy from EGD. 2. Gallbladder and contents. BLOOD LOSS: Scant. FLUIDS: Per anesthesia. POSTOPERATIVE CONDITION: Stable. INDICATION FOR PROCEDURE: The patient is a 27-year-old female who has been having severe abdominal pain associated with some reflux symptoms, burning in her chest and acid coming up, thought maybe she had ulcers or exposure to H. pylori. She needed EGD. She was also having some symptoms that seem to indicate cholecystitis and she had a HIDA scan, which showed some biliary dyskinesia and low ejection fraction. FINDINGS: The patient had some erythema in the stomach at the antrum, did not appear to have any hiatal hernia, did not really appear to have any changes at the GE junction. Gallbladder appeared normal with some adhesions at the base. PROCEDURE NOTE: After informed consent was obtained, the patient was brought to the operating room, placed on the table in supine position. She had been intubated and we started with the EGD first, placed a scope down the mouth into the esophagus and down into the stomach down towards the antrum. Took a picture of the antrum, looked like there was a little bit of erythema, pushed into the duodenum. Duodenum looked fine. Took a biopsy in the antrum, then pulled back and retroflexed to take a look at the upper portion, do not appear to be any hiatal hernia and then pulled this back up into the esophagus. GE junction looked okay and then continued to pull the scope up and out the mouth. At this point, she was then sterilely prepped and draped in normal fashion. Local lidocaine was used to infiltrate the skin above the umbilicus. Made incision with #11 blade, carried down through the skin into subcutaneous tissue, then deepened down through subcutaneous tissue with Bovie electrocautery down to the fascia. Fascia incised with Bovie electrocautery. Bluntly entered the abdomen, swept the finger around, placed 0 Vicryl ovbagm-zt-[id number] suture and placed an 11 mm trocar port under direct visualization. Created pneumoperitoneum and then placed 3 more ports in normal fashion using local lidocaine, 11 blade for stab incision and VersaStep system, all done under direct visualization, one in subxiphoid, 2 in the right upper quadrant. The patient was then placed in reverse Trendelenburg and rotated left, able to visualize the gallbladder, grasped at the fundus and taken in superior direction and then grasped at Nanette's pouch and pulled in inferolateral direction, started dissecting out cystic duct and cystic artery. I was able to get around the cystic duct and the cystic artery and placed 1 clip distally on the cystic duct and one clip distally on the cystic artery and two proximally on the cystic artery. I was then able to cut the cystic duct usp through with Metzenbaum scissors. Placed a cholangiogram catheter and shot a cholangiogram. Good spillage of dye down the common bile duct into the small intestine as well as then up into common hepatic and right and left hepatics. Removed the cholangiogram catheter, placed 2 clips proximally on the cystic duct and cut the cystic duct and cystic artery with Metzenbaum scissors and then took the gallbladder off the bed of liver with L-hook cautery and once it was completely removed, switched to 5 mm camera, placed a bag in the abdomen, placed the gallbladder in the bag and then removed this through the supraumbilical incision. Placed the port back in the abdomen, copiously irrigated with normal saline. Hemostasis obtained. There was no bleeding from the bed of liver. The patient was then placed supine and then removed all ports under direct visualization, allowed pneumoperitoneum to escape. Closed the supraumbilical incision, closed the fascia with 0 Vicryl previously placed. Copiously irrigated all incisions with normal saline. Closed the three small 5 mm incisions with a single interrupted 4-0 undyed Monocryl subcuticular stitch. Closed the supraumbilical incision with 3 interrupted 4-0 undyed Monocryl subcuticular stitches. Area was cleaned and dried. Dermabond placed and then Band-Aids. The patient then transferred to recovery room in stable condition. Sponge, instruments and needle counts correct at the end of the case. Dr. Jennings assisted in the case helping to make incisions, closing incisions as well as helping holding anatomy up and then identified anatomy. Job ID: [id number] DocumentID: [id number] Dictated Date: 11/24/2017 00:51:19 Mercantile Agent Date: 11/24/2017 03:09:22 Dictated By: DO STEPHEN RIGGINS
== END 2017-11-23 14:11 | disposition home or self-care (01) ==
LOC: SDC 08:51
PROVIDERS: ATTEND Surgery
DX: K81.1 Chronic cholecystitis (principal); K29.70 Gastritis, unspecified, without bleeding; K21.9 Gastro-esophageal reflux disease without esophagitis; F17.210 Nicotine dependence, cigarettes, uncomplicated
CPT/HCPCS: 87081; 88304; 88305

== ENCOUNTER 2018-03-08 18:03 | Emergency (ER) | payer MEDICAID ==
[~2018-03-08] VITALS: Ht 160 cm; Wt 68.0 kg
--- OUTSIDE RECORDS SUMMARY | 2018-03-08 18:09 | XMS REPORT ---
Author Author KEO DEUTSCH Organization [facility] [place] Address [address] [place] [address] Care Team Providers Care Bonsai Tender Name Role Phone KEO DEUTSCH Unavailable PROBLEMS Type Condition ICD9-CM Code EMY09-YC Code Onset Dates Condition Status SNOMED Code Problem Heartburn R12 Active 16573568 Problem Anxiety F41.9 Active 68148280 Problem Fibromyalgia M79.7 Active 492978066 Problem Major depressive disorder, recurrent episode, moderate F33.1 Active 520612946 Problem Posttraumatic stress disorder F43.10 Active 47993249 Problem Restless leg syndrome G25.81 Active 99095347 Problem Mood disorder F39 Active 52715534 ALLERGIES No Information ENCOUNTERS Encounter Location Date Diagnosis [facility] [place] [id number] [place] [address]51- 0539 Oct, [facility] [place] [address] [address]- [address] Oct, Right upper quadrant pain R10.11 [facility] [place] [id number] [place] [address] 19008- 1735 Oct, [facility] [place] [id number] [place] [address] 39708- 8328 Oct, Right upper quadrant pain R10.11 [facility] [place] [id number] [place] [address] 78853- 0862 Sep, Pyelonephritis N12 [facility] [place] [address] 00969- 3879 Sep, [facility] [id number] [place] [address] 43159 -4198 July, Seasonal allergic rhinitis, unspecified trigger J30.2 ; Cough R05 ; Allergic rhinitis, unspecified seasonality, unspecified trigger J30.9 and Sore throat J02.9 [facility] [place] [id number] [place] [address] 18594- 8719 Jun, [facility] [place] [address] 51283- 7527 Jun, [facility] [address] 80[address]2924 14 Jun, 2017 Flank pain R10.9 and Acute cystitis with hematuria N30.01 [place] [address] [address]80- 6979 Jun, Acute cystitis with hematuria N30.01 [place] [address] 43508- 2340 Dec, Wheezing R06.2 and Sinus pressure J34.89 [place] [address] 08926- 4797 Sep, Pyelonephritis N12 [facility] [address] [id number] Sep, [facility] [address] [id number] Aug, Dental examination Z01.20 [facility] [place] [id number] [place] [address] 92864 -7818 July, [facility] [place] [id number] [place] [address] 82427 -1700 July, Foot injury, right, initial encounter S99.921A ; Foot injury, left, initial encounter S99.922A and Sprain of left ankle, unspecified ligament, initial encounter S93.402A [facility] [place] [address] 37959 -6894 Mar, Bronchitis J40 [facility] [place] [address] 93232- 5052 Feb, Dental examination Z01.20 [place] [address] [address] Jan, Anxiety F41.9 [facility] [id number] [place] [address] 07117 -3398 Dec, Wrist pain, right M25.531 [facility] [place] [id number] [place] [address] 19648- 4708 Dec, [facility] [id number] [place] [address] 32468 -3350 Dec, Right wrist pain M25.531 [facility] [place] [id number] [place] [address] 89637- 7217 Dec, [facility] [place] [id number] [place] [address] 24716- 9834 Dec, [facility] [place] [id number] [place] [address] 21065- 2856 Dec, Major depressive disorder, recurrent episode, moderate F33.1 and Posttraumatic stress disorder F43.10 [facility] [place] [id number] [place] [address] 48003- 1918 Dec, [facility] [place] [id number] [place] [address] 42800- 8245 Dec, [facility] [place] [id number] [place] [address] 18603- 4263 Dec, [facility] [place] [id number] [place] [address] 09136- 4791 Dec, Mood disorder F39 ; Restless leg syndrome G25.81 and Fibromyalgia M79.7 [facility] [place] [id number] [place] [address] 89959- 3846 Nov, Major depressive disorder, recurrent episode, moderate F33.1 and Posttraumatic stress disorder F43.10 [facility] [address] [place] [address] 91388 -7895 25 Aug, 2016 Dysuria R30.0 and Acute sinusitis, recurrence not specified , unspecified location J01.90 [facility] [id number] [id number] Apr, Dental examination Z01.20 [facility] [place] [address] [place] [address] 78188- 8625 18 Feb, 2015 [facility] [place] [id number] [place] [address] 27274- 1916 Feb, [facility] [place] [id number] [place] [address] 08142- 9053 14 Feb, 2015 Vaginal bleeding during , antepartum O46.90 ; Positive test Z32.01 ; Abdominal cramping R10.9 ; Right upper quadrant pain R10.11 ; Generalized abdominal tenderness R10.817 ; Uterine tenderness N94.9 ; Cervical motion tenderness N94.9 and Heartburn R12 [facility] [place] [id number] [place] [address] 87872- 9647 Jan, Cough R05 and Nausea R11.0 [facility] [place] [id number] [place] [address] 09401- 2485 Jan, Acute nasopharyngitis J00 [facility] [place] [id number] [place] [address] 21310- 4680 Jan, Acute nasopharyngitis J00 [facility] [place] [id number] [place] [address] 44658- 6134 Dec, Right upper quadrant abdominal pain R10.11 [facility] [place] [id number] [place] [address] 37347- 0624 Dec, [facility] [place] [id number] [place] [address] 96594- 4649 Dec, [facility] [place] [id number] [place] [address] 06619- 7943 13 Dec, 2014 Left upper quadrant pain R10.12 and Diarrhea R19.7 [facility] [place] [address] [place] [address]- 9460 12 Dec, 2014 [facility] [place] [facility] [address] [id number] [place] [address]- 9561 07 Dec, 2014 Left upper quadrant pain R10.12 [facility] [place] [facility] [address] [id number] [place] [address]- 2827 14 Jun, 2014 [facility] [place] [facility] [address] [id number] [place] [address]- 7521 13 Jun, 2014 [facility] [place] [facility] [address] [id number] [place] [address]- 3421 09 May, 2014 [facility] [place] [facility] [address] [id number] [place] [address]- 4793 May, 2014 [facility] [place] [facility] [address] [id number] [place] [address]- 3844 May, 2014 [facility] [place] [facility] [address] [id number] [place] [address]- 3438 Dec, [facility] [place] [facility] [address] [id number] [place] [address]- 3120 31 Dec, 2013 [facility] [place] [facility] [address] [id number] [place] [address]- 8353 24 Dec, 2013 [facility] [place] [facility] [address] [id number] [place] [address]- 7911 24 Dec, 2013 [facility] [place] [facility] [address] [id number] [place] [address]- 6990 Dec, [facility] [place] [facility] [address] [id number] [place] [address]- 2752 Dec, [facility] [place] [facility] [address] [id number] [place] [address]- 0534 15 Dec, 2013 [facility] [place] [facility] [address] [id number] [place] [address]- 6122 15 Dec, 2013 [facility] [place] [facility] [address] [id number] [place] [address]- 2660 14 Dec, 2013 [facility] [place] [facility] [address] [id number] [place] [address]- 7005 14 Dec, 2013 [facility] [place] [facility] [address] [id number] [place] [address]- 3978 13 Dec, 2013 [facility] [place] [facility] [address] [id number] [place] [address]- 6764 Dec, [facility] [place] [facility] [address] [id number] [place] [address]- 7657 Dec, [facility] [place] [facility] [address] [id number] [place] [address]- 5047 Dec, [facility] [place] [facility] [address] [id number] [place] [address]- 6545 23 Nov, 2013 [facility] [place] [facility] [address] [id number] [place] [address]- 2694 23 Nov, 2013 [facility] [place] [facility] [address] [id number] [place] [address]- 3860 22 Nov, 2013 [facility] [place] [facility] [address] [id number] [place] [address]- 0028 22 Nov, 2013 [facility] [place] [facility] [address] [id number] [place] [address]- 0848 18 Nov, 2013 [facility] [place] [facility] [address] [id number], [place] [address]- 1398 18 Nov, 2013 [facility] [place] [facility] [address] [id number], [place] [address]- 6612 11 Nov, 2013 [facility] [place] [facility] [address] [id number] [place] [address]- 8669 11 Nov, 2013 [facility] [place] [facility] [address] [id number], [place] [address]- 9500 03 Nov, 2013 [facility] [place] [facility] [address] [id number] [place] [address]- 6636 03 Nov, 2013 [facility] [place] [facility] [address] [id number] [place] [address]- 1117 Oct, [facility] [place] [facility] [address] [id number] [place] [address]- 0530 Oct, [facility] [place] [facility] [address] [id number] [place] [address]- 7892 Oct, [facility] [place] [facility] [address] [id number] [place] [address]- 7519 Oct, [facility] [place] [facility] [address] [id number] [place] [address]- 5194 Oct, [facility] [place] [facility] [address] [id number] [place] [address]- 8207 Oct, [facility] [place] [facility] [address] [id number] [place] [address]- 3932 Oct, [facility] [place] [facility] [address] [id number] [place] [address]- 0448 Oct, [facility] [place] [facility] [address] [id number] [place] [address]- 5870 Oct, [facility] [place] [facility] [address] [id number] [place] [address]- 5864 Oct, [facility] [place] [facility] [address] [id number] [place] [address]- 1069 Oct, [facility] [place] [facility] [address] [id number] [place] [address]- 3885 Oct, [facility] [place] [facility] [address] [id number] [place] [address]- 0267 Oct, [facility] [place] [facility] [address] [id number] [place] [address]- 6315 Sep, [facility] [place] [facility] [address] [id number] [place] [address]- 3372 Sep, [facility] [place] [facility] [address] [id number] [place] [address]- 6341 Sep, [facility] [place] [facility] [address] [id number] [place] [address]- 2966 Aug, [facility] [place] [facility] [address] [id number] [place] [address]- 4931 Aug, [facility] [place] [facility] [address] [id number] [place] [address]- 5989 Aug, [facility] [place] [facility] [address] [id number] [place] [address]- 6746 Aug, [facility] [place] [facility] [address] [id number] [place] [address]- 7502 July, [facility] [place] [facility] [address] [id number] [place] [address]- 5211 July, [facility] [place] [facility] [address] [id number] [place] [address]- 1246 July, [facility] [place] [facility] [address] [id number] [place] [address]- 6448 July, [facility] [place] [facility] [address] [id number] [place] [address]- 2765 Apr, [facility] [place] [facility] [address] [id number] [place] [address]- 2519 Apr, [facility] [place] [facility] [address] [id number] [place] [address]- 9288 Mar, [facility] [place] [facility] [address] [id number] [place] [address]- 5208 Mar, [facility] [place] [facility] [address] [id number] [place] [address]- 5767 Mar, [facility] [place] [facility] [address] [id number] [place] [address]- 0232 Mar, [facility] [place] [facility] [address] [id number] [place] [address]- 5255 Mar, [facility] [place] [facility] [address] [id number], [place] [address]- 9058 Mar, [facility] [address] [id number] [place] [address]- 9197 Mar, [facility] [place] [facility] [address] [id number] [place] [address]- 3312 Mar, [facility] [place] [facility] [address] [id number] [place] [address]- 7244 Mar, [facility] [place] [facility] [address] [id number] [place] [address]- 3210 Mar, [facility] [place] [facility] [address] [id number] [place] [address]- 1382 Mar, [facility] [place] [facility] [address] [id number] [place] [address]- 2838 Mar, [facility] [address] [id number] [place] [address]- 0813 Feb, [facility] [place] [facility] [address] [id number] [place] [address]- 1569 Feb, [facility] [place] [facility] [address] [id number] [place] [address]- 3375 Feb, [facility] [place] [facility] [address] [id number] [place] [address]- 2151 Feb, [facility] [place] [facility] [address] [id number] [place] [address]- 4822 Feb, [facility] [place] [facility] [address] [id number] [place] [address]- 4914 Feb, [facility] [place] [facility] [address] [id number] [place] [address]- 0959 Jan, [facility] [place] [facility] [address] [id number] [place] [address]- 3938 Jan, [facility] [place] [facility] [address] [id number] [place] [address]- 5527 Jan, [facility] [place] [facility] [address] [id number] [place] [address]- 2355 Dec, [facility] [address] [id number] [place] [address]- 2780 Dec, [facility] [address] [id number] [place] [address]- 2546 Dec, [facility] [address] [id number] [place] [address]- 5194 Nov, [facility] [address] [id number] [place] [address]- 7156 Oct, [facility] [address] [id number] [place] [address]- 0985 Oct, [facility] [address] [id number] [place] [address]- 5141 Sep, [facility] [address] [id number] [place] [address]- 1604 Sep, [facility] [address] [id number] [place] [address]- 3665 Sep, [facility] [address] [id number] [place] [address]- 0167 Sep, [facility] [address] [id number] [place] [address]- 2040 Jun, [facility] [address] [id number] [place] [address]- 1034 Jun, [facility] [address] [id number] [place] [address]- 9852 May, [facility] [address] [id number] [place] [address]- 7678 July, [facility] [address] [id number] [place] [address]- 2546 July, [facility] [address] [id number] [place] [address]- 6325 July, [facility] [address] [id number] [place] [address]- 9509 July, [facility] [place] [facility] [address] [id number] [place] [address]- 1830 July, [facility] [place] [facility] [address] [id number] [place] [address]- 9055 July, [facility] [place] [facility] [address] [id number] [place] [address]- 3759 July, [facility] [place] [facility] [address] [id number] [place] [address] July, [facility] [place] [facility] [address] [id number] [place] [address] Jun, [facility] [place] [facility] [address] [id number] [place] [address] May, [facility] [place] [facility] [address] [id number] [place] [address] May, [facility] [place] [facility] [address] [id number] [place] [address] Dec, [facility] [place] [facility] [address] [id number] [place] [address] Dec, [facility] [place] [facility] [address] [id number] [place] [address] Dec, [facility] [place] [facility] [address] [id number], [place] [address] Jun, [facility] [place] [facility] [address] [id number] [place] [address] May, [facility] [place] [facility] [address] [id number] [place] [address] Apr, [facility] [place] [facility] [address] [id number] [place] [address] Mar, [facility] [place] [facility] [address] [id number], [place] [address] 30 Feb, 2010 [facility] [place] [id number], [place] [address] 17 Feb, 2010 [facility] [place] [address] [facility] [id number], [place] [address] Feb, [facility] [place] [id number], [place] [address] Feb, [facility] [place] [id number], [place] [address] 24 Jan, 2010 [facility], [place] [id number] [place] [address] Jan, [facility], [place] [id number], [place] [address] Jan, [facility] [place] [id number] [place] [address] Dec, [facility] [place] [id number], [place] [address] Dec, [facility], [place] [id number], [place] [address] Dec, [facility] [place] [address] [id number], [place] [address] Dec, IMMUNIZATIONS No Known Immunizations SOCIAL HISTORY Never Assessed REASON FOR VISIT HIDA results PLAN OF CARE VITAL SIGNS MEDICATIONS Unknown [...] of son Hospitalization History surgeries Hospitalization History pyelonephritis-[facility] 10/02/16 Hospitalization History kindey infection 10/03/2017
--- OUTSIDE RECORDS SUMMARY | 2018-03-08 18:10 | XMS REPORT ---
Author Author KEO DEUTSCH Organization [facility] Address [address] [place] [address] Care Team Providers Care Edge Plugger Name Role Phone KEO DEUTSCH Unavailable PROBLEMS Type Condition ICD9-CM Code [id number] Code Onset Dates Condition Status SNOMED Code Problem Heartburn R12 Active 50547438 Problem Anxiety F41.9 Active 10087586 Problem Fibromyalgia M79.7 Active 903033984 Problem Major depressive disorder, recurrent episode, moderate F33.1 Active 378785703 Problem Posttraumatic stress disorder F43.10 Active 62302316 Problem Restless leg syndrome G25.81 Active 34128712 Problem Mood disorder F39 Active [id number] ALLERGIES No Information ENCOUNTERS Encounter Location Date Diagnosis [facility] [id number] [place] [address] 05068- 2162 Oct, [facility] [address] 66150- [address]91 Oct, Right upper quadrant pain R10.11 [facility] [id number] [place] [address] 13628- 0796 Oct, [facility] [id number] [place] [address] 24234- 4666 Oct, Right upper quadrant pain R10.11 [facility] [id number] [place] [address] 82181- 9701 Sep, Pyelonephritis N12 [facility] [address] 45457- 2787 Sep, [facility] [id number] [place] [address] 61160 -8942 July, Seasonal allergic rhinitis, unspecified trigger J30.2 ; Cough R05 ; Allergic rhinitis, unspecified seasonality, unspecified trigger J30.9 and Sore throat J02.9 [facility] [id number] [place] [address] 39632- 1015 Jun, [facility] [address] 98506- 2874 Jun, [facility] [address] 43946 -9496 14 Jun, 2017 Flank pain R10.9 and Acute cystitis with hematuria N30.01 [place] [address] 91482- 5000 Jun, Acute cystitis with hematuria N30.01 [place] [address] 38814- 4385 Dec, Wheezing R06.2 and Sinus pressure J34.89 [place] [address] 25687- 7623 Sep, Pyelonephritis N12 [facility] [address] [id number] Sep, [facility] [address] [id number] Aug, Dental examination Z01.20 [facility] [place] [id number] [place] [address] 18335 -3608 July, [facility] [place] [id number] [place] [address] 90992 -4527 July, Foot injury, right, initial encounter S99.921A ; Foot injury, left, initial encounter S99.922A and Sprain of left ankle, unspecified ligament, initial encounter S93.402A [facility] [place] [address] 62967 -8755 Mar, Bronchitis J40 [facility] [address] 40524- 1632 Feb, Dental examination Z01.20 [place] [address] [address] 3733 Jan, Anxiety F41.9 [facility] [id number] [place] [address] 09128 -0192 Dec, Wrist pain, right M25.531 [facility] [id number] [place] [address] 21023- 5312 Dec, [facility] [id number] [place] [address] 07695 -9054 Dec, Right wrist pain M25.531 [facility] [id number] [place] [address] 25544- 4095 Dec, [facility] [id number] [place] [address] 72460- 6335 Dec, [facility] [id number] [place] [address] 94726- 2827 Dec, Major depressive disorder, recurrent episode, moderate F33.1 and Posttraumatic stress disorder F43.10 [facility] [id number] [place] [address] 55766- 6257 Dec, [facility] [id number] [place] [address] 91630- 9432 Dec, [facility] [id number] [place] [address] 55674- 8543 Dec, [facility] [id number] [place] [address] 73614- 3418 Dec, Mood disorder F39 ; Restless leg syndrome G25.81 and Fibromyalgia M79.7 [facility] [id number] [place] [address] 16967- 0717 Nov, Major depressive disorder, recurrent episode, moderate F33.1 and Posttraumatic stress disorder F43.10 [facility] [id number] [place] [address] 25572 -4601 25 Aug, 2016 Dysuria R30.0 and Acute sinusitis, recurrence not specified , unspecified location J01.90 [facility] [id number] [id number] Apr, Dental examination Z01.20 [facility] [id number] [place] [address] 56248- 5339 18 Feb, 2015 [facility] [id number] [place] [address] 56102- 0922 Feb, [facility] [id number] [place] [address] 77232- 4727 14 Feb, 2015 Vaginal bleeding during , antepartum O46.90 ; Positive test Z32.01 ; Abdominal cramping R10.9 ; Right upper quadrant pain R10.11 ; Generalized abdominal tenderness R10.817 ; Uterine tenderness N94.9 ; Cervical motion tenderness N94.9 and Heartburn R12 [facility] [id number] [place] [address] 00470- 7238 Jan, Cough R05 and Nausea R11.0 [facility] [id number] [place] [address] 36979- 3808 Jan, Acute nasopharyngitis J00 [facility] [id number] [place] [address] 24400- 4338 Jan, Acute nasopharyngitis J00 [facility] [id number] [place] [address] 95663- 8855 Dec, Right upper quadrant abdominal pain R10.11 [facility] [id number] [place] [address] 06602- 9983 Dec, [facility] [id number] [place] [address] 00863- 3414 Dec, [facility] [id number] [place] [address] 28432- 9644 13 Dec, 2014 Left upper quadrant pain R10.12 and Diarrhea R19.7 [facility] [address] [place] [address]- 8243 12 Dec, 2014 [facility] [place] [facility] [address] [id number] [place] [address]- 4915 07 Dec, 2014 Left upper quadrant pain R10.12 [facility] [place] [facility] [address] [id number] [place] [address]- 4669 14 Jun, 2014 [facility] [place] [facility] [address] [id number] [place] [address]- 2085 13 Jun, 2014 [facility] [place] [facility] [address] [id number] [place] [address]- 6070 09 May, 2014 [facility] [place] [facility] [address] [id number] [place] [address]- 3610 May, 2014 [facility] [place] [facility] [address] [id number] [place] [address]- 0108 May, 2014 [facility] [place] [facility] [address] [id number] [place] [address]- 0776 Dec, [facility] [place] [facility] [address] [id number] [place] [address]- 8398 31 Dec, 2013 [facility] [place] [facility] [address] [id number] [place] [address]- 9422 24 Dec, 2013 [facility] [place] [facility] [address] [id number] [place] [address]- 5944 24 Dec, 2013 [facility] [place] [facility] [address] [id number] [place] [address]- 9942 Dec, [facility] [place] [facility] [address] [id number] [place] [address]- 5754 Dec, [facility] [place] [facility] [address] [id number] [place] [address]- 4064 15 Dec, 2013 [facility] [place] [facility] [address] [id number] [place] [address]- 3614 15 Dec, 2013 [facility] [place] [facility] [address] [id number] [place] [address]- 6903 14 Dec, 2013 [facility] [place] [facility] [address] [id number] [place] [address]- 4621 14 Dec, 2013 [facility] [place] [facility] [address] [id number] [place] [address]- 3257 13 Dec, 2013 [facility] [place] [facility] [address] [id number] [place] [address]- 0696 Dec, [facility] [place] [facility] [address] [id number] [place] [address]- 8215 Dec, [facility] [place] [facility] [address] [id number] [place] [address]- 7587 Dec, [facility] [place] [facility] [address] [id number] [place] [address]- 5014 23 Nov, 2013 [facility] [place] [facility] [address] [id number] [place] [address]- 0259 23 Nov, 2013 [facility] [place] [facility] [address] [id number] [place] [address]- 4604 22 Nov, 2013 [facility] [place] [facility] [address] [id number] [place] [address]- 1865 22 Nov, 2013 [facility] [place] [facility] [address] [id number] [place] [address]- 7790 18 Nov, 2013 [facility] [place] [facility] [address] [id number] [address]- 4478 18 Nov, 2013 [facility] [place] [facility] [address] [id number] [address]- 7324 11 Nov, 2013 [facility] [place] [facility] [address] [id number] [place] [address]- 1573 11 Nov, 2013 [facility] [place] [facility] [address] [id number] [address]- 4607 03 Nov, 2013 [facility] [place] [facility] [address] [id number] [place] [address]- 0692 03 Nov, 2013 [facility] [place] [facility] [address] [id number] [place] [address]- 9020 Oct, [facility] [place] [facility] [address] [id number] [place] [address]- 8328 Oct, [facility] [place] [facility] [address] [id number] [place] [address]- 9316 Oct, [facility] [place] [facility] [address] [id number] [place] [address]- 5353 Oct, [facility] [place] [facility] [address] [id number] [place] [address]- 8505 Oct, [facility] [place] [facility] [address] [id number] [place] [address]- 3244 Oct, [facility] [place] [facility] [address] [id number] [place] [address]- 9137 Oct, [facility] [place] [facility] [address] [id number] [place] [address]- 8793 Oct, [facility] [place] [facility] [address] [id number] [place] [address]- 6656 Oct, [facility] [place] [facility] [address] [id number] [place] [address]- 9425 Oct, [facility] [place] [facility] [address] [id number] [place] [address]- 6159 Oct, [facility] [place] [facility] [address] [id number] [place] [address]- 1450 Oct, [facility] [place] [facility] [address] [id number] [place] [address]- 2782 Oct, [facility] [place] [facility] [address] [id number] [place] [address]- 1785 Sep, [facility] [place] [facility] [address] [id number] [place] [address]- 3338 Sep, [facility] [place] [facility] [address] [id number] [place] [address]- 7125 Sep, [facility] [place] [facility] [address] [id number] [place] [address]- 7903 Aug, [facility] [place] [facility] [address] [id number] [place] [address]- 8204 Aug, [facility] [place] [facility] [address] [id number] [place] [address]- 5882 Aug, [facility] [place] [facility] [address] [id number] [place] [address]- 9369 Aug, [facility] [place] [facility] [address] [id number] [place] [address]- 4525 July, [facility] [place] [facility] [address] [id number] [place] [address]- 7352 July, [facility] [place] [facility] [address] [id number] [place] [address]- 9988 July, [facility] [place] [facility] [address] [id number] [place] [address]- 3168 July, [facility] [place] [facility] [address] [id number] [place] [address]- 5115 Apr, [facility] [place] [facility] [address] [id number] [place] [address]- 8671 Apr, [facility] [place] [facility] [address] [id number] [place] [address]- 3483 Mar, [facility] [place] [facility] [address] [id number] [place] [address]- 9574 Mar, [facility] [place] [facility] [address] [id number] [place] [address]- 0349 Mar, [facility] [place] [facility] [address] [id number] [place] [address]- 3956 Mar, [facility] [place] [facility] [address] [id number] [place] [address]- 7181 Mar, [facility] [place] [facility] [address] [id number] [address]- 0753 Mar, [facility] [address] [id number] [place] [address]- 0755 Mar, [facility] [place] [facility] [address] [id number] [place] [address]- 9044 Mar, [facility] [place] [facility] [address] [id number] [place] [address]- 0021 Mar, [facility] [place] [facility] [address] [id number] [place] [address]- 2023 Mar, [facility] [place] [facility] [address] [id number] [place] [address]- 4198 Mar, [facility] [place] [facility] [address] [id number] [place] [address]- 5923 Mar, [facility] [address] [id number] [place] [address]- 2076 Feb, [facility] [place] [facility] [address] [id number] [place] [address]- 0386 Feb, [facility] [place] [facility] [address] [id number] [place] [address]- 5190 Feb, [facility] [place] [facility] [address] [id number] [place] [address]- 2917 Feb, [facility] [place] [facility] [address] [id number] [place] [address]- 1279 Feb, [facility] [place] [facility] [address] [id number] [place] [address]- 2528 Feb, [facility] [place] [facility] [address] [id number] [place] [address]- 3362 Jan, [facility] [place] [facility] [address] [id number] [place] [address]- 5419 Jan, [facility] [place] [facility] [address] [id number] [place] [address]- 9813 Jan, [facility] [place] [facility] [address] [id number] [place] [address]- 3080 Dec, [facility] [address] [id number] [place] [address]- 6746 Dec, [facility] [address] [id number] [place] [address]- 2546 Dec, [facility] [address] [id number] [place] [address]- 5578 Nov, [facility] [address] [id number] [place] [address]- 6888 Oct, [facility] [address] [id number] [place] [address]- 2615 Oct, [facility] [address] [id number] [place] [address]- 4260 Sep, [facility] [address] [id number] [place] [address]- 3821 Sep, [facility] [address] [id number] [place] [address]- 3328 Sep, [facility] [address] [id number] [place] [address]- 4898 Sep, [facility] [address] [id number] [place] [address]- 6537 Jun, [facility] [address] [id number] [place] [address]- 0038 Jun, [facility] [address] [id number] [place] [address]- 7451 May, [facility] [address] [id number] [place] [address]- 6730 July, [facility] [address] [id number] [place] [address]- 2546 July, [facility] [address] [id number] [place] [address]- 1437 July, [facility] [address] [id number] [place] [address]- 5928 July, [facility] [place] [facility] [address] [id number] [place] [address]- 0373 July, [facility] [place] [facility] [address] [id number] [place] [address]- 8487 July, [facility] [place] [facility] [address] [id number] [place] [address]- 7081 July, [facility] [place] [facility] [address] [id number] [place] [address]- 8654 July, [facility] [place] [facility] [address] [id number] [place] [address]- 2711 Jun, [facility] [place] [facility] [address] [id number] [place] [address]- 3303 May, [facility] [place] [facility] [address] [id number] [place] [address]- 3279 May, [facility] [place] [facility] [address] [id number] [place] [address]- 4654 Dec, [facility] [place] [facility] [address] [id number] [place] [address]- 3506 Dec, [facility] [place] [facility] [address] [id number] [place] [address]- 9763 Dec, [facility] [place] [facility] [address] [id number] [address]- 5006 Jun, [facility] [place] [facility] [address] [id number] [place] [address]- 6435 May, [facility] [place] [facility] [address] [id number] [place] [address]- 2754 Apr, [facility] [place] [facility] [address] [id number] [place] [address]- 8032 Mar, [facility] [place] [facility] [address] [id number] [address]- 3094 30 Feb, 2010 [facility] [address] [address]- 9751 17 Feb, 2010 [facility] [address] [address]- 0191 Feb, [facility] [address] [address]- 6999 16 Feb, 2010 [facility] [address] [address]- 1661 24 Jan, 2010 [facility] [id number] [place] [address] 33306- 4449 Jan, [facility] [id number] [place] [address] 04484- 0438 Jan, [facility] [id number] [place] [address] 99085- 7158 Dec, [facility] [address] [address]- 7371 Dec, [facility] [address] [address]- 9174 Dec, [facility] [address] [id number] [address] 1945 Dec, IMMUNIZATIONS No Known Immunizations SOCIAL HISTORY Never Assessed REASON FOR VISIT gallbladder ultrasound PLAN OF CARE VITAL SIGNS MEDICATIONS Unknown Medications RESULTS Name Result Date Reference Range Ultrasound : Gallbladder 2017-10-27 HIDA Scan 2017-11-02 PROCEDURES No Known procedures INSTRUCTIONS MEDICATIONS ADMINISTERED [...]
--- OUTSIDE RECORDS SUMMARY | 2018-03-08 18:10 | XMS REPORT ---
Author Author KEO DEUTSCH Organization [facility] Address [address] [place] [address] Care Team Providers Care Caustic Operator Name Role Phone KEO DEUTSCH Unavailable PROBLEMS Type Condition ICD9-CM Code JDD48-NC Code Onset Dates Condition Status SNOMED Code Problem Heartburn R12 Active 62053925 Problem Anxiety F41.9 Active 70699699 Problem Fibromyalgia M79.7 Active 166786933 Problem Major depressive disorder, recurrent episode, moderate F33.1 Active 066669164 Problem Posttraumatic stress disorder F43.10 Active 95802716 Problem Restless leg syndrome G25.81 Active 00245443 Problem Mood disorder F39 Active 48720538 ALLERGIES Substance Reaction Event Type Date Status Azithromycin Unknown Drug Allergy Oct, Active ENCOUNTERS Encounter Location Date Diagnosis [facility] [id number] [place] [address] 73492- 5164 Oct, [facility] [address] 23996- 9642 Oct, Right upper quadrant pain R10.11 [facility] [id number] [place] [address] 16449- 9969 Oct, [facility] [id number] [place] [address] 59766- 4088 Oct, Right upper quadrant pain R10.11 [facility] [id number] [place] [address] 08251- 7773 Sep, Pyelonephritis N12 [facility] [address] 93063- 1425 Sep, [facility] [id number] [place] [address] 29967 -6476 July, Seasonal allergic rhinitis, unspecified trigger J30.2 ; Cough R05 ; Allergic rhinitis, unspecified seasonality, unspecified trigger J30.9 and Sore throat J02.9 [place] [address] 18872- 3980 Jun, [facility] [address] 92086- 6188 Jun, [facility] [place] [address] 51299 -7961 Jun, Flank pain R10.9 and Acute cystitis with hematuria N30.01 [place] [address] 30562- 4170 Jun, Acute cystitis with hematuria N30.01 [place] [address] 17882- 5666 04 Dec, 2016 Wheezing R06.2 and Sinus pressure J34.[address] 58622- 6581 Sep, Pyelonephritis N12 [place] [address] [id number] Sep, [facility] [address] [id number] Aug, Dental examination Z01.20 [facility] [place] [address] [address]26 -6412 July, [facility] [address] [address]76 -6809 July, Foot injury, right, initial encounter S99.921A ; Foot injury, left, initial encounter S99.922A and Sprain of left ankle, unspecified ligament, initial encounter S93.402A [facility] [place] [address] 46689 -0297 Mar, Bronchitis J40 [place] [address] 07768- 7660 Feb, Dental examination Z01.20 [facility] [id number] [place] [address] 23740- 4621 Jan, Anxiety F41.9 [facility] [id number] [place] [address] 20851 -7685 Dec, Wrist pain, right M25.531 [facility] [id number] [place] [address] 14613- 8044 Dec, [facility] [id number] [place] [address] 72891 -5896 Dec, Right wrist pain M25.531 [facility] [id number] [place] [address] 42655- 8587 Dec, [facility] [id number] [place] [address] 02817- 6389 Dec, [facility] [id number] [place] [address] 05181- 6299 Dec, Major depressive disorder, recurrent episode, moderate F33.1 and Posttraumatic stress disorder F43.10 [facility] [id number] [place] [address] 94203- 3709 Dec, [facility] [id number] [place] [address] 49305- 6455 Dec, [facility] [id number] [place] [address] 27689- 0297 Dec, [facility] [id number] [place] [address] 40869- 3273 Dec, Mood disorder F39 ; Restless leg syndrome G25.81 and Fibromyalgia M79.7 [facility] [id number] [place] [address] 71374- 1940 Nov, Major depressive disorder, recurrent episode, moderate F33.1 and Posttraumatic stress disorder F43.10 [facility] [id number] [place] [address] 56609 -9372 Oct, Dysuria R30.0 and Acute sinusitis, recurrence not specified , unspecified location J01.90 [facility] [address] [place] [address] [id number] Apr, Dental examination Z01.20 [facility] [id number] [place] [address] 44517- 4568 Feb, [facility] [address] 66929- 4631 Feb, [facility] [id number] [place] [address] 98368- 9205 Feb, Vaginal bleeding during , antepartum O46.90 ; Positive test Z32.01 ; Abdominal cramping R10.9 ; Right upper quadrant pain R10.11 ; Generalized abdominal tenderness R10.817 ; Uterine tenderness N94.9 ; Cervical motion tenderness N94.9 and Heartburn R12 [facility] [id number] [place] [address] 85694- 3515 Jan, Cough R05 and Nausea R11.0 [place] [id number] [place] [address] 04849- 8785 Jan, Acute nasopharyngitis J00 [facility] [id number] [place] [address] 23020- 3116 Jan, Acute nasopharyngitis J00 [facility] [id number] [place] [address] 03464- 1607 Dec, Right upper quadrant abdominal pain R10.11 [facility] [id number] [place] [address] 70290- 6725 16 Dec, 2014 [facility] [address] 12317- 8203 Dec, [facility] [id number] [place] [address] 09504- 3208 13 Dec, 2014 Left upper quadrant pain R10.12 and Diarrhea R19.7 [facility] [address] [id number] [place] [address]- 1240 12 Dec, 2014 [facility] [place] [facility] [address] [id number] [place] [address]- 9333 Dec, Left upper quadrant pain R10.12 [facility] [place] [facility] [address] [id number] [place] [address]- 2336 14 Jun, 2014 [facility] [place] [facility] [address] [id number] [address]- 4667 Jun, [facility] [place] [facility] [address] [id number] [place] [address]- 2087 May, [facility] [place] [facility] [address] [id number] [address]- 7451 May, 2014 [facility] [place] [facility] [address] [facility] [id number] [place] [address]- 5735 May, 2014 [facility] [place] [facility] [address] [id number][place] [address]- 3674 Dec, [facility] [place] [facility] [address] [id number], [place] [address]- 8467 Dec, [facility] [place] [facility] [address] [id number], [place] [address]- 2282 Dec, [facility] [place] [facility] [address] [id number][place] [address]- 2136 24 Dec, 2013 [facility] [place] [facility] [address] [id number][place] [address]- 7944 Dec, [facility] [place] [facility] [address] [id number] [place] [address]- 1635 Dec, [facility] [place] [facility] [address] [facility] [id number][place] [address]- 9035 Dec, [facility] [place] [facility] [address] [facility] [id number], [place] [address]- 6639 Dec, [facility] [place] [facility] [address] [id number] [place] [address]- 2976 14 Dec, 2013 [facility] [place] [facility] [address] [id number] [place] [address]- 7101 14 Dec, 2013 [facility] [place] [facility] [address] [id number] [place] [address]- 7101 13 Dec, 2013 [facility] [place] [facility] [address] [id number] [place] [address]- 1134 Dec, [facility] [place] [facility] [address] [id number] [place] [address]- 8222 Dec, [facility] [place] [facility] [address] [id number] [place] [address]- 5892 Dec, [facility] [place] [facility] [address] [id number] [place] [address]- 8121 23 Nov, 2013 [facility] [place] [facility] [address] [id number] [place] [address]- 8866 23 Nov, 2013 [facility] [place] [facility] [address] [id number] [place] [address]- 1147 22 Nov, 2013 [facility] [place] [facility] [address] [id number] [place] [address] 254 22 Nov, 2013 [facility] [place] [facility] [address] [id number] [place] [address]- 2544 18 Nov, 2013 [facility] [place] [facility] [address] [id number] [place] [address] 2545 18 Nov, 2013 [facility] [place] [facility] [address] [id number] [place] [address]- 2542 11 Nov, 2013 [facility] [place] [facility] [address] [id number] [place] [address] 2544 11 Nov, 2013 [facility] [place] [facility] [address] [id number] [place] [address]- 2545 03 Sep, 2013 [facility] [place] [facility] [address] [id number] [place] [address] 2540 Nov, [facility] [place] [facility] [address] [id number] [place] [address]- 2018 Oct, [facility] [place] [facility] [address] [id number] [place] [address]- 2354 Oct, [facility] [place] [facility] [address] [id number] [place] [address]- 9126 Oct, [facility] [place] [facility] [address] [id number] [place] [address]- 0897 Oct, [facility] [place] [facility] [address] [id number] [place] [address]- 3339 Oct, [facility] [place] [facility] [address] [id number] [place] [address]- 0778 Oct, [facility] [place] [facility] [address] [id number] [place] [address]- 7099 Oct, [facility] [place] [facility] [address] [id number] [place] [address]- 9788 Oct, [facility] [place] [facility] [address] [id number] [place] [address]- 4609 Oct, [facility] [place] [facility] [address] [id number] [place] [address]- 1820 Oct, [facility] [place] [facility] [address] [id number] [place] [address]- 2264 Oct, [facility] [place] [facility] [address] [id number] [place] [address]- 8104 Oct, [facility] [place] [facility] [address] [id number] [place] [address]- 7629 Oct, [facility] [place] [facility] [address] [id number] [place] [address]- 9997 Sep, [facility] [place] [facility] [address] [id number] [place] [address]- 4967 Sep, [facility] [place] [facility] [address] [id number] [place] [address]- 2170 Sep, [facility] [place] [facility] [address] [id number] [place] [address]- 8336 Aug, [facility] [place] [facility] [address] [id number] [place] [address]- 1461 Aug, [facility] [place] [facility] [address] [id number] [place] [address]- 8039 Aug, [facility] [place] [facility] [address] [id number] [place] [address]- 2854 Aug, [facility] [place] [facility] [address] [id number] [place] [address]- 7764 July, [facility] [place] [facility] [address] [id number] [place] [address]- 3234 July, [facility] [place] [facility] [address] [id number] [place] [address]- 1587 July, [facility] [place] [facility] [address] [id number] [place] [address]- 5608 July, [facility] [place] [facility] [address] [id number] [place] [address]- 7851 Apr, [facility] [place] [facility] [address] [id number] [place] [address]- 2155 Apr, [facility] [place] [facility] [address] [id number] [place] [address]- 4854 Mar, [facility] [place] [facility] [address] [id number] [place] [address]- 3333 Mar, [facility] [place] [facility] [address] [id number] [place] [address]- 3478 Mar, [facility] [place] [facility] [address] [id number] [place] [address]- 4671 Mar, [facility] [place] [facility] [address] [id number] [place] [address]- 3674 Mar, [facility] [place] [facility] [address] [id number] [place] [address]- 6685 14 Mar, 2013 [facility] [address] [id number] [place] [address]- 4959 Mar, [facility] [place] [facility] [address] [id number] [place] [address]- 1386 Mar, [facility] [place] [facility] [address] [id number] [place] [address]- 7534 Mar, [facility] [place] [facility] [address] [id number] [place] [address]- 8741 Mar, [facility] [place] [facility] [address] [id number] [place] [address]- 5797 Mar, [facility] [place] [facility] [address] [id number] [place] [address]- 7843 Mar, [facility] [place] [facility] [address] [id number] [place] [address]- 4468 Feb, [facility] [place] [facility] [address] [id number] [place] [address]- 7211 Feb, [facility] [place] [facility] [address] [id number] [place] [address]- 8635 Feb, [facility] [place] [facility] [address] [id number] [place] [address]- 5957 Feb, [facility] [place] [facility] [address] [id number] [place] [address]- 1610 Feb, [facility] [place] [facility] [address] [id number] [place] [address]- 9124 Feb, [facility] [place] [facility] [address] [id number] [place] [address]- 2647 Jan, [facility] [place] [facility] [address] [id number] [place] [address]- 6496 Jan, [facility] [place] [facility] [address] [id number] [place] [address]- 3828 Jan, [facility] [address] [id number] [place] [address]- 6416 Dec, [facility] [place] [facility] [address] [id number] [place] [address]- 0765 Dec, [facility] [place] [facility] [address] [id number] [place] [address]- 9717 Dec, [facility] [place] [facility] [address] [id number] [place] [address]- 8063 Nov, [facility] [place] [facility] [address] [id number] [place] [address]- 9768 Oct, [facility] [place] [facility] [address] [id number] [place] [address]- 2437 Oct, [facility] [place] [facility] [address] [id number] [place] [address]- 6727 Sep, [facility] [place] [facility] [address] [id number] [place] [address]- 4217 Sep, [facility] [place] [facility] [address] [id number] [place] [address]- 5555 Sep, [facility] [place] [facility] [address] [id number] [place] [address]- 7693 Sep, [facility] [place] [facility] [address] [id number] [place] [address]- 5631 Jun, [facility] [place] [facility] [address] [id number], [place] [address]- 7425 Jun, [facility] [place] [facility] [address] [id number] [place] [address]- 2651 May, [facility] [place] [facility] [address] [id number] [place] [address]- 8341 July, [facility] [place] [facility] [address] [id number] [place] [address]- 0909 July, [facility] [place] [facility] [address] [id number] [place] [address]- 9201 July, [facility] [address] [id number] [place] [address]- 8747 July, [facility] [place] [facility] [address] [id number] [place] [address]- 3216 July, [facility] [address] [id number] [place] [address]- 0186 July, [facility] [place] [facility] [address] [id number] [place] [address]- 1905 July, [facility] [place] [facility] [address] [id number] [place] [address]- 4803 July, [facility] [place] [facility] [address] [id number] [place] [address]- 0986 Jun, [facility] [address] [id number] [place] [address]- 3645 May, [facility] [place] [facility] [address] [id number] [place] [address]- 0115 May, [facility] [place] [facility] [address] [id number] [place] [address]- 7722 Dec, [facility] [place] [facility] [address] [id number] [place] [address]- 9294 Dec, [facility] [place] [facility] [address] [id number] [place] [address]- 7016 Dec, [facility] [place] [facility] [address] [id number] [place] [address] 2541 Jun, [facility] [place] [facility] [address] [id number] [place] [address]- 1476 May, [facility] [place] [facility] [address] [id number] [place] [address]- 7296 Apr, [facility] [place] [facility] [address] [id number] [place] [address]- 0689 Mar, [facility] [address] [address]- 0341 30 Feb, 2010 [facility] [address] [address]- 9686 Feb, [facility] [address] [address] 2546 Feb, [facility] [id number] [place] [address] 64959- 9049 Feb, [facility] [id number] [place] [address] 32638- 2327 Jan, [facility] [id number] [place] [address] 56098- 0918 Jan, [facility] [address] [id number] [address] 2540 Jan, [facility] [id number] [place] [address] 82517- 4036 Dec, [facility] [address] [address]- 2811 Dec, [facility] [id number] [place] [address] 47150- 5895 Dec, [facility] [address] [address]- 4155 Dec, IMMUNIZATIONS No Known Immunizations SOCIAL HISTORY Never Assessed REASON FOR VISIT Abdominal pain, reports started in her right side of her back, was put on protonix. Takes bentyl for the spasms. She reports more pain and getting clammy and nauseated with the pain. Still has her gallbladder, was told needed to see a general surgeon but needs a referral. CBrumbackRN PLAN OF CARE VITAL SIGNS Height 64 in 2017-10-23 Weight 151.8 lbs 2017-10-23 Temperature 98.0 degrees Fahrenheit 2017-10-23 Heart Rate 84 bpm 2017-10-23 Respiratory Rate 16 2017-10-23 BMI 26.05 kg/m2 2017-10-23 Blood pressure systolic 130 mmHg 2017-10-23 Blood pressure diastolic 88 mmHg 2017-10-23 MEDICATIONS Medication Instructions Dosage Frequency Start Date End Date Duration Status Bentyl 10 MG Orally Four times a day 1 capsule 6h Active Duloxetine HCl 60 MG Orally daily 1 capsule every morning X 2 weeks then 2 caps every morning. 24h 13 Dec, 2015 Not-Taking Acetaminophen Extra Strength 500 mg Orally every 6 hrs 1-2 tablet as needed 6h Not-Taking Ibuprofen 400 MG Orally every 8 hrs as needed 1 tablet Not- Taking Pepcid 20 MG Orally Once a day 1 tablet at bedtime 24h Not-Taking Flonase 50 MCG/ACT Nasally twice a day 1 spray in each nostril 12h July, 07 days Not-Taking Albion 5-325 MG Orally every 6 hrs 1 tablet as needed 6h Dec, Not-Taking Zofran ODT 4 MG Orally every 4 hrs 1 tablet on the tongue and allow to dissolve as needed 4h Active ProAir HFA 108 (90 Base) MCG/ACT Inhalation every 4 hrs 2 puffs as needed 4h Mar, 7 days Not-Taking Clonazepam 0.5 MG Orally Twice a day 1 tablet 12h Jan, Not- Taking Amoxicillin 500 MG Orally 4 times daily 1 capsule 7 days Not- Taking Cipro 500 MG Orally every 12 hrs 1 tablet 12h Not-Taking Protonix 40 mg Orally Once a day 1 tablet 24h Jan, 30 day(s) Active Cough & Cold 4-30 MG Orally every 6 hrs 1 tablet as needed 6h Not- Taking Ketorolac Tromethamine 10 mg Orally every 6 hrs 1 tablet with food or milk as needed 6h Oct, Oct, 5 day(s) Active RESULTS No Results PROCEDURES No Known procedures INSTRUCTIONS MEDICATIONS ADMINISTERED No Known Medications MEDICAL (GENERAL) HISTORY Type Description Date Medical History PTSD Medical History scoliosis Medical History Heart palpitations Medical History Anxiety Surgical History C section x 2 03/2014 Surgical History Hysterectomy - partial 11/2015 Surgical History Right ov removed- appendectomy 06/29/16 Hospitalization History of son Hospitalization History surgeries Hospitalization History pyelonephritis-VC 10/02/16 Hospitalization History kindey infection 10/03/2017
--- OUTSIDE RECORDS SUMMARY | 2018-03-08 18:10 | XMS REPORT ---
Author Author KEO DEUTSCH Organization [facility] Address [address] [place] [address] Care Team Providers Care Breakfast Manager Name Role Phone KEO DEUTSCH Unavailable PROBLEMS Type Condition ICD9-CM Code TFR89-CR Code Onset Dates Condition Status SNOMED Code Problem Heartburn R12 Active 70310043 Problem Anxiety F41.9 Active 74852410 Problem Fibromyalgia M79.7 Active 600574074 Problem Major depressive disorder, recurrent episode, moderate F33.1 Active 910707185 Problem Posttraumatic stress disorder F43.10 Active 99905368 Problem Restless leg syndrome G25.81 Active 20272270 Problem Mood disorder F39 Active 13690121 ALLERGIES No Information ENCOUNTERS Encounter Location Date Diagnosis [facility] [id number] [place] [address] 17424- 3000 Oct, [facility] [address] [address] Oct, Right upper quadrant pain R10.11 [facility] [id number] [place] [address] 59227- 3629 Oct, [facility] [id number] [place] [address] 53090- 7375 Oct, Right upper quadrant pain R10.11 [facility] [id number] [place] [address] 76613- 7034 Sep, Pyelonephritis N12 [facility] [address] 07186- 5191 Sep, [facility] [id number] [place] [address] 77474 -0809 July, Seasonal allergic rhinitis, unspecified trigger J30.2 ; Cough R05 ; Allergic rhinitis, unspecified seasonality, unspecified trigger J30.9 and Sore throat J02.9 [facility] [id number] [place] [address] 23780- 7759 Jun, [facility] [address] [address]67- 5173 Jun, [facility] [address] 31247 -1648 14 Jun, 2017 Flank pain R10.9 and Acute cystitis with hematuria N30.01 [place] [address] 8[address]38- 8887 Jun, Acute cystitis with hematuria N30.01 [place] [address] 56880- 2515 Dec, Wheezing R06.2 and Sinus pressure J34.89 [place] [address] 06385- 9712 Sep, Pyelonephritis N12 [facility] [address] [id number] Sep, [facility] [address] [id number] Aug, Dental examination Z01.20 [facility] [place] [id number] [place] [address] 35411 -6097 July, [facility] [place] [id number] [place] [address] 11299 -6208 July, Foot injury, right, initial encounter S99.921A ; Foot injury, left, initial encounter S99.922A and Sprain of left ankle, unspecified ligament, initial encounter S93.402A [facility] [place] [address] 53478 -6861 Mar, Bronchitis J40 [facility] [address] 56286- 0161 Feb, Dental examination Z01.20 [place] [address] [address] 9111 Jan, Anxiety F41.9 [facility] [id number] [place] [address] 90938 -3014 Dec, Wrist pain, right M25.531 [facility] [id number] [place] [address] 75400- 7282 Dec, [facility] [id number] [place] [address] 01229 -1084 Dec, Right wrist pain M25.531 [facility] [id number] [place] [address] 75040- 2349 Dec, [facility] [id number] [place] [address] 79063- 4810 Dec, [facility] [id number] [place] [address] 10199- 0239 Dec, Major depressive disorder, recurrent episode, moderate F33.1 and Posttraumatic stress disorder F43.10 [facility] [id number] [place] [address] 36966- 6266 Dec, [facility] [id number] [place] [address] 13004- 6915 Dec, [facility] [id number] [place] [address] 28783- 3019 Dec, [facility] [id number] [place] [address] 12895- 1485 Dec, Mood disorder F39 ; Restless leg syndrome G25.81 and Fibromyalgia M79.7 [facility] [id number] [place] [address] 56326- 0760 Nov, Major depressive disorder, recurrent episode, moderate F33.1 and Posttraumatic stress disorder F43.10 [facility] [id number] [place] [address] 80720 -0243 25 Aug, 2016 Dysuria R30.0 and Acute sinusitis, recurrence not specified , unspecified location J01.90 [facility] [id number] [id number] Apr, Dental examination Z01.20 [facility] [id number] [place] [address] 19183- 1315 18 Feb, 2015 [facility] [id number] [place] [address] 17317- 1835 Feb, [facility] [id number] [place] [address] 28238- 2252 14 Feb, 2015 Vaginal bleeding during , antepartum O46.90 ; Positive test Z32.01 ; Abdominal cramping R10.9 ; Right upper quadrant pain R10.11 ; Generalized abdominal tenderness R10.817 ; Uterine tenderness N94.9 ; Cervical motion tenderness N94.9 and Heartburn R12 [facility] [id number] [place] [address] 59278- 8243 Jan, Cough R05 and Nausea R11.0 [facility] [id number] [place] [address] 76718- 5690 Jan, Acute nasopharyngitis J00 [facility] [id number] [place] [address] 14459- 7962 Jan, Acute nasopharyngitis J00 [facility] [id number] [place] [address] 19080- 2476 Dec, Right upper quadrant abdominal pain R10.11 [facility] [id number] [place] [address] 01366- 5918 Dec, [facility] [id number] [place] [address] 53637- 3298 Dec, [facility] [id number] [place] [address] 26998- 0842 13 Dec, 2014 Left upper quadrant pain R10.12 and Diarrhea R19.7 [facility] [address] [place] [address]- 5976 12 Dec, 2014 [facility] [place] [facility] [address] [id number] [place] [address]- 3833 07 Dec, 2014 Left upper quadrant pain R10.12 [facility] [place] [facility] [address] [id number] [place] [address]- 3695 14 Jun, 2014 [facility] [place] [facility] [address] [id number] [place] [address]- 5728 13 Jun, 2014 [facility] [place] [facility] [address] [id number] [place] [address]- 1056 09 May, 2014 [facility] [place] [facility] [address] [id number] [place] [address]- 5794 May, 2014 [facility] [place] [facility] [address] [id number] [place] [address]- 7748 May, 2014 [facility] [place] [facility] [address] [id number] [place] [address]- 9707 Dec, [facility] [place] [facility] [address] [id number] [place] [address]- 3376 31 Dec, 2013 [facility] [place] [facility] [address] [id number] [place] [address]- 3114 24 Dec, 2013 [facility] [place] [facility] [address] [id number] [place] [address]- 1643 24 Dec, 2013 [facility] [place] [facility] [address] [id number] [place] [address]- 2420 Dec, [facility] [place] [facility] [address] [id number] [place] [address]- 5010 Dec, [facility] [place] [facility] [address] [id number] [place] [address]- 4819 15 Dec, 2013 [facility] [place] [facility] [address] [id number] [place] [address]- 2007 15 Dec, 2013 [facility] [place] [facility] [address] [id number] [place] [address]- 2600 14 Dec, 2013 [facility] [place] [facility] [address] [id number] [place] [address]- 5373 14 Dec, 2013 [facility] [place] [facility] [address] [id number] [place] [address]- 7618 13 Dec, 2013 [facility] [place] [facility] [address] [id number] [place] [address]- 3862 Dec, [facility] [place] [facility] [address] [id number] [place] [address]- 9094 Dec, [facility] [place] [facility] [address] [id number] [place] [address]- 2824 Dec, [facility] [place] [facility] [address] [id number] [place] [address]- 9779 23 Nov, 2013 [facility] [place] [facility] [address] [id number] [place] [address]- 7184 23 Nov, 2013 [facility] [place] [facility] [address] [id number] [place] [address]- 7898 22 Nov, 2013 [facility] [place] [facility] [address] [id number] [place] [address]- 2487 22 Nov, 2013 [facility] [place] [facility] [address] [id number] [place] [address]- 7553 18 Nov, 2013 [facility] [place] [facility] [address] [id number], [place] [address]- 5610 18 Nov, 2013 [facility] [place] [facility] [address] [id number], [place] [address]- 0227 11 Nov, 2013 [facility] [place] [facility] [address] [id number] [place] [address]- 9340 11 Nov, 2013 [facility] [place] [facility] [address] [id number], [place] [address]- 6903 03 Nov, 2013 [facility] [place] [facility] [address] [id number] [place] [address]- 5417 03 Nov, 2013 [facility] [place] [facility] [address] [id number] [place] [address]- 4751 Oct, [facility] [place] [facility] [address] [id number] [place] [address]- 8038 Oct, [facility] [place] [facility] [address] [id number] [place] [address]- 9788 Oct, [facility] [place] [facility] [address] [id number] [place] [address]- 8504 Oct, [facility] [place] [facility] [address] [id number] [place] [address]- 4511 Oct, [facility] [place] [facility] [address] [id number] [place] [address]- 1728 Oct, [facility] [place] [facility] [address] [id number] [place] [address]- 7802 Oct, [facility] [place] [facility] [address] [id number] [place] [address]- 3920 Oct, [facility] [place] [facility] [address] [id number] [place] [address]- 6698 Oct, [facility] [place] [facility] [address] [id number] [place] [address]- 0555 Oct, [facility] [place] [facility] [address] [id number] [place] [address]- 4828 Oct, [facility] [place] [facility] [address] [id number] [place] [address]- 1452 Oct, [facility] [place] [facility] [address] [id number] [place] [address]- 7962 Oct, [facility] [place] [facility] [address] [id number] [place] [address]- 1287 Sep, [facility] [place] [facility] [address] [id number] [place] [address]- 2399 Sep, [facility] [place] [facility] [address] [id number] [place] [address]- 1125 Sep, [facility] [place] [facility] [address] [id number] [place] [address]- 6199 Aug, [facility] [place] [facility] [address] [id number] [place] [address]- 6860 Aug, [facility] [place] [facility] [address] [id number] [place] [address]- 9120 Aug, [facility] [place] [facility] [address] [id number] [place] [address]- 6929 Aug, [facility] [place] [facility] [address] [id number] [place] [address]- 6335 July, [facility] [place] [facility] [address] [id number] [place] [address]- 9593 July, [facility] [place] [facility] [address] [id number] [place] [address]- 5500 July, [facility] [place] [facility] [address] [id number] [place] [address]- 9717 July, [facility] [place] [facility] [address] [id number] [place] [address]- 5525 Apr, [facility] [place] [facility] [address] [id number] [place] [address]- 1396 Apr, [facility] [place] [facility] [address] [id number] [place] [address]- 9967 Mar, [facility] [place] [facility] [address] [id number] [place] [address]- 3461 Mar, [facility] [place] [facility] [address] [id number] [place] [address]- 0464 Mar, [facility] [place] [facility] [address] [id number] [place] [address]- 1082 Mar, [facility] [place] [facility] [address] [id number] [place] [address]- 7012 Mar, [facility] [place] [facility] [address] [id number], [place] [address]- 1724 Mar, [facility] [address] [id number] [place] [address]- 3635 Mar, [facility] [place] [facility] [address] [id number] [place] [address]- 6606 Mar, [facility] [place] [facility] [address] [id number] [place] [address]- 4325 Mar, [facility] [place] [facility] [address] [id number] [place] [address]- 8000 Mar, [facility] [place] [facility] [address] [id number] [place] [address]- 0144 Mar, [facility] [place] [facility] [address] [id number] [place] [address]- 2180 Mar, [facility] [address] [id number] [place] [address]- 3562 Feb, [facility] [place] [facility] [address] [id number] [place] [address]- 8862 Feb, [facility] [place] [facility] [address] [id number] [place] [address]- 6704 Feb, [facility] [place] [facility] [address] [id number] [place] [address]- 9671 Feb, [facility] [place] [facility] [address] [id number] [place] [address]- 5229 Feb, [facility] [place] [facility] [address] [id number] [place] [address]- 8989 Feb, [facility] [place] [facility] [address] [id number] [place] [address]- 2452 Jan, [facility] [place] [facility] [address] [id number] [place] [address]- 6412 Jan, [facility] [place] [facility] [address] [id number] [place] [address]- 8514 Jan, [facility] [place] [facility] [address] [id number] [place] [address]- 6503 Dec, [facility] [address] [id number] [place] [address]- 3311 Dec, [facility] [address] [id number] [place] [address]- 2546 Dec, [facility] [address] [id number] [place] [address]- 5423 Nov, [facility] [address] [id number] [place] [address]- 5045 Oct, [facility] [address] [id number] [place] [address]- 8978 Oct, [facility] [address] [id number] [place] [address]- 2846 Sep, [facility] [address] [id number] [place] [address]- 7604 Sep, [facility] [address] [id number] [place] [address]- 3449 Sep, [facility] [address] [id number] [place] [address]- 7426 Sep, [facility] [address] [id number] [place] [address]- 9958 Jun, [facility] [address] [id number] [place] [address]- 9386 Jun, [facility] [address] [id number] [place] [address]- 0786 May, [facility] [address] [id number] [place] [address]- 7042 July, [facility] [address] [id number] [place] [address]- 2546 July, [facility] [address] [id number] [place] [address]- 0510 July, [facility] [address] [id number] [place] [address]- 6297 July, [facility] [place] [facility] [address] [id number] [place] [address]- 5239 July, [facility] [place] [facility] [address] [id number] [place] [address]- 2853 July, [facility] [place] [facility] [address] [id number] [place] [address]- 7475 July, [facility] [place] [facility] [address] [id number] [place] [address]- 5362 July, [facility] [place] [facility] [address] [id number] [place] [address]- 7297 Jun, [facility] [place] [facility] [address] [id number] [place] [address]- 1019 May, [facility] [place] [facility] [address] [id number] [place] [address]- 0627 May, [facility] [place] [facility] [address] [id number] [place] [address]- 0223 Dec, [facility] [place] [facility] [address] [id number] [place] [address]- 8886 Dec, [facility] [place] [facility] [address] [id number] [place] [address]- 3258 Dec, [facility] [place] [facility] [address] [id number], [place] [address]- 2577 Jun, [facility] [place] [facility] [address] [id number] [place] [address]- 9495 May, [facility] [place] [facility] [address] [id number] [place] [address]- 3217 Apr, [facility] [place] [facility] [address] [id number] [place] [address]- 8269 Mar, [facility] [place] [facility] [id number] [address]- 8274 30 Feb, 2010 [facility] [address] [address]- 4392 17 Feb, 2010 [facility] [address] [address]- 7596 Feb, [facility] [address] [address]- 2764 Feb, [facility] [address] [address]- 7872 24 Jan, 2010 [facility] [id number] [place] [address] 75516- 3169 Jan, [facility] [address], [place] [address]- 7883 Jan, [facility] [id number] [place] [address] 81894- 5823 Dec, [facility] [address] [address]- 9863 Dec, [facility] [address] [address]- 1090 Dec, [facility] [id number] [address]- 7421 Dec, IMMUNIZATIONS No Known Immunizations SOCIAL HISTORY Never Assessed REASON FOR VISIT Referral PLAN OF CARE VITAL SIGNS MEDICATIONS Unknown [...] of son Hospitalization History surgeries Hospitalization History pyelonephritis-[facility] 10/02/16 Hospitalization History kindey infection 10/03/2017
--- OUTSIDE RECORDS SUMMARY | 2018-03-08 18:11 | XMS REPORT ---
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 Name Role Phone KEO DEUTSCH Unavailable PROBLEMS Type Condition ICD9-CM Code [id number] Code Onset Dates Condition Status SNOMED Code Problem Heartburn R12 Active 48847885 Problem Anxiety F41.9 Active 01153183 Problem Fibromyalgia M79.7 Active 951926506 Problem Major depressive disorder, recurrent episode, moderate F33.1 Active 573504310 Problem Posttraumatic stress disorder F43.10 Active 34332547 Problem Restless leg syndrome G25.81 Active 98654975 Problem Mood disorder F39 Active 99006088 ALLERGIES Substance Reaction Event Type Date Status Azithromycin Unknown Drug Allergy Sep, Active ENCOUNTERS Encounter Location Date Diagnosis [facility] [id number] [place] [address] 76222- 7302 Oct, [facility] [address] [place] [address] 23321- 1582 Oct, Right upper quadrant pain R10.11 [facility] [id number] [place] [address] 70980- 0757 Oct, [facility] [id number] [place] [address] 37768- 6004 Oct, Right upper quadrant pain R10.11 [facility] [id number] [place] [address] 40182- 5076 Sep, Pyelonephritis N12 [facility] [address] [place] [address] 87150- 6919 Sep, [facility] [id number] [place] [address] 72332 -8077 July, Seasonal allergic rhinitis, unspecified trigger J30.2 ; Cough R05 ; Allergic rhinitis, unspecified seasonality, unspecified trigger J30.9 and Sore throat J02.9 [place] [address] [place] [address] 02084- 8148 Jun, [facility] [address] [place] [address] 81589- 8084 Jun, [facility] [place] [address] [place] [address] 18432 -4189 Jun, Flank pain R10.9 and Acute cystitis with hematuria N30.01 [place] [address] [place] [address] 54023- 4194 Jun, Acute cystitis with hematuria N30.01 [place] [address] [place] [address] 27410- 2912 04 Dec, 2016 Wheezing R06.2 and Sinus pressure J34.[address] [address]- 3153 Sep, Pyelonephritis N12 [place] [address] [id number] Sep, [facility] [address] [id number] Aug, Dental examination Z01.20 [facility] [address] [place] [address] [address] July, [facility] [address] [address] [address] -[address]284 July, Foot injury, right, initial encounter S99.921A ; Foot injury, left, initial encounter S99.922A and Sprain of left ankle, unspecified ligament, initial encounter S93.402A [facility] [place] [address] [place] [address] 28[address] -0675 Mar, Bronchitis J40 [place] [address] [place] [address] 72341- 6751 Feb, Dental examination Z01.20 [facility] [id number] [place] [address] 10897- 0377 Jan, Anxiety F41.9 [facility] [id number] [place] [address] 18539 -1317 Dec, Wrist pain, right M25.531 [facility] [id number] [place] [address] 21433- 2703 Dec, [facility] [id number] [place] [address] 53140 -0299 Dec, Right wrist pain M25.531 [facility] [id number] [place] [address] 44689- 5288 Dec, [facility] [id number] [place] [address] 25065- 0637 Dec, [facility] [id number] [place] [address] 53792- 0811 Dec, Major depressive disorder, recurrent episode, moderate F33.1 and Posttraumatic stress disorder F43.10 [facility] [id number] [place] [address] 13741- 8056 Dec, [facility] [id number] [place] [address] 54500- 7211 Dec, [facility] [id number] [place] [address] 32293- 4266 Dec, [facility] [id number] [place] [address] 94985- 6868 Dec, Mood disorder F39 ; Restless leg syndrome G25.81 and Fibromyalgia M79.7 [facility] [id number] [place] [address] 20903- 4374 Nov, Major depressive disorder, recurrent episode, moderate F33.1 and Posttraumatic stress disorder F43.10 [facility] [id number] [place] [address] 31692 -8194 Oct, Dysuria R30.0 and Acute sinusitis, recurrence not specified , unspecified location J01.90 [facility] [address] [place] [address] [id number] Apr, Dental examination Z01.20 [facility] [id number] [place] [address] 34760- 7757 Feb, [facility] [address] [place] [address] 24179- 7291 Feb, [facility] [id number] [place] [address] 01875- 1953 Feb, Vaginal bleeding during , antepartum O46.90 ; Positive test Z32.01 ; Abdominal cramping R10.9 ; Right upper quadrant pain R10.11 ; Generalized abdominal tenderness R10.817 ; Uterine tenderness N94.9 ; Cervical motion tenderness N94.9 and Heartburn R12 [facility] [id number] [place] [address] 57272- 3812 Jan, Cough R05 and Nausea R11.0 [place] [id number] [place] [address] 80205- 2890 Jan, Acute nasopharyngitis J00 [facility] [id number] [place] [address] 02232- 2311 Jan, Acute nasopharyngitis J00 [facility] [id number] [place] [address] 84645- 4345 Dec, Right upper quadrant abdominal pain R10.11 [facility] [id number] [place] [address] 02693- 2291 16 Dec, 2014 [facility] [address] [place] [address] 21651- 9217 Dec, [facility] [id number] [place] [address] 50377- 6615 13 Dec, 2014 Left upper quadrant pain R10.12 and Diarrhea R19.7 [facility] [address] [id number] [place] [address]- 0575 12 Dec, 2014 [facility] [place] [facility] [address] [id number] [place] [address]- 5694 Dec, Left upper quadrant pain R10.12 [facility] [place] [facility] [address] [id number] [place] [address]- 4116 14 Jun, 2014 [facility] [place] [facility] [address] [id number], [place] [address]- 8709 Jun, [facility] [place] [facility] [address] [id number] [place] [address]- 9806 May, [facility] [place] [facility] [address] [id number], [place] [address]- 3756 May, 2014 [facility] [place] [facility] [address] [facility] [id number] [place] [address]- 5794 May, 2014 [facility] [place] [facility] [address] [id number], [place] [address]- 7493 Dec, [facility] [place] [facility] [address] [id number], [place] [address]- 2853 Dec, [facility] [place] [facility] [address] [id number], [place] [address]- 2716 Dec, [facility] [place] [facility] [address] [id number], [place] [address]- 8806 24 Dec, 2013 [facility] [place] [facility] [address] [id number], [place] [address]- 2122 Dec, [facility] [place] [facility] [address] [id number] [place] [address]- 2633 Dec, [facility] [place] [facility] [address] [facility] [id number], [place] [address]- 6122 Dec, [facility] [place] [facility] [address] [facility] [id number], [place] [address]- 9396 Dec, [facility] [place] [facility] [address] [id number] [place] [address]- 6381 14 Dec, 2013 [facility] [place] [facility] [address] [id number] [place] [address]- 8210 14 Dec, 2013 [facility] [place] [facility] [address] [id number] [place] [address]- 8677 13 Dec, 2013 [facility] [place] [facility] [address] [id number] [place] [address]- 9055 Dec, [facility] [place] [facility] [address] [id number] [place] [address]- 9653 Dec, [facility] [place] [facility] [address] [id number] [place] [address]- 6181 Dec, [facility] [place] [facility] [address] [id number] [place] [address]- 2994 23 Nov, 2013 [facility] [place] [facility] [address] [id number] [place] [address]- 7238 23 Nov, 2013 [facility] [place] [facility] [address] [id number] [place] [address]- 7486 22 Nov, 2013 [facility] [place] [facility] [address] [id number] [place] [address] 2549 22 Nov, 2013 [facility] [place] [facility] [address] [id number] [place] [address]- 254 18 Nov, 2013 [facility] [place] [facility] [address] [id number] [place] [address] 2547 18 Nov, 2013 [facility] [place] [facility] [address] [id number] [place] [address]- 2540 11 Nov, 2013 [facility] [place] [facility] [address] [id number] [place] [address] 2548 11 Nov, 2013 [facility] [place] [facility] [address] [id number] [place] [address]- 2544 03 Sep, 2013 [facility] [place] [facility] [address] [id number] [place] [address] 2547 Nov, [facility] [place] [facility] [address] [id number] [place] [address]- 8315 Oct, [facility] [place] [facility] [address] [id number] [place] [address]- 1592 Oct, [facility] [place] [facility] [address] [id number] [place] [address]- 8847 Oct, [facility] [place] [facility] [address] [id number] [place] [address]- 9776 Oct, [facility] [place] [facility] [address] [id number] [place] [address]- 2128 Oct, [facility] [place] [facility] [address] [id number] [place] [address]- 1169 Oct, [facility] [place] [facility] [address] [id number] [place] [address]- 4420 Oct, [facility] [place] [facility] [address] [id number] [place] [address]- 7530 Oct, [facility] [place] [facility] [address] [id number] [place] [address]- 7682 Oct, [facility] [place] [facility] [address] [id number] [place] [address]- 7678 Oct, [facility] [place] [facility] [address] [id number] [place] [address]- 5617 Oct, [facility] [place] [facility] [address] [id number] [place] [address]- 3861 Oct, [facility] [place] [facility] [address] [id number] [place] [address]- 9915 Oct, [facility] [place] [facility] [address] [id number] [place] [address]- 6483 Sep, [facility] [place] [facility] [address] [id number] [place] [address]- 6046 Sep, [facility] [place] [facility] [address] [id number] [place] [address]- 6812 Sep, [facility] [place] [facility] [address] [id number] [place] [address]- 5042 Aug, [facility] [place] [facility] [address] [id number] [place] [address]- 7317 Aug, [facility] [place] [facility] [address] [id number] [place] [address]- 5037 Aug, [facility] [place] [facility] [address] [id number] [place] [address]- 6205 Aug, [facility] [place] [facility] [address] [id number] [place] [address]- 7703 July, [facility] [place] [facility] [address] [id number] [place] [address]- 7280 July, [facility] [place] [facility] [address] [id number] [place] [address]- 8015 July, [facility] [place] [facility] [address] [id number] [place] [address]- 3918 July, [facility] [place] [facility] [address] [id number] [place] [address]- 3220 Apr, [facility] [place] [facility] [address] [id number] [place] [address]- 8083 Apr, [facility] [place] [facility] [address] [id number] [place] [address]- 8502 Mar, [facility] [place] [facility] [address] [id number] [place] [address]- 9515 Mar, [facility] [place] [facility] [address] [id number] [place] [address]- 3065 Mar, [facility] [place] [facility] [address] [id number] [place] [address]- 8594 Mar, [facility] [place] [facility] [address] [id number] [place] [address]- 6781 Mar, [facility] [place] [facility] [address] [id number] [place] [address]- 3337 14 Mar, 2013 [facility] [address] [id number] [place] [address]- 2865 Mar, [facility] [place] [facility] [address] [id number] [place] [address]- 7466 Mar, [facility] [place] [facility] [address] [id number] [place] [address]- 1769 Mar, [facility] [place] [facility] [address] [id number] [place] [address]- 9177 Mar, [facility] [place] [facility] [address] [id number] [place] [address]- 1807 Mar, [facility] [place] [facility] [address] [id number] [place] [address]- 1998 Mar, [facility] [place] [facility] [address] [id number] [place] [address]- 5141 Feb, [facility] [place] [facility] [address] [id number] [place] [address]- 5345 Feb, [facility] [place] [facility] [address] [id number] [place] [address]- 3095 Feb, [facility] [place] [facility] [address] [id number] [place] [address]- 4500 Feb, [facility] [place] [facility] [address] [id number] [place] [address]- 0532 Feb, [facility] [place] [facility] [address] [id number] [place] [address]- 7877 Feb, [facility] [place] [facility] [address] [id number] [place] [address]- 4640 Jan, [facility] [place] [facility] [address] [id number] [place] [address]- 6406 Jan, [facility] [place] [facility] [address] [id number] [place] [address]- 4164 Jan, [facility] [address] [id number] [place] [address]- 7486 Dec, [facility] [place] [facility] [address] [id number] [place] [address]- 6080 Dec, [facility] [place] [facility] [address] [id number] [place] [address]- 1804 Dec, [facility] [place] [facility] [address] [id number] [place] [address]- 5656 Nov, [facility] [place] [facility] [address] [id number] [place] [address]- 4940 Oct, [facility] [place] [facility] [address] [id number] [place] [address]- 3248 Oct, [facility] [place] [facility] [address] [id number] [place] [address]- 6429 Sep, [facility] [place] [facility] [address] [id number] [place] [address]- 9532 Sep, [facility] [place] [facility] [address] [id number] [place] [address]- 6356 Sep, [facility] [place] [facility] [address] [id number] [place] [address]- 6787 Sep, [facility] [place] [facility] [address] [id number] [place] [address]- 4439 Jun, [facility] [place] [facility] [address] [id number], [place] [address]- 6108 Jun, [facility] [place] [facility] [address] [id number] [place] [address]- 0794 May, [facility] [place] [facility] [address] [id number] [place] [address]- 6310 July, [facility] [place] [facility] [address] [id number] [place] [address]- 3601 July, [facility] [place] [facility] [address] [id number] [place] [address]- 7554 July, [facility] [address] [id number] [place] [address]- 4639 July, [facility] [place] [facility] [address] [id number] [place] [address]- 7086 July, [facility] [address] [id number] [place] [address]- 3446 July, [facility] [place] [facility] [address] [id number] [place] [address]- 8812 July, [facility] [place] [facility] [address] [id number] [place] [address]- 0150 July, [facility] [place] [facility] [address] [id number] [place] [address]- 7246 Jun, [facility] [address] [id number] [place] [address]- 7488 May, [facility] [place] [facility] [address] [id number] [place] [address]- 7703 May, [facility] [place] [facility] [address] [id number] [place] [address]- 3010 Dec, [facility] [place] [facility] [address] [id number] [place] [address]- 8583 Dec, [facility] [place] [facility] [address] [id number] [place] [address]- 1836 Dec, [facility] [place] [facility] [address] [id number] [place] [address] 2544 Jun, [facility] [place] [facility] [address] [id number] [place] [address]- 3698 May, [facility] [place] [facility] [address] [id number] [place] [address]- 1456 Apr, [facility] [place] [facility] [address] [id number] [place] [address]- 4373 Mar, [facility] [address] [address]- 4428 30 Feb, 2010 [facility] [address] [address]- 2925 17 Feb, 2010 [facility] [address] [address] 2548 16 Feb, 2010 [facility] [id number] [place] [address] 547873- 5304 16 Feb, 2010 [facility] [address] [address] Jan, [facility] [address] [address]- 3722 Jan, [facility] [address] 3986 Jan, [facility] [id number] [place] [address] 07659- 7616 Dec, [facility] [address] [address]- 8211 Dec, [facility] [address] [address] Dec, [facility] [address] [address]- 4949 Dec, IMMUNIZATIONS No Known Immunizations SOCIAL HISTORY Never Assessed REASON FOR VISIT [facility] follow up-JEREMIAH macias, Medication list confirmed via hospital discharge instructions PLAN OF CARE VITAL SIGNS Height 64 in 2017-10-12 Weight 153.0 lbs 2017-10-12 Temperature 98.5 degrees Fahrenheit 2017-10-12 Heart Rate 109 bpm 2017-10-12 Respiratory Rate 20 2017-10-12 BMI 26.26 kg/m2 2017-10-12 Blood pressure systolic 110 mmHg 2017-10-12 Blood pressure diastolic 72 mmHg 2017-10-12 MEDICATIONS Medication Instructions Dosage Frequency Start Date End Date Duration Status Pepcid 20 MG Orally Once a day 1 tablet at bedtime 24h Not-Taking Clonazepam 0.5 MG Orally Twice a day 1 tablet 12h 10 Jan, 2016 Not- Taking Duloxetine HCl 60 MG Orally daily 1 capsule every morning X 2 weeks then 2 caps every morning. 24h Dec, Not-Taking Protonix 40 mg Orally Once a day 1 tablet 24h Jan, 30 day(s) Not-Taking ProAir HFA 108 (90 Base) MCG/ACT Inhalation every 4 hrs 2 puffs as needed 4h Mar, 7 days Not-Taking Pyridium 100 mg Orally 3 times a day 1 tablet 8h Sep, Sep, 03 days Active Flonase 50 MCG/ACT Nasally twice a day 1 spray in each nostril 12h July, 07 days Not-Taking Cough & Cold 4-30 MG Orally every 6 hrs 1 tablet as needed 6h Not- Taking [place] 5-325 MG Orally every 6 hrs 1 tablet as needed 6h Dec, Not-Taking Amoxicillin 500 MG Orally 4 times daily 1 capsule 7 days Not- Taking Acetaminophen Extra Strength 500 mg Orally every 6 hrs 1-2 tablet as needed 6h Not-Taking Bentyl 10 MG Orally Four times a day 1 capsule 6h Not-Taking Ibuprofen 400 MG Orally every 8 hrs as needed 1 tablet Not- Taking Cipro 500 MG Orally every 12 hrs 1 tablet 12h Active RESULTS No Results PROCEDURES No Known [...]
--- OUTSIDE RECORDS SUMMARY | 2018-03-08 18:11 | XMS REPORT ---
Author Author DANIA MANJARREZ Organization [facility] Address [address] [place] [address] Care Team Providers Care Relocation Coordinator Name Role Phone DANIA MANJARREZ Unavailable PROBLEMS Type Condition ICD9-CM Code UVJ18-QG Code Onset Dates Condition Status SNOMED Code Problem Heartburn R12 Active 97433369 Problem Anxiety F41.9 Active 72464504 Problem Fibromyalgia M79.7 Active 391323795 Problem Major depressive disorder, recurrent episode, moderate F33.1 Active 564093310 Problem Posttraumatic stress disorder F43.10 Active 04593475 Problem Restless leg syndrome G25.81 Active 88248411 Problem Mood disorder F39 Active 23880238 ALLERGIES No Information ENCOUNTERS Encounter Location Date Diagnosis [facility] [id number] [place] [address] 25778- 4365 Oct, [facility] [address] [address]147 Oct, Right upper quadrant pain R10.11 [facility] [id number] [place] [address] 40508- 8312 Oct, [facility] [id number] [place] [address] 97099- 7082 Oct, Right upper quadrant pain R10.11 [facility] [id number] [place] [address] 53293- 3632 Sep, Pyelonephritis N12 [facility] [address] [address]- 6[address] Sep, [facility] [id number] [place] [address] 10275 -9932 July, Seasonal allergic rhinitis, unspecified trigger J30.2 ; Cough R05 ; Allergic rhinitis, unspecified seasonality, unspecified trigger J30.9 and Sore throat J02.9 [facility] [address] 75308- 1551 Jun, [facility] [address] 6[address]- [address]12 Jun, [facility] [address] [address] Jun, Flank pain R10.9 and Acute cystitis with hematuria N30.01 [place] [address] [address]254- 8389 Jun, Acute cystitis with hematuria N30.01 [place] [address] 61195- 3035 Dec, Wheezing R06.2 and Sinus pressure J34.89 [place] [address] 42402- 3501 Sep, Pyelonephritis N12 [facility] [address] [id number] Sep, [facility] [address] [id number] Aug, Dental examination Z01.20 [facility] [place] [address] [address] -[address] July, [facility] [place] [address] 8[address] -[address]683 July, Foot injury, right, initial encounter S99.921A ; Foot injury, left, initial encounter S99.922A and Sprain of left ankle, unspecified ligament, initial encounter S93.402A [facility] [place] [address] [address]38 [address] Mar, Bronchitis J40 [facility] [address] 75146- 1485 Feb, Dental examination Z01.20 [facility] [id number] [place] [address] 53975- 7953 Jan, Anxiety F41.9 [facility] [id number] [place] [address] 37679 -3966 Dec, Wrist pain, right M25.531 [facility] [id number] [place] [address] 62015- 1121 Dec, [facility] [id number] [place] [address] 14467 -6534 Dec, Right wrist pain M25.531 [facility] [address] 22653- 4718 Dec, [facility] [id number] [place] [address] 69329- 9205 Dec, [facility] [id number] [place] [address] 90522- 0805 Dec, Major depressive disorder, recurrent episode, moderate F33.1 and Posttraumatic stress disorder F43.10 [place] [id number] [place] [address] 38971- 9639 Dec, [facility] [id number] [place] [address] 31540- 2791 Dec, [place] [id number] [place] [address] 20602- 0343 Dec, [facility] [id number] [place] [address] 59097- 9769 Dec, Mood disorder F39 ; Restless leg syndrome G25.81 and Fibromyalgia M79.7 [facility] [id number] [place] [address] 15388- 2687 Nov, Major depressive disorder, recurrent episode, moderate F33.1 and Posttraumatic stress disorder F43.10 [facility] [id number] [place] [address] 38691 -8817 Oct, Dysuria R30.0 and Acute sinusitis, recurrence not specified , unspecified location J01.90 [facility] [address] [address] Apr, Dental examination Z01.20 [facility] [address] [address] 97[address] 18 Feb, 2015 [facility] [id number] [place] [address] 19402- 3362 Feb, [facility] [id number] [place] [address] 46064- 5451 14 Feb, 2015 Vaginal bleeding during , antepartum O46.90 ; Positive test Z32.01 ; Abdominal cramping R10.9 ; Right upper quadrant pain R10.11 ; Generalized abdominal tenderness R10.817 ; Uterine tenderness N94.9 ; Cervical motion tenderness N94.9 and Heartburn R12 [facility] [id number] [place] [address] 59590- 7038 Jan, Cough R05 and Nausea R11.0 [facility] [id number] [place] [address] 82165- 0343 Jan, Acute nasopharyngitis J00 [facility] [id number] [place] [address] 94080- 6830 Jan, Acute nasopharyngitis J00 [facility] [address] [place] [address] 07482- 1104 Dec, Right upper quadrant abdominal pain R10.11 [facility] [id number] [place] [address] 01153- 7777 Dec, [facility] [id number] [place] [address] 70538- 1919 Dec, [facility] [id number] [place] [address] 03056- 1732 13 Dec, 2014 Left upper quadrant pain R10.12 and Diarrhea R19.7 [facility] [address] [place] [address]- 7195 Dec, [facility] [address] [id number] [place] [address]- 7837 Dec, Left upper quadrant pain R10.12 [facility] [place] [facility] [address] [id number] [place] [address]- 2169 14 Jun, 2014 [facility] [place] [facility] [id number] [place] [address], [place] [address]- 1360 Jun, [facility] [place] [facility] [address] [id number] [place] [address]- 1474 May, [facility] [place] [facility] [address] [id number] [place] [address]- 0541 May, 2014 [facility] [place] [facility] [address] [id number] [place] [address]- 9961 May, [facility] [place] [facility] [address] [id number] [place] [address]- 0911 Dec, [facility] [place] [facility] [address] [id number] [place] [address]- 4008 Dec, [facility] [place] [facility] [address] [id number] [place] [address]- 6190 Dec, [facility] [place] [facility] [address] [id number] [place] [address]- 0321 Dec, [facility] [place] [facility] [address] [id number] [address]- 0805 Dec, [facility] [place] [facility] [address] [id number] [place] [address]- 8316 Dec, [facility] [place] [facility] [address] [id number] [place] [address]- 6364 Dec, [facility] [place] [facility] [address] [id number] [place] [address]- 9072 15 Dec, 2013 [facility] [place] [facility] [address] [id number], [place] [address]- 4407 14 Dec, 2013 [facility] [place] [facility] [address] [id number] [place] [address]- 8192 14 Dec, 2013 [facility] [place] [facility] [address] [id number] [place] [address]- 0536 Dec, [facility] [place] [facility] [address] [id number] [place] [address]- 2529 Dec, [facility] [place] [facility] [address] [id number] [place] [address]- 8554 Dec, [facility] [place] [facility] [address] [id number] [place] [address]- 7583 Dec, [facility] [place] [facility] [address] [id number] [place] [address]- 0759 23 Nov, 2013 [facility] [place] [facility] [address] [id number] [place] [address]- 4249 23 Nov, 2013 [facility] [place] [facility] [address] [id number] [place] [address]- 4273 22 Nov, 2013 [facility] [place] [facility] [address] [id number] [place] [address]- 9862 22 Nov, 2013 [facility] [place] [facility] [address] [id number] [place] [address]- 8382 18 Nov, 2013 [facility] [place] [facility] [address] [id number] [place] [address]- 9528 18 Nov, 2013 [facility] [place] [facility] [address] [id number] [place] [address]- 1281 11 Nov, 2013 [facility] [place] [facility] [address] [id number] [place] [address]- 2541 11 Nov, 2013 [facility] [place] [facility] [address] [id number] [place] [address]- 2292 03 Nov, 2013 [facility] [place] [facility] [address] [id number] [place] [address]- 254 03 Sep, 2013 [facility] [place] [facility] [address] [id number] [place] [address]- 7692 Oct, [facility] [place] [facility] [address] [id number] [place] [address]- 3553 Oct, [facility] [place] [facility] [address] [id number] [place] [address]- 7056 Oct, [facility] [place] [facility] [address] [id number] [place] [address]- 2988 Oct, [facility] [place] [facility] [address] [id number] [place] [address]- 4925 Oct, [facility] [place] [facility] [address] [id number] [place] [address]- 2728 Oct, [facility] [place] [facility] [address] [id number] [place] [address]- 1129 Oct, [facility] [place] [facility] [address] [id number] [place] [address]- 0405 Oct, [facility] [place] [facility] [address] [id number] [place] [address]- 0219 Oct, [facility] [place] [facility] [address] [id number] [place] [address]- 1153 Oct, [facility] [place] [facility] [address] [id number] [place] [address]- 5281 Oct, [facility] [place] [facility] [address] [id number] [place] [address]- 5048 Oct, [facility] [place] [facility] [address] [id number] [place] [address]- 1933 Oct, [facility] [place] [facility] [address] [id number] [place] [address]- 4821 Sep, [facility] [place] [facility] [address] [id number] [place] [address]- 0914 Sep, [facility] [place] [facility] [address] [id number] [place] [address]- 0995 Sep, [facility] [place] [facility] [address] [id number] [place] [address]- 2793 Aug, [facility] [place] [facility] [address] [id number] [place] [address]- 5200 Aug, [facility] [place] [facility] [address] [id number] [place] [address]- 1401 Aug, [facility] [place] [facility] [address] [id number] [place] [address]- 6254 Aug, [facility] [place] [facility] [address] [id number] [place] [address]- 1582 July, [facility] [place] [facility] [address] [id number] [place] [address]- 1962 July, [facility] [place] [facility] [address] [id number] [place] [address]- 3572 July, [facility] [place] [facility] [address] [id number] [place] [address]- 2464 July, [facility] [place] [facility] [address] [id number] [place] [address]- 6048 Apr, [facility] [place] [facility] [address] [id number] [place] [address]- 6644 Apr, [facility] [place] [facility] [address] [id number] [place] [address]- 4753 Mar, [facility] [place] [facility] [address] [id number] [place] [address]- 0065 Mar, [facility] [place] [facility] [address] [id number] [place] [address]- 8433 Mar, [facility] [place] [facility] [address] [id number] [place] [address]- 7085 Mar, [facility] [place] [facility] [address] [id number] [place] [address]- 4117 Mar, [facility] [place] [facility] [address] [id number] [place] [address]- 6023 14 Mar, 2013 [facility] [address] [id number] [place] [address]- 2964 Mar, [facility] [place] [facility] [address] [id number] [place] [address]- 6260 Mar, [facility] [address] [id number] [place] [address]- 9376 Mar, [facility] [place] [facility] [address] [id number] [place] [address]- 1296 Mar, [facility] [address] [id number] [place] [address]- 9409 Mar, [facility] [place] [facility] [address] [id number] [place] [address]- 5581 Mar, [facility] [address] [id number] [place] [address]- 7889 Feb, [facility] [place] [facility] [address] [id number] [place] [address]- 8386 Feb, [facility] [place] [facility] [address] [id number] [place] [address]- 3805 Feb, [facility] [place] [facility] [address] [id number] [place] [address]- 7592 Feb, [facility] [place] [facility] [address] [id number] [place] [address]- 2021 Feb, [facility] [place] [facility] [address] [id number] [place] [address]- 1845 Feb, [facility] [place] [facility] [address] [id number] [place] [address]- 1782 Jan, [facility] [place] [facility] [address] [id number] [place] [address]- 5920 Jan, [facility] [place] [facility] [address] [id number] [place] [address]- 1401 Jan, [facility] [place] [facility] [address] [id number] [place] [address]- 2282 Dec, [facility] [address] [id number] [place] [address]- 2470 Dec, [facility] [place] [facility] [address] [id number] [place] [address]- 5684 Dec, [facility] [address] [id number] [place] [address]- 3187 Nov, [facility] [address] [id number] [place] [address]- 0351 Oct, [facility] [address] [id number] [place] [address]- 3170 Oct, [facility] [address] [id number] [place] [address]- 8671 Sep, [facility] [address] [id number] [place] [address]- 5341 Sep, [facility] [address] [id number] [place] [address]- 9749 Sep, [facility] [address] [id number] [place] [address]- 7730 Sep, [facility] [address] [id number] [place] [address]- 1651 Jun, [facility] [address] [id number] [place] [address]- 3662 Jun, [facility] [address] [id number] [place] [address]- 3076 May, [facility] [place] [facility] [address] [id number] [place] [address]- 3358 July, [facility] [place] [facility] [address] [id number] [place] [address]- 3514 July, [facility] [address] [id number] [place] [address]- 4377 July, [facility] [place] [facility] [address] [id number] [place] [address]- 1624 July, [facility] [place] [facility] [address] [id number] [place] [address]- 5576 July, [facility] [place] [facility] [address] [id number] [place] [address] 2546 July, [facility] [place] [facility] [address] [id number] [place] [address]- 2856 July, [facility] [place] [facility] [address] [id number] [place] [address]- 7966 July, [facility] [place] [facility] [address] [id number] [place] [address]- 4166 Jun, [facility] [place] [facility] [address] [id number] [place] [address] 2546 May, [facility] [place] [facility] [address] [id number] [place] [address]- 2558 May, [facility] [place] [facility] [address] [id number] [place] [address]- 3110 Dec, [facility] [place] [facility] [address] [id number] [place] [address]- 7817 Dec, [facility] [place] [facility] [address] [id number], [place] [address]- 6496 Dec, [facility] [place] [facility] [address] [id number], [place] [address]- 0956 Jun, [facility] [place] [facility] [address] [id number] [place] [address] 2546 May, [facility] [place] [facility] [address] [id number] [place] [address] 2546 Apr, [facility] [place] [facility] [address] [id number] [place] [address]- 2546 Mar, [facility] [place] [facility] [address] [address] 30 Feb, 2010 [facility] [address], [place] [address]- 1930 Feb, [facility] [address], [place] [address]- 2179 Feb, [facility] [address] [address] 5207 Feb, [facility] [address], [place] [address]- 0602 Jan, [facility] [id number] [place] [address] 083[address]- 5871 Jan, [facility] [id number] [place] [address] 67729- 3297 Jan, [facility] [id number] [place] [address] 11148- 3888 Dec, [facility] [address] [address]- 5235 Dec, [facility] [address], [place] [address]- 0628 Dec, [facility] [address], [place] [address]- 7249 Dec, IMMUNIZATIONS No Known Immunizations SOCIAL HISTORY Never Assessed REASON FOR VISIT Hospital admit/DC PLAN OF CARE VITAL SIGNS MEDICATIONS Medication Instructions Dosage Frequency Start Date End Date Duration Status Clonazepam 0.5 MG Orally Twice a day 1 tablet 12h 10 Jan, 2016 Not- Taking Pepcid 20 MG Orally Once a day 1 tablet at bedtime 24h Not-Taking Protonix 40 mg Orally Once a day 1 tablet 24h Jan, 30 day(s) Not-Taking Duloxetine HCl 60 MG Orally daily 1 capsule every morning X 2 weeks then 2 caps every morning. 24h 13 Dec, 2015 Not-Taking Ciprofloxacin HCl 500 MG Orally every 12 hrs 1 tablet 12h Sep, Sep, Active Flonase 50 MCG/ACT Nasally twice a day 1 spray in each nostril 12h July, 07 days Not-Taking Ibuprofen 400 MG Orally every 8 hrs as needed 1 tablet Active ProAir HFA 108 (90 Base) MCG/ACT Inhalation every 4 hrs 2 puffs as needed 4h 13 Mar, 2016 7 days Not-Taking Gulf Breeze 5-325 MG Orally every 6 hrs 1 tablet as needed 6h 26 Dec, 2015 Not-Taking Amoxicillin 500 MG Orally 4 times daily 1 capsule 7 days Not- Taking Bentyl 10 MG Orally Four times a day 1 capsule 6h Not-Taking Acetaminophen Extra Strength 500 mg Orally every 6 hrs 1-2 tablet as needed 6h Active Cough & Cold 4-30 MG Orally every 6 hrs 1 tablet as needed 6h Not- Taking RESULTS No Results PROCEDURES No Known procedures [...]
--- OUTSIDE RECORDS SUMMARY | 2018-03-08 18:27 | XMS REPORT | Continuity of Care Document ---
Author Author [facility] Address Unknown Phone Unavailable Allergies Active Description Code Type Severity Reaction Onset Reported/Identified Relationship to Patient Clinical Status Yes azithromycin [id number] Drug Allergy Mild N/A 07/24/2008 Yes azithromycin Drug Allergy N/ A N/A 11/24/2009 Yes azithromycin Drug Allergy 11/24/2009 Yes promethazine HCl [id number] Drug Allergy Mild SWELLING 10/08/2010 Yes Phenergan [...] STRICKLAND MD V22.2 State, Incidental 11/24/2009 EUGENIE TECHNOLOGY APPLICATIONS CONSULTANT, SEAN S 620.2 Other And Unspecified Ovarian Cyst 11/24/2009 EUGENIE TECHNOLOGY APPLICATIONS CONSULTANT, SEAN S 625.9 Unspecified Symptom Associated With Female Genital Organs 11/24/2009 EUGENIE TECHNOLOGY APPLICATIONS CONSULTANT, SEAN S V22.2 State, Incidental 11/24/2009 KEO DEUTSCH APRN 620.2 Other And Unspecified Ovarian Cyst 11/24/2009 KEO DEUTSCH APRN 625.9 Unspecified Symptom Associated With Female Genital Organs 11/24/2009 KEO DEUTSCH APRN V22.2 State, Incidental 11/24/2009 PARISH TECHNOLOGY APPLICATIONS CONSULTANT, CLARIBEL A 620.2 Other And Unspecified Ovarian Cyst 11/24/2009 PARISH TECHNOLOGY APPLICATIONS CONSULTANT, CLARIBEL A 625.9 Unspecified Symptom Associated With Female Genital Organs 11/24/2009 PARISH TECHNOLOGY APPLICATIONS CONSULTANT, CLARIBEL A V22.2 State, Incidental 11/24/2009 PARISH TECHNOLOGY APPLICATIONS CONSULTANT, CLARIBEL A 620.2 Other And Unspecified Ovarian Cyst 11/24/2009 PARISH TECHNOLOGY APPLICATIONS CONSULTANT, CLARIBEL A 625.9 Unspecified Symptom Associated With Female Genital Organs 11/24/2009 PARISH TECHNOLOGY APPLICATIONS CONSULTANT, CLARIBEL A V22.2 State, Incidental 11/24/2009 PARISH TECHNOLOGY APPLICATIONS CONSULTANT, CLARIBEL A 620.2 Other And Unspecified Ovarian Cyst 11/24/2009 PARISH TECHNOLOGY APPLICATIONS CONSULTANT, CLARIBEL A 625.9 Unspecified Symptom Associated With Female Genital Organs 11/24/2009 PARISH TECHNOLOGY APPLICATIONS CONSULTANT, CLARIBEL A V22.2 State, Incidental 11/24/2009 BLANQUITA [...] MD V22.1 , Normal Other 01/04/2010 EUGENIE TECHNOLOGY APPLICATIONS CONSULTANT, SEAN S 079.98 Unspecified Chlamydial Infection 01/04/2010 EUGENIE DOW, SEAN S V22.1 , Normal Other 01/04/2010 KEO DEUTSCH APRN T 079.98 Unspecified Chlamydial Infection 01/04/2010 LA NENA DOW KEO T V22.1 , Normal Other 01/04/2010 PARISH TECHNOLOGY APPLICATIONS CONSULTANT, CLARIBEL A 079.98 Unspecified Chlamydial Infection 01/04/2010 PARISH APRN, CLARIBEL A V22.1 , Normal Other 01/04/2010 PARISH TECHNOLOGY APPLICATIONS CONSULTANT, CLARIBEL A 079.98 Unspecified Chlamydial Infection 01/04/2010 PARISH APRN, CLARIBEL A V22.1 , Normal Other 01/04/2010 PARISH TECHNOLOGY APPLICATIONS CONSULTANT, CLARIBEL A 079.98 Unspecified Chlamydial Infection 01/04/2010 PARISH TECHNOLOGY APPLICATIONS CONSULTANT, CLARIBEL A V22.1 , Normal Other 01/04/2010 [...] DEUTSCH APRN 530.81 Esophageal Reflux 03/04/2010 PARISH TECHNOLOGY APPLICATIONS CONSULTANT, CLARIBEL A 530.81 Esophageal Reflux 03/04/2010 PARISH TECHNOLOGY APPLICATIONS CONSULTANT, CLARIBEL A 530.81 Esophageal Reflux 03/04/2010 PARISH TECHNOLOGY APPLICATIONS CONSULTANT, CLARIBEL A 530.81 Esophageal Reflux 03/04/2010 SONY MICHELLE, BLANQUITA N 530.81 Esophageal Reflux 03/04/2010 PARISH TECHNOLOGY APPLICATIONS CONSULTANT, CLARIBEL A 530.81 Esophageal Reflux 03/04/2010 SONY [...] APRN V23.9 , High-risk (unspec) 04/05/2010 PARISH TECHNOLOGY APPLICATIONS CONSULTANT, CLARIBEL A V23.9 , High-risk (unspec) 04/05/2010 PARISH TECHNOLOGY APPLICATIONS CONSULTANT, CLARIBEL A V23.9 , High-risk (unspec) 04/05/2010 PARISH TECHNOLOGY APPLICATIONS CONSULTANT, CLARIBEL A V23.9 , High-risk (unspec) 04/05/2010 SONY MICHELLE, BLANQUITA N V23.9 , High-risk (unspec) 04/05/2010 PARISH TECHNOLOGY APPLICATIONS CONSULTANT, CLARIBEL A V23.9 , High-risk (unspec) 04/05/2010 [...] APRN, CLARIBEL A 784.0 Headache 05/26/2010 PARISH TECHNOLOGY APPLICATIONS CONSULTANT, CLARIBEL A 642.90 Compl Of - Htn/pih 05/26/2010 PARISH TECHNOLOGY APPLICATIONS CONSULTANT, CLARIBEL A 784.0 Headache 05/26/2010 PARISH TECHNOLOGY APPLICATIONS CONSULTANT, CLARIBEL A 642.90 Compl Of - Htn/pih 05/26/2010 PARISH TECHNOLOGY APPLICATIONS CONSULTANT, CLARIBEL A 784.0 Headache 05/26/2010 BLANQUITA CARDOZA MD 642.90 Compl Of - Htn/pih 05/26/2010 BLANQUITA CARDOZA MD 784.0 Headache 05/26/2010 CLARIBEL LUGO APRN A 642.90 Compl Of - Htn/pih 05/26/2010 CLARIBEL LUOG APRN A 784.0 Headache 05/26/2010 BLANQUITA CARDOZA [...] LUGO APRNIDI A 787.02 Nausea Alone 08/26/2010 PRAISH DOW CLARIBEL A 300.00 ANXIETY STATE UNSPECIFIED [...] STRICKLAND MD 780.50 Sleep Disturbance, Unspecified 10/16/2010 MAIN STRICKLAND MD 780.79 Malaise And Fatigue 10/16/2010 EUGENIE TECHNOLOGY APPLICATIONS CONSULTANT, SEAN S 296.90 Mood Disorder 10/16/2010 EUGENIE [...] A 780.50 Sleep Disturbance, Unspecified 10/16/2010 PARISH TECHNOLOGY APPLICATIONS CONSULTANT, CLARIBEL A 780.79 Malaise And Fatigue 10/16/2010 PARISH TECHNOLOGY APPLICATIONS CONSULTANT, CLARIBEL A 296.90 Mood Disorder 10/16/2010 PARISH TECHNOLOGY APPLICATIONS CONSULTANT, CLARIBEL A 300.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 10/16/2010 PARISH TECHNOLOGY APPLICATIONS CONSULTANT, CLARIBEL A 780.50 Sleep Disturbance, Unspecified 10/16/2010 PARISH TECHNOLOGY APPLICATIONS CONSULTANT, CLARIBEL A 780.79 Malaise And Fatigue 10/16/2010 PARISH TECHNOLOGY APPLICATIONS CONSULTANT, CLARIBEL A 296.90 Mood Disorder 10/16/2010 PARISH TECHNOLOGY APPLICATIONS CONSULTANT, CLARIBEL A 300.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 10/16/2010 PARISH TECHNOLOGY APPLICATIONS CONSULTANT, CLARIBEL A 780.50 Sleep Disturbance, Unspecified 10/16/2010 PARISH DOW, CLARIBEL A 780.79 Malaise And Fatigue 10/16/2010 SONY MD, BLANQUITA N 296.90 Mood Disorder 10/16/2010 BLANQUITA CARDOZA MD N 300.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 10/16/2010 BLANQUITA CARDOZA MD N 780.50 Sleep Disturbance, Unspecified 10/16/2010 BLANQUITA CARDOZA MD N 780.79 Malaise And Fatigue 10/16/2010 PARISH TECHNOLOGY APPLICATIONS CONSULTANT, CLARIBEL A 296.90 Mood Disorder 10/16/2010 PARISH TECHNOLOGY APPLICATIONS CONSULTANT, CLARIBEL A 300.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 10/16/2010 PARISH TECHNOLOGY APPLICATIONS CONSULTANT, CLARIBEL A 780.50 Sleep Disturbance, Unspecified 10/16/2010 PARISH TECHNOLOGY APPLICATIONS CONSULTANT, CLARIBEL A 780.79 Malaise And Fatigue 10/16/2010 [...] DEUTSCH APRN 307.81 Tension Headache 10/23/2010 PARISH TECHNOLOGY APPLICATIONS CONSULTANT, CLARIBEL A 307.81 Tension Headache 10/23/2010 PARISH [...] T 789.07 ABDOMINAL PAIN GENERALIZED 10/03/2012 PARISH TECHNOLOGY APPLICATIONS CONSULTANT, CLARIBEL A 789.04 ABDOMINAL PAIN LEFT LOWER QUADRANT 10/03/2012 PARISH TECHNOLOGY APPLICATIONS CONSULTANT, CLARIBEL A 789.07 ABDOMINAL PAIN GENERALIZED 10/03/2012 PARISH TECHNOLOGY APPLICATIONS CONSULTANT, CLARIBEL A 789.04 ABDOMINAL PAIN LEFT LOWER QUADRANT 10/03/2012 PARISH TECHNOLOGY APPLICATIONS CONSULTANT, CLARIBEL A 789.07 ABDOMINAL PAIN GENERALIZED 10/03/2012 PARISH TECHNOLOGY APPLICATIONS CONSULTANT, CLARIBEL A 789.04 ABDOMINAL PAIN LEFT LOWER QUADRANT 10/03/2012 PARISH TECHNOLOGY APPLICATIONS CONSULTANT, CLARIBEL A 789.07 ABDOMINAL PAIN GENERALIZED 10/03/2012 BLANQUITA CARDOZA MD N 789.04 ABDOMINAL PAIN LEFT LOWER QUADRANT 10/03/2012 BLANQUITA CARDOZA MD N 789.07 ABDOMINAL PAIN GENERALIZED 10/03/2012 PARISH TECHNOLOGY APPLICATIONS CONSULTANT, CLARIBEL A 789.04 ABDOMINAL PAIN LEFT LOWER [...] ABDOMINAL PAIN RIGHT LOWER QUADRANT 10/26/2012 PARISH TECHNOLOGY APPLICATIONS CONSULTANT, CLARIBEL A 789.03 ABDOMINAL PAIN RIGHT LOWER QUADRANT 10/26/2012 PARISH TECHNOLOGY APPLICATIONS CONSULTANT, CLARIBEL A 789.03 ABDOMINAL PAIN RIGHT LOWER QUADRANT 10/26/2012 PARISH TECHNOLOGY APPLICATIONS CONSULTANT, CLARIBEL A 789.03 ABDOMINAL PAIN RIGHT LOWER QUADRANT 10/26/2012 BLANQUITA CARDOZA MD N 789.03 ABDOMINAL PAIN RIGHT LOWER QUADRANT 10/26/2012 PARISH TECHNOLOGY APPLICATIONS CONSULTANT, CLARIBEL A 789.03 ABDOMINAL PAIN RIGHT LOWER [...] APRN 617.0 ENDOMETRIOSIS OF UTERUS 12/21/2012 PARISH TECHNOLOGY APPLICATIONS CONSULTANT, CLARIBEL A 617.0 ENDOMETRIOSIS OF UTERUS 12/21/2012 [...] DEUTSCH APRN 309.81 AN PTSD 03/11/2013 PARISH TECHNOLOGY APPLICATIONS CONSULTANT, CLARIBEL A 296.32 MO DEPRESSIVE RECURRENT MODERATE 03/11/2013 PARISH TECHNOLOGY APPLICATIONS CONSULTANT, CLARIBEL A 309.81 AN PTSD 03/11/2013 PARISH TECHNOLOGY APPLICATIONS CONSULTANT, CLARIBEL A 296.32 MO DEPRESSIVE RECURRENT MODERATE 03/11/2013 PARISH TECHNOLOGY APPLICATIONS CONSULTANT, CLARIBEL A 309.81 AN PTSD 03/11/2013 PARISH TECHNOLOGY APPLICATIONS CONSULTANT, CLARIBEL A 296.32 MO DEPRESSIVE RECURRENT MODERATE 03/11/2013 PARISH TECHNOLOGY APPLICATIONS CONSULTANT, CLARIBEL A 309.81 AN PTSD 03/11/2013 BLANQUITA CARDOZA MD N 296.32 MO DEPRESSIVE RECURRENT MODERATE 03/11/2013 BLANQUITA CARDOZA MD N 309.81 AN PTSD 03/11/2013 PARISH TECHNOLOGY APPLICATIONS CONSULTANT, CLARIBEL A 296.32 MO DEPRESSIVE RECURRENT MODERATE [...] 574.20 CHOLELITHIASIS NOS 03/25/2013 MARIA ALEJANDRA MICHELLE, ATLISHA T Ot 599.0 URIN TRACT INFECTION NOS [...] ABDOMINAL PAIN RIGHT UPPER QUADRANT 03/27/2013 PARISH TECHNOLOGY APPLICATIONS CONSULTANT, CLARIBEL A 780.79 FATIGUE 03/27/2013 PARISH TECHNOLOGY APPLICATIONS CONSULTANT, CLARIBEL A 783.1 WEIGHT GAIN ABNORMAL 03/27/2013 PARISH TECHNOLOGY APPLICATIONS CONSULTANT, CLARIBEL A 787.01 NAUSEA WITH VOMITING 03/27/2013 PARISH TECHNOLOGY APPLICATIONS CONSULTANT, CLARIBEL A 787.91 DIARRHEA 03/27/2013 PARISH TECHNOLOGY APPLICATIONS CONSULTANT, CLARIBEL A 789.01 ABDOMINAL PAIN RIGHT UPPER QUADRANT 03/27/2013 PARISH TECHNOLOGY APPLICATIONS CONSULTANTTHIEN VannIDI A 780.79 FATIGUE 03/27/2013 PARISH TECHNOLOGY APPLICATIONS CONSULTANT, CLARIBEL A 783.1 WEIGHT GAIN ABNORMAL 03/27/2013 PARISH TECHNOLOGY APPLICATIONS CONSULTANT, CLARIBEL A 787.01 NAUSEA WITH VOMITING 03/27/2013 PARSIH APRN, CLARIBEL A 787.91 DIARRHEA 03/27/2013 PARISH TECHNOLOGY APPLICATIONS CONSULTANT, CLARIBEL A 789.01 ABDOMINAL PAIN RIGHT UPPER QUADRANT 03/27/2013 PARISH TECHNOLOGY APPLICATIONS CONSULTANT, CLARIBEL A 780.79 FATIGUE 03/27/2013 PARISH TECHNOLOGY APPLICATIONS CONSULTANT, CLARIBEL A 783.1 WEIGHT GAIN ABNORMAL 03/27/2013 PARISH TECHNOLOGY APPLICATIONS CONSULTANT, CLARIBEL A 787.01 NAUSEA WITH VOMITING 03/27/2013 PARISH TECHNOLOGY APPLICATIONS CONSULTANT, CLARIBEL A 787.91 DIARRHEA 03/27/2013 PARISH TECHNOLOGY APPLICATIONS CONSULTANT, CLARIBEL A 789.01 ABDOMINAL PAIN RIGHT UPPER [...] ABDOMINAL PAIN, OTHER SPECIFIED SITE 08/15/2013 PARISH TECHNOLOGY APPLICATIONS CONSULTANTTHIENCLARIBEL A V22.2 INCIDENTAL 08/15/2013 THIEN LUGO APRNIDI A V22.2 INCIDENTAL 08/15/2013 PARISH TECHNOLOGY APPLICATIONS CONSULTANTTHIENCLARIBEL A V22.2 INCIDENTAL 08/15/2013 BLANQUITA CARDOZA MD V22.2 INCIDENTAL 08/15/2013 PARISH TECHNOLOGY APPLICATIONS CONSULTANTTHIENCLARIBEL A V22.2 INCIDENTAL 08/15/2013 BLANQUITA CARDOZA MD [...] MD V22.1 , NORMAL OTHER 09/19/2013 PARISH TECHNOLOGY APPLICATIONS CONSULTANTTHIENCLARIBEL A 787.01 NAUSEA WITH VOMITING 09/19/2013 APRISH TECHNOLOGY APPLICATIONS CONSULTANTTHIENCLARIBEL A V22.1 , NORMAL OTHER 09/19/2013 BLANQUITA [...] V76.2 CERVICAL CANCER SCREENING (PAP SMEAR) 11/07/2013 LBANQUITA CARDOZA MD 614.9 UNSPECIFIED INFLAMMATORY DISEASE OF [...] V76.2 CERVICAL CANCER SCREENING (PAP SMEAR) 11/20/2013 OSNY MICHELLE, BLANQUITA N 648.80 ABNORMAL GTT IN [...] INOCULATI 03/25/2014 ANNA GONZALEZ MD, Ot V06.1 [id number], COMBINED [ 03/25/2014 ANNA GONZALEZ MD, Ot V27.0 DELIVER-SINGLE LIVEBORN 04/10/2014 Ot 625.9 04/10/2014 Ot 646.83 04/10/2014 Ot V22.1 04/10/2014 Ot V28.89 04/10/2014 Ot 633.90 04/10/2014 EMMANUEL RAI R SOIL CHECKER Ot 789.04 04/10/2014 RAI BENITEZ SOIL CHECKER Ot 789.07 04/10/2014 CLARIBEL LUGO Mallory TECHNOLOGY APPLICATIONS CONSULTANT Ot V28.81 04/10/2014 SONY MICHELLE, BLANQUITA Vann Ot V23.9 04/10/2014 SNOY MICHELLE, BLANQUITA Vann Ot V28.89 04/10/2014 BLANQUITA [...] 521.00 UNSPEC DENTAL CARIES 07/05/2014 LONG SANCHEZ TECHNOLOGY APPLICATIONS CONSULTANT Ot 525.9 DENTAL DISORDER NOS 08/27/2014 GELDENISE SPEARS DO Ot 620.2 08/27/2014 DENISE DYER DO Ot 789.04 10/31/2014 LENNY PAULINO Ot 564.00 UNSPEC CONSTIPATION 10/31/2014 LENNY PAULINO Ot 625.9 FEM GENITAL SYMPTOMS NOS 10/31/2014 LENNY PAULINO Ot 626.2 EXCESSIVE MENSTRUATION 01/01/2015 Ot 625.9 01/01/2015 Ot 646.83 01/01/2015 Ot V22.1 01/01/2015 Ot V28.89 01/01/2015 Ot 633.90 01/01/2015 RAI BENITEZ SOIL CHECKER Ot 789.04 01/01/2015 RAI BENITEZ SOIL CHECKER Ot 789.07 01/01/2015 CLARIBEL LUGO TECHNOLOGY APPLICATIONS CONSULTANT Ot V28.81 01/01/2015 BLANQUITA CARDOZA MD Ot [...] NAUSEA WITH VOMITING, UNSPECIFIED 01/03/2015 LONG SANCHEZ TECHNOLOGY APPLICATIONS CONSULTANT Ot R10.11 RIGHT UPPER QUADRANT PAIN 01/20/2015 QIAN POWERS SOIL CHECKER Ot R10.12 03/19/2015 PAWEL IRBY TECHNOLOGY APPLICATIONS CONSULTANT Ot N94.9 03/19/2015 PAWEL IRBY TECHNOLOGY APPLICATIONS CONSULTANT Ot O46.90 03/19/2015 PAWEL IRBY TECHNOLOGY APPLICATIONS CONSULTANT Ot O99.89 03/19/2015 PAWEL IRBY TECHNOLOGY APPLICATIONS CONSULTANT Ot Z3A.08 04/01/2015 LISA MICHELLE, ANNA Oliva Ot O21.0 MILD HYPEREMESIS GRAVIDARUM 06/14/2015 Ot V22.1 06/14/2015 Ot V28.89 06/14/2015 Ot 633.90 06/14/2015 RAI BENITEZ SOIL CHECKER Ot 789.04 06/14/2015 RAI BENITEZ SOIL CHECKER Ot 789.07 06/14/2015 CLARIBEL LUGO TECHNOLOGY APPLICATIONS CONSULTANT Ot V28.81 06/14/2015 BLANQUITA CARDOZA MD Ot V23.9 06/14/2015 SONY MICHELLE, BLANQUITA N Ot V28.89 06/14/2015 SONY MICHELLE, BLANQUITA Vann Ot V28.89 06/14/2015 Ot 789.04 06/14/2015 Ot 620.2 06/14/2015 [facility] A Ot 620.2 06/14/2015 [facility] A Ot 789.04 06/14/2015 GIOQIAN SOIL CHECKER Ot R10.12 06/14/2015 PAWEL IRBY TECHNOLOGY APPLICATIONS CONSULTANT Ot N94.9 06/14/2015 PAWEL IRBY TECHNOLOGY APPLICATIONS CONSULTANT Ot O46.90 06/14/2015 PAWEL IRBY TECHNOLOGY APPLICATIONS CONSULTANT Ot O99.89 06/14/2015 PAWEL IRBY TECHNOLOGY APPLICATIONS CONSULTANT Ot Z3A.08 06/14/2015 TERE DO, SAMIAR K Ot K02.9 DENTAL CARIES, UNSPECIFIED 06/14/2015 EXCHANGE DO, SAMIRA K Ot O99.612 DISEASES OF [...] W/O INTRAUTERINE PRE 09/15/2015 RAI BENITEZ R SOIL CHECKER Ot 789.04 ABDOMINAL PAIN, LEFT LOWER QUADRANT 09/15/2015 RAI BENITEZ R SOIL CHECKER Ot 789.07 ABDOMINAL PAIN, GENERALIZED 09/15/2015 CLARIBEL LUGO TECHNOLOGY APPLICATIONS CONSULTANT Ot V28.81 ENCOUNTER FOR ANATOMIC SURVEY 09/15/2015 [...] LEFT LOWER QUADRANT 09/15/2015 GIO QIAN L SOIL CHECKER Ot R10.12 LEFT UPPER QUADRANT PAIN 09/15/2015 PAWEL IRBY TECHNOLOGY APPLICATIONS CONSULTANT Ot N94.9 UNSP COND ASSOC W FEMALE GENITAL ORGANS 09/15/2015 PAWEL IRBY TECHNOLOGY APPLICATIONS CONSULTANT Ot O46.90 ANTEPARTUM HEMORRHAGE, UNSPECIFIED, UNSP 09/15/2015 PAWEL IRBY APRN Ot O99.89 OTH DISEASES AND CONDITIONS COMPL PREG/C 09/15/2015 PAWEL IRBY TECHNOLOGY APPLICATIONS CONSULTANT Ot Z3A.08 8 WEEKS GESTATION OF 09/15/2015 [...] PREG W/O INTRAUTERINE PRE 09/22/2015 RAI BENITEZ SOIL CHECKER Ot 789.04 ABDOMINAL PAIN, LEFT LOWER QUADRANT 09/22/2015 RAI BENITEZ SOIL CHECKER Ot 789.07 ABDOMINAL PAIN, GENERALIZED 09/22/2015 CLARIBEL [...] PAIN, LEFT LOWER QUADRANT 09/22/2015 QIAN POWERS SOIL CHECKER Ot R10.12 LEFT UPPER QUADRANT PAIN 09/22/2015 PAWEL IRBY TECHNOLOGY APPLICATIONS CONSULTANT Ot N94.9 UNSP COND ASSOC W FEMALE GENITAL ORGANS 09/22/2015 PAWEL IRBY TECHNOLOGY APPLICATIONS CONSULTANT Ot O46.90 ANTEPARTUM HEMORRHAGE, UNSPECIFIED, UNSP 09/22/2015 PAWEL IRBY TECHNOLOGY APPLICATIONS CONSULTANT Ot O99.89 OTH DISEASES AND CONDITIONS COMPL PREG/C 09/22/2015 PAWEL IRBY TECHNOLOGY APPLICATIONS CONSULTANT Ot Z3A.08 8 WEEKS GESTATION OF 09/22/2015 ANNA GONZALEZ MD Ot O47.1 FALSE LABOR AT OR AFTER 37 COMPLETED WEE 09/22/2015 ANNA GONZALEZ MD Ot Z3A.37 37 WEEKS GESTATION OF 09/23/2015 Ot V28.89 OTHER SPECIFIED SCREENING 09/23/2015 Ot 633.90 UNSPEC ECTOPIC PREG W/O INTRAUTERINE PRE 09/23/2015 RAI BENITEZ SOIL CHECKER Ot 789.04 ABDOMINAL PAIN, LEFT LOWER QUADRANT 09/23/2015 RAI BENITEZ SOIL CHECKER Ot 789.07 ABDOMINAL PAIN, GENERALIZED 09/23/2015 CLARIBEL LUGO TECHNOLOGY APPLICATIONS CONSULTANT Ot V28.81 ENCOUNTER FOR ANATOMIC SURVEY 09/23/2015 [...] PAIN, LEFT LOWER QUADRANT 09/23/2015 QIAN POWERS SOIL CHECKER Ot R10.12 LEFT UPPER QUADRANT PAIN 09/23/2015 [...] PREG W/O INTRAUTERINE PRE 06/24/2016 RAI BENITEZ SOIL CHECKER Ot 789.04 ABDOMINAL PAIN, LEFT LOWER QUADRANT 06/24/2016 RAI BENITEZ SOIL CHECKER Ot 789.07 ABDOMINAL PAIN, GENERALIZED 06/24/2016 PARISH, CLARIBEL A TECHNOLOGY APPLICATIONS CONSULTANT Ot V28.81 ENCOUNTER FOR ANATOMIC SURVEY 06/24/2016 [...] PAIN, LEFT LOWER QUADRANT 06/24/2016 QIAN POWERS SOIL CHECKER Ot R10.12 LEFT UPPER QUADRANT PAIN 06/24/2016 APWEL IRBY APRN Ot N94.9 UNSP COND ASSOC W FEMALE GENITAL ORGANS 06/24/2016 PAWEL IRBY TECHNOLOGY APPLICATIONS CONSULTANT Ot O46.90 ANTEPARTUM HEMORRHAGE, UNSPECIFIED, UNSP 06/24/2016 PAWEL IRBY TECHNOLOGY APPLICATIONS CONSULTANT Ot O99.89 OTH DISEASES AND CONDITIONS COMPL [...] NONINFECTIVE GASTROENTERITIS AND COLITIS 07/13/2016 LONG SANCHEZ TECHNOLOGY APPLICATIONS CONSULTANT Ot R10.30 LOWER ABDOMINAL PAIN, UNSPECIFIED 07/14/2016 LONG SANCHEZ APRN Ot K52.9 NONINFECTIVE GASTROENTERITIS AND COLITIS 07/14/2016 LONG SANCHEZ TECHNOLOGY APPLICATIONS CONSULTANT Ot R10.30 LOWER ABDOMINAL PAIN, UNSPECIFIED 10/02/2016 Ot 633.90 UNSPEC ECTOPIC PREG W/O INTRAUTERINE PRE 10/02/2016 RAI BENITEZ SOIL CHECKER Ot 789.04 ABDOMINAL PAIN, LEFT LOWER QUADRANT 10/02/2016 RAI BENITEZ SOIL CHECKER Ot 789.07 ABDOMINAL PAIN, GENERALIZED 10/02/2016 CLARIBEL LUGO TECHNOLOGY APPLICATIONS CONSULTANT Ot V28.81 ENCOUNTER FOR ANATOMIC SURVEY 10/02/2016 [...] PAIN, LEFT LOWER QUADRANT 10/02/2016 QIAN POWERS SOIL CHECKER Ot R10.12 LEFT UPPER QUADRANT PAIN 10/02/2016 PAWEL IRBY APRN Ot N94.9 UNSP COND ASSOC W FEMALE GENITAL ORGANS 10/02/2016 PAWEL IRBY TECHNOLOGY APPLICATIONS CONSULTANT Ot O46.90 ANTEPARTUM HEMORRHAGE, UNSPECIFIED, UNSP 10/02/2016 PAWEL IRBY TECHNOLOGY APPLICATIONS CONSULTANT Ot O99.89 OTH DISEASES AND CONDITIONS COMPL PREG/C 10/02/2016 PAWEL IRBY TECHNOLOGY APPLICATIONS CONSULTANT Ot Z3A.08 8 WEEKS GESTATION OF 10/05/2016 DANIA MANJARREZ MD Ot A41.51 SEPSIS DUE TO ESCHERICHIA COLI [E. COLI] 10/05/2016 DANIA MANJARREZ MD, Ot K21.9 GASTRO-ESOPHAGEAL REFLUX DISEASE WITHOUT 10/05/2016 DANIA MANJARREZ MD Ot N12 TUBULO-INTERSTITIAL NEPHRITIS, NOT SPCF 10/05/2016 DANIA MANJARREZ MD Ot Z87.891 PERSONAL HISTORY OF NICOTINE DEPENDENCE 05/27/2017 RAI BENITEZ SOIL CHECKER Ot 789.04 ABDOMINAL PAIN, LEFT LOWER QUADRANT 05/27/2017 RAI BENITEZ SOIL CHECKER Ot 789.07 ABDOMINAL PAIN, GENERALIZED 05/27/2017 CLARIBEL LUGO TECHNOLOGY APPLICATIONS CONSULTANT Ot V28.81 ENCOUNTER FOR ANATOMIC SURVEY 05/27/2017 LBANQUITA CARDOZA MD Ot V23.9 SUPRV HIGH-RISK PREG NOS 05/27/2017 BLANQUITA CARDOZA MD Ot V28.89 OTHER SPECIFIED SCREENING 05/27/2017 BLANQUITA CARDOZA MD Ot V28.89 OTHER SPECIFIED SCREENING 05/27/2017 Ot 789.04 ABDOMINAL PAIN, LEFT LOWER QUADRANT 05/27/2017 Ot 620.2 OVARIAN CYST NEC/NOS 05/27/2017 DENISE DYER DO Ot 620.2 OVARIAN CYST NEC/NOS 05/27/2017 DENISE DYER DO Ot 789.04 ABDOMINAL PAIN, LEFT LOWER QUADRANT 05/27/2017 QIAN POWERS SOIL CHECKER Ot R10.12 LEFT UPPER QUADRANT PAIN 05/27/2017 PAWEL IRBY APRN Ot N94.9 UNSP COND ASSOC W FEMALE GENITAL ORGANS 05/27/2017 PAWEL IRBY TECHNOLOGY APPLICATIONS CONSULTANT Ot O46.90 ANTEPARTUM HEMORRHAGE, UNSPECIFIED, UNSP 05/27/2017 [...] ABSENCE OF BOTH CERVIX AND UTER 10/05/2017 LOKI MICHELLE, DANIA Rolon Ot F17.210 NICOTINE DEPENDENCE, CIGARETTES, UNCOMPL 10/05/2017 LOKI MICHELLE, DANIA Rolon Ot G43.909 MIGRAINE, UNSP, NOT INTRACTABLE, WITHOUT 10/05/2017 LOKI MICHELLE, DANIA Rolon Ot K21.9 GASTRO-ESOPHAGEAL REFLUX DISEASE WITHOUT 10/05/2017 LOKI MICHELLE, DANAI Rolon Ot N12 TUBULO-INTERSTITIAL NEPHRITIS, NOT SPCF 10/05/2017 LOKI MICHELLE, DANIA Rolon Ot F17.210 NICOTINE DEPENDENCE, CIGARETTES, UNCOMPL 10/05/2017 LOKI MICHELLE, DANIA Rolon Ot G43.909 MIGRAINE, UNSP, NOT INTRACTABLE, WITHOUT 10/05/2017 LOKI MICHELLE, DANIA Rolon Ot K21.9 GASTRO-ESOPHAGEAL REFLUX DISEASE WITHOUT 10/05/2017 LOKI MICHELLE, DANIA Rolon Ot N12 TUBULO-INTERSTITIAL NEPHRITIS, NOT SPCF 10/21/2017 Ot F17.210 NICOTINE DEPENDENCE, CIGARETTES, UNCOMPL 10/21/2017 Ot F41.9 ANXIETY DISORDER, UNSPECIFIED 10/21/2017 Ot F43.10 POST- TRAUMATIC STRESS DISORDER, UNSPECIF 10/21/2017 Ot F64.9 GENDER IDENTITY DISORDER, UNSPECIFIED 10/21/2017 Ot G43.909 MIGRAINE, UNSP, NOT INTRACTABLE, WITHOUT 10/21/2017 Ot K21.9 GASTRO- ESOPHAGEAL REFLUX DISEASE WITHOUT 10/21/2017 Ot R10.11 RIGHT UPPER QUADRANT PAIN 10/21/2017 Ot R10.9 UNSPECIFIED ABDOMINAL PAIN 10/21/2017 Ot R50.9 FEVER, UNSPECIFIED 10/21/2017 Ot Z82.49 FAMILY HX OF ISCHEM HEART DIS AND OTH DI 10/21/2017 Ot Z87.448 PERSONAL HISTORY OF OTHER DISEASES OF UR 10/21/2017 Ot Z87.59 PERSONAL HISTORY OF COMP OF PREG, CHLDBR 10/21/2017 Ot Z88.0 ALLERGY STATUS TO PENICILLIN 10/21/2017 Ot Z90.710 ACQUIRED ABSENCE OF BOTH CERVIX AND UTER 10/21/2017 Ot Z90.89 ACQUIRED ABSENCE OF OTHER ORGANS 10/27/2017 Ot D64.9 ANEMIA, UNSPECIFIED 10/27/2017 Ot F17.210 NICOTINE DEPENDENCE, CIGARETTES, UNCOMPL 10/27/2017 Ot F41.9 ANXIETY DISORDER, UNSPECIFIED 10/27/2017 Ot F43.10 POST- TRAUMATIC STRESS DISORDER, UNSPECIF 10/27/2017 Ot G43.909 MIGRAINE, UNSP, NOT INTRACTABLE, WITHOUT 10/27/2017 Ot K02.9 DENTAL CARIES , UNSPECIFIED 10/27/2017 Ot K04.7 PERIAPICAL ABSCESS WITHOUT SINUS 10/27/2017 Ot K21.9 GASTRO- ESOPHAGEAL REFLUX DISEASE WITHOUT 10/27/2017 Ot Z82.49 FAMILY HX OF ISCHEM HEART DIS AND OTH DI 10/27/2017 Ot Z87.448 PERSONAL HISTORY OF OTHER DISEASES OF UR 10/27/2017 Ot Z87.59 PERSONAL HISTORY OF COMP OF PREG, CHLDBR 10/27/2017 Ot Z88.0 ALLERGY STATUS TO PENICILLIN 10/27/2017 Ot Z90.710 ACQUIRED ABSENCE OF BOTH CERVIX AND UTER 10/27/2017 Ot Z90.89 ACQUIRED ABSENCE OF OTHER ORGANS 11/06/2017 Ot R10.11 RIGHT UPPER QUADRANT PAIN 11/08/2017 Ot R10.11 RIGHT UPPER QUADRANT PAIN 11/10/2017 Ot R10.11 RIGHT UPPER QUADRANT PAIN 11/17/2017 Ot R10.11 RIGHT UPPER QUADRANT PAIN 11/22/2017 IGNACIO ALEJANDRE DO Ot Z01.818 ENCOUNTER FOR OTHER PREPROCEDURAL EXAMIN 11/23/2017 IGNACIO ALEJANDRE DO Ot F17.210 NICOTINE DEPENDENCE, CIGARETTES, UNCOMPL 11/23/2017 IGNACIO ALEJANDRE DO Ot K21.9 GASTRO-ESOPHAGEAL REFLUX DISEASE WITHOUT 11/23/2017 IGNACIO ALEJANDRE DO Ot K29.70 GASTRITIS, UNSPECIFIED, WITHOUT BLEEDING 11/23/2017 IGNACIO ALEJANDRE DO Ot K81.1 CHRONIC CHOLECYSTITIS 11/29/2017 IGNACIO ALEJANDRE DO Ot F17.210 NICOTINE DEPENDENCE, CIGARETTES, UNCOMPL 11/29/2017 IGNACIO ALEJANDRE DO Ot K21.9 GASTRO-ESOPHAGEAL REFLUX DISEASE WITHOUT 11/29/2017 IGNACIO ALEJANDRE DO B Ot K29.70 GASTRITIS, UNSPECIFIED, WITHOUT BLEEDING 11/29/2017 IGNACIO ALEJANDRE DO Ot K81.1 CHRONIC CHOLECYSTITIS 11/29/2017 IGNACIO ALEJANDRE DO Ot F17.210 NICOTINE DEPENDENCE, CIGARETTES, UNCOMPL 11/29/2017 IGNACIO ALEJANDRE DO B Ot K21.9 GASTRO-ESOPHAGEAL REFLUX DISEASE WITHOUT 11/29/2017 IGNACIO ALEJANDRE DO Ot K29.70 GASTRITIS, UNSPECIFIED, WITHOUT BLEEDING 11/29/2017 IGNACIO ALEJANDRE DO Ot K81.1 CHRONIC CHOLECYSTITIS Procedures Code Description Performed By Performed On 73.4 07/15/2010 73.59 07/16/2010 OBSTETRIC FENCLOVER, EDDY 10/26/2012 OBSTETRIC MADAY BRASHER 12/21/2012 86579 PSYCH DIAGNOSTIC EVALUATION 03/12/2013 01903 HIDA SCAN 03/27/2013 GENERAL S SVEN BENTLEY 04/02/2013 39005 ROUTINE VENIPUNCTURE 08/15/2013 45241 US OB - EARLY <14 WEEKS 08/15/2013 66721 TSH 08/15/2013 36643 HCG QUANTITATIVE 08/15/2013 38357 BLOOD TYPE/Rh FACTOR 08/16/2013 47988 ROUTINE VENIPUNCTURE 09/19/2013 17659 SYPHILLIS-[facility] 09/19/2013 04896 HIV ([facility]) 09/19/2013 73921 ANTIBODY SCREEN (order) 09/19/2013 96691 HEP B SURFACE ANTIGEN (STATE ) 09/19/2013 98527 UA LONG DIP 09/19/2013 22344 CBC 09/19/2013 49731 A1C (RML) 09/19/2013 00158 TSH 09/19/2013 [id number] ANTIBODY SCREEN (RESULT ONLY) 09/20/2013 98151 BLOOD TYPE/Rh FACTOR 09/20/2013 39404 RUBELLA ANTIBODY, IGG 09/20/2013 93983 CULTURE URINE 09/20/2013 44128 GC/CHLAM PROBE (STATE) 11/05/2013 33419 PAP SMEAR 11/07/2013 Q0091 PAP SMEAR OBTAIN SMEAR 11/07/2013 27880 URINE DRUG SCREEN (IN-HOUSE ) 11/07/2013 13203 UA W/ CULTURE IF INDICATED 11/07/2013 15055 TRICHOMONAS (IN-HOUSE) 11/07/2013 14534 CULTURE UROGENITAL 11/10/2013 89282 US OB - COMPLETE >14 WEEKS 11/14/2013 [id number] GLUCOSE JUSTINE 1 HOUR 11/14/2013 [id number] GLUCOSE JUSTINE 3 HOUR 11/14/2013 [id number] CBC 11/14/2013 [id number] UA OB DIP 11/14/2013 [id number] US OB - FOLLOW UP 12/05/2013 [id number] UA OB DIP 12/05/2013 74.1 LOW CERVICAL 03/23/2014 98A20O7 EXTRACTION OF POC, LOW CERVICAL, OPEN AP [...] ABO+Rh group OP NRG Transfusion band number [id number] NRG Blood group antibody screen NEGATIVE NRG [...] NRG Blood erythrocyte morphology finding identification NORMAL NR Bacterial blood culture - 10/02/16 10:10 FREE TEXT EXTERNAL SENSITIVITY REPORTED 10/03 15:30 NRG QUANTITY OF GROWTH . [facility] Bacterial blood culture SEE COMMEN [facility] Bacterial susceptibility panel - 10/02/16 [...] susceptibility test by minimum inhibitory concentration - [facility] Bacterial blood culture - 10/02/16 10:44 Bacterial [...] culture - 05/27/17 13:40 Bacterial urine culture [id number] NRG COLONY COUNT >100,000/ML NRG FTX;REPORTABLE SENSITIVITY REPORTED 05/28 16:40 NRG FREE TEXT ENTRY 3 MIXED GRAM POSITIVE LINDA NRG Bacterial susceptibility panel - 05/27/17 13:40 Gentamicin [...] test by minimum inhibitory concentration - NRG Complete blood count (CBC) with automated [...] 10/21/17 22:27 Bacterial blood culture NG NRG Methicillin resistant Staphylococcus aureus (MRSA) screening culture - 06:05 Methicillin resistant Staphylococcus aureus (MRSA) screening culture NEG NRG Encounters ACCT No. Visit Date/Time Discharge Status Pt. Type Provider Facility Loc./Unit Complaint [id number] 12/05/2013 15:43:00 12/05/2013 23:59:59 CLS Outpatient BLANQUITA CARDOZA MD [id number] 12/05/2013 15:43:00 12/05/2013 23:59:59 CLS Outpatient BLANQUITA CARDOZA MD [id number] 11/14/2013 11:34:00 11/14/2013 23:59:59 CLS Outpatient BLANQUITA CARDOZA MD [id number] 11/07/2013 11:39:00 11/07/2013 23:59:59 CLS Outpatient CLARIBEL LUGO APRN [id number] 11/07/2013 11:39:00 11/07/2013 23:59:59 CLS Outpatient CLARIBEL LUGO APRN [id number] 09/19/2013 10:36:00 09/19/2013 23:59:59 CLS Outpatient CLARIBEL LUGO APRN [id number] 08/15/2013 14:41:00 08/15/2013 23:59:59 CLS Outpatient CLARIBEL LUGO APRN [id number] 04/02/2013 14:29:00 04/02/2013 23:59:59 CLS Outpatient KEO DEUTSCH APRN [id number] 03/27/2013 16:47:00 03/27/2013 23:59:59 CLS Outpatient SEAN TRAORE APRN [id number] 03/11/2013 15:41:00 03/11/2013 23:59:59 CLS Outpatient MANI STRICKLAND MD [id number] 01/11/2013 11:46:00 01/11/2013 23:59:59 CLS Outpatient FATEMEH CASIANO DO [id number] 12/21/2012 10:56:00 12/21/2012 23:59:59 CLS Outpatient KEO DEUTSCH APRN [id number] 06/26/2012 16:21:00 06/26/2012 23:59:59 CLS Outpatient [id number] 06/08/2012 16:35:00 06/08/2012 23:59:59 CLS Outpatient [id number] 10/26/2012 14:14:00 Document Registration [id number] 11/23/2017 08:51:00 11/23/2017 14:11:00 DIS Outpatient IGNACIO ALEJANDRE DO [facility] ABNORMAL HIDA [id number] 11/22/2017 05:51:00 11/22/2017 10:16:00 DIS Outpatient IGNACIO ALEJANDRE DO [facility] PREOP ABNORMAL HIDA [id number] 10/03/2017 20:38:00 10/05/2017 13:43:00 DIS Inpatient DANIA MANJARREZ MD [facility] 4TH UTI, PYELONEPHRITIS, N/V [id number] 05/27/2017 12:23:00 05/27/2017 16:12:00 DIS Outpatient TERE SAMIRA ORELLANA [facility] ER BLOOD IN URINE [id number] 10/02/2016 12:59:00 10/05/2016 14:45:00 DIS Inpatient DANIA MANJARREZ MD [facility] 4TH R PYELONEPHRITIS [id number] 07/13/2016 19:45:00 07/13/2016 21:28:00 DIS Emergency LONG SANCHEZ APRN [facility] ER LOWER ABD PAIN [id number] 06/29/2016 10:57:00 06/29/2016 15:45:00 DIS Outpatient ANNA GONZALEZ MD [facility] CHRONIC PELVIC PAIN [id number] 06/24/2016 12:56:00 06/24/2016 13:19:00 DIS Outpatient ANNA GONZALEZ MD [facility] PREOP CPP ENDOMETRIOSIS [id number] 01/04/2016 11:26:00 01/04/2016 23:59:59 CLS Outpatient RAKESH LAINEZ APRN [facility] QUICK HAND/WRIST PAIN [id number] 11/30/2015 16:50:00 11/30/2015 19:47:00 DIS Emergency TERE SAMIRA ORELLANA [facility] ER POST HYSTERECTOMY/PAIN ABOVE PUBIC BONE [id number] 11/20/2015 10:55:00 11/21/2015 09:55:00 DIS Outpatient ANNA GONZALEZ MD [facility] SDC CPP; DUB; PROLAPSE [id number] 11/16/2015 09:56:00 11/16/2015 11:12:00 DIS Outpatient ANNA GONZALEZ MD [facility] PREOP CPP; DUB; PROLAPSE [id number] 09/23/2015 05:53:00 09/25/2015 14:15:00 DIS Inpatient ANNA GONZALEZ MD [facility] LDRP PREVIOUS SECTION [id number] 09/22/2015 14:36:00 09/22/2015 16:25:00 DIS Outpatient ANNA GONZALEZ MD [facility] WSo CONTRACTIONS AND SPOTTING [id number] 09/19/2015 17:21:00 09/20/2015 07:39:00 DIS Outpatient ANNA GONZALEZ MD [facility] WSo ABD PAIN,NAUSEA [id number] 09/15/2015 14:43:00 09/15/2015 15:05:00 DIS Outpatient ANNA GONZALEZ MD [facility] PREOP PREVIOUS SECTION [id number] 06/26/2015 14:18:00 06/26/2015 16:40:00 DIS Outpatient ANNA GONZALEZ MD [facility] WSo CRAMPING AND PRESSURE [id number] 06/14/2015 18:30:00 06/14/2015 20:20:00 DIS Emergency TERE DO, SAMIRA Serra [facility] ER TOOTH INFECTION [id number] 04/01/2015 13:56:00 04/01/2015 20:00:00 DIS Outpatient ANNA GONZALEZ MD [facility] WSo N/V [id number] 03/02/2015 11:55:00 03/02/2015 23:59:59 CLS Outpatient PAWEL IRBY TECHNOLOGY APPLICATIONS CONSULTANT [facility] RAD ABD CRAMPING, BLEEDING, CONFIRM IUP,DATING [id number] 01/03/2015 12:59:00 01/03/2015 15:01:00 DIS Emergency LONG SANCHEZ TECHNOLOGY APPLICATIONS CONSULTANT [facility] ER ABD PAIN [id number] 01/01/2015 07:02:00 01/01/2015 23:59:59 CLS Outpatient QIAN POWERS SOIL CHECKER [facility] RAD LUQ PAIN [id number] 10/30/2014 18:23:00 10/31/2014 01:02:00 DIS Emergency LENNY PAULINO [facility] ER ABD PAIN [id number] 07/07/2014 13:02:00 07/07/2014 23:59:59 CLS Outpatient MANISHA DENISE [facility] RAD LEFT COMPLICATED CYST [id number] 07/05/2014 12:12:00 07/05/2014 12:39:00 DIS Emergency LONG SANCHEZ APRN [facility] ER DENTAL PAIN [id number] 04/10/2014 17:34:00 04/10/2014 21:59:00 DIS Emergency TERE ORELLANA SAMIRA Serra [facility] ER POST CSECTION COMPLICATIONS [id number] 03/22/2014 15:00:00 03/25/2014 13:38:00 DIS Inpatient ANNA GONZALEZ MD [facility] LDRP LABOR [id number] 03/17/2014 13:51:00 03/17/2014 16:25:00 DIS Outpatient ANNA GONZALEZ MD [facility] WSo R SIDE PAIN, BACK PAIN,VOMITTING [id number] 03/11/2014 21:50:00 03/12/2014 07:33:00 DIS Inpatient ANNA GONZALEZ MD [facility] LDRP LBP,CRAMPING, PRESSURE [id number] 02/22/2014 00:00:00 02/23/2014 10:05:00 DIS Inpatient ANNA GONZALEZ MD [facility] LDRP ABD PAIN;HEADACHE; CTXS [id number] 01/27/2014 12:45:00 01/27/2014 14:45:00 DIS Outpatient ANNA GONZALEZ MD [facility] WSo CRAMPING SPOTTING DIZZINESS 28 WEEKS [id number] 01/03/2014 12:57:00 01/03/2014 23:59:59 CLS Outpatient BLANQUITA CARDOZA MD [facility] RAD FOLLOW UP POOR VISUALIZATION CORD, SPINE, HEART [id number] 11/26/2013 14:28:00 11/26/2013 23:59:59 CLS Outpatient BLANQUITA CARDOZA MD [facility] RAD HIGH RISK PREG., ANATOMY SCREENING [id number] 11/05/2013 16:44:00 11/05/2013 21:31:00 DIS Emergency SAMIRA CARRANZA DO [facility] ER SHARP LOWER ABD PAIN @ 16 WEEKS [id number] 08/26/2013 11:30:00 08/26/2013 23:59:59 CLS Outpatient CLARIBEL LUGO APRN [facility] RAD DATING/VIABILITY [id number] 08/14/2013 19:25:00 08/15/2013 00:04:00 DIS Emergency TALISHA BESS MD [facility] ER L SIDE LOWER ABD PAIN, VOMITING,6 WKS PREG [id number] 08/12/2013 17:39:00 08/12/2013 20:22:00 DIS Emergency LENNY PAULINO [facility] ER LOWER ABD PAIN AT 4 WEEKS [id number] 06/04/2013 13:17:00 06/04/2013 16:08:00 DIS Emergency LONG SANCHEZ APRN [facility] ER UPPER ABD PAIN [id number] 03/25/2013 09:22:00 03/25/2013 13:00:00 DIS Emergency TALISHA BESS MD [facility] ER UPPER ABD PAIN [id number] 10/09/2012 13:06:00 10/09/2012 23:59:59 CLS Outpatient RAI BENITEZ [facility] RAD LLQ ABD PAIN [id number] 03/08/2018 18:04:00 ACT Emergency TERE DO, SAMIRA K [facility] ER R KIDNEY PAIN,NAUSEA [id number] 11/02/2017 11:33:00 Document Registration [id number] 10/27/2017 21:27:00 Document Registration [id number] 10/27/2017 07:34:00 Document Registration [id number] 10/21/2017 22:32:00 Document Registration [id number] 01/05/2015 10:42:00 Document Registration [id number] 06/16/2014 17:10:00 Document Registration [id number] 05/29/2014 13:26:00 Document Registration [id number] 05/28/2014 12:40:00 Document Registration [id number] 07/05/2012 18:49:00 Document Registration [id number] 04/03/2012 17:32:00 Document Registration [id number] 11/25/2011 22:39:00 Document Registration [id number] 09/22/2011 18:12:00 Document Registration [id number] 08/27/2011 19:09:00 Document Registration [id number] 08/01/2011 15:55:00 Document Registration [id number] 07/09/2011 17:37:00 Document Registration [id number] 02/11/2011 16:52:00 Document Registration [id number] 10/08/2010 03:09:00 Document Registration [id number] 08/28/2010 01:03:00 Document Registration [id number] 08/23/2010 18:34:00 Document Registration [id number] 07/15/2010 05:53:00 Document Registration [id number] 07/05/2010 18:20:00 Document Registration [id number] 07/02/2010 06:05:00 Document Registration [id number] 06/14/2010 09:00:00 Document Registration [id number] 05/15/2010 11:31:00 Document Registration [id number] 04/05/2010 09:42:00 Document Registration [id number] 03/05/2010 10:09:00 Document Registration [id number] 03/01/2010 20:18:00 Document Registration [id number] 11/26/2009 09:41:00 Document Registration [id number] 08/31/2009 19:46:00 Document Registration [id number] 08/02/2009 18:45:00 Document Registration [id number] 07/24/2009 06:32:00 Document Registration [id number] 10/25/2017 12:20:00 10/25/2017 23:59:59 CLS Outpatient KEO DEUTSCH APRN [facility]
[2018-03-08 19:08] LABS: BILIRUBIN,URINE NEGATIVE (NEGATIVE); CLARITY,URINE SLIGHTLY CLOUDY; COLOR,URINE YELLOW; GLUCOSE, URINE (UA) NEGATIVE (NEGATIVE); KETONES,URINE NEGATIVE (NEGATIVE); LEUKOCYTE ESTERASE ,URINE 2+ (NEGATIVE); NITRITE,URINE NEGATIVE (NEGATIVE); PH,URINE 6.5 (5-9); PROTEIN,URINE NEGATIVE (NEGATIVE); UROBILINOGEN,URINE NORMAL (NORMAL)
[2018-03-08] MEDS: KETOROLAC 30 MG/ML VIAL IVP STA (19:16)
[2018-03-08] MEDS: ONDANSETRON 4 MG/2 ML (SDV) Z0FRAN IVP ONE (19:16)
[2018-03-08 19:17] LABS: BACTERIA,URINE LARGE /HPF
[2018-03-08] MEDS: LACTATED RINGERS 1,000 ML IV ONE (19:17)
[2018-03-08 19:21] LABS: BASOPHILS % (AUTO) 0 % (0-10); EOSINOPHILS # (AUTO) 0.3 10^3/uL (0.0-0.3); EOSINOPHILS % (AUTO) 3 % (0-10); HEMATOCRIT 40 % (35-52); HEMOGLOBIN 13.5 G/DL (11.5-16.0); LYMPHOCYTES # (AUTO) 4.3 X 10^3 (1.0-4.0); LYMPHOCYTES % (AUTO) 45 % (12-44); MEAN CORPUSCULAR HEMOGLOBIN 31 PG (25-34); MEAN CORPUSCULAR HGB CONC 34 G/DL (32-36); MEAN CORPUSCULAR VOLUME 90 FL (80-99); MEAN PLATELET VOLUME 10.3 FL (7.4-10.4); MONOCYTES # (AUTO) 0.7 X 10^3 (0.0-1.0); MONOCYTES % (AUTO) 7 % (0-12); NEUTROPHILS # (AUTO) 4.2 X 10^3 (1.8-7.8); NEUTROPHILS % (AUTO) 45 % (42-75); PLATELET COUNT 329 10^3/uL (130-400); RED BLOOD COUNT 4.41 10^6/uL (4.35-5.85); RED CELL DISTRIBUTION WIDTH 13.7 % (10.0-14.5); WHITE BLOOD COUNT 9.5 10^3/uL (4.3-11.0)
[2018-03-08 19:38] LABS: ALANINE AMINOTRANSFERASE 22 U/L (0-55); ALBUMIN 4.6 GM/DL (3.2-4.5); ALKALINE PHOSPHATASE 85 U/L (40-136); BILIRUBIN,TOTAL 0.2 MG/DL (0.1-1.0); BUN/CREATININE RATIO 21; CARBON DIOXIDE 19 MMOL/L (21-32); GFR ESTIMATED > 60; GLUCOSE 61 MG/DL (70-105); TOTAL PROTEIN 8.7 GM/DL (6.4-8.2)
--- NOTE | 2018-03-08 20:09 | Diagnostic Imaging Report ---
CLINICAL INDICATION: Patient with right kidney pain and abdominal distention x1 day. EXAM: KUB x-ray. COMPARISON: KUB x-ray dated 10/21/2017. FINDINGS: There are no focal calcifications overlying the expected regions/ pathways of both kidneys, ureters, and bladder regions. There is a nonobstructed bowel gas pattern. There is no evidence of abdominal free air. There is a moderate amount of stool seen throughout the colon. Surgical clips are seen overlying the right upper quadrant which could be related to cholecystectomy changes. The visualized bones and extra abdominal soft tissues are unremarkable. IMPRESSION: 1: There is no radiographic evidence for acute abdominal/ pelvic process or urinary tract stones. 2: There is a moderate amount of stool seen throughout the colon. Dictated by: Dictated on workstation # [id number]
[2018-03-08 20:12] LABS: CHLORIDE 104 MMOL/L (98-107); POTASSIUM 4.8 MMOL/L (3.6-5.0); SODIUM 137 MMOL/L (135-145)
[2018-03-08] MEDS: cefTRIAXone FOR IV USE 1,000 MG in NS (IVPB) 50 ML IV ONE (20:25)
--- NOTE | 2018-03-08 20:28 | Diagnostic Imaging Report ---
CLINICAL INDICATION: Stone protocol. Patient has right kidney pain and abdominal distention x1 day. Patient has past surgical history of hysterectomy, appendectomy and gallbladder removal. No history of stones. EXAM: CT scan of the abdomen and pelvis performed without IV or enteric contrast using stone protocol. Coronal and sagittal reformatted images are created. COMPARISON: CT scan of the abdomen and pelvis without contrast dated 10/21/2017. FINDINGS: The visualized lung bases are clear. Bones show no significant abnormality. There is interval surgical resection of the gallbladder. The liver, spleen, pancreas, and adrenal glands are unremarkable. There is no urinary tract stone seen. There is no hydronephrosis or renal mass. There is no fat stranding adjacent to the kidneys. There is no intra-abdominal free air or free fluid. There is a moderate amount of stool seen throughout the colon. Appendix is absent consistent with patient's history of appendectomy. There is no evidence of intestinal obstruction. The visualized portions of the stomach, small bowel, and remainder of the colon is unremarkable. Uterus is surgically absent consistent with hysterectomy. Bladder is fluid filled with no gross abnormality. The extra-abdominal and extrapelvic soft tissue structures are unremarkable. IMPRESSION: 1: There is no CT evidence of acute abdominal or pelvic process. There is no urinary tract stone seen. There is no hydronephrosis or perinephric fat stranding. 2: There is moderate amount of stool seen throughout the colon. 3: Postop changes to the abdomen, as described above. Dictated by: Dictated on workstation # [id number]
[2018-03-08] MEDS ORDERED: PHEN-640 PO (20:35)
[2018-03-08] MEDS ORDERED: NITR-65 PO (20:35)
[2018-03-08] MEDS ORDERED: ONDN4T PO (20:35)
[2018-03-08] MEDS ORDERED: KETO10TA PO (20:35)
--- NOTE | 2018-03-08 20:36 | ED Abdominal Pain ---
General Chief Complaint: Back Problems Stated Complaint: R KIDNEY PAIN,NAUSEA Nursing Triage Note: PT AMB TO ROOM #6 W/O DIFFICULTY. A&OX4. C/O RT SIDE FLANK PAIN THAT BEGAN LAST NOC. PT REPORTS NAUSEA AND FEVER OF 102.0 BEGAN THIS AM, UPON RISE. PT REPORTS SHE IS CONCERNED DT HER HX OF PYELONEPHRITIS. REPORTS URINARY HESITANCY. Sepsis Screen: No Definite Risk Source of Information: Patient History of Present Illness Date Seen by Provider: Mar 08, 2018 Time Seen by Provider: 18:40 Initial Comments PT ARRIVES VIA POV FROM HOME C/O RIGHT FLANK PAIN SINCE YESTERDAY HAD FEVER OF 102 THIS AM C/O NAUSEA SINCE THIS AM C/O URINARY URGENCY, FREQUENCY, PRESSURE AND HESITATION AND SMALL AMOUNTS ON URINATION C/O ABDOMINAL BLOATING TODAY HAS HISTORY OF UTI'S WITH SEPSIS IN THE PAST AND THIS FEELS SIMILAR NO HISTORY OF KIDNEY STONES LMP--PT HAS HAD HYST/RSO PCP: [facility], SEE [facility] Allergies and Home Medications Allergies Coded Allergies: azithromycin (Unverified Allergy, Mild, 07/24/08) Home Medications Dicyclomine HCl 10 Mg Capsule, 10-20 MG PO Q6H Prescribed by: SAMIRA CARRANZA on 10/21/172344 Hydrocodone Bit/Acetaminophen 1 Tab Tab, 1 TAB PO Q6H PRN Prescribed by: IGNACIO ALEJANDRE on 11/23/17 1155 Ketorolac Tromethamine 10 Mg Tablet, 10 MG PO Q6H Prescribed by: SAMIRA CARRANZA on 03/08/182034 Nitrofurantoin Monohyd/M-Cryst 100 Mg Capsule, 100 MG PO BID Prescribed by: SAMIRA CARRANZA on 03/08/182034 Ondansetron HCl 4 Mg Tab, 4 MG PO Q4H Prescribed by: SAMIRA CARRANZA on 03/08/182034 Pantoprazole Sodium 40 Mg Tablet.dr, 40 MG PO DAILY Prescribed by: SAMIRA CARRANZA on 10/21/172344 Phenazopyridine HCl 200 Mg Tablet, 1 TAB PO TID Prescribed by: SAMIRA CARRANZA on 03/08/182034 Patient Home Medication List Home Medication List Reviewed: Yes Review of Systems Review of Systems Constitutional: see HPI, chills, fever Respiratory: No Symptoms Reported Cardiovascular: No Symptoms Reported Gastrointestinal: See HPI, Abdominal Pain, Nausea; Denies Vomiting Genitourinary: See HPI, Frequency, Flank Pain, Pain, Urgency Musculoskeletal: see HPI, back pain Skin: no symptoms reported Psychiatric/Neurological: No Symptoms Reported Endocrine: No Symptoms Reported Hematologic/Lymphatic: No Symptoms Reported Past Pjczncr-Aloeuj-Tpsnnr Hx Patient Social History Alcohol Use: Denies Use Recreational Drug Use: No Smoking Status: Current Everyday Smoker Type Used: Cigarettes (1 PPD) 2nd Hand Smoke Exposure: Yes Recent Foreign Travel: No Contact w/Someone Who Travel: No Recent Infectious Disease Expo: No Recent Hopitalizations: No Physical Abuse: No Sexual Abuse: No Immunizations Up To Date Tetanus Booster (TDap): Less than 5yrs PED Vaccines UTD: Yes Date of Pneumonia Vaccine: May 18, 2017 Date of Influenza Vaccine: May 26, 2015 Seasonal Allergies Seasonal Allergies: Yes Past Medical History Surgeries: Yes ( X 2; HYST/RSO/APPY) Appendectomy, Section, Gallbladder, Hysterectomy, Oophorectomy Respiratory: No Currently Using CPAP: No Cardiac: Yes Palpitations Neurological: Yes Headaches /Migraines 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 Disorders: No Female 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 Disorders: 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, 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 Disease: No HIV/AIDS: No Genitourinary: Yes Kidney Infection, UTI-Chronic Gastrointestinal: Yes (S/P SRINIVASA) Gastroesophageal Reflux, Gall Bladder Disease Musculoskeletal: Yes Scoliosis Endocrine: No (gestational diabetes) HEENT: No Loss of Vision: Bilateral Hearing Impairment: Denies Cancer: No Psychosocial: Yes (PANIC ATTACKS) Anxiety, PTSD Integumentary: Yes (IN WINTER) Eczema Blood Disorders: Yes (ANEMIA) Adverse Reaction/Blood Tranf: No Family Medical History Cardiovascular disease 19 FATHER Coronary thrombosis 19 FATHER 19 MOTHER Headache disorder 19 MOTHER Hypercholesterolemia 19 FATHER 19 MOTHER Hypertension 19 FATHER Myocardial infarction 19 FATHER 19 MOTHER Psychosocial problem 19 MOTHER (bipolar) No Family History of: AIDS Abdominal aortic aneurysm [place]'s disease Alcoholism Alzheimer's disease Aphasia Arthritis Asthma Cancer of mouth Cataracts Colon cancer Completed stroke Congenital disease Congenital heart disease Cystic fibrosis Deafness or hearing loss Dementia Diabetes mellitus Drug abuse Dysphasia Fibrocystic disease of breast Gastroenteritis Glaucoma Infertility Kidney disease Neoplasm Not obtainable due to adoption Osteoporosis Parkinson's disease Prostate cancer Respiratory disorder Seizure disorder Severe allergy Thyroid disease Tuberculosis Visual disorder Physical Exam Vital Signs Vital Signs - First Documented 03/08/18 18:26 Temp 96.6 Pulse 89 Resp 18 B/P (MAP) 149/96 (113) Pulse Ox 98 O2 Delivery Room Air Capillary Refill : Less Than 3 Seconds Height/Weight/BMI Height: 5'3.00" Weight: 150lbs. 0.0oz. 68.228473ir; 27.1 BMI Method:Stated General Appearance: WD/WN, no apparent distress, other (SHIVERING ON ARRIVAL. ) Neck: normal inspection Respiratory: normal breath sounds, no respiratory distress, no accessory muscle use Cardiovascular: regular rate, rhythm, no murmur Gastrointestinal: normal bowel sounds, soft, no organomegaly, no pulsatile mass ; No distended, No guarding, No rebound; tenderness (SUPRAPUBIC AND RIGHT FLANK TENDERNESS); No hernia, No mass Extremities: normal inspection Back: no vertebral tenderness, CVA tenderness (R) Neurologic/Psychiatric: erp technical lead II-XII nml as tested, no motor/sensory deficits, alert, normal mood/affect, oriented x 3 Skin: normal color, warm/dry; No rash Focused Exam Lactate Level 03/08/18 20:20: Lactic Acid Level Laboratory Tests Test 03/08/18 20:20 Progress/Results/Core Measures Results/Orders Lab Results Laboratory Tests Test 03/08/18 18:55 03/08/18 19:05 03/08/18 20:20 Range/Units Urine Color YELLOW Urine Clarity SLIGHTLY CLOUDY Urine pH 6.5 5-9 Urine Specific [place] 1.010 L 1.016-1.022 Urine Protein NEGATIVE NEGATIVE Urine Glucose (UA) NEGATIVE NEGATIVE Urine Ketones NEGATIVE NEGATIVE Urine Nitrite NEGATIVE NEGATIVE Urine Bilirubin NEGATIVE NEGATIVE Urine Urobilinogen NORMAL NORMAL MG/DL Urine Leukocyte Esterase 2+ H NEGATIVE Urine RBC (Auto) NEGATIVE NEGATIVE Urine RBC NONE /HPF Urine WBC 10-25 H /HPF Urine Squamous Epithelial Cells 2-5 /HPF Urine Crystals NONE /LPF Urine Bacteria LARGE H /HPF Urine Casts NONE /LPF Urine Mucus NEGATIVE /LPF Urine Culture Indicated YES White Blood Count 9.5 4.3-11.0 10^3/uL Red Blood Count 4.41 4.35-5.85 10^6/uL Hemoglobin 13.5 11.5-16.0 G/DL Hematocrit 40 35-52 % Mean Corpuscular Volume 90 80-99 FL Mean Corpuscular Hemoglobin 31 25-34 PG Mean Corpuscular Hemoglobin Concent 34 32-36 G/DL Red Cell Distribution Width 13.7 10.0-14.5 % Platelet Count 329 130-400 10^3/uL Mean Platelet Volume 10.3 7.4-10.4 FL Neutrophils (%) (Auto) 45 42-75 % Lymphocytes (%) (Auto) 45 H 12-44 % Monocytes (%) (Auto) 7 0-12 % Eosinophils (%) (Auto) 3 0-10 % Basophils (%) (Auto) 0 0-10 % Neutrophils # (Auto) 4.2 1.8-7.8 X 10^3 Lymphocytes # (Auto) 4.3 H 1.0-4.0 X 10^3 Monocytes # (Auto) 0.7 0.0-1.0 X 10^3 Eosinophils # (Auto) 0.3 0.0-0.3 10^3/uL Basophils # (Auto) 0.0 0.0-0.1 10^3/uL Sodium Level 137 135-145 MMOL/L Potassium Level 4.8 3.6-5.0 MMOL/L Chloride Level 104 98-107 MMOL/L Carbon Dioxide Level 19 L 21-32 MMOL/L Anion Gap 14 5-14 MMOL/L Blood Urea Nitrogen 19 H 7-18 MG/DL Creatinine 0.90 0.60-1.30 MG/DL Estimat Glomerular Filtration Rate > 60 BUN/Creatinine Ratio 21 Glucose Level 61 L 70-105 MG/DL Calcium Level 9.0 8.5-10.1 MG/DL Corrected Calcium 8.5-10.1 MG/DL Total Bilirubin 0.2 0.1-1.0 MG/DL Aspartate Amino Transf (AST/SGOT) 38 H 5-34 U/L Alanine Aminotransferase (ALT/SGPT) 22 0-55 U/L Alkaline Phosphatase 85 40-136 U/L Total Protein 8.7 H 6.4-8.2 GM/DL Albumin 4.6 H 3.2-4.5 GM/DL My Orders Orders - SAMIRA CARRANZA DO Urine Bedside (03/08/18 18:40) Ua Culture If Indicated (03/08/18 18:40) Saline Lock/Iv-Start (03/08/18 18:50) Cbc With Automated Diff (03/08/18 18:50) Comprehensive Metabolic Panel (03/08/18 18:50) Lactic Acid Analyzer (03/08/18 18:50) Blood Culture (03/08/18 18:50) Ct Abd/Pelvis Wo(Kidney Stone) (03/08/18 18:50) Abdomen/Kub 1[place] (03/08/18 18:50) Saline Lock/Iv-Start (03/08/18 18:50) Lactated Ringers (Lr 1000 Ml Iv Solution (03/08/18 18:50) Ondansetron Injection (Zofran Injectio (03/08/18 19:00) Ketorolac Injection (Toradol Injection) (03/08/18 18:50) Urine Culture (03/08/18 18:55) Ceftriaxone For Iv Use (Rocephin For I (03/08/18 20:30) Rx-Nitrofurantoin [place] (Rx-Macrobid) (03/08/18 20:36) Rx-Ondansetron Po (Rx-Zofran Po) (03/08/18 20:36) Rx-Naproxen (Rx-Naprosyn) (03/08/18 20:36) Rx-Nitrofurantoin [place] (Rx-Macrobid) (03/08/18 20:50) Rx-Ondansetron Po (Rx-Zofran Po) (03/08/18 20:50) Rx-Naproxen (Rx-Naprosyn) (03/08/18 20:51) Medications Given in ED Current Medications Medications Dose Ordered Sig/Vikki Route Start Time Stop Time Status Last Admin Dose Admin Ceftriaxone Sodium 1000 mg/ Sodium Chloride 60 ml @ 100 mls/hr ONCE ONCE IV 03/08/18 20:30 03/08/18 21:02 DC 03/08/18 20:25 100 MLS/HR Lactated Ringer's 1,000 ml @ 0 mls/hr Q0M ONCE IV 03/08/18 18:50 03/08/18 18:53 DC 03/08/18 19:17 0 MLS/HR Ondansetron HCl 4 mg ONCE ONCE IVP 03/08/18 19:00 03/08/18 19:01 DC 03/08/18 19:16 4 MG Vital Signs/I&O 03/08/18 18:26 Temp 96.6 Pulse 89 Resp 18 B/P (MAP) 149/96 (113) Pulse Ox 98 O2 Delivery Room Air Blood Pressure Mean: 113 Urine -Bedside: Negative Progress Progress Note : Progress Note SYMPTOMS IMPROVED WITH MEDICATIONS PT PLAYING/TEXTING ON PHONE FOR ENTIRE ER STAY Diagnostic Imaging Comments ABDOMEN XRAYS--MODERATE STOOL IN COLON, NO ACUTE PROCESS CT ABDOMEN/PELVIS--NO ACUTE PROCESS, POST OP CHANGES PER RADIOLOGIST REPORTS @ 2029 Reviewed: Reviewed by Me Departure Impression Primary Impression: Urinary tract infectious disease Disposition: HOME, SELF-CARE Condition: Improved Departure-Patient Inst. Referrals: [facility] (PCP/Family) Primary Care Physician Patient Instructions: Urinary Tract Infection, Adult (DC) Add. Discharge Instructions: LOTS OF CLEAR LIQUIDS--WATER, BROTH, JELLO, GATORADE TYLENOL NEEDED FOR PAIN OR FEVER FOLLOW UP WITH YOUR DR IN 2-3 DAYS FOR FURTHER CARE All discharge instructions reviewed with patient and/or family. Voiced understanding. Scripts Phenazopyridine HCl (Pyridium) 200 Mg Tablet 1 TAB PO TID for BLADDER DISCOMFORT, #15 TAB Prov: SAMIRA CARRANZA DO 03/08/18 Ketorolac Tromethamine (Ketorolac Tromethamine) 10 Mg Tablet 10 MG PO Q6H for Pain, #15 TAB Prov: SAMIRA CARRANZA DO 03/08/18 Ondansetron HCl (Zofran) 4 Mg Tab 4 MG PO Q4H for Nausea/Vomiting, #10 TAB Prov: SAMIRA CARRANZA DO 03/08/18 Nitrofurantoin Monohyd/M-Cryst (Macrobid 100 mg Capsule) 100 Mg Capsule 100 MG PO BID, #20 CAP Prov: SAMIRA CARRANZA DO 03/08/18 SAMIRA CARRANZA DO Mar 08, 2018 20:36
[2018-03-08] MEDS ORDERED: RX-ONDANSETRON 4 MG ODT (ZOFRAN) PPK #4 ONE (20:50)
[2018-03-08] MEDS ORDERED: RX-NITROFURANTOIN 100 MG (MACROBID) CAP PPK#2 PO ONE (20:50)
[2018-03-08] MEDS ORDERED: RX-NAPROXEN (NAPROSYN) 250 MG TAB PPK#4 PO ONE (20:51)
[2018-03-08] MEDS: RX-NITROFURANTOIN 100 MG (MACROBID) CAP PPK#2 PO STA (20:59)
[2018-03-08] MEDS: RX-ONDANSETRON 4 MG ODT (ZOFRAN) PPK #4 PO STA (20:59)
[2018-03-08] MEDS: RX-NAPROXEN (NAPROSYN) 250 MG TAB PPK#4 PO STA (20:59)
[2018-03-08 21:00] VITALS: BP 121/78
== END 2018-03-08 21:00 | disposition home or self-care (01) ==
LOC: EDUNIT# 18:03 → ER 18:04
DX: N39.0 Urinary tract infection, site not specified (principal); G43.909 Migraine, unspecified, not intractable, without status migrainosus; K21.9 Gastro-esophageal reflux disease without esophagitis; F41.0 Panic disorder [episodic paroxysmal anxiety]; F43.10 Post-traumatic stress disorder, unspecified; F17.210 Nicotine dependence, cigarettes, uncomplicated; Z87.440 Personal history of urinary (tract) infections; Z88.1 Allergy status to other antibiotic agents; Z90.49 Acquired absence of other specified parts of digestive tract; Z90.710 Acquired absence of both cervix and uterus
CPT/HCPCS: 36415; 74018; 74176; 80053; 81000; 84703; 85025; 87040; 87077; 87088; 87186; 96361; 96365; 96375

== ENCOUNTER 2018-04-20 11:19 | Emergency (ER) | payer MEDICAID ==
[~2018-04-20] VITALS: Ht 160 cm; Wt 74.4 kg
[~2018-04-20 11:19] MED LIST changes: +KETO10TA PO
[2018-04-20] MEDS ORDERED: PROCHLORPERAZINE 10 MG/2ML INJ (COMPAZINE) IM ONE (12:15)
[2018-04-20] MEDS ORDERED: KETOROLAC 60 MG/2 ML VIAL IM ONE (12:15)
[2018-04-20] MEDS ORDERED: diphenhydrAMINE 50 MG/ML INJ (BENADRYL) IM ONE (12:15)
--- NOTE | 2018-04-20 12:33 | ED Headache ---
General Chief Complaint: Head/Cervical Problems Stated Complaint: MIGRAINE Nursing Triage Note: C/O MIGRAINE FOR LAST 3 WEEKS. TAKING FIORICET FOR LAST 2 WEEKS, DOES NOT HELP. DID SEE AN OPTOMITRIST FOR EYE ISSUES. WAS GIVEN EYE PATCH TO WEAR. C/O NAUSEA AND VOMITTING WITH MIGRAINE. Nursing Sepsis Screen: No Definite Risk Source: patient Exam Limitations: no limitations History of Present Illness Date Seen by Provider: Apr 20, 2018 Time Seen by Provider: 12:27 Initial Comments 28-year-old female who presents to the emergency room for complaints of intermittent migraine and nausea for the past 3 weeks. 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 She was also prescribed Fioricet by her primary care provider and has had minimal relief of symptoms. She also has numerous dental caries and is scheduled to have her teeth pulled and has a dental abscess to her right lower jaw. Timing/Duration: other (3 weeks) Associated Symptoms: nausea/vomiting, other (3 weeks) Allergies and Home Medications Allergies Coded Allergies: azithromycin (Unverified Allergy, Mild, 07/24/08) Home Medications Amoxicillin 500 Mg Capsule, 500 MG PO BID Prescribed by: LILLIE CEDILLO on 04/20/18 1335 Dicyclomine HCl 10 Mg Capsule, 10-20 MG PO Q6H Prescribed by: SAMIRA CARRANZA on 10/21/17 234 Hydrocodone Bit/Acetaminophen 1 Tab Tab, 1 TAB PO Q6H PRN Prescribed by: IGNACIO ALEJANDRE on 11/23/17 1155 Ketorolac Tromethamine 10 Mg Tablet, 10 MG PO Q6H Prescribed by: SAMIRA CARRANZA on 03/08/182034 Nitrofurantoin Monohyd/M-Cryst 100 Mg Capsule, 100 MG PO BID Prescribed by: SAMIRA CARRANZA on 03/08/182034 Ondansetron HCl 4 Mg Tab, 4 MG PO Q4H Prescribed by: SAMIRA CARRANZA on 03/08/182034 Pantoprazole Sodium 40 Mg Tablet.dr, 40 MG PO DAILY Prescribed by: SAMIRA CARRANZA on 10/21/172344 Phenazopyridine HCl 200 Mg Tablet, 1 TAB PO TID Prescribed by: SAMIRA CARRANZA on 03/08/182034 Patient Home Medication List Home Medication List Reviewed: Yes Review of Systems Review of Systems Constitutional: no symptoms reported, see HPI Gastrointestinal: see HPI, nausea, vomiting Psychiatric/Neurological: See HPI, Headache All Other Systems Reviewed Negative Unless Noted: Yes Past Uebeltx-Fvlmgh-Sloqdy Hx Past Med/Social Hx: Reviewed Nursing Past Med/Soc Hx Patient Social History Type Used: Cigarettes 2nd Hand Smoke Exposure: Yes Recent Foreign Travel: No Contact w/Someone Who Travel: No Recent Infectious Disease Expo: No Recent Hopitalizations: No Immunizations Up To Date Tetanus Booster (TDap): Less than 5yrs PED Vaccines UTD: Yes Date of Pneumonia Vaccine: May 18, 2017 Date of Influenza Vaccine: May 26, 2015 Seasonal Allergies Seasonal Allergies: Yes Past Medical History Surgeries: Yes ( X 2; HYST/RSO/APPY) Appendectomy, Section, Gallbladder, Hysterectomy, Oophorectomy Respiratory: No Currently Using CPAP: No Cardiac: Yes Palpitations Neurological: Yes Headaches /Migraines 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 Disorders: No Female 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 Disorders: 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, 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 Disease: No HIV/AIDS: No Genitourinary: Yes Kidney Infection, UTI-Chronic Gastrointestinal: Yes (S/P SRINIVASA) Gastroesophageal Reflux, Gall Bladder Disease Musculoskeletal: Yes Scoliosis Endocrine: No (gestational diabetes) HEENT: No Loss of Vision: Bilateral Hearing Impairment: Denies Cancer: No Psychosocial: Yes (PANIC ATTACKS) Anxiety, PTSD Integumentary: Yes (IN WINTER) Eczema Blood Disorders: Yes (ANEMIA) Adverse Reaction/Blood Tranf: No Family Medical History Reviewed Nursing Family Hx Cardiovascular disease 19 FATHER Coronary thrombosis 19 FATHER 19 MOTHER Headache disorder 19 MOTHER Hypercholesterolemia 19 FATHER 19 MOTHER Hypertension 19 FATHER Myocardial infarction 19 FATHER 19 MOTHER Psychosocial problem 19 MOTHER (bipolar) No Family History of: AIDS Abdominal aortic aneurysm [place]'s disease Alcoholism Alzheimer's disease Aphasia Arthritis Asthma Cancer of mouth Cataracts Colon cancer Completed stroke Congenital disease Congenital heart disease Cystic fibrosis Deafness or hearing loss Dementia Diabetes mellitus Drug abuse Dysphasia Fibrocystic disease of breast Gastroenteritis Glaucoma Infertility Kidney disease Neoplasm Not obtainable due to adoption Osteoporosis Parkinson's disease Prostate cancer Respiratory disorder Seizure disorder Severe allergy Thyroid disease Tuberculosis Visual disorder Physical Exam Vital Signs Vital Signs - First Documented 04/20/18 11:38 Temp 98.1 Pulse 83 Resp 18 B/P (MAP) 146/74 (98) Pulse Ox 99 O2 Delivery Room Air Capillary Refill : Less Than 3 Seconds Height, Weight, BMI Height: 5'3.00" Weight: 164lbs. 0.0oz. 74.305927yd; 27.1 BMI Method:Stated General Appearance: WD/WN, no apparent distress HEENT: PERRL/EOMI, TMs normal, pharynx normal, other (abscessed tooth to her right lower jaw. The images for location.) Neck: non-tender, full range of motion, supple, normal inspection Cardiovascular: normal peripheral pulses, regular rate, rhythm, no edema, no gallop, no JVD, no murmur Respiratory: chest non-tender, lungs clear, normal breath sounds, no respiratory distress, no accessory muscle use Gastrointestinal: normal bowel sounds, non tender, soft, no organomegaly, no pulsatile mass Extremities: normal range of motion, non-tender, normal inspection, no pedal edema, no calf tenderness, normal capillary refill Psychiatric: alert Crainal Nerves: normal hearing, normal speech, PERRL Coordination/Gait: normal finger to nose, normal gait Motor/Sensory: no motor deficit, no sensory deficit Skin: normal color, warm/dry Progress/Results/Core Measures Results/Orders My Orders Orders - MAMADOULILLIE Ketorolac Injection (Toradol Injection) (04/20/18 12:15) Prochlorperazine Injection (Compazine In (04/20/18 12:15) Diphenhydramine Injection (Benadryl Inje (04/20/18 12:15) Hydrocodone/Apap 5/325 Tablet (Lortab 5 (04/20/18 13:45) Medications Given in ED Vital Signs/I&O 04/20/18 04/20/18 11:38 13:51 Temp 98.1 98.1 Pulse 83 83 Resp 18 18 B/P (MAP) 146/74 (98) 146/74 (98) Pulse Ox 99 99 O2 Delivery Room Air Blood Pressure Mean: 98 Progress Progress Note : Time: 13:35 Progress Note I have seen and evaluated the patient. Her migraine has let up at this time and she is reporting that the majority of her pain is just from her abscessed tooth. She agrees with plan of care, plans for discharge, return precautions were given. Departure Impression Primary Impression: Headache Additional Impressions: Dental caries extending into dentine Dental abscess Disposition: HOME, SELF-CARE Condition: Stable/Unchanged Departure-Patient Inst. Decision time for Depature: 13:21 Referrals: [facility] (PCP/Family) Primary Care Physician Patient Instructions: Migraine Headache (DC), Tooth Abscess (DC) Add. Discharge Instructions: Take medications as directed. You may use ibuprofen and Tylenol as directed by the bottle for pain relief. Follow-up with your dentist and her primary care provider as directed. Return back to the emergency room for worsening symptoms or concerns as needed. All discharge instructions reviewed with patient and/or family. Voiced understanding. Scripts Amoxicillin (Amoxicillin) 500 Mg Capsule 500 MG PO BID for 7 Days, #14 CAP Prov: LILLIE CEDILLO 04/20/18 Images Mouth/Nose 1 - Caries, Fracture Tooth, Swelling, Tenderness LILLIE CEDILLO Apr 20, 2018 12:32
[2018-04-20] MEDS ORDERED: AMOX500C2 PO (13:35)
[2018-04-20] MEDS ORDERED: HYDROcodone/APAP 5 MG/325 MG (LORTAB) TAB PO ONE (13:45)
[2018-04-20 13:51] VITALS: BP 146/74
== END 2018-04-20 13:55 | disposition home or self-care (01) ==
LOC: EDUNIT# 11:19 → ER 11:20
DX: R51 Headache (principal); K02.9 Dental caries, unspecified; K04.7 Periapical abscess without sinus; K21.9 Gastro-esophageal reflux disease without esophagitis; F41.0 Panic disorder [episodic paroxysmal anxiety]; F43.10 Post-traumatic stress disorder, unspecified; D64.9 Anemia, unspecified; Z87.19 Personal history of other diseases of the digestive system; Z87.440 Personal history of urinary (tract) infections; Z82.49 Family history of ischemic heart disease and other diseases of the circulatory system; Z87.448 Personal history of other diseases of urinary system; Z88.1 Allergy status to other antibiotic agents; Z77.22 Contact with and (suspected) exposure to environmental tobacco smoke (acute) (chronic); Z98.890 Other specified postprocedural states; Z90.710 Acquired absence of both cervix and uterus; Z90.49 Acquired absence of other specified parts of digestive tract; Z86.69 Personal history of other diseases of the nervous system and sense organs
CPT/HCPCS: 99284

== ENCOUNTER 2018-06-19 15:59 | Emergency (ER) | payer MEDICAID ==
[~2018-06-19] VITALS: Ht 160 cm; Wt 74.4 kg
--- NOTE | 2018-06-19 16:54 | ED EENT ---
History of Present Illness General Chief Complaint: Oral/Throat Problems Stated Complaint: SORE THROAT Nursing Triage Note: PT PRESENTS TO ED WITH COMPLAINTS OF SORE THROAT AND BLISTERS ON L NARE STARTING YESTERDAY, Source: patient Exam Limitations: no limitations History of Present Illness Date Seen by Provider: Jun 19, 2018 Time Seen by Provider: 16:49 Initial Comments The patient is a 28-year-old white female who presents with complaints about the nose. She reports that over the weekend she noted considerable soreness in her left Nare. She then noted what appeared to be a blister. She then noted an area of swelling on the inside of the nostril at the ala. Yesterday this pointed up turned yellow and drained a yellow material. She also has had a sore throat. Timing/Duration: gradual Location: nose Prearrival Treatment: no prearrival treatment Allergies and Home Medications Allergies Coded Allergies: azithromycin (Unverified Allergy, Mild, 07/24/08) Home Medications Amoxicillin 500 Mg Capsule, 500 MG PO BID Prescribed by: LILLIE CEDILLO on 04/20/18 1335 Dicyclomine HCl 10 Mg Capsule, 10-20 MG PO Q6H Prescribed by: SAMIRA CARRANZA on 10/21/172344 Hydrocodone Bit/Acetaminophen 1 Tab Tab, 1 TAB PO Q6H PRN Prescribed by: IGNACIO ALEJANDRE on 11/23/17 1155 Ketorolac Tromethamine 10 Mg Tablet, 10 MG PO Q6H Prescribed by: SAMIRA CARRANZA on 03/08/182034 Nitrofurantoin Monohyd/M-Cryst 100 Mg Capsule, 100 MG PO BID Prescribed by: SAMIRA CARRANZA on 03/08/182034 Ondansetron HCl 4 Mg Tab, 4 MG PO Q4H Prescribed by: SAMIRA CARRANZA on 03/08/182034 Pantoprazole Sodium 40 Mg Tablet.dr, 40 MG PO DAILY Prescribed by: SAMIRA CARRANZA on 10/21/172344 Phenazopyridine HCl 200 Mg Tablet, 1 TAB PO TID Prescribed by: SAMIRA CARRANZA on 03/08/182034 Patient Home Medication List Home Medication List Reviewed: Yes Review of Systems Review of Systems Constitutional: see HPI Eyes: No Symptoms Reported Ears: No Symptoms Reported Nose: see HPI Mouth: no symptoms reported Throat: other (no pharyngeal erythema) Respiratory: no symptoms reported Cardiovascular: no symptoms reported Gastrointestinal: no symptoms reported Past Pfbzovj-Ulfgga-Dqesen Hx Patient Social History Alcohol Use: Denies Use Recreational Drug Use: No Smoking Status: Current Everyday Smoker Type Used: Cigarettes Former Smoker, Quit: Oct 02, 2014 2nd Hand Smoke Exposure: Yes Recent Foreign Travel: No Contact w/Someone Who Travel: No Recent Infectious Disease Expo: No Recent Hopitalizations: No Physical Abuse: No Sexual Abuse: No Mistreated: No Fear: No Immunizations Up To Date Tetanus Booster (TDap): Less than 5yrs PED Vaccines UTD: Yes Date of Pneumonia Vaccine: May 18, 2017 Date of Influenza Vaccine: May 26, 2015 Seasonal Allergies Seasonal Allergies: Yes Past Medical History Surgeries: Yes ( X 2; HYST/RSO/APPY) Appendectomy, Section, Gallbladder, Hysterectomy, Oophorectomy Respiratory: No Currently Using CPAP: No Cardiac: Yes Palpitations Neurological: Yes Headaches /Migraines : No 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 Disorders: No Female 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 Disorders: 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, 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 Disease: No HIV/AIDS: No Genitourinary: Yes Kidney Infection, UTI-Chronic Gastrointestinal: Yes (S/P SRINIVASA) Gastroesophageal Reflux, Ulcer, Gall Bladder Disease Musculoskeletal: Yes Scoliosis Endocrine: No (gestational diabetes) HEENT: No Loss of Vision: Bilateral Hearing Impairment: Denies Cancer: No Psychosocial: Yes (PANIC ATTACKS) Anxiety, PTSD Integumentary: Yes (IN WINTER) Eczema Blood Disorders: Yes (ANEMIA) Adverse Reaction/Blood Tranf: No Family Medical History Cardiovascular disease 19 FATHER Coronary thrombosis 19 FATHER 19 MOTHER Headache disorder 19 MOTHER Hypercholesterolemia 19 FATHER 19 MOTHER Hypertension 19 FATHER Myocardial infarction 19 FATHER 19 MOTHER Psychosocial problem 19 MOTHER (bipolar) No Family History of: AIDS Abdominal aortic aneurysm [place]'s disease Alcoholism Alzheimer's disease Aphasia Arthritis Asthma Cancer of mouth Cataracts Colon cancer Completed stroke Congenital disease Congenital heart disease Cystic fibrosis Deafness or hearing loss Dementia Diabetes mellitus Drug abuse Dysphasia Fibrocystic disease of breast Gastroenteritis Glaucoma Infertility Kidney disease Neoplasm Not obtainable due to adoption Osteoporosis Parkinson's disease Prostate cancer Respiratory disorder Seizure disorder Severe allergy Thyroid disease Tuberculosis Visual disorder Physical Exam Vital Signs Vital Signs - First Documented 06/19/18 16:16 Temp 97.5 Pulse 84 Resp 16 B/P (MAP) 134/96 (109) Pulse Ox 98 Height, Weight, BMI Height: 5'3.00" Weight: 164lbs. 0.0oz. 74.877406lr; 27.1 BMI Method:Stated General Appearance: WD/WN (the patient was routines, abdomen or see any may last really has and she was in the patient was really is a one of the other than she said something about 1 that), no apparent distress Eyes: bilateral eye normal inspection Nose: normal inspection, other (there is minor erythema at the left ala) Mouth/Throat: normal mouth inspection Neck: full range of motion Cardiovascular: normal peripheral pulses, regular rate, rhythm, no edema, no gallop, no JVD, no murmur Progress/Results/Core Measures Results/Orders Lab Results Laboratory Tests Test 06/19/18 16:49 Range/Units Group A Streptococcus Screen NEGATIVE NEGATIVE My Orders Orders - IOANA WOLF MD Rapid Strep A Screen (06/19/18 16:47) Vital Signs/I&O 06/19/18 16:16 Temp 97.5 Pulse 84 Resp 16 B/P (MAP) 134/96 (109) Pulse Ox 98 Blood Pressure Mean: 109 Departure Impression Primary Impression: pustule left nose Disposition: 01 HOME, SELF-CARE Condition: Stable/Unchanged Departure-Patient Inst. Decision time for Depature: 17:12 Referrals: [facility] (PCP/Family) Primary Care Physician Add. Discharge Instructions: All discharge instructions reviewed with patient and/or family. Voiced understanding. Take a steaming hot washcloth and present over the left side of your nose at least 3 times a day. Take doxycycline twice daily as directed Scripts Doxycycline Hyclate (Doxycycline Hyclate) 100 Mg Capsule 100 MG PO twice a day, #14 CAP Prov: IOANA WOLF MD 06/19/18 IOANA WOLF MD Jun 19, 2018 16:54
[2018-06-19] MEDS ORDERED: DOXY100C2 PO (17:14)
[2018-06-19 17:25] VITALS: BP 123/74
== END 2018-06-19 17:25 | disposition home or self-care (01) ==
LOC: EDUNIT# 15:59 → ER 16:00
DX: L08.9 Local infection of the skin and subcutaneous tissue, unspecified (principal); G43.909 Migraine, unspecified, not intractable, without status migrainosus; K21.9 Gastro-esophageal reflux disease without esophagitis; F41.0 Panic disorder [episodic paroxysmal anxiety]; M41.9 Scoliosis, unspecified; D64.9 Anemia, unspecified; F43.10 Post-traumatic stress disorder, unspecified; Z87.448 Personal history of other diseases of urinary system; Z87.440 Personal history of urinary (tract) infections; Z82.49 Family history of ischemic heart disease and other diseases of the circulatory system; Z87.19 Personal history of other diseases of the digestive system; Z88.1 Allergy status to other antibiotic agents; Z87.891 Personal history of nicotine dependence; Z98.890 Other specified postprocedural states; Z90.49 Acquired absence of other specified parts of digestive tract; Z90.710 Acquired absence of both cervix and uterus
CPT/HCPCS: 87430; 99284

== ENCOUNTER 2018-09-18 20:57 | Emergency (ER) | payer MEDICAID ==
[~2018-09-18] VITALS: Ht 160 cm; Wt 74.4 kg
[~2018-09-18 20:57] MED LIST changes: +DOXY100C2 PO
[2018-09-18 21:43] VITALS: BP 146/83
== END 2018-09-18 21:45 | disposition left against medical advice (07) ==
LOC: EDUNIT# 20:57 → ER 20:58
DX: M25.561 Pain in right knee (principal); R20.0 Anesthesia of skin; W23.0XXA Caught, crushed, jammed, or pinched between moving objects, initial encounter
CPT/HCPCS: 99283

== ENCOUNTER 2018-10-08 18:53 | Emergency (ER) | payer MEDICAID ==
[~2018-10-08] VITALS: Ht 160 cm; Wt 74.4 kg
[2018-10-08] MEDS ORDERED: SULF1TAB35 PO (19:41)
[2018-10-08] MEDS ORDERED: MUPI22OI2 TP (19:41)
--- NOTE | 2018-10-08 19:42 | ED Integumentary General ---
General Chief Complaint: Skin/Wound Problems Stated Complaint: L EYE SWELLING Nursing Triage Note: PT STATES NOTICING A WOUND ABOVE LEFT EYE 3 WEEKS AGO. PT STATES SHE HAD SCRAPPED THE WOUND 3 DAYS AGO AND HAS HAD INCREASED PAIN AND HEADACHE. PT STATES HISTORY OF MRSA. PT DENIES FEVER. WOUND DOES NOT HAVE ANY OBVIOUS SIGNS OF INFECITON. Source: patient Exam Limitations: no limitations History of Present Illness Date Seen by Provider: Oct 08, 2018 Time Seen by Provider: 19:39 Initial Comments To ER with a sort of the medial aspect left eyebrow for about 3 weeks. Then a bit tender, 3 days ago she scraped off the scab and has had some drainage. Has a history of MRSA. Timing/Duration: getting worse Severity: mild Location: face Associated Symptoms: denies symptoms Allergies and Home Medications Allergies Coded Allergies: azithromycin (Unverified Allergy, Mild, 07/24/08) Home Medications Amoxicillin 500 Mg Capsule, 500 MG PO BID Prescribed by: LILLIE CEDILLO on 04/20/18 1335 Dicyclomine HCl 10 Mg Capsule, 10-20 MG PO Q6H Prescribed by: SAMIRA CARRANZA on 10/21/172344 Doxycycline Hyclate 100 Mg Capsule, 100 MG PO twice a day Prescribed by: IOANA WOLF on 06/19/18 1714 Hydrocodone Bit/Acetaminophen 1 Tab Tab, 1 TAB PO Q6H PRN Prescribed by: IGNACIO ALEJANDRE on 11/23/17 1155 Ketorolac Tromethamine 10 Mg Tablet, 10 MG PO Q6H Prescribed by: SAMIRA CARRANZA on 03/08/182034 Nitrofurantoin Monohyd/M-Cryst 100 Mg Capsule, 100 MG PO BID Prescribed by: SAMIRA CARRANZA on 03/08/182034 Ondansetron HCl 4 Mg Tab, 4 MG PO Q4H Prescribed by: SAMIRA CARRANZA on 03/08/182034 Pantoprazole Sodium 40 Mg Tablet.dr, 40 MG PO DAILY Prescribed by: SAMIRA CARRANZA on 10/21/172344 Phenazopyridine HCl 200 Mg Tablet, 1 TAB PO TID Prescribed by: SAMIRA CARRANZA on 03/08/182034 Patient Home Medication List Home Medication List Reviewed: Yes Review of Systems Review of Systems Constitutional: see HPI EENTM: see HPI Respiratory: no symptoms reported Cardiovascular: no symptoms reported Genitourinary: no symptoms reported Musculoskeletal: no symptoms reported Skin: no symptoms reported Psychiatric/Neurological: No Symptoms Reported Past Vnbqpbh-Jutmkm-Sbcdxy Hx Patient Social History Alcohol Use: Denies Use Recreational Drug Use: No Type Used: Cigarettes Former Smoker, Quit: Oct 02, 2014 2nd Hand Smoke Exposure: Yes Recent Foreign Travel: No Contact w/Someone Who Travel: No Recent Infectious Disease Expo: No Recent Hopitalizations: No Physical Abuse: No Sexual Abuse: No Mistreated: No Fear: No Immunizations Up To Date Tetanus Booster (TDap): Less than 5yrs PED Vaccines UTD: Yes Date of Pneumonia Vaccine: May 18, 2017 Date of Influenza Vaccine: May 26, 2015 Seasonal Allergies Seasonal Allergies: Yes Past Medical History Surgeries: Yes ( X 2; HYST/RSO/APPY) Appendectomy, Section, Gallbladder, Hysterectomy, Oophorectomy Respiratory: No Currently Using CPAP: No Cardiac: Yes Palpitations Neurological: Yes Headaches /Migraines 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 Disorders: No Female 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 Disorders: 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, 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 Disease: No HIV/AIDS: No Genitourinary: Yes Kidney Infection, UTI-Chronic Gastrointestinal: Yes (S/P SRINIVASA) Gastroesophageal Reflux, Ulcer, Gall Bladder Disease Musculoskeletal: Yes Scoliosis Endocrine: No (gestational diabetes) HEENT: No Loss of Vision: Bilateral Hearing Impairment: Denies Cancer: No Psychosocial: Yes (PANIC ATTACKS) Anxiety, PTSD Integumentary: Yes (IN WINTER) Eczema Blood Disorders: Yes (ANEMIA) Adverse Reaction/Blood Tranf: No Family Medical History Cardiovascular disease 19 FATHER Coronary thrombosis 19 FATHER 19 MOTHER Headache disorder 19 MOTHER Hypercholesterolemia 19 FATHER 19 MOTHER Hypertension 19 FATHER Myocardial infarction 19 FATHER 19 MOTHER Psychosocial problem 19 MOTHER (bipolar) No Family History of: AIDS Abdominal aortic aneurysm [place]'s disease Alcoholism Alzheimer's disease Aphasia Arthritis Asthma Cancer of mouth Cataracts Colon cancer Completed stroke Congenital disease Congenital heart disease Cystic fibrosis Deafness or hearing loss Dementia Diabetes mellitus Drug abuse Dysphasia Fibrocystic disease of breast Gastroenteritis Glaucoma Infertility Kidney disease Neoplasm Not obtainable due to adoption Osteoporosis Parkinson's disease Prostate cancer Respiratory disorder Seizure disorder Severe allergy Thyroid disease Tuberculosis Visual disorder Physical Exam Vital Signs Vital Signs - First Documented 10/08/18 19:02 Temp 98.4 Pulse 85 Resp 18 B/P (MAP) 104/58 (73) O2 Delivery Room Air Capillary Refill : Less Than 3 Seconds General Appearance: WD/WN, no apparent distress HEENT: PERRL/EOMI, normal ENT inspection, TMs normal, other (to the medial aspect of left eyebrow is a 3 mm open wound with minimal drainage. The drainage is purulent. There is no surrounding edema or erythema) Neck: non-tender, full range of motion Respiratory: no respiratory distress, no accessory muscle use Neurologic/Psychiatric: alert, normal mood/affect, oriented x 3 Skin: normal color, warm/dry Progress/Results/Core Measures Results/Orders My Orders Orders - LONG SANCHEZ APRN Wound Culture (10/08/18 19:38) Vital Signs/I&O 10/08/18 19:02 Temp 98.4 Pulse 85 Resp 18 B/P (MAP) 104/58 (73) O2 Delivery Room Air Blood Pressure Mean: 73 Departure Impression Primary Impression: Open facial wound Qualified Codes: S01.80XA - Unspecified open wound of other part of head, initial encounter Disposition: HOME, SELF-CARE Condition: Stable Departure-Patient Inst. Decision time for Depature: 19:40 Referrals: EVI SMALLS MD (PCP) Primary Care Physician RAKESH LAINEZ APRN (Family) Primary Care Physician Patient Instructions: Wound Infection Add. Discharge Instructions: 1. Warm compresses to the area. Wash gently with soap and water twice daily. Apply topical antibiotic ointment twice daily. Take the oral antibiotics twice daily. Follow-up with your doctor next week for recheck. All discharge instructions reviewed with patient and/or family. Voiced understanding. Scripts Sulfamethoxazole/Trimethoprim (Bactrim Ds Tablet) 1 Each Tablet 1 EACH PO BID, #14 TAB Prov: LONG SANCHEZ APRN 10/08/18 Mupirocin (Mupirocin) 22 Gm Oint...g. 1 GM TP BID for 7 Days, #1 TUBE Prov: LONG SANCHEZ APRN 10/08/18 LONG SANCHEZ APRN Oct 08, 2018 19:41
[2018-10-08] MEDS ORDERED: TRIM/SULFAMETH 160/800 (SEPTRA DS) TAB PO ONE (19:45)
[2018-10-08] MEDS ORDERED: RX-ONDANSETRON 4 MG ODT (ZOFRAN) PPK #4 PO STA (19:51)
[2018-10-08 19:55] VITALS: BP 104/58
== END 2018-10-08 19:55 | disposition home or self-care (01) ==
LOC: EDUNIT# 18:53 → ER 18:54
DX: S01.102A Unspecified open wound of left eyelid and periocular area, initial encounter (principal); G43.909 Migraine, unspecified, not intractable, without status migrainosus; K21.9 Gastro-esophageal reflux disease without esophagitis; F41.0 Panic disorder [episodic paroxysmal anxiety]; F43.10 Post-traumatic stress disorder, unspecified; Z87.440 Personal history of urinary (tract) infections; Z88.1 Allergy status to other antibiotic agents; Z77.22 Contact with and (suspected) exposure to environmental tobacco smoke (acute) (chronic); Z90.49 Acquired absence of other specified parts of digestive tract; Z90.710 Acquired absence of both cervix and uterus; Z82.49 Family history of ischemic heart disease and other diseases of the circulatory system; W26.8XXA Contact with other sharp object(s), not elsewhere classified, initial encounter
CPT/HCPCS: 87070; 87077; 87186; 87205; 99283

== ENCOUNTER → 2019-07-10 | Outpatient (CLI) | payer MEDICAID ==
[~2019-07-10] MED LIST changes: -LIDO15SO2 MM; +LIDO20SO23 MM; +MUPI22OI2 TP; +ONDA-105; -ONDA4TAB10; +TRM50T PO
--- NOTE | 2019-07-10 15:56 | Diagnostic Imaging Report ---
INDICATION: Palpable lumps in the right breast. EXAMINATION: Sonographic interrogation of the areas of palpable lump in the right breast was performed. This correlates to the 6:00 and 10:00 locations. No sonographic abnormality is seen. No solid or cystic mass is detected. IMPRESSION: No sonographic abnormality is detected. Continued close clinical and self breast exam is recommended to confirm stability of the palpable abnormalities. ACR BI-RADS Category 1: Negative. Result letter will be mailed to the patient. Note: At least 10% of breast cancer is not imaged by mammography. Dictated by: Dictated on workstation # [id number]
== END ==
LOC: RAD 14:30
PROVIDERS: ATTEND Nurse Practitioner Community Health
DX: N63.15 Unspecified lump in the right breast, overlapping quadrants (principal); N63.11 Unspecified lump in the right breast, upper outer quadrant

== ENCOUNTER 2020-04-18 08:41 | Emergency (ER) | payer MEDICAID ==
[~2020-04-18] VITALS: Ht 160 cm; Wt 88.0 kg
[~2020-04-18 08:41] MED LIST changes: -OXYC-465 PO; +OXYC-556 PO
[2020-04-18 08:45] VITALS: BP 141/78
--- NOTE | 2020-04-18 09:14 | ED EENT ---
History of Present Illness General Chief Complaint: Dental Problems/Pain Stated Complaint: ORAL SURGERY, PAIN, POSS INFECTION Nursing Triage Note: AMB TO ED REPORTS HAD DENTAL FABIAN ON APR 08 HAD TEETH PULLED WAS PUT ON ANTIBIOTIC BEFORE SURG. AND AFTER. FIISHED AMOXIL 2 DAYS AGO. TODAY CONCER BECAUSE AREA IN MOUTH RED AND PAINFUL. Source: patient Exam Limitations: no limitations History of Present Illness Date Seen by Provider: Apr 18, 2020 Time Seen by Provider: 09:00 Initial Comments Patient is a 30-year-old female who presents to the emergency department today with a chief complaint of left lower posterior jaw pain. Patient had dental extractions approximately a week and a half ago, she states she was doing well until the last 2 days. Patient started having pain in this area that is not responsive to Tylenol and ibuprofen. Patient states that she has been rinsing with warm salt water gargles. She has been alternating heat and ice to her jawline. She denies fevers chills. No URI symptoms. No nausea vomiting diarrhea. No symptoms. Patient states that she took antibiotics before the dental extraction and finished her antibiotics approximately 2 days ago. Patient states that she was concerned she might have an infection. All other review of systems reviewed and negative except as stated. Timing/Duration: abrupt Location: mouth, dental Prearrival Treatment: over the counter meds Associated Symptoms: denies symptoms Allergies and Home Medications Allergies Coded Allergies: azithromycin (Unverified Allergy, Mild, 07/24/08) Home Medications Amoxicillin 500 Mg Capsule, 500 MG PO BID Prescribed by: LILLIE CEDILLO on 04/20/18 1335 Dicyclomine HCl 10 Mg Capsule, 10-20 MG PO Q6H Prescribed by: SAMIRA CARRANZA on 10/21/17 2345 Doxycycline Hyclate 100 Mg Capsule, 100 MG PO twice a day Prescribed by: IOANA WOLF on 06/19/18 1714 Hydrocodone Bit/Acetaminophen 1 Tab Tab, 1 TAB PO Q6H PRN Prescribed by: IGNACIO ALEJANDRE on 11/23/17 1155 Hydrocodone/Acetaminophen 1 Each Tablet, 1 TAB PO Q6H PRN for PAIN-MODERATE (5- 7) Prescribed by: LEXX MURPHY on 04/18/20 0918 Ketorolac Tromethamine 10 Mg Tablet, 10 MG PO Q6H Prescribed by: SAMIRA CARRANZA on 122034 Mupirocin 22 Gm Oint...g., 1 GM TP BID Prescribed by: LONG SANCHEZ on 10/08/181940 Nitrofurantoin Monohyd/M-Cryst 100 Mg Capsule, 100 MG PO BID Prescribed by: SAMIRA CARRANZA on 03/08/182034 Ondansetron HCl 4 Mg Tab, 4 MG PO Q4H Prescribed by: SAMIRA CARRANZA on 03/08/182034 Pantoprazole Sodium 40 Mg Tablet.dr, 40 MG PO DAILY Prescribed by: SAMIRA CARRANZA on 10/21/172344 Penicillin V Potassium 500 Mg Tablet, 500 MG PO Q6H Prescribed by: LEXX MURPHY on 04/18/20916 Phenazopyridine HCl 200 Mg Tablet, 1 TAB PO TID Prescribed by: SAMIRA CARRANZA on 03/08/182034 Sulfamethoxazole/Trimethoprim 1 Each Tablet, 1 EACH PO BID Prescribed by: LONG SANCHEZ on 10/08/181940 Patient Home Medication List Home Medication List Reviewed: Yes Review of Systems Review of Systems Constitutional: see HPI Eyes: No Symptoms Reported Ears: No Symptoms Reported Nose: no symptoms reported Mouth: pain (Left lower jawline) Throat: no symptoms reported Respiratory: no symptoms reported Cardiovascular: no symptoms reported Gastrointestinal: no symptoms reported Musculoskeletal: no symptoms reported Skin: no symptoms reported All Other Systems Reviewed Negative Unless Noted: Yes Past Bumvoif-Sctlsz-Xuwyow Hx Patient Social History Alcohol Use: Denies Use Type Used: Cigarettes Former Smoker, Quit: Oct 02, 2014 2nd Hand Smoke Exposure: Yes Recent Infectious Disease Expo: No Recent Hopitalizations: No Immunizations Up To Date Tetanus Booster (TDap): Less than 5yrs PED Vaccines UTD: Yes Date of Pneumonia Vaccine: May 18, 2017 Date of Influenza Vaccine: May 26, 2015 Seasonal Allergies Seasonal Allergies: Yes Past Medical History Surgeries: Yes ( X 2; HYST/RSO/APPY) Appendectomy, Section, Gallbladder, Hysterectomy, Oophorectomy Respiratory: No Currently Using CPAP: No Cardiac: Yes Palpitations Neurological: Yes Headaches /Migraines 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 Disorders: No Female 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 Disorders: 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, 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 Disease: No HIV/AIDS: No Genitourinary: Yes Kidney Infection, UTI-Chronic Gastrointestinal: Yes (S/P SRINIVASA) Gastroesophageal Reflux, Ulcer, Gall Bladder Disease Musculoskeletal: Yes Scoliosis Endocrine: No (gestational diabetes) HEENT: No Loss of Vision: Bilateral Hearing Impairment: Denies Cancer: No Psychosocial: Yes (PANIC ATTACKS) Anxiety, PTSD Integumentary: Yes (IN WINTER) Eczema Blood Disorders: Yes (ANEMIA) Adverse Reaction/Blood Tranf: No Family Medical History Cardiovascular disease 19 FATHER Coronary thrombosis 19 FATHER 19 MOTHER Headache disorder 19 MOTHER Hypercholesterolemia 19 FATHER 19 MOTHER Hypertension 19 FATHER Myocardial infarction 19 FATHER 19 MOTHER Psychosocial problem 19 MOTHER (bipolar) No Family History of: AIDS Abdominal aortic aneurysm [place]'s disease Alcoholism Alzheimer's disease Aphasia Arthritis Asthma Cancer of mouth Cataracts Colon cancer Completed stroke Congenital disease Congenital heart disease Cystic fibrosis Deafness or hearing loss Dementia Diabetes mellitus Drug abuse Dysphasia Fibrocystic disease of breast Gastroenteritis Glaucoma Infertility Kidney disease Neoplasm Not obtainable due to adoption Osteoporosis Parkinson's disease Prostate cancer Respiratory disorder Seizure disorder Severe allergy Thyroid disease Tuberculosis Visual disorder Physical Exam Vital Signs Vital Signs - First Documented 04/18/20 08:45 Temp 36.0 Pulse 93 Resp 18 B/P (MAP) 141/78 (99) Pulse Ox 99 O2 Delivery Room Air Height, Weight, BMI Height: 5'3.00" Weight: 164lbs. 0.0oz. 74.908829ka; 34.00 BMI Method:Stated General Appearance: WD/WN, no apparent distress Eyes: bilateral eye normal inspection, bilateral eye PERRL, bilateral eye EOMI Nose: normal inspection Mouth/Throat: other (Patient has area of cavitation left lower jawline pos terior molar area. Very tender to palpation, no obvious foreign body is seen. Patient declines rinsing of this area.) Neck: non-tender, full range of motion Cardiovascular: regular rate, rhythm, no murmur Respiratory: lungs clear, normal breath sounds, no respiratory distress Neurologic/Psychiatric: alert, normal mood/affect, oriented x 3 Skin: normal color, warm/dry Progress/Results/Core Measures Results/Orders My Orders Orders - LEXX MURPHY MD Hydrocodone/Apap 7.5/325 Tab (Lortab 7. (04/18/20 09:30) Vital Signs/I&O 04/18/20 08:45 Temp 36.0 Pulse 93 Resp 18 B/P (MAP) 141/78 (99) Pulse Ox 99 O2 Delivery Room Air Blood Pressure Mean: 99 Progress Progress Note : Time: 09:12 Progress Note Patient seen and evaluated, has what appears to be a "dry socket". Patient advised on using warm tea bags for local anesthesia as well as clove oil. We will give the patient a prescription for some hydrocodone. Patient is advised to follow-up with her dentist on Monday. She verbalizes understanding and is agreeable with the plan of care. All questions are sought and answered and she is stable for discharge. Departure Impression Primary Impression: Alveolar osteitis Disposition: HOME, SELF-CARE Condition: Stable Departure-Patient Inst. Decision time for Depature: 09:14 Referrals: [facility] [place] Primary Care Physician Patient Instructions: Dry Socket Add. Discharge Instructions: Continue to rinse aggressively with warm salt water to irrigate out the "hole" in your gumline. Heat up a regular teabag, squeeze out the excess water and bite down on this in the area of the most pain. Do this for 15 minutes at a time You can also get some gauze and soak it with clove oil and apply this to the affected area. Do this also for 15 minutes at a time. I have given you a prescription for antibiotics as well as for pain medications. Take the pain medications only as needed and alternate with [id number] ibuprofen. Narcotic pain medications can make you sleepy. Please do not drive while taking this medication. Return to the emergency department for increased pain, fever over 101, swelling or any other emergent concerning symptoms. Scripts Hydrocodone/Acetaminophen (Hydrocodone-Acetamin 5-325 mg) 1 Each Tablet 1 TAB PO Q6H PRN for PAIN-MODERATE (5-7), #15 TAB Prov: LEXX MURPHY MD 04/18/20 Penicillin V Potassium (Penicillin V Potassium) 500 Mg Tablet 500 MG PO Q6H for 7 Days, #28 TAB Prov: LEXX MURPHY MD 04/18/20 LEXX MURPHY MD Apr 18, 2020 09:14
[2020-04-18] MEDS ORDERED: ACHD5005 PO (09:17)
[2020-04-18] MEDS ORDERED: PENI500T PO (09:17)
[2020-04-18] MEDS ORDERED: HYDROcodone/APAP 7.5 MG/325 MG (LORTAB, LORCET PLUS) TABLET PO ONE (09:30)
== END 2020-04-18 09:22 | disposition home or self-care (01) ==
LOC: EDUNIT# 08:41 → ER 08:43
DX: M27.3 Alveolitis of jaws (principal); K21.9 Gastro-esophageal reflux disease without esophagitis; Z82.49 Family history of ischemic heart disease and other diseases of the circulatory system; Z87.891 Personal history of nicotine dependence; Z88.1 Allergy status to other antibiotic agents
CPT/HCPCS: 99283

== ENCOUNTER 2020-09-15 19:42 | Emergency (ER) | payer MEDICAID ==
[~2020-09-15] VITALS: Ht 160 cm; Wt 77.0 kg
[~2020-09-15 19:42] MED LIST changes: -CIPR500T4 PO; +CIPR500T5 PO; -METO10TA3 PO; +MTC10T PO; +PENI500T PO
[2020-09-15 20:32] LABS: BILIRUBIN,URINE NEGATIVE (NEGATIVE); CLARITY,URINE CLEAR; COLOR,URINE YELLOW; GLUCOSE, URINE (UA) NEGATIVE (NEGATIVE); KETONES,URINE NEGATIVE (NEGATIVE); LEUKOCYTE ESTERASE ,URINE NEGATIVE (NEGATIVE); NITRITE,URINE NEGATIVE (NEGATIVE); PROTEIN,URINE 1+ (NEGATIVE)
[2020-09-15 20:43] LABS: BACTERIA,URINE NEGATIVE /HPF
[2020-09-15] MEDS ORDERED: CYCLOBENZAPRINE 10 MG (FLEXERIL) TAB PO STA (20:51)
[2020-09-15 21:01] LABS: AMPHETAMINE SCREEN, URINE NEGATIVE (NEGATIVE); BARBITURATE SCREEN URINE NEGATIVE (NEGATIVE); BENZODIAZEPINES SCREEN URINE NEGATIVE (NEGATIVE); CANNABINOID SCREEN, URINE NEGATIVE (NEGATIVE); COCAINE SCREEN URINE NEGATIVE (NEGATIVE); METHADONE STAT NEGATIVE (NEGATIVE); METHAMPHETAMINE SCREEN URINE S NEGATIVE (NEGATIVE); OPIATE SCREEN URINE POSITIVE (NEGATIVE); OXYCODONE STAT NEGATIVE (NEGATIVE); PROPOXYPHENE STAT NEGATIVE (NEGATIVE); TRICYCLIC ANTIDEPRESSANTS SCRE NEGATIVE (NEGATIVE)
[2020-09-15] MEDS ORDERED: TRM50T PO (21:26)
[2020-09-15] MEDS ORDERED: CYCL10TA9 PO (21:26)
--- NOTE | 2020-09-15 21:28 | ED Back Pain ---
General Chief Complaint: Back Problems Stated Complaint: BACK PAIN History of Present Illness Date Seen by Provider: Sep 15, 2020 Time Seen by Provider: 20:05 Initial Comments 30-year-old female presents for neck and upper thoracic back pain that is been present since yesterday. She reports that she was pulling and lifting a heavy bag out of her van when she began having muscular pain. She rested yesterday but the pain has continued. She has been taking ibuprofen 800 mg every 8 hours. She also took hydrocodone that she has at home at approximately 11:00 this morning. She denies any paresthesias or radicular symptoms in her upper extremities. She has a history of scoliosis. She is also emotionally upset as she just was notified that her grandmother . Location: C-Spine, Other (Trapezius muscles) Timing/Duration: 1-2 Days Severity: Moderate Pain/Injury Location: Neck Method of Injury: Other Associated Symptoms: muscle spasms; No numbness in legs/feet, No tingling in legs/feet, No sensory/motor loss, No lower back pain, No loss of bladder control, No loss of bowel control Allergies and Home Medications Allergies Coded Allergies: azithromycin (Unverified Allergy, Mild, 07/24/08) Home Medications Amoxicillin 500 Mg Capsule, 500 MG PO BID Prescribed by: LILLIE CEDILLO on 04/20/18 1335 Cyclobenzaprine HCl 10 Mg Tablet, 10 MG PO Q8H PRN for SPASMS Prescribed by: JADE PRO on 09/15/20 2126 Dicyclomine HCl 10 Mg Capsule, 10-20 MG PO Q6H Prescribed by: SAMIRA CARRANZA on 10/21/17 2345 Doxycycline Hyclate 100 Mg Capsule, 100 MG PO twice a day Prescribed by: IOANA WOLF on 06/19/18 1714 Hydrocodone Bit/Acetaminophen 1 Tab Tab, 1 TAB PO Q6H PRN Prescribed by: IGNACIO ALEJANDRE on 11/23/17 1155 Hydrocodone/Acetaminophen 1 Each Tablet, 1 TAB PO Q6H PRN for PAIN-MODERATE (5- 7) Prescribed by: LEXX MURPHY on 04/18/20 0918 Ketorolac Tromethamine 10 Mg Tablet, 10 MG PO Q6H Prescribed by: SAMIRA CARRANZA on 03/08/182034 Mupirocin 22 Gm Oint...g., 1 GM TP BID Prescribed by: LONG SANCHEZ on 10/08/181940 Nitrofurantoin Monohyd/M-Cryst 100 Mg Capsule, 100 MG PO BID Prescribed by: SAMIRA CARRANZA on 03/08/182034 Ondansetron HCl 4 Mg Tab, 4 MG PO Q4H Prescribed by: SAMIRA CARRANZA on 03/08/182034 Pantoprazole Sodium 40 Mg Tablet.dr, 40 MG PO DAILY Prescribed by: SAMIRA CARRANZA on 10/21/172344 Penicillin V Potassium 500 Mg Tablet, 500 MG PO Q6H Prescribed by: LEXX MURPHY on 04/18/20916 Phenazopyridine HCl 200 Mg Tablet, 1 TAB PO TID Prescribed by: SAMIRA CARRANZA on 03/08/182034 Sulfamethoxazole/Trimethoprim 1 Each Tablet, 1 EACH PO BID Prescribed by: LONG SANCHEZ on 10/08/181940 Tramadol HCl 50 Mg Tablet, 50 MG PO Q6H PRN for PAIN Prescribed by: JADE PRO on 09/15/202127 Patient Home Medication List Home Medication List Reviewed: Yes Review of Systems Constitutional: no symptoms reported, see HPI Musculoskeletal: muscle pain (Trapezius), neck pain All Other Systems Reviewed Negative Unless Noted: Yes Past Nmffeyd-Lfswol-Vvvtjz Hx Past Med/Social Hx: Reviewed Nursing Past Med/Soc Hx Patient Social History Type Used: Cigarettes Former Smoker, Quit: Oct 02, 2014 2nd Hand Smoke Exposure: Yes Recent Hopitalizations: No Immunizations Up To Date Tetanus Booster (TDap): Less than 5yrs PED Vaccines UTD: Yes Date of Pneumonia Vaccine: May 18, 2017 Date of Influenza Vaccine: May 26, 2015 Seasonal Allergies Seasonal Allergies: Yes Past Medical History Surgeries: Yes ( X 2; HYST/RSO/APPY) Appendectomy, Section, Gallbladder, Hysterectomy, Oophorectomy Respiratory: No Currently Using CPAP: No Cardiac: Yes Palpitations Neurological: Yes Headaches /Migraines 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 Disorders: No Female 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 Disorders: 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, 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 Disease: No HIV/AIDS: No Genitourinary: Yes Kidney Infection, UTI-Chronic Gastrointestinal: Yes (S/P SRINIVASA) Gastroesophageal Reflux, Ulcer, Gall Bladder Disease Musculoskeletal: Yes Scoliosis Endocrine: No (gestational diabetes) HEENT: No Loss of Vision: Bilateral Hearing Impairment: Denies Cancer: No Psychosocial: Yes (PANIC ATTACKS) Anxiety, PTSD Integumentary: Yes (IN WINTER) Eczema Blood Disorders: Yes (ANEMIA) Adverse Reaction/Blood Tranf: No Family Medical History Cardiovascular disease 19 FATHER Coronary thrombosis 19 FATHER 19 MOTHER Headache disorder 19 MOTHER Hypercholesterolemia 19 FATHER 19 MOTHER Hypertension 19 FATHER Myocardial infarction 19 FATHER 19 MOTHER Psychosocial problem 19 MOTHER (bipolar) No Family History of: AIDS Abdominal aortic aneurysm [place]'s disease Alcoholism Alzheimer's disease Aphasia Arthritis Asthma Cancer of mouth Cataracts Colon cancer Completed stroke Congenital disease Congenital heart disease Cystic fibrosis Deafness or hearing loss Dementia Diabetes mellitus Drug abuse Dysphasia Fibrocystic disease of breast Gastroenteritis Glaucoma Infertility Kidney disease Neoplasm Not obtainable due to adoption Osteoporosis Parkinson's disease Prostate cancer Respiratory disorder Seizure disorder Severe allergy Thyroid disease Tuberculosis Visual disorder Physical Exam Vital Signs Capillary Refill : Height, Weight, BMI Height: 5'3.00" Weight: 164lbs. 0.0oz. 74.577552wt; 34.00 BMI Method:Stated General Appearance: No Apparent Distress, WD/WN HEENT: PERRL/EOMI, TMs Normal, Pharynx Normal Neck: Normal Inspection, Limited Range of Motion (Secondary to pain), Tender Midline Cardiovascular: Regular Rate, Rhythm, No Edema, No Gallop, No Murmur, Normal Peripheral Pulses Respiratory: Chest Non Tender, Lungs Clear, Normal Breath Sounds Gastrointestinal: Normal Bowel Sounds, Non Tender, Soft Back: Normal Inspection, No CVA Tenderness, No Vertebral Tenderness Extremity: Normal Capillary Refill, Normal Inspection, Normal Range of Motion Neurologic/Psychiatric: Alert, Oriented x3, No Motor/Sensory Deficits, Normal Mood/Affect, 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 field 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 II-XII Norm as Tested Progress/Results/Core Measures Results/Orders Lab Results Laboratory Tests Test 09/15/20 20:20 Range/Units Urine Color YELLOW Urine Clarity CLEAR Urine pH 7.0 5-9 Urine Specific Gerry 1.015 L 1.016-1.022 Urine Protein 1+ H NEGATIVE Urine Glucose (UA) NEGATIVE NEGATIVE Urine Ketones NEGATIVE NEGATIVE Urine Nitrite NEGATIVE NEGATIVE Urine Bilirubin NEGATIVE NEGATIVE Urine Urobilinogen 0.2 < = 1.0 MG/DL Urine Leukocyte Esterase NEGATIVE NEGATIVE Urine RBC (Auto) NEGATIVE NEGATIVE Urine RBC NONE /HPF Urine WBC NONE /HPF Urine Squamous Epithelial Cells NONE /HPF Urine Renal Epithelial Cells NONE /HPF Urine Crystals NONE /LPF Urine Bacteria NEGATIVE /HPF Urine Casts NONE /LPF Urine Mucus NEGATIVE /LPF Urine Culture Indicated NO Urine Opiates Screen POSITIVE H NEGATIVE Urine Oxycodone Screen NEGATIVE NEGATIVE Urine Methadone Screen NEGATIVE NEGATIVE Urine Propoxyphene Screen NEGATIVE NEGATIVE Urine Barbiturates Screen NEGATIVE NEGATIVE Ur Tricyclic Antidepressants Screen NEGATIVE NEGATIVE Urine Phencyclidine Screen NEGATIVE NEGATIVE Urine Amphetamines Screen NEGATIVE NEGATIVE Urine Methamphetamines Screen NEGATIVE NEGATIVE Urine Benzodiazepines Screen NEGATIVE NEGATIVE Urine Cocaine Screen NEGATIVE NEGATIVE Urine Cannabinoids Screen NEGATIVE NEGATIVE My Orders Orders - JADE PRO Urine Bedside (09/15/20 20:21) Drug Screen Stat (Urine) (09/15/20 20:21) Ua Culture If Indicated (09/15/20 20:21) Tramadol Tablet (Ultram Tablet) (09/15/20 21:00) Cyclobenzaprine Tablet (Flexeril Tablet) (09/15/20 20:51) Medications Given in ED Current Medications Medications Dose Ordered Sig/Vikki Route Start Time Stop Time Status Last Admin Dose Admin Tramadol HCl 50 mg ONCE ONCE PO 09/15/20 21:00 09/15/20 21:01 DC 09/15/20 21:05 50 MG Departure Impression Primary Impression: Sprain of cervical neck Qualified Codes: S13.9XXA - Sprain of joints and ligaments of unspecified parts of neck, initial encounter Disposition: HOME, SELF-CARE Condition: Improved Departure-Patient Inst. Decision time for Depature: 21:20 Referrals: [facility] (PCP/Family) Primary Care Physician Patient Instructions: Neck Sprain (DC), Cervical Muscle Strain (DC) Add. Discharge Instructions: Alternate heat and ice to your neck for pain, 20 minutes at a time. Avoid any activities that precipitate your pain. Continue taking the ibuprofen 800 mg every 8 hours. Continue to use your home hydrocodone as previously prescribed. Take the muscle relaxants as prescribed. You may stop taking the hydrocodone and try the tramadol instead. Follow-up with your primary care provider if your symptoms are not improving or worsen. Return to the emergency department for new, urgent healthcare needs. All discharge instructions reviewed with patient and/or family. Voiced understanding. Scripts Tramadol HCl (Tramadol HCl) 50 Mg Tablet 50 MG PO Q6H PRN for PAIN, #20 TAB 0 Refills Prov: JADE PRO 09/15/20 Cyclobenzaprine HCl (Cyclobenzaprine HCl) 10 Mg Tablet 10 MG PO Q8H PRN for SPASMS, #15 TAB 0 Refills Prov: JADE PRO 09/15/20 JADE PRO Sep 15, 2020 21:28
[2020-09-15 21:30] VITALS: BP 134/107
== END 2020-09-15 21:30 | disposition home or self-care (01) ==
LOC: EDUNIT# 19:42 → ER 19:44
DX: S13.9XXA Sprain of joints and ligaments of unspecified parts of neck, initial encounter (principal); K21.9 Gastro-esophageal reflux disease without esophagitis; Z87.891 Personal history of nicotine dependence; Z77.22 Contact with and (suspected) exposure to environmental tobacco smoke (acute) (chronic); Z79.899 Other long term (current) drug therapy; X50.0XXA Overexertion from strenuous movement or load, initial encounter
CPT/HCPCS: 80306; 81000; 84703

== ENCOUNTER 2021-11-22 14:35 | Emergency (ER) | payer MEDICAID ==
[~2021-11-22] VITALS: Ht 160 cm; Wt 84.3 kg
[~2021-11-22 14:35] MED LIST changes: +CYCL10TA25 PO; -DOXY100C2 PO; +DOXY100C5 PO; -SULF1TAB35 PO; +SULF1TAB38 PO
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
[2021-11-22] MEDS ORDERED: RX-CYCLOBENZAPRINE 10 MG (FLEXERIL) TAB PPK#3 PO STA (16:30)
[2021-11-22 16:43] VITALS: BP 142/87
== END 2021-11-22 16:43 | disposition home or self-care (01) ==
LOC: EDUNIT# 14:35 → ER 14:37
DX: S50.11XA Contusion of right forearm, initial encounter (principal); F17.290 Nicotine dependence, other tobacco product, uncomplicated; V28.4XXA Motorcycle driver injured in noncollision transport accident in traffic accident, initial encounter
CPT/HCPCS: 73010; 73030; 73080; 99283; A4565